=== PATIENT | female | born 1950 | race Caucasian/White ===

== ENCOUNTER 2019-12-17 16:12 | Outpatient (REF) | payer OTHER, SELFPAY | END 2019-12-17 16:13 | disposition home or self-care (01) | LOC: HO.LAB 16:12 | PROVIDERS: Visit Provider Internal Medicine | DX: Z20.828 Contact with and (suspected) exposure to other viral communicable diseases (principal) | CPT/HCPCS: C9803; U0003 ==

== ENCOUNTER 2020-07-17 11:00 | Outpatient (REF) | payer OTHER, SELFPAY ==
[2020-07-17 11:45] LABS: MANUAL DIFF FLAG NO
[2020-07-17 11:50] LABS: Basophils Percent Auto 0.3 % (0-2); Eosinophils Absolute Auto 0.3 X10*3/uL (0.0-0.4); Eosinophils Percent Auto 4.3 % (0-4); Hemoglobin 9.6 g/dl (12.0-16.0); Imm Gran Abs Auto 0.03 X10*3/uL (0.00-0.03); Imm Gran Pct Auto 0.4 % (0.0-0.4); Immature Retic Fraction 12.1 % (3.0-15.9); Lymphocytes Absolute Auto 1.3 X10*3/uL (1.2-4.9); Lymphocytes Percent Auto 18.6 % (20-40); Mean Corpuscular Hemoglobin 28.8 pg (27.0-33.0); Mean Corpuscular Volume 93.1 fL (80-98); Mean Platelet Volume 11.4 fL (9.4-12.3); Monocytes Absolute Auto 0.4 X10*3/uL (0.1-1.2); Monocytes Percent Auto 5.2 % (2-11); Neutrophils Absolute Auto 4.8 X10*3/uL (2.0-8.3); Neutrophils Percent Auto 71.2 % (45-73); Platelet Count 289 X10*3/uL (160-400); Red Blood Count 3.33 X10*6/uL (4.20-5.50); Red Cell Distribution Width 18.1 % (11.0-16.0); Retic HGB Equivalent 32.1 pg (30.0-35.0); Reticulocyte Percent 1.4 % (0.5-1.8); Reticulocytes Absolute 0.046 X10*6/uL (0.026-0.095); White Blood Count 6.7 X10*3/uL (4.8-10.8)
[2020-07-17 12:34] LABS: Ferritin 438 ng/mL (10-250); Free T4 (Free Thyroxine) 1.02 ng/dL (0.71-1.85); Thyroid Stimulating Hormone 2.24 uIU/mL (0.32-4.0); Vitamin D 25-OH Total 9.4 ng/mL (>30)
[2020-07-17 13:03] LABS: Folate > 20.0 ng/mL (> or = 4.0); Vitamin B12 598 pg/mL (200-900)
[2020-07-17 14:00] LABS: Alanine Aminotransferase 34 U/L (0-31); Albumin Level 3.5 g/dL (3.5-5.0); Alkaline Phosphatase 85 U/L (39-117); Anion Gap 13 (12-20); Aspartate Amino Transferase 63 U/L (5-31); Bilirubin Total 0.4 mg/dL (0.0-1.0); Blood Urea Nitrogen 24 mg/dL (9-16); Calcium 6.7 mg/dL (8.4-10.2); Carbon Dioxide 21 mmol/L (22-29); Chloride 115 mmol/L (96-108); Cholesterol 169 mg/dL; Estimated Glomerular Filt Rate 22; Glucose Random 91 mg/dL (60-115); HDL Cholesterol 41 mg/dL; Iron 95 mcg/dL (30-160); LDL Cholesterol Calculated 90 mg/dl; Magnesium < 0.6 mg/dL (1.6-2.6); Percent Iron Saturation 29 % (15-50); Potassium 5.1 mmol/L (3.3-5.1); Sodium 144 mmol/L (135-145); Total Iron Binding Capacity 327 mcg/dL (228-428); Total Protein 6.4 g/dL (6.5-8.0); Triglycerides 191 mg/dL; Unsaturated Iron Binding 232 ug/dL
== END 2020-07-17 11:01 | disposition home or self-care (01) ==
LOC: HO.LAB 11:00
PROVIDERS: PCP Internal Medicine; Visit Provider Internal Medicine
DX: I10 Essential (primary) hypertension (principal); E78.00 Pure hypercholesterolemia, unspecified; E03.9 Hypothyroidism, unspecified
CPT/HCPCS: 36415; 80053; 80061; 82306; 82607; 82728; 82746; 83540; 83735; 84439; 84443; 85025; 85045

== ENCOUNTER 2020-11-27 08:18 | Outpatient (REF) | payer OTHER, SELFPAY ==
--- NOTE | ~2020-11-27 | MM_ITS ---
EXAMINATION: MM SCREENING DIGITAL BREAST TOMOSYNTHESIS, BILATERAL CLINICAL INFORMATION: Screening. Asymptomatic. The lifetime risk of breast cancer based on the Tyrer-Cuzick Model is 7%. COMPARISON: Mammography: 08/08/2019, 06/15/2018, 06/09/2017 TECHNIQUE: Digital breast tomosynthesis is performed in both the craniocaudal and mediolateral oblique views along with computer-aided detection (CAD). Synthesized 2D images are generated from the tomosynthesis. Additional left CC view is provided. FINDINGS: There are scattered areas of fibroglandular density (ACR BI-RADS breast composition Category b). The right breast is unremarkable. There is no interval mass or architectural abnormality. No developing density. Neither breast shows abnormal calcifications. The bilateral axilla and skin contours are unremarkable. The left breast has small oval focal asymmetric density posterior 10:30 o'clock position. Margins are indistinct. The finding resides in area of prior benign oil cyst which is no longer appreciated. Finding may represent fat necrosis, sequela from prior injury. MM/MM tomosynthesis screening BI IMPRESSION: 1. Left: Focal asymmetric density posterior 10:30 o'clock position in area of prior benign oil cyst. 2. Right: No mammographic evidence of malignancy. ASSESSMENT: BI-RADS 0: Incomplete - Need Additional Imaging Evaluation RECOMMENDATION: 1. Additional views of the left breast (spot CC, spot MLO). 2. Targeted ultrasound if warranted after review of the additional views. 3. Radiology department staff will contact the patient for additional imaging. This patient's information was entered into a reminder system with a target due date for their next mammogram.
== END 2020-11-27 08:19 | disposition home or self-care (01) ==
LOC: HO.MAMMO 08:18
PROVIDERS: PCP Internal Medicine; Visit Provider Internal Medicine
DX: Z12.31 Encounter for screening mammogram for malignant neoplasm of breast (principal)
CPT/HCPCS: 77063; 77067

== ENCOUNTER 2020-12-03 08:03 | Outpatient (REF) | payer OTHER, SELFPAY ==
--- NOTE | ~2020-12-03 | MM_ITS ---
EXAMINATION: MM DIAGNOSTIC DIGITAL BREAST TOMOSYNTHESIS, LEFT US DIAGNOSTIC ULTRASOUND BREAST, LEFT CLINICAL INFORMATION: Recall from screening for focal asymmetric density posterior 10:30 o'clock position in area of prior benign oil cyst. Age 70. Family history breast cancer, sister. TC score 7%. COMPARISON: Mammography: 11/27/2020, 08/08/2019, 06/15/2018, 06/09/2017 TECHNIQUE: Digital breast tomosynthesis is performed. 2D images are generated from the tomosynthesis. The following views are obtained: Spot CC, spot MLO. Images also reviewed intradepartmentaly. Ultrasound left breast is targeted to the upper inner quadrant. Grayscale imaging and color Doppler are performed without and with harmonics. FINDINGS: There are scattered areas of fibroglandular density (ACR BI-RADS breast composition Category b). The additional views show a small focal asymmetric density in area of prior incidental benign oil cyst. The oil cyst is no longer demonstrated. The current finding is of similar size. Ultrasound demonstrates subtle smooth benign-appearing hypoechoic nodule just beneath the skin 10:00 position 10 cm from nipple measuring 5 x 6 mm. No increased or decreased through transmission of sound. Results are discussed with the patient at time of visit. The finding is most likely related to fat necrosis. Patient does not recall specific significant trauma to this area in the past. Management options discussed with patient. Short interval follow-up left mammography will be requested, ultrasound if warranted. MM/MM tomosynthesis added views L IMPRESSION: New asymmetric density placing small oil cyst at same site. Small ultrasound correlate with smooth margins. Findings likely related to fat necrosis. ASSESSMENT: BI-RADS 3: Probably Benign RECOMMENDATION: Diagnostic left mammography in 6 months. This patient's information was entered into a reminder system with a target due date for their next mammogram.
== END 2020-12-03 08:04 | disposition home or self-care (01) ==
LOC: HO.MAMMO 08:03
PROVIDERS: PCP Internal Medicine; Visit Provider Internal Medicine
DX: R92.2 Inconclusive mammogram (principal)
CPT/HCPCS: 76642; 77061; 77065

== ENCOUNTER 2021-06-03 13:49 | Outpatient (REF) | payer OTHER, SELFPAY ==
--- NOTE | ~2021-06-03 | MM_ITS ---
EXAMINATION: MM DIAGNOSTIC DIGITAL BREAST TOMOSYNTHESIS, LEFT CLINICAL INFORMATION: Short interval six-month follow-up probable benign focal asymmetric density posterior 10:30 o'clock position, suspected fat necrosis. The lifetime risk of breast cancer based on the Tyrer-Cuzick Model is 4%. COMPARISON: Mammography: 12/03/2020, 11/27/2020 (BI-RADS 0), 08/08/2019, 06/15/2018; targeted left breast ultrasound 12/03/2020. TECHNIQUE: Digital breast tomosynthesis is performed in both the craniocaudal and mediolateral oblique views along with computer-aided detection (CAD). Synthesized 2D images are generated from the tomosynthesis. FINDINGS: There are scattered areas of fibroglandular density (ACR BI-RADS breast composition Category b). The small focal asymmetric density posterior 10:30 o'clock left breast is decreased in size and conspicuity from prior exam. The finding resides in an area of a prior oil cyst noted on left CC view 2019. The oil cyst is no longer present suggesting conversion to focal fat necrosis. There is no interval suspicious changes left breast from prior exam. No abnormal calcifications. The skin contours are smooth. No coarsening Jovany's ligaments. Results are provided to the patient at time of visit by the technologist. MM/MM tomosynthesis diagnostic LT IMPRESSION: Suspected focus of fat necrosis posterior 10:30 o'clock left breast is decreased in size and conspicuity from prior exam. Finding will be reassessed again in 6 months at time of annual bilateral mammography. ASSESSMENT: BI-RADS 3: Probably Benign RECOMMENDATION: Diagnostic mammography at time of bilateral annual mammography, due in 6 months. This patient's information was entered into a reminder system with a target due date for their next mammogram.
== END 2021-06-03 13:50 | disposition home or self-care (01) ==
LOC: HO.MAMMO 13:49
PROVIDERS: Visit Provider Internal Medicine
DX: R92.2 Inconclusive mammogram (principal)
CPT/HCPCS: 77061; 77065

== ENCOUNTER 2021-06-10 10:38 | Outpatient (REF) | payer OTHER, SELFPAY ==
--- NOTE | ~2021-06-10 | MM_ITS ---
EXAMINATION: BONE DENSITOMETRY CLINICAL INDICATION: Osteoporosis. COMPARISON: Previous BD dated 06/15/2018 and baseline BD dated 05/24/2013. TECHNIQUE: Using a [employer] DXA System (software version: 13.1) manufactured by [employer], dual-energy x-ray absorptiometry was performed of the lumbar spine and left hip. The images are of good technical quality. Summary results are attached. FINDINGS: AP SPINE L1-L4: Current: BMD 0.800 g/cm2, Z-score -1.0, T-score -3.2, osteoporosis, 21.9% decrease from previous, 22.5% decrease from baseline (<5% change is not significant). Prior: BMD 1.024 g/cm2. Baseline: BMD 1.032 g/cm2. LEFT FEMUR, NECK: Current: BMD 0.801 g/cm2, Z-score 0.4, T-score -1.7, osteopenia. Prior: BMD 0.885 g/cm2. Baseline: BMD 0.939 g/cm2. LEFT FEMUR, TOTAL: Current: BMD 0.754 g/cm2, Z-score -0.1, T-score -2.0, osteopenia, 8.2% decrease from previous, 16.0% decrease from baseline (<5% change is not significant). Prior: BMD 0.821 g/cm2. Baseline: BMD 0.898 g/cm2. IDENTIFIED RISK FACTORS: Early menopause, secondary osteoporosis, height loss, hysterectomy, bilateral oophorectomy. HISTORY OF FRACTURE: None listed. MEDICATIONS: Calcium supplements or multivitamin, vitamin D. MM/XR DEXA axial skeleton IMPRESSION: 1. DIAGNOSIS: Osteoporosis based on the lowest T-score value of -3.2 in the lumbar spine applying World Health Organization criteria. 2. 10-YEAR FRACTURE RISK PREDICTION, FRAX: According to the guidelines, FRAX calculation should only be performed on patients in the osteopenia bone density category. Therefore, FRAX was not performed on this patient. 3. Treatment Recommendations: NOF guidelines recommend consideration for treatment in postmenopausal women and men age 50 and older presenting with the following: -A hip or vertebral (clinical or morphometric) fracture. -T-score less than or equal to -2.5 at the femoral neck or spine after appropriate evaluation to exclude secondary causes. -Low bone mass at the hip or spine and a 10-year fracture probability by FRAX of greater than or equal to 3% for hip fracture or greater than or equal to 20% for major osteoporotic fracture based on the [place] adapted WHO algorithm. 4. Other Recommendations: All treatment decisions require clinical judgment and consideration of individual patient factors, including patient preferences, comorbidities, previous drug use, risk factors not captured in the FRAX model (e.g. frailty, falls, vitamin D deficiency, increased bone turnover, interval significant decline in bone density) and possible under or overestimation of fracture risk by FRAX. Additional medical evaluation for secondary cause of low bone mineral density may be appropriate. FUTURE SCAN RECOMMENDATION: People with diagnosed cases of osteoporosis or at high risk for fracture should have regular bone mineral density tests. For patients eligible for Medicare, routine testing is allowed once every 2 years. The testing frequency can be increased to one year for patients who have rapidly progressing disease, those who are receiving or discontinuing medical therapy to restore bone mass, or have additional risk factors.
== END 2021-06-10 10:39 | disposition home or self-care (01) ==
LOC: HO.MAMMO 10:38
PROVIDERS: Visit Provider Obstetrics & Gynecology Gynecology
DX: Z13.820 Encounter for screening for osteoporosis (principal); M81.0 Age-related osteoporosis without current pathological fracture; Z78.0 Asymptomatic menopausal state
CPT/HCPCS: 77080

== ENCOUNTER 2021-07-01 11:44 | Outpatient (REF) | payer OTHER, SELFPAY ==
[2021-07-01 14:17] LABS: Alanine Aminotransferase 20 U/L (0-31); Albumin Level 4.1 g/dL (3.5-5.0); Alkaline Phosphatase 166 U/L (39-117); Anion Gap 12 (12-20); Aspartate Amino Transferase 34 U/L (5-31); Bilirubin Total 0.3 mg/dL (0.0-1.0); Blood Urea Nitrogen 27 mg/dL (9-16); Calcium 9.3 mg/dL (8.4-10.2); Carbon Dioxide 22 mmol/L (22-29); Chloride 112 mmol/L (96-108); Estimated Glomerular Filt Rate 19; Glucose Fasting 94 mg/dL (60-99); Potassium 5.3 mmol/L (3.3-5.1); Sodium 141 mmol/L (135-145); Total Protein 7.7 g/dL (6.5-8.0)
[2021-07-01 14:39] LABS: Thyroid Stimulating Hormone 2.48 uIU/mL (0.32-4.0); Vitamin D 25-OH Total 11.9 ng/mL (>30)
[2021-07-02 14:21] LABS: Calcium (PTHI) 9.4 mg/dL (8.6-10.4); PTHI 79 pg/mL (16-77)
== END 2021-07-01 11:45 | disposition home or self-care (01) ==
LOC: HO.HMGCLDS 11:44
PROVIDERS: Absent Provider Obstetrics & Gynecology Gynecology; PCP Internal Medicine; Visit Provider Internal Medicine
DX: M85.9 Disorder of bone density and structure, unspecified (principal)
CPT/HCPCS: 36415; 80053; 82306; 83970; 84443

== ENCOUNTER 2021-10-26 08:52 | Outpatient (REF) | payer OTHER, SELFPAY ==
[2021-10-26 09:21] LABS: MANUAL DIFF FLAG NO
[2021-10-26 09:38] LABS: Basophils Percent Auto 0.4 % (0-2); Eosinophils Absolute Auto 0.3 X10*3/uL (0.0-0.4); Hematocrit 35.1 % (37.0-47.0); Hemoglobin 10.9 g/dl (12.0-16.0); Imm Gran Abs Auto 0.08 X10*3/uL (0.00-0.03); Immature Retic Fraction 18.3 % (3.0-15.9); Lymphocytes Absolute Auto 1.2 X10*3/uL (1.2-4.9); Lymphocytes Percent Auto 14.3 % (20-40); Mean Corpuscular HGB Conc 31.1 g/dl (31.0-35.0); Mean Corpuscular Hemoglobin 29.9 pg (27.0-33.0); Mean Corpuscular Volume 96.4 fL (80.0-98.0); Mean Platelet Volume 11.7 fL (9.4-12.3); Monocytes Absolute Auto 0.6 X10*3/uL (0.1-1.2); Neutrophils Absolute Auto 6.2 x10*3/uL (2.0-8.3); Neutrophils Percent Auto 74.3 % (45-73); Platelet Count 258 X10*3/uL (160-400); Red Blood Count 3.64 X10*6/uL (4.20-5.50); Red Cell Distribution Width 14.9 % (11.0-16.0); Retic HGB Equivalent 33.1 pg (30.0-35.0); Reticulocyte Percent 2.4 % (0.5-1.8); Reticulocytes Absolute 0.088 X10*6/uL (0.026-0.095); White Blood Count 8.3 X10*3/uL (4.8-10.8)
[2021-10-26 09:50] LABS: Estimated Average Glucose 91 mg/dL; Hemoglobin A1C 84.0303 umol/L; Hemoglobin A1c % 4.8 %
[2021-10-26 10:11] LABS: Alanine Aminotransferase 22 U/L (0-31); Albumin Level 3.9 g/dL (3.5-5.0); Alkaline Phosphatase 157 U/L (39-117); Anion Gap 14 (12-20); Aspartate Amino Transferase 35 U/L (5-31); Bilirubin Total 0.4 mg/dL (0.0-1.0); Blood Urea Nitrogen 34 mg/dL (9-16); Calcium 9.3 mg/dL (8.4-10.2); Carbon Dioxide 18 mmol/L (22-29); Chloride 115 mmol/L (96-108); Cholesterol 118 mg/dL; Estimated Glomerular Filt Rate 17; Glucose Random 95 mg/dL (60-115); HDL Cholesterol 43 mg/dL; Iron 71 mcg/dL (30-160); LDL Cholesterol Calculated 53 mg/dl; Magnesium 1.6 mg/dL (1.6-2.6); Percent Iron Saturation 18 % (15-50); Phosphorus 3.3 mg/dL (2.7-4.5); Potassium 4.8 mmol/L (3.3-5.1); Sodium 142 mmol/L (135-145); Total Iron Binding Capacity 390 mcg/dL (228-428); Triglycerides 110 mg/dL; Unsaturated Iron Binding 319 ug/dL
[2021-10-26 10:24] LABS: Ferritin 217 ng/mL (10-250); Free T4 (Free Thyroxine) 1.02 ng/dL (0.71-1.85); Thyroid Stimulating Hormone 7.98 uIU/mL (0.32-4.0); Vitamin D 25-OH Total 14.6 ng/mL (>30)
[2021-10-26 10:26] LABS: Vitamin D 25-OH Total 14.2 ng/mL (>30)
[2021-10-26 10:40] LABS: Folate > 20.0 ng/mL (> or = 4.0); Vitamin B12 850 pg/mL (200-900)
[2021-10-27 11:46] LABS: PTHI 65 pg/mL (16-77)
== END 2021-10-26 08:53 | disposition home or self-care (01) ==
LOC: HO.LAB 08:52
PROVIDERS: Absent Provider Obstetrics & Gynecology Gynecology; PCP Internal Medicine; Visit Provider Internal Medicine
DX: E78.00 Pure hypercholesterolemia, unspecified (principal); E83.42 Hypomagnesemia; E55.9 Vitamin D deficiency, unspecified
CPT/HCPCS: 36415; 80053; 80061; 82306; 82607; 82728; 82746; 83036; 83540; 83735; 83970; 84100; 84439; 84443; 85025; 85045

== ENCOUNTER 2021-11-18 10:24 | Outpatient (REF) | payer OTHER, SELFPAY ==
--- NOTE | ~2021-11-18 | MM_ITS ---
EXAMINATION: MM DIAGNOSTIC DIGITAL BREAST TOMOSYNTHESIS, BILATERAL CLINICAL INFORMATION: Due for yearly. Follow-up probable benign area of decreasing fat necrosis posterior 10:30 left breast. Family history breast cancer, sister. TC score 4%. COMPARISON: Mammography: 06/03/2021, 12/03/2020, 11/27/2020 (BI-RADS 0) 08/08/2019, 06/15/2018. TECHNIQUE: Digital breast tomosynthesis is performed in both the craniocaudal and mediolateral oblique views along with computer-aided detection (CAD). Synthesized 2D images are generated from the tomosynthesis. FINDINGS: There are scattered areas of fibroglandular density (ACR BI-RADS breast composition Category b). The small focal asymmetric density posterior 10:30 left breast continues to show regression since prior exam and is now barely perceptible. An incidental oil cyst in this vicinity on prior mammography 08/08/2019 is no longer demonstrated. Finding will be reassessed again at time of annual bilateral mammography, due in one year. Neither breast shows interval mass or architectural abnormality or developing density. No abnormal calcifications. The axilla and skin contours are unremarkable. No skin thickening or coarsening of the Jovany's ligaments. Results are provided to the patient at time of visit by the technologist. MM/MM tomosynthesis diagnostic BI IMPRESSION: -The suspected small focus fat necrosis posterior upper inner left breast shows continued regression from prior imaging. -No mammographic evidence of malignancy. ASSESSMENT: BI-RADS 3: Probably Benign RECOMMENDATION: Diagnostic mammography at time of next annual exam, due in 12 months. This patient's information was entered into a reminder system with a target due date for their next mammogram.
== END 2021-11-18 10:25 | disposition home or self-care (01) ==
LOC: HO.MAMMO 10:24
PROVIDERS: PCP Internal Medicine; Visit Provider Internal Medicine
DX: R92.2 Inconclusive mammogram (principal)
CPT/HCPCS: 77062; 77066

== ENCOUNTER 2021-12-22 13:44 | Outpatient (REF) | payer OTHER, SELFPAY ==
[2021-12-22 15:39] LABS: Anion Gap 14 (12-20); Blood Urea Nitrogen 30 mg/dL (9-16); Calcium 9.1 mg/dL (8.4-10.2); Carbon Dioxide 20 mmol/L (22-29); Chloride 111 mmol/L (96-108); Estimated Glomerular Filt Rate 19; Free T4 (Free Thyroxine) 0.99 ng/dL (0.71-1.85); Glucose Random 100 mg/dL (60-115); Potassium 5.4 mmol/L (3.3-5.1); Sodium 140 mmol/L (135-145); Thyroid Stimulating Hormone 3.83 uIU/mL (0.32-4.0)
== END 2021-12-22 13:45 | disposition home or self-care (01) ==
LOC: HO.LAB 13:44
PROVIDERS: PCP Internal Medicine; Visit Provider Internal Medicine
DX: E03.9 Hypothyroidism, unspecified (principal); N18.4 Chronic kidney disease, stage 4 (severe)
CPT/HCPCS: 36415; 80048; 84439; 84443

== ENCOUNTER 2022-08-01 10:36 | Outpatient (REF) | payer OTHER, SELFPAY ==
[2022-08-01 10:52] LABS: MANUAL DIFF FLAG NO
[2022-08-01 11:42] LABS: Basophils Percent Auto 0.3 % (0-2); Eosinophils Absolute Auto 0.1 X10*3/uL (0.0-0.4); Eosinophils Percent Auto 1.3 % (0-4); Hemoglobin 10.3 g/dl (12.0-16.0); Imm Gran Abs Auto 0.06 X10*3/uL (0.00-0.03); Imm Gran Pct Auto 0.8 % (0.0-0.4); Immature Retic Fraction 15.5 % (3.0-15.9); Lymphocytes Absolute Auto 1.2 X10*3/uL (1.2-4.9); Lymphocytes Percent Auto 16.2 % (20-40); Mean Corpuscular HGB Conc 31.2 g/dl (31.0-35.0); Mean Corpuscular Hemoglobin 29.3 pg (27.0-33.0); Mean Platelet Volume 11.7 fL (9.4-12.3); Monocytes Absolute Auto 0.5 X10*3/uL (0.1-1.2); Neutrophils Absolute Auto 5.6 x10*3/uL (2.0-8.3); Neutrophils Percent Auto 74.4 % (45-73); Platelet Count 267 X10*3/uL (160-400); Red Blood Count 3.51 X10*6/uL (4.20-5.50); Retic HGB Equivalent 33.3 pg (30.0-35.0); Reticulocyte Percent 2.4 % (0.5-1.8); Reticulocytes Absolute 0.084 X10*6/uL (0.026-0.095); White Blood Count 7.6 X10*3/uL (4.8-10.8)
[2022-08-01 12:34] LABS: Appearance Urine Turbid; Color Urine Yellow; Glucose Urine UA Negative (Negative); Leukocyte Esterase Urine Large (3+) (Negative); Nitrite Urine Negative (Negative); PH 6.5 (5.0-9.0); UMIC TRIGGER UA YES; Urine Blood Moderate (2+) (Negative); Urine Ketones Negative (Negative); Urine Protein 300 (3+) mg/dL (Neg-Trace)
[2022-08-01 12:54] LABS: Bacteria Urine 4+ (None Seen); Squamous Epithelial Cell Urine >20 /HPF (0-2); WBC Urine >50 /HPF (0-5)
[2022-08-01 13:00] LABS: Alanine Aminotransferase 33 U/L (0-31); Albumin Level 3.9 g/dL (3.5-5.0); Alkaline Phosphatase 88 U/L (39-117); Anion Gap 10 (12-20); Aspartate Amino Transferase 37 U/L (5-31); Bilirubin Total 0.6 mg/dL (0.0-1.0); Blood Urea Nitrogen 37 mg/dL (9-16); Calcium 9.4 mg/dL (8.4-10.2); Carbon Dioxide 16 mmol/L (22-29); Chloride 117 mmol/L (96-108); Cholesterol 104 mg/dL; Estimated Glomerular Filt Rate 17; Glucose Random 99 mg/dL (60-115); HDL Cholesterol 45 mg/dL; Iron 78 mcg/dL (30-160); LDL Cholesterol Calculated 44 mg/dl; Magnesium 1.7 mg/dL (1.6-2.6); Percent Iron Saturation 24 % (15-50); Potassium 3.7 mmol/L (3.3-5.1); Sodium 139 mmol/L (135-145); Total Iron Binding Capacity 331 mcg/dL (228-428); Total Protein 7.4 g/dL (6.5-8.0); Triglycerides 78 mg/dL; Unsaturated Iron Binding 253 ug/dL; Uric Acid 6.9 mg/dL (2.4-5.7)
[2022-08-01 13:20] LABS: Ferritin 271 ng/mL (10-250); Free T4 (Free Thyroxine) 0.91 ng/dL (0.71-1.85); Thyroid Stimulating Hormone 3.22 uIU/mL (0.32-4.0); Vitamin D 25-OH Total 18.5 ng/mL (>30)
[2022-08-01 13:47] LABS: Vitamin B12 > 2000 pg/mL (200-900)
== END 2022-08-01 10:37 | disposition home or self-care (01) ==
LOC: HO.LAB 10:36
PROVIDERS: PCP Internal Medicine; Visit Provider Internal Medicine
DX: E83.42 Hypomagnesemia (principal); E78.00 Pure hypercholesterolemia, unspecified; K22.70 Barrett's esophagus without dysplasia; E03.9 Hypothyroidism, unspecified; M81.0 Age-related osteoporosis without current pathological fracture; D64.9 Anemia, unspecified
CPT/HCPCS: 36415; 80053; 80061; 81001; 82306; 82607; 82728; 82746; 83540; 83735; 84439; 84443; 84550; 85025; 85045

== ENCOUNTER 2022-11-08 12:48 | Outpatient (REF) | payer OTHER, SELFPAY ==
--- NOTE | ~2022-11-08 | MM_ITS ---
EXAMINATION: MM DIAGNOSTIC DIGITAL BREAST TOMOSYNTHESIS, BILATERAL CLINICAL INFORMATION: 1 year follow up suspected focus of fat necrosis posterior right breast upper inner quadrant. Patient also due for bilateral screening. COMPARISON: Mammography: 11/18/2021, 06/03/2021, and dating back to 2016. TECHNIQUE: Digital breast tomosynthesis is performed in both the craniocaudal and mediolateral oblique views along with computer-aided detection (CAD). Synthesized 2D images are generated from the tomosynthesis. FINDINGS: There are scattered areas of fibroglandular density (ACR BI-RADS breast composition Category b). There is a chest port in the right axillary region. The previously questioned focus of fat necrosis in the posterior left breast, upper inner quadrant, is no longer evident and has completely resolved on today's examination. There are a few scattered benign oil cysts and dystrophic calcifications without significant change. There are no suspicious masses, suspicious grouped calcifications, or areas of architectural distortion in either breast. The parenchymal pattern is stable from prior exams. MM/MM tomosynthesis diagnostic BI IMPRESSION: There are no findings suspicious for malignancy in either breast. Stable benign findings in both breasts. Right breast posterior upper inner quadrant focus of suspected fat necrosis has completely resolved. Recommend the patient resume routine annual screening. ASSESSMENT: BI-RADS BI-RADS 2 - Benign Findings RECOMMENDATION: 1 year F/U Results were provided to the patient at time of visit by the technologist. This patient's information was entered into a reminder system with a target due date for their next mammogram.
== END 2022-11-08 12:49 | disposition home or self-care (01) ==
LOC: HO.MAMMO 12:48
PROVIDERS: PCP Internal Medicine; Visit Provider Internal Medicine
DX: R92.2 Inconclusive mammogram (principal)
CPT/HCPCS: 77062; 77066

== ENCOUNTER → 2022-11-08 13:00 | Outpatient (BNV) | payer OTHER, SELFPAY | PROVIDERS: PCP Internal Medicine; Visit Provider Radiology Diagnostic Radiology | DX: N60.09 Solitary cyst of unspecified breast (principal); R92.1 Mammographic calcification found on diagnostic imaging of breast; R92.323 Mammographic fibroglandular density, bilateral breasts | CPT/HCPCS: 77062; 77066 ==

== ENCOUNTER 2022-11-15 09:19 | Outpatient (AMB) | payer OTHER, SELFPAY ==
[2022-11-15 09:23] VITALS: BP 136/80; PULSE 70; O2SAT 98; BMI 23.4
--- NOTE | 2022-11-15 09:23 | MHC.PC.OV ---
Vital Signs 11/15/22:23 Height 5 ft Weight 120 lb BMI 23.4 BP 136/80 Blood Pressure Location Lt brachial Position Sitting Pulse 70 Pulse Source Pulse Oximeter Pulse Oximetry (%) 98 Oxygen Delivery Method Room Air Intake Visit Reasons: ckd Allergies ciprofloxacin Allergy (Intermediate, Verified 11/15/22:24) body ache diazepam Allergy (Unknown, Verified 11/15/22:24) shortness of breath fentanyl [FENTANYL] Allergy (Unknown, Verified 11/15/22:24) VIOLENT SHAKING, TACHYCARDIA, seizure hydromorphone [HYDROMORPHONE] Adverse Reaction (Severe, Verified 11/15/22:24) UNCONTROLLED SHAKING, ELEVATED HEART RATE oxycodone [From PERCOCET] Adverse Reaction (Severe, Verified 11/15/22) Vomiting egg [EGGS] Adverse Reaction (Intermediate, Verified 11/15/22) Diarrhea codeine [CODEINE] Adverse Reaction (Unknown, Verified 11/15/22:) Vomiting meperidine [Demerol] Adverse Reaction (Unknown, Verified 11/15/22) Nausea and Vomiting Tobacco use date assessed: 02/25/22 Fall risk assessment: No Falls in past year Last assessed Fall Risk: 11/15/22 Dental Screening Dental Screen Date: 11/15/22 Did you have a dental visit in the last 12 months?: Yes Did you have a dental problem in the last 6 months where you did not have access to dental care?: No Was dental information given to patient?: Patient has dentist HPI ckd HPI Details 72-year-old female with multiple medical problems hypertension Toure's esophagus hypothyroidism GERD hypercholesterolemia history of rectal cancer chronic kidney disease happen magnesemia in generalized anxiety disorder coming in for follow-up. Patient was last seen in July 2022. Mammogram is up-to-date August 2021 last colonoscopy and bone density is up-to-date. Patient follows up with Gynecology October 2022 for the history of endometrial and colorectal cancer status post posterior exenteration with bleeding no evidence of recurrence states bleeding is most likely from the bladder.. Patient was last seen by the Urology June 2022 with a history of hydronephrosis managed with bilateral percutaneous nephrostomy tubes exchange April 2022. Patient also follows up with hematology oncology CEA remains normal no evidence of malignancy for the diarrhea on Imodium. biopsy planned of the urinary bladder. potassium very high- admitted 12 hours. has the magnesium infusion Q week. [facility] Medical History Anxiety and depression Toure's esophagus Breast cancer screening by mammogram Enterovesical fistula Fatty liver GERD (gastroesophageal reflux disease) Hypercholesterolemia Hypertension Hypothyroid Migraine Renal calculus Small bowel obstruction Uterine cancer Vitamin B12 deficiency Vitamin D deficiency Surgical History History of laparotomy S/P [id number] History of radical hysterectomy Family History Family/Other Mental health disorder Social History Housing: Condominium Alcohol intake: current Alcohol intake frequency: holidays/special occasions only Alcohol type: wine Patient Tobacco Use Status: Never used Tobacco e-Cigarette/Vaping Use: Never Used Second Hand Smoke Exposure: Yes service: No Current occupational status: retired Cognitive needs: No Hearing needs: No Vision needs: Yes Questionnaire PHQ-9 Over the last 2 weeks, how often have you been bothered by any of the following problems? 1. Little interest or pleasure in doing things: not at all 2. Feeling down, depressed, or hopeless: not at all 3. Trouble falling or staying asleep, or sleeping too much: not at all 4. Feeling tired or having little energy: not at all 5. Poor appetite or overeating: not at all 6. Feeling bad about yourself - or that you are a failure or have let yourself or your family down: not at all 7. Trouble concentrating on things, such as reading the newspaper or watching television: not at all 8. Moving or speaking so slowly that other people could have noticed. Or the opposite - being so fidgety or restless that you have been moving around a lot more than usual: not at all 9. Thoughts that you would be better off or of hurting yourself in some way: not at all Total score: 0 Depression Screening Interpretation: Negative Depression Screening Done: Yes Source: Developed by Drs. Schuyler Nicole, Roseanne Felix, Stef Villatoro and colleagues, with an educational tao from [employer]. Thrive Questionnaire Date Thrive assessed: 11/15/22 I am a: Patient What is your living situation today?: I have a steady place to live Within the past 12 months, did the food you bought not last and you didn't have the money to get more?: Never true Within the past 12 months, did you worry whether your food would run out before you got money to buy more?: Never true Do you have trouble paying for medicines?: No Do you have trouble getting transportation to medical appointments?: No Do you have trouble paying your heating and electricity bill?: No Do you have trouble taking care of your child, family member or friend?: No Do you have trouble with day-to-day activities such as bathing, preparing meals, shopping, managing finances, etc.?: No Are you currently unemployed and looking for a job?: No Are you interested in more education?: No Currently or been in a relationship where the following occur: no concerns reported AUDIT C Alcohol Use Questionnaire (AUDIT-C) 1. How often do you have a drink containing alcohol?: Monthly or less 2. How many drinks containing alcohol do you have on a typical day when you are drinking?: 1 or 2 3. How often do you have six or more drinks on one occasion?: Never Total Score: 1 KAROLINA-7 AMB Questionnaire KAROLINA-7 Date KAROLINA - 7 assessed: 02/25/22 Source: Developed by Drs. Schuyler Nicole, Roseanne Felix, Stef Villatoro and colleagues, with an educational tao from [employer]. Physical exam (Primary Care) Vital Signs: Last Vital Signs Pulse 70 11/15/22 09:23 BP 136/80 11/15/22 09:23 Pulse Ox 98 11/15/22 09:23 Oxygen Delivery Method Room Air 11/15/22 09:23 Next steps: 1 cm R neck back mass no changes 4 years BMI result Body Mass Index 23.4 Tobacco/Smoking Status: Tobacco use Status Tobacco use date assessed 02/25/22 11/15/22 09:30 Patient Tobacco Use Status Never used Tobacco 11/15/22 09:30 e-Cigarette/Vaping Use Never Used 11/15/22 09:30 PHQ-9: PHQ-9 Score PHQ-9: Total score 0 11/15/22 09:30 Depression Screening Interpretation: Negative Thrive Assessment: Date of Thrive Assessment Date Thrive assessed 11/15/22 11/15/22 09:30 Currently or been in a relationship where the following occur: no concerns reported Const General: alert; No acute distress Eyes Conjunctivae: conjunctivae normal Resp Auscultation: clear to auscultation bilaterally Cardio Rate: regular rate Rhythm: regular rhythm GI Inspection: Yes normal to inspection Extrem General: Yes normal to inspection and No edema Office Procedures Flu Questionnaire Does the patient have a severe egg allergy?: No Does the patient have severe life threatening allergies?: No Does the patient have a fever or illness today?: No Has the patient ever had Guillain-Rupert Syndrome?: No Has the patient ever had any past reaction to a flu shot?: No Immunizations flu vacc [id number] 6mos up(PF) 60 mcg(15 mcgx4)/0.5 mL IM syringe Performing Provider: Lenin Laird MD Performing Location: [facility] Administered by: Jasmin Carter CMA on 11/15/22 09:34 Dose Route Admin Location Dispensed Lot Number Expiration Date NDC Space Control Supervisor 0.5 mL IM Left Deltoid 0.5 mL [id number] 08/06/23 65940-175-52 [facility] VIS Given Date VIS Provided VIS Publication Date 11/15/22 Single Vaccine 20 Eligibility Eligibility Date Funding Source Not [facility] Eligible 11/15/22 Private Assessment and Plan Assessment & Plan (1) Chronic kidney disease, stage IV (severe): Code(s): N18.4 - Chronic kidney disease, stage 4 (severe) Plan: Continue to be monitored (2) Hypomagnesemia: Code(s): E83.42 - Hypomagnesemia Plan: Continue to have replacement done (3) Generalized anxiety disorder: Code(s): F41.1 - Generalized anxiety disorder Plan: Continue with therapy (4) Rectal cancer: Comment: February 2020 with fistula, open abdominoperineal resection with end colostomy pneumoperitoneum 06/2020 SB resection,takedown colostomy,mobilization splenic flexure Code(s): C20 - Malignant neoplasm of rectum Plan: Patient is being followed up by hematology oncology no evidence of disease (5) Uterine cancer: Comment: 1977 recurrence 1999 radiation Code(s): C55 - Malignant neoplasm of uterus, part unspecified Qualifiers: Malignant neoplasm of uterus location: unspecified site of uterus Qualified Code(s): C55 - Malignant neoplasm of uterus, part unspecified Plan: Patient is followed up by Oncology no evidence of disease (6) Hypercholesterolemia: Code(s): E78.00 - Pure hypercholesterolemia, unspecified Plan: Avoid fried foods, chicken skin, eggs, butter margarine, pastries and meat. Be it pork or beef they have a lot of cholesterol LDL goal of less than 130 and triglyceride of less than 150 patient on fenofibrate (7) Hypothyroid: Code(s): E03.9 - Hypothyroidism, unspecified Qualifiers: Hypothyroidism type: acquired Qualified Code(s): E03.9 - Hypothyroidism, unspecified (8) Toure's esophagus: Comment: Dr. Valdez September 2011 sigmoidoscopy June 2015 colonoscopy EGD August 2015 Code(s): K22.70 - Toure's esophagus without dysplasia Qualifiers: Toure's esophagus type: without dysplasia Qualified Code(s): K22.70 - Toure's esophagus without dysplasia Plan: Avoid the foods that causes that usually spicy foods, tomato products, juices, coffee, soda and foods that your sensitive to. After eating do not lie down, allow 3-4 hours before in lie down. And keep the head of bed above 30 degrees to avoid the acid from going up. (9) Hypertension: Code(s): I10 - Essential (primary) hypertension Qualifiers: Hypertension type: essential hypertension Qualified Code(s): I10 - Essential (primary) hypertension Orders: Orders Influenza [id number] Immunization Today Z23 - Encounter for immunization Coding Level of Care Code Est Pt Level 4 (20061) Diagnoses Chronic kidney disease, stage IV (severe) N18.4 Hypomagnesemia E83.42 Generalized anxiety disorder F41.1 Rectal cancer C20 Malignant neoplasm of uterus, unspecified site C55 Malignant neoplasm of uterus location: unspecified site of uterus Hypercholesterolemia E78.00 Acquired hypothyroidism E03.9 Hypothyroidism type: acquired Toure's esophagus without dysplasia K22.70 Toure's esophagus type: without dysplasia Essential hypertension I10 Hypertension type: essential hypertension Additional Codes PHQ-9 - 96154 - PHQ-9 Billing: ([id number])
== END 2022-11-15 10:13 | disposition home or self-care (01) ==
PROVIDERS: PCP Internal Medicine; Visit Provider Internal Medicine
DX: I12.9 Hypertensive chronic kidney disease with stage 1 through stage 4 chronic kidney disease, or unspecified chronic kidney disease (principal); N18.4 Chronic kidney disease, stage 4 (severe); C20 Malignant neoplasm of rectum; C55 Malignant neoplasm of uterus, part unspecified; Z23 Encounter for immunization; E83.42 Hypomagnesemia; F41.1 Generalized anxiety disorder; E78.00 Pure hypercholesterolemia, unspecified; E03.9 Hypothyroidism, unspecified; K22.70 Barrett's esophagus without dysplasia
CPT/HCPCS: 90471; 90686; 99214

== ENCOUNTER 2023-02-24 09:14 | Outpatient (AMB) | payer OTHER, SELFPAY ==
--- NOTE | 2023-02-24 09:28 | MHC.PC.OV ---
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 Required: No Accompanied by: Self / Same As Patient Allergies ciprofloxacin Allergy (Intermediate, Verified 02/24/23 09:32) body ache diazepam Allergy (Unknown, Verified 02/24/23 09:32) shortness of breath fentanyl [FENTANYL] Allergy (Unknown, Verified 02/24/23 09:32) VIOLENT SHAKING, TACHYCARDIA, seizure hydromorphone [HYDROMORPHONE] Adverse Reaction (Severe, Verified 02/24/23 09:32) UNCONTROLLED SHAKING, ELEVATED HEART RATE oxycodone [From PERCOCET] Adverse Reaction (Severe, Verified 02/24/23 09:32) Vomiting egg [EGGS] Adverse Reaction (Intermediate, Verified 02/24/23 09:32) Diarrhea codeine [CODEINE] Adverse Reaction (Unknown, Verified 02/24/23 09:32) Vomiting meperidine [Demerol] Adverse Reaction (Unknown, Verified 02/24/23 09:32) Nausea and Vomiting Medication List - Last Reconciled 02/24/23 by Lenin Laird, alprazolam 0.25 mg PO DAILY PRN amitriptyline 10 mg PO BEDTIME amlodipine 10 mg PO DAILY 90 days cholecalciferol (vitamin D3) 1,250 mcg PO QWEEK citalopram (Celexa) 20 mg PO DAILY 90 days cyanocobalamin (vitamin B-12) 1,000 mcg subcut Q4W 90 days denosumab (Prolia) 60 mg subcut [id number] diphenoxylate-atropine 2.5-0.025 mg (Lomotil) 1 tab PO Q6-8H 90 days fenofibrate nanocrystallized 145 mg PO DAILY 90 days ferrous sulfate (Feosol) 325 mg PO BID levothyroxine 50 mcg PO QAM loperamide (Imodium A-D) 2 mg PO QID PRN magnesium chloride (Slow-Mag) 143 mg (2 x 71.5 mg) PO DAILY 30 days metoprolol succinate ER 100 mg PO DAILY 90 days omeprazole 20 mg PO DAILY sodium bicarbonate 1,300 mg PO BID sumatriptan succinate (Imitrex) 100 mg PO Q2-4H PRN syringe with needle, safety (BD Integra Syringe) 1 mL miscellaneous DIRECTED 30 days tramadol 50 mg PO BEDTIME Tobacco use date assessed: 02/24/23 Fall risk assessment: No Falls in past year Last assessed Fall Risk: 02/24/23 Dental Screening Dental Screen Date: 02/24/23 Did you have a dental visit in the last 12 months?: Yes Did you have a dental problem in the last 6 months where you did not have access to dental care?: No Was dental information given to patient?: Patient has dentist HPI cholesterol , chronic diarrhea, gerd HPI Details 72-year-old female with multiple medical problems. Barretts, hypothyroid hypercholesterolemia history of uterine cancer with rectal cancer generalized anxiety disorder chronic kidney disease chronic diarrhea coming in for follow-up. Last seen in November 2022 mammograms up-to-date colonoscopy August 2021. Review of the notes hematology oncology notes December 2022 had pelvic exenteration February 2020 FOLFOX april to May 2020 for the rectal cancer appears disease free diarrhea not well controlled despite Imodium hypo magnesemia requiring IV supplementation ER visit November 2022 hyperkalemia 6.1 treated for UTI also with Augmentin patient was given Lokelma. loosing hearing R ear only PFSH Medical History Anxiety and depression Toure's esophagus Breast cancer screening by mammogram Enterovesical fistula Fatty liver GERD (gastroesophageal reflux disease) Hypercholesterolemia Hypertension Hypothyroid Migraine Renal calculus Small bowel obstruction Uterine cancer Vitamin B12 deficiency Vitamin D deficiency Surgical History History of laparotomy S/P ASHWINI-BSO History of radical hysterectomy Family History Family/Other Mental health disorder Social History Housing: Condominium Alcohol intake: current Alcohol intake frequency: holidays/special occasions only Alcohol type: wine Patient Tobacco Use Status: Never used Tobacco e-Cigarette/Vaping Use: Never Used Second Hand Smoke Exposure: Yes service: No Current occupational status: retired Cognitive needs: No Hearing needs: No Vision needs: Yes Questionnaire PHQ-9 Over the last 2 weeks, how often have you been bothered by any of the following problems? 1. Little interest or pleasure in doing things: not at all 2. Feeling down, depressed, or hopeless: not at all 3. Trouble falling or staying asleep, or sleeping too much: not at all 4. Feeling tired or having little energy: not at all 5. Poor appetite or overeating: not at all 6. Feeling bad about yourself - or that you are a failure or have let yourself or your family down: not at all 7. Trouble concentrating on things, such as reading the newspaper or watching television: not at all 8. Moving or speaking so slowly that other people could have noticed. Or the opposite - being so fidgety or restless that you have been moving around a lot more than usual: not at all 9. Thoughts that you would be better off or of hurting yourself in some way: not at all Total score: 0 Depression Screening Interpretation: Negative Depression Screening Done: Yes 72805 - PHQ-9 Billing: Yes Source: Developed by Drs. Schuyler Nicole, Roseanne Felix, Stef Villatoro and colleagues, with an educational tao from [employer]. Thrive Questionnaire Date Thrive assessed: 02/24/23 I am a: Patient What is your living situation today?: I have a steady place to live Within the past 12 months, did the food you bought not last and you didn't have the money to get more?: Never true Within the past 12 months, did you worry whether your food would run out before you got money to buy more?: Never true Do you have trouble paying for medicines?: No Do you have trouble getting transportation to medical appointments?: No Do you have trouble paying your heating and electricity bill?: No Do you have trouble taking care of your child, family member or friend?: No Do you have trouble with day-to-day activities such as bathing, preparing meals, shopping, managing finances, etc.?: No Are you currently unemployed and looking for a job?: No Are you interested in more education?: No Currently or been in a relationship where the following occur: no concerns reported THRIVE Score: 0 AUDIT C Alcohol Use Questionnaire (AUDIT-C) 1. How often do you have a drink containing alcohol?: Monthly or less 2. How many drinks containing alcohol do you have on a typical day when you are drinking?: 1 or 2 3. How often do you have six or more drinks on one occasion?: Never Total Score: 1 KAROLINA-7 AMB Questionnaire KAROLINA-7 Date KAROLINA - 7 assessed: 02/24/23 Feeling nervous, anxious, or on edge: 0 = Not at all Not being able to stop or control worryin = Not at all Worrying too much about different things: 0 = Not at all Trouble relaxin = Not at all Being so restless that it is hard to sit still: 0 = Not at all Becoming easily annoyed or irritable: 0 = Not at all Feeling afraid as if something awful might happen: 0 = Not at all Total KAROLINA-7 score (0-4 normal; 5-9 mild; 10-14 moderate; 15-21 severe): 0 Source: Developed by Drs. Schuyler Nicole, Roseanne Felix, Stef Villatoro and colleagues, with an educational tao from [employer]. KAROLINA-7 Assessment Billing KAROLINA-7 Assessment Tool: KAROLINA-7 Assessment 45222 Physical exam (Primary Care) Vital Signs: Last Vital Signs Pulse 67 02/24/23 09:30 BP 136/80 02/24/23 09:30 Pulse Ox 95 02/24/23 09:30 Oxygen Delivery Method Room Air 02/24/23 09:30 BMI result Body Mass Index 24.6 Tobacco/Smoking Status: Tobacco use Status Tobacco use date assessed 02/24/23 02/24/23 09:35 Patient Tobacco Use Status Never used Tobacco 02/24/23 09:30 e-Cigarette/Vaping Use Never Used 02/24/23 09:30 PHQ-9: PHQ-9 Score PHQ-9: Total score 0 02/24/23 09:52 Depression Screening Interpretation: Negative Thrive Assessment: Date of Thrive Assessment Date Thrive assessed 02/24/23 02/24/23 09:35 Currently or been in a relationship where the following occur: no concerns reported Const General: alert; No acute distress Eyes Conjunctivae: conjunctivae normal Resp Auscultation: clear to auscultation bilaterally Cardio Rate: regular rate Rhythm: regular rhythm GI Inspection: Yes normal to inspection Extrem General: Yes normal to inspection and No edema Assessment and Plan Assessment & Plan (1) Chronic kidney disease, stage IV (severe): Code(s): N18.4 - Chronic kidney disease, stage 4 (severe) Plan: Continue to monitor andpatient follows up with Nephrology. Blood work pending (2) Hypertension: Code(s): I10 - Essential (primary) hypertension Qualifiers: Hypertension type: essential hypertension Qualified Code(s): I10 - Essential (primary) hypertension Plan: Blood pressure under control. On metoprolol 100 mg once a day amlodipine 10 mg once a day (3) Toure's esophagus: Comment: Dr. Valdez September 2011 sigmoidoscopy June 2015 colonoscopy EGD August 2015 Code(s): K22.70 - Toure's esophagus without dysplasia Qualifiers: Toure's esophagus type: without dysplasia Qualified Code(s): K22.70 - Toure's esophagus without dysplasia Plan: Avoid the foods that causes that usually spicy foods, tomato products, juices, coffee, soda and foods that your sensitive to. After eating do not lie down, allow 3-4 hours before in lie down. And keep the head of bed above 30 degrees to avoid the acid from going up. (4) Hypothyroid: Code(s): E03.9 - Hypothyroidism, unspecified Qualifiers: Hypothyroidism type: acquired Qualified Code(s): E03.9 - Hypothyroidism, unspecified Plan: Continue with thyroid medication (5) Hypercholesterolemia: Code(s): E78.00 - Pure hypercholesterolemia, unspecified Plan: Avoid fried foods, chicken skin, eggs, butter margarine, pastries and meat. Be it pork or beef they have a lot of cholesterol LDL goal of less than 130 and triglyceride of less than 150 fenofibrate 145 mg once a day (6) Uterine cancer: Comment: 1977 recurrence 1999 radiation Code(s): C55 - Malignant neoplasm of uterus, part unspecified Qualifiers: Malignant neoplasm of uterus location: unspecified site of uterus Qualified Code(s): C55 - Malignant neoplasm of uterus, part unspecified Plan: Continues to follow-up with Hematology-Oncology (7) Rectal cancer: Comment: February 2020 with fistula, open abdominoperineal resection with end colostomy pneumoperitoneum 06/2020 SB resection,takedown colostomy,mobilization splenic flexure Code(s): C20 - Malignant neoplasm of rectum Plan: Continue to follow-up with Hematology-Oncology (8) Generalized anxiety disorder: Code(s): F41.1 - Generalized anxiety disorder Plan: Continue with present medication (9) Hypomagnesemia: Code(s): E83.42 - Hypomagnesemia Plan: Patient on magnesium supplementation (10) Hyperkalemia: Code(s): E87.5 - Hyperkalemia Plan: Recently ER visit placed on Lokelma. will need blood work (11) Hearing loss, right: Code(s): H91.91 - Unspecified hearing loss, right ear Plan: refer to ENT Orders: Orders Magnesium Today E78.00 - Pure hypercholesterolemia, unspecified Complete Blood Count Auto Diff Today E78.00 - Pure hypercholesterolemia, unspecified Thyroid Stimulating Hormone Today E78.00 - Pure hypercholesterolemia, unspecified Vitamin B12 and Folate Today E78.00 - Pure hypercholesterolemia, unspecified Phosphorus Today E78.00 - Pure hypercholesterolemia, unspecified Comprehensive Met. Panel Today E78.00 - Pure hypercholesterolemia, unspecified Free T4 (Free Thyroxine) Today E78.00 - Pure hypercholesterolemia, unspecified Lipid Panel Today E78.00 - Pure hypercholesterolemia, unspecified Vitamin D 25-OH Total Today E78.00 - Pure hypercholesterolemia, unspecified Referrals Ear/Nose/Throat Referral H91.91 - Unspecified hearing loss, right ear Coding Level of Care Code Est Pt Level 4 (43664) Diagnoses Chronic kidney disease, stage IV (severe) N18.4 Essential hypertension I10 Hypertension type: essential hypertension Toure's esophagus without dysplasia K22.70 Toure's esophagus type: without dysplasia Acquired hypothyroidism E03.9 Hypothyroidism type: acquired Hypercholesterolemia E78.00 Malignant neoplasm of uterus, unspecified site C55 Malignant neoplasm of uterus location: unspecified site of uterus Rectal cancer C20 Generalized anxiety disorder F41.1 Hypomagnesemia E83.42 Hyperkalemia E87.5 Hearing loss, right H91.91 Additional Codes KAROLINA-7 Assessment Billing - KAROLINA-7 Assessment Tool: KAROLINA-7 Assessment [id number] ([id number])
[2023-02-24 09:30] VITALS: BP 136/80; PULSE 67; O2SAT 95; BMI 24.6
== END 2023-02-24 10:05 | disposition home or self-care (01) ==
PROVIDERS: PCP Internal Medicine; Visit Provider Internal Medicine
DX: I12.9 Hypertensive chronic kidney disease with stage 1 through stage 4 chronic kidney disease, or unspecified chronic kidney disease (principal); N18.4 Chronic kidney disease, stage 4 (severe); C55 Malignant neoplasm of uterus, part unspecified; C20 Malignant neoplasm of rectum; K22.70 Barrett's esophagus without dysplasia; E03.9 Hypothyroidism, unspecified; E78.00 Pure hypercholesterolemia, unspecified; F41.1 Generalized anxiety disorder; E83.42 Hypomagnesemia; E87.5 Hyperkalemia; H91.91 Unspecified hearing loss, right ear
CPT/HCPCS: 99214

== ENCOUNTER 2023-06-06 15:20 | Outpatient (AMB) | payer OTHER, SELFPAY ==
[2023-06-06 15:23] VITALS: BP 144/90; PULSE 65; O2SAT 98; BMI 25.2
--- NOTE | 2023-06-06 15:23 | A.OFFPC_ITS ---
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 Saddle And Side Wire Stitcher: Not Required per policy Accompanied by: Self / Same As Patient Allergies ciprofloxacin Allergy (Intermediate, Verified 06/06/23 15:24) body ache diazepam Allergy (Unknown, Verified 06/06/23 15:24) shortness of breath fentanyl [FENTANYL] Allergy (Unknown, Verified 06/06/23 15:24) VIOLENT SHAKING, TACHYCARDIA, seizure hydromorphone [HYDROMORPHONE] Adverse Reaction (Severe, Verified 06/06/23 15:24) UNCONTROLLED SHAKING, ELEVATED HEART RATE oxycodone [From PERCOCET] Adverse Reaction (Severe, Verified 06/06/23 15:24) Vomiting egg [EGGS] Adverse Reaction (Intermediate, Verified 06/06/23 15:24) Diarrhea codeine [CODEINE] Adverse Reaction (Unknown, Verified 06/06/23 15:24) Vomiting meperidine [Demerol] Adverse Reaction (Unknown, Verified 06/06/23 15:24) Nausea and Vomiting Medication List - Last Reconciled 06/06/23 by Lenin Diaz Po, alprazolam 0.25 mg PO DAILY PRN amitriptyline 10 mg PO BEDTIME amlodipine 10 mg PO DAILY 90 days amoxicillin 875 mg PO BID cholecalciferol (vitamin D3) 1,250 mcg PO QWEEK citalopram (Celexa) 20 mg PO DAILY 90 days cyanocobalamin (vitamin B-12) 1,000 mcg subcut Q4W 90 days denosumab (Prolia) 60 mg subcut [id number] diphenoxylate-atropine 2.5-0.025 mg (Lomotil) 1 tab PO Q6-8H 90 days fenofibrate nanocrystallized 145 mg PO DAILY 90 days ferrous sulfate (Feosol) 325 mg PO BID levothyroxine 50 mcg PO QAM loperamide (Imodium A-D) 2 mg PO QID PRN magnesium chloride (Slow-Mag) 143 mg (2 x 71.5 mg) PO DAILY 30 days metoprolol succinate ER 100 mg PO DAILY 90 days [id number] 3.5-10,000-1 mg/mL-unit/mL-% 4 drps otic (ear) right Q8H 10 days omeprazole 20 mg PO DAILY sodium bicarbonate 1,300 mg PO BID sumatriptan succinate (Imitrex) 100 mg PO Q2-4H PRN syringe with needle, safety (BD Integra Syringe) 1 mL miscellaneous DIRECTED 30 days tramadol 50 mg PO BEDTIME Tobacco use date assessed: 02/24/23 Fall risk assessment: No Falls in past year Last assessed Fall Risk: 06/06/23 Dental Screening Dental Screen Date: 02/24/23 HPI Hearing loss, hypothyroid, hypercholesterolemia HPI Details 72-year-old female with chronic kidney d isease stage 4 hypertension Barretts esophagus hypothyroid hypercholesterolemia history of uterine cancer and rectal cancer generalized anxiety disorder coming in for follow-up. Last seen in February 2023. Patient's mammograms up-to-date patient follows up with urology having intermittent hematuria via urethra prompting cystoscopy and biopsy diagnosis of chronic cystitis patient also follows up with endocrinology for the osteoporosis on Prolia injections had blood work in February 2023 normal blood sugar creatinine of 2.3 vitamin B12 normal electrolytes normal liver function is normal thyroid and folic acid are good LDL of 61 magnesium of 1.7 low vitamin-D TSH was mildly elevated a mild anemia of 11.6 PFSH Medical History Anxiety and depression Toure's esophagus Breast cancer screening by mammogram Enterovesical fistula Fatty liver GERD (gastroesophageal reflux disease) Hypercholesterolemia Hypertension Hypothyroid Migraine Renal calculus Small bowel obstruction Uterine cancer Vitamin B12 deficiency Vitamin D deficiency Surgical History History of laparotomy S/P ASHWINI-BSO History of radical hysterectomy Family History Family/Other Mental health disorder Social History Housing: Condominium Alcohol intake: current Alcohol intake frequency: holidays/special occasions only Alcohol type: wine Patient Tobacco Use Status: Never used Tobacco e-Cigarette/Vaping Use: Never Used Second Hand Smoke Exposure: Yes service: No Current occupational status: retired Cognitive needs: No Hearing needs: No Vision needs: Yes Questionnaire Thrive Questionnaire Date Thrive assessed: 02/24/23 KAROLINA-7 AMB Questionnaire KAROLINA-7 Date KAROLINA - 7 assessed: 02/24/23 Source: Developed by Drs. Schuyler Nicole, Roseanne Felix, Stef Villatoro and colleagues, with an educational tao from [employer]. Physical exam (Primary Care) Vital Signs: Last Vital Signs Pulse 65 06/06/23 15:23 BP 144/90 H 06/06/23 15:23 Pulse Ox 98 06/06/23 15:23 Oxygen Delivery Method Room Air 06/06/23 15:23 BMI result Body Mass Index 25.2 Tobacco/Smoking Status: Tobacco use Status Tobacco use date assessed 02/24/23 06/06/23 15:24 Patient Tobacco Use Status Never used Tobacco 06/06/23 15:24 e-Cigarette/Vaping Use Never Used 06/06/23 15:24 Thrive Assessment: Date of Thrive Assessment Date Thrive assessed 02/24/23 06/06/23 15:24 Const General: alert; No acute distress Eyes Conjunctivae: conjunctivae normal Resp Auscultation: clear to auscultation bilaterally Cardio Rate: regular rate Rhythm: regular rhythm GI Inspection: Yes normal to inspection Extrem General: Yes normal to inspection and No edema Assessment and Plan Assessment & Plan (1) Chronic kidney disease, stage IV (severe): Code(s): N18.4 - Chronic kidney disease, stage 4 (severe) Plan: Continuing to monitor renal function February 2023 last blood work (2) Chronic cystitis: Code(s): N30.20 - Other chronic cystitis without hematuria Plan: Patient is being followed up by Urology keep well hydrated. (3) Rectal cancer: Comment: February 2020 with fistula, open abdominoperineal resection with end colostomy pneumoperitoneum 06/2020 SB resection,takedown colostomy,mobilization splenic flexure Code(s): C20 - Malignant neoplasm of rectum Plan: Continue to follow-up with gastro and Hematology-Oncology (4) Hypercholesterolemia: Code(s): E78.00 - Pure hypercholesterolemia, unspecified Plan: Avoid fried foods, chicken skin, eggs, butter margarine, pastries and meat. Be it pork or beef they have a lot of cholesterol LDL goal of less than 130 and triglyceride of less than 150 presently on fenofibrate 145 mg once a day (5) Hypothyroid: Code(s): E03.9 - Hypothyroidism, unspecified Qualifiers: Hypothyroidism type: acquired Qualified Code(s): E03.9 - Hypothyroidism, unspecified Plan: Continue with thyroid medication (6) Toure's esophagus: Comment: Dr. Valdez September 2011 sigmoidoscopy June 2015 colonoscopy EGD August 2015 Code(s): K22.70 - Toure's esophagus without dysplasia Qualifiers: Toure's esophagus type: without dysplasia Qualified Code(s): K22.70 - Toure's esophagus without dysplasia Plan: Avoid the foods that causes that usually spicy foods, tomato products, juices, coffee, soda and foods that your sensitive to. After eating do not lie down, allow 3-4 hours before in lie down. And keep the head of bed above 30 degrees to avoid the acid from going up. (7) Hypertension: Code(s): I10 - Essential (primary) hypertension Qualifiers: Hypertension type: essential hypertension Qualified Code(s): I10 - Essential (primary) hypertension Plan: Continue with blood pressure medication. Decrease salt intake and exercise takes amlodipine 10 mg once a day metoprolol 100 mg once a day (8) Hearing loss: Code(s): H91.90 - Unspecified hearing loss, unspecified ear (9) Otitis media, right: Code(s): H66.91 - Otitis media, unspecified, right ear Orders: Orders Thyroid Stimulating Hormone Today E03.9 - Hypothyroidism, unspecified Free T4 (Free Thyroxine) Today E03.9 - Hypothyroidism, unspecified Referrals Speech and Hearing Referral H91.90 - Unspecified hearing loss, unspecified ear Medications: New amoxicillin 875 mg PO BID 14 tabs 0RF H66.91 - Otitis media, unspecified, right ear [id number] 3.5-10,000-1 mg/mL-unit/mL-% 4 drps otic (ear) right Q8H 10 days 10 mL 0RF H66.91 - Otitis media, unspecified, right ear Coding Level of Care Code Est Pt Level 4 (40522) Diagnoses Chronic kidney disease, stage IV (severe) N18.4 Chronic cystitis N30.20 Rectal cancer C20 Hypercholesterolemia E78.00 Acquired hypothyroidism E03.9 Hypothyroidism type: acquired Toure's esophagus without dysplasia K22.70 Toure's esophagus type: without dysplasia Essential hypertension I10 Hypertension type: essential hypertension Hearing loss H91.90 Otitis media, right H66.91
== END 2023-06-06 16:24 | disposition home or self-care (01) ==
PROVIDERS: PCP Internal Medicine; Visit Provider Internal Medicine
DX: I12.9 Hypertensive chronic kidney disease with stage 1 through stage 4 chronic kidney disease, or unspecified chronic kidney disease (principal); N18.4 Chronic kidney disease, stage 4 (severe); N30.20 Other chronic cystitis without hematuria; C20 Malignant neoplasm of rectum; E78.00 Pure hypercholesterolemia, unspecified; E03.9 Hypothyroidism, unspecified; K22.70 Barrett's esophagus without dysplasia; H91.90 Unspecified hearing loss, unspecified ear; H66.91 Otitis media, unspecified, right ear
CPT/HCPCS: 99214

== ENCOUNTER 2023-06-16 09:25 | Outpatient (REF) | payer OTHER, SELFPAY ==
[2023-06-16 09:47] LABS: MANUAL DIFF FLAG NO
[2023-06-16 09:50] LABS: Basophils Percent Auto 0.4 % (0-2); Eosinophils Absolute Auto 0.2 X10*3/uL (0.0-0.4); Eosinophils Percent Auto 2.5 % (0-4); Hematocrit 37.6 % (37.0-47.0); Hemoglobin 11.9 g/dl (12.0-16.0); Imm Gran Abs Auto 0.03 X10*3/uL (0.00-0.03); Imm Gran Pct Auto 0.4 % (0.0-0.4); Lymphocytes Absolute Auto 1.3 X10*3/uL (1.2-4.9); Lymphocytes Percent Auto 17.6 % (20-40); Mean Corpuscular HGB Conc 31.6 g/dl (31.0-35.0); Mean Corpuscular Hemoglobin 29.9 pg (27.0-33.0); Mean Corpuscular Volume 94.5 fL (80.0-98.0); Mean Platelet Volume 10.8 fL (9.4-12.3); Monocytes Absolute Auto 0.6 X10*3/uL (0.1-1.2); Monocytes Percent Auto 8.6 % (2-11); Neutrophils Absolute Auto 5.1 x10*3/uL (2.0-8.3); Neutrophils Percent Auto 70.5 % (45-73); Platelet Count 233 X10*3/uL (160-400); Red Blood Count 3.98 X10*6/uL (4.20-5.50); Red Cell Distribution Width 14.7 % (11.0-16.0); White Blood Count 7.2 X10*3/uL (4.8-10.8)
[2023-06-16 10:50] LABS: Alanine Aminotransferase 21 U/L (0-31); Albumin Level 3.9 g/dL (3.5-5.0); Alkaline Phosphatase 90 U/L (39-117); Anion Gap 13 (12-20); Aspartate Amino Transferase 34 U/L (5-31); Bilirubin Total 0.3 mg/dL (0.0-1.0); Blood Urea Nitrogen 21 mg/dL (9-16); Calcium 9.5 mg/dL (8.4-10.2); Carbon Dioxide 26 mmol/L (22-29); Chloride 109 mmol/L (96-108); Cholesterol 124 mg/dL (<200); Estimated Glomerular Filt Rate 19; Glucose Random 112 mg/dL (60-115); HDL Cholesterol 50 mg/dL (>40); LDL Cholesterol Calculated 47 mg/dL (<100); Magnesium 1.3 mg/dL (1.6-2.6); Phosphorus 3.2 mg/dL (2.7-4.5); Potassium 4.7 mmol/L (3.3-5.1); Sodium 143 mmol/L (135-145); Total Protein 7.5 g/dL (6.5-8.0); Triglycerides 136 mg/dL (<150)
[2023-06-16 10:57] LABS: Free T4 (Free Thyroxine) 0.89 ng/dL (0.71-1.85); Thyroid Stimulating Hormone 5.33 uIU/mL (0.32-4.0); Vitamin D 25-OH Total 15.7 ng/mL (>30)
[2023-06-16 11:12] LABS: Folate 15.4 ng/mL (> or = 4.0); Vitamin B12 998 pg/mL (200-900)
== END 2023-06-16 09:26 | disposition home or self-care (01) ==
LOC: HO.LAB 09:25
PROVIDERS: PCP Internal Medicine; Visit Provider Internal Medicine
DX: E03.9 Hypothyroidism, unspecified (principal); E78.00 Pure hypercholesterolemia, unspecified
CPT/HCPCS: 36415; 80053; 80061; 82306; 82607; 82746; 83735; 84100; 84439; 84443; 85025

== ENCOUNTER 2023-10-23 09:14 | Outpatient (REF) | payer OTHER, SELFPAY ==
[2023-10-23 10:31] LABS: Magnesium 1.7 mg/dL (1.6-2.6)
[2023-10-23 10:55] LABS: Free T4 (Free Thyroxine) 0.91 ng/dL (0.71-1.85)
== END 2023-10-23 09:15 | disposition home or self-care (01) ==
LOC: HO.LAB 09:14
PROVIDERS: PCP Internal Medicine; Visit Provider Internal Medicine
DX: E78.00 Pure hypercholesterolemia, unspecified (principal); E03.9 Hypothyroidism, unspecified
CPT/HCPCS: 36415; 83735; 84439; 84443

== ENCOUNTER 2023-10-26 10:53 | Outpatient (AMB) | payer OTHER, SELFPAY ==
[2023-10-26 11:02] VITALS: BP 130/68; PULSE 70; O2SAT 96; BMI 24.8
--- NOTE | 2023-10-26 11:02 | A.OFFPC_ITS ---
Vital Signs 10/26/23 11:02 Height 5 ft Weight 57.606 kg BMI 24.8 BP 130/68 Blood Pressure Location Lt brachial Position Sitting Pulse 70 Pulse Source Pulse Oximeter Pulse Oximetry (%) 96 Oxygen Delivery Method Room Air Intake Visit Reasons: Hypertension Allergies ciprofloxacin Allergy (Intermediate, Verified 10/26/23 11:02) body ache diazepam Allergy (Unknown, Verified 10/26/23 11:02) shortness of breath fentanyl [FENTANYL] Allergy (Unknown, Verified 10/26/23 11:02) VIOLENT SHAKING, TACHYCARDIA, seizure hydromorphone [HYDROMORPHONE] Adverse Reaction (Severe, Verified 10/26/23 11:02) UNCONTROLLED SHAKING, ELEVATED HEART RATE oxycodone [From PERCOCET] Adverse Reaction (Severe, Verified 10/26/23 11:02) Vomiting egg [EGGS] Adverse Reaction (Intermediate, Verified 10/26/23 11:02) Diarrhea codeine [CODEINE] Adverse Reaction (Unknown, Verified 10/26/23 11:02) Vomiting meperidine [Demerol] Adverse Reaction (Unknown, Verified 10/26/23 11:02) Nausea and Vomiting Tobacco use date assessed: 02/24/23 Fall risk assessment: No Falls in past year Last assessed Fall Risk: 10/26/23 Dental Screening Dental Screen Date: 10/26/23 Did you have a dental visit in the last 12 months?: Yes Did you have a dental problem in the last 6 months where you did not have access to dental care?: No Was dental information given to patient?: Patient has dentist HPI Hypertension HPI Details 73-year-old female with multiple medical problems Barretts hypothyroidism hypertension hypercholesterolemia GERD uterine cancer generalized anxiety disorder chronic kidney disease coming in for follow-up. Last seen in 05/27/2023. Patient's mammogram is up-to-date bone density last done in 06/25/2021. Review of the notes October for had colon test but had a poor prep and was advised repeat in 6 months. Endocrine notes for osteoporosis [facility] Medical History Anxiety and depression Toure's esophagus Breast cancer screening by mammogram Enterovesical fistula Fatty liver GERD (gastroesophageal reflux disease) Hypercholesterolemia Hypertension Hypothyroid Migraine Renal calculus Small bowel obstruction Uterine cancer Vitamin B12 deficiency Vitamin D deficiency Surgical History History of laparotomy S/P [id number] History of radical hysterectomy Family History Family/Other Mental health disorder Social [facility] Alcohol intake: current Alcohol intake frequency: holidays/special occasions only Alcohol type: wine Patient Tobacco Use Status: Never used Tobacco Tobacco use type: Cigarette e-Cigarette/Vaping Use: Never Used Second Hand Smoke Exposure: Yes service: No Current occupational status: retired Cognitive needs: No Hearing needs: No Vision needs: Yes Questionnaire PHQ-9 Over the last 2 weeks, how often have you been bothered by any of the following problems? 1. Little interest or pleasure in doing things: not at all 2. Feeling down, depressed, or hopeless: not at all 3. Trouble falling or staying asleep, or sleeping too much: not at all 4. Feeling tired or having little energy: not at all 5. Poor appetite or overeating: not at all 6. Feeling bad about yourself - or that you are a failure or have let yourself or your family down: not at all 7. Trouble concentrating on things, such as reading the newspaper or watching television: not at all 8. Moving or speaking so slowly that other people could have noticed. Or the opposite - being so fidgety or restless that you have been moving around a lot more than usual: not at all 9. Thoughts that you would be better off or of hurting yourself in some way: not at all Total score: 0 Depression Screening Interpretation: Negative Depression Screening Done: Yes 73725 - PHQ-9 Billing: Yes Source: Developed by Drs. Schuyler Nicole, Roseanne Felix, Stef Villatoro and colleagues, with an educational tao from [employer]. Thrive Questionnaire Date Thrive assessed: 02/24/23 Are you currently unemployed and looking for a job?: No AUDIT C Alcohol Use Questionnaire (AUDIT-C) 1. How often do you have a drink containing alcohol?: Monthly or less 2. How many drinks containing alcohol do you have on a typical day when you are drinking?: 1 or 2 3. How often do you have six or more drinks on one occasion?: Never Total Score: 1 KAROLINA-7 AMB Questionnaire KAROLINA-7 Date KAROLINA - 7 assessed: 02/24/23 Source: Developed by Drs. Schuyler Nicole, Roseanne Felix, Stef Villatoro and colleagues, with an educational tao from [employer]. Physical exam (Primary Care) Vital Signs: Last Vital Signs Pulse 70 10/26/23 11:02 BP 130/68 10/26/23 11:02 Pulse Ox 96 10/26/23 11:02 Oxygen Delivery Method Room Air 10/26/23 11:02 BMI result Body Mass Index 24.8 Tobacco/Smoking Status: Tobacco use Status Tobacco use date assessed 02/24/23 10/26/23 11:07 Patient Tobacco Use Status Never used Tobacco 10/26/23 11:07 Tobacco use type Cigarette 10/26/23 11:07 e-Cigarette/Vaping Use Never Used 10/26/23 11:07 PHQ-9: PHQ-9 Score PHQ-9: Total score 0 10/26/23 11:32 Depression Screening Interpretation: Negative Thrive Assessment: Date of Thrive Assessment Date Thrive assessed 02/24/23 10/26/23 11:07 Const General: alert; No acute distress Eyes Conjunctivae: conjunctivae normal Resp Auscultation: clear to auscultation bilaterally Cardio Rate: regular rate Rhythm: regular rhythm GI Inspection: Yes normal to inspection Extrem General: Yes normal to inspection and No edema Immunizations tetanus-diphtheria toxoids-Td 2 Lf unit-2 Lf unit/0.5 mL IM suspension Performing Provider: Lenin Laird MD [facility] Administered by: Jasmin Carter CMA on 10/26/23 11:43 Dose Route Admin Location Dispensed Lot Number Expiration Date [facility] Community Organization Worker 0.5 mL IM Left Deltoid 0.5 mL [id number] 03/18/24 [id number] [employer] VIS Given Date VIS Provided VIS Publication Date 10/26/23 Single Vaccine 20 Eligibility Eligibility Date Funding Source Not [facility] Eligible 10/26/23 State funds Assessment and Plan Assessment & Plan (1) Osteoporosis: Comment: June 2021 Code(s): M81.0 - Age-related osteoporosis without current pathological fracture Plan: Patient has seen Endocrinology and presently on Prolia due for bone density (2) Hypomagnesemia: Code(s): E83.42 - Hypomagnesemia Plan: Replaced and blood work done and is normal (3) Hypothyroid: Code(s): E03.9 - Hypothyroidism, unspecified Qualifiers: Hypothyroidism type: acquired Qualified Code(s): E03.9 - Hyp othyroidism, unspecified Plan: Discussion about thyroid problem TSH elevated (4) Toure's esophagus: Comment: Dr. Valdez September 2011 sigmoidoscopy June 2015 colonoscopy EGD August 2015 Code(s): K22.70 - Toure's esophagus without dysplasia Qualifiers: Toure's esophagus type: without dysplasia Qualified Code(s): K22.70 - Toure's esophagus without dysplasia Plan: Avoid the foods that causes that usually spicy foods, tomato products, juices, coffee, soda and foods that your sensitive to. After eating do not lie down, allow 3-4 hours before in lie down. And keep the head of bed above 30 degrees to avoid the acid from going up. (5) Hypercholesterolemia: Code(s): E78.00 - Pure hypercholesterolemia, unspecified Plan: Avoid fried foods, chicken skin, eggs, butter margarine, pastries and meat. Be it pork or beef they have a lot of cholesterol on fenofibrate right now (6) Hypertension: Code(s): I10 - Essential (primary) hypertension Qualifiers: Hypertension type: essential hypertension Qualified Code(s): I10 - Essential (primary) hypertension Plan: Continue with blood pressure medication. Decrease salt intake and exercise takes metoprolol 100 mg once a day amlodipine 10 mg once a day (7) Generalized anxiety disorder: Code(s): F41.1 - Generalized anxiety disorder Plan: Continue with counseling and therapy Orders: Orders Complete Blood Count Auto Diff Today E03.9 - Hypothyroidism, unspecified Comprehensive Met. Panel Today E03.9 - Hypothyroidism, unspecified Td State Immunization Today Z23 - Encounter for immunization Magnesium Today E03.9 - Hypothyroidism, unspecified Vitamin D 25-OH Total Today M81.0 - Age-related osteoporosis without current pathological fracture Medications: New tetanus-diphtheria toxoids-Td 0.5 mL IM ONCE 0.5 mL 0RF Z23 - Encounter for immunization Coding Level of Care Code Est Pt Level 4 (52348) Complex EM visit Add On G2211 Diagnoses Osteoporosis M81.0 Hypomagnesemia E83.42 Acquired hypothyroidism E03.9 Hypothyroidism type: acquired Toure's esophagus without dysplasia K22.70 Toure's esophagus type: without dysplasia Hypercholesterolemia E78.00 Essential hypertension I10 Hypertension type: essential hypertension Generalized anxiety disorder F41.1
== END 2023-10-26 11:48 | disposition home or self-care (01) ==
PROVIDERS: PCP Internal Medicine; Visit Provider Internal Medicine
DX: M81.0 Age-related osteoporosis without current pathological fracture (principal); E83.42 Hypomagnesemia; E03.9 Hypothyroidism, unspecified; K22.70 Barrett's esophagus without dysplasia; E78.00 Pure hypercholesterolemia, unspecified; I10 Essential (primary) hypertension; F41.1 Generalized anxiety disorder; Z23 Encounter for immunization

== ENCOUNTER → 2023-10-26 10:53 | Outpatient (BNVA) | payer OTHER, SELFPAY | PROVIDERS: PCP Internal Medicine; Visit Provider Internal Medicine | DX: Z23 Encounter for immunization (principal); I10 Essential (primary) hypertension; M81.0 Age-related osteoporosis without current pathological fracture; E03.9 Hypothyroidism, unspecified; K22.70 Barrett's esophagus without dysplasia; E78.00 Pure hypercholesterolemia, unspecified | CPT/HCPCS: 90471; 90714; 99212 ==

== ENCOUNTER 2023-11-16 10:19 | Outpatient (REF) | payer OTHER, SELFPAY ==
--- NOTE | ~2023-11-16 | MM_ITS ---
EXAMINATION: MM SCREENING DIGITAL BREAST TOMOSYNTHESIS, BILATERAL CLINICAL INFORMATION: Screening. Asymptomatic. COMPARISON: Mammography: Comparison is made with available priors TECHNIQUE: Digital breast mammography with tomosynthesis is performed in both the craniocaudal and mediolateral oblique views along with computer-aided detection (CAD). FINDINGS: There are scattered areas of fibroglandular density (ACR BI-RADS breast composition Category b). There are no significant masses, abnormal calcifications, or other abnormalities. MM/MM tomosynthesis screening BI IMPRESSION: No mammographic evidence of malignancy. ASSESSMENT: BI-RADS BI-RADS 1 - Negative RECOMMENDATION: Routine annual mammography screening. 1 year F/U This examination should not preclude the clinical evaluation of a suspicious palpable abnormality. This patient's information was entered into a reminder system with a target due date for their next mammogram. Electronically signed by: Tess Roldan DO 11/28/2023 12:14 PM EDT
--- NOTE | ~2023-11-16 | MM_ITS ---
EXAMINATION: BONE DENSITOMETRY CLINICAL INDICATION: Age-related osteoporosis without current pathological fracture. COMPARISON: Previous BD dated 06/10/2021 and baseline BD dated 05/24/2013. TECHNIQUE: Using a [employer] DXA System (software version: 13.1) manufactured by [employer], dual-energy x-ray absorptiometry was performed of the lumbar spine and left hip. The images are of good technical quality. Summary results are attached. FINDINGS: AP SPINE L1-L4: Current: BMD 0.836 g/cm2, Z-score -0.9, T-score -2.9, osteoporosis, 4.5% increase from previous, 19.0% decrease from baseline (<5% change is not significant). Prior: BMD 0.800 g/cm2. Baseline: BMD 1.032 g/cm2. LEFT FEMUR, NECK: Current: BMD 0.798 g/cm2, Z-score 0.3, T-score -1.7, osteopenia. Prior: BMD 0.801 g/cm2. Baseline: BMD 0.928 g/cm2. LEFT FEMUR, TOTAL: Current: BMD 0.748 g/cm2, Z-score -0.2, T-score -2.1, osteopenia, 0.8% decrease from previous, 17.3% decrease from baseline (<5% change is not significant). Prior: BMD 0.754 g/cm2. Baseline: BMD 0.904 g/cm2. IDENTIFIED RISK FACTORS: Osteoporosis, kidney disease, height loss, secondary osteoporosis (intestinal or bowel disease, not IBS). Early menopause, secondary osteoporosis, hysterectomy, bilateral oophorectomy. HISTORY OF FRACTURE: None listed. MEDICATIONS: Prolia. Calcium supplements or multivitamin, vitamin D. MM/XR DEXA axial skeleton IMPRESSION: 1. DIAGNOSIS: Osteoporosis based on the lowest T-score value of -2.9 in the lumbar spine applying World Health Organization criteria. 2. 10-YEAR FRACTURE RISK PREDICTION, FRAX: According to the guidelines, FRAX calculation should only be performed on patients in the osteopenia bone density category. Therefore, FRAX was not performed on this patient. 3. Treatment Recommendations: NOF guidelines recommend consideration for treatment in postmenopausal women and men age 50 and older presenting with the following: -A hip or vertebral (clinical or morphometric) fracture. -T-score less than or equal to -2.5 at the femoral neck or spine after appropriate evaluation to exclude secondary causes. -Low bone mass at the hip or spine and a 10-year fracture probability by FRAX of greater than or equal to 3% for hip fracture or greater than or equal to 20% for major osteoporotic fracture based on the [place] adapted WHO algorithm. 4. Other Recommendations: All treatment decisions require clinical judgment and consideration of individual patient factors, including patient preferences, comorbidities, previous drug use, risk factors not captured in the FRAX model (e.g. frailty, falls, vitamin D deficiency, increased bone turnover, interval significant decline in bone density) and possible under or overestimation of fracture risk by FRAX. Additional medical evaluation for secondary cause of low bone mineral density may be appropriate. FUTURE SCAN RECOMMENDATION: People with diagnosed cases of osteoporosis or at high risk for fracture should have regular bone mineral density tests. For patients eligible for Medicare, routine testing is allowed once every 2 years. The testing frequency can be increased to one year for patients who have rapidly progressing disease, those who are receiving or discontinuing medical therapy to restore bone mass, or have additional risk factors. Electronically signed by: Nicolás Jacob MD 11/17/2023 04:16 PM EDT
== END 2023-11-16 10:20 | disposition home or self-care (01) ==
LOC: HO.MAMMO 10:19
PROVIDERS: PCP Internal Medicine; Visit Provider Internal Medicine
DX: Z12.31 Encounter for screening mammogram for malignant neoplasm of breast (principal); M81.0 Age-related osteoporosis without current pathological fracture
CPT/HCPCS: 77063; 77067; 77080

== ENCOUNTER → 2023-11-16 10:30 | Outpatient (BNV) | payer OTHER, SELFPAY | PROVIDERS: PCP Internal Medicine; Visit Provider Internal Medicine | DX: Z12.31 Encounter for screening mammogram for malignant neoplasm of breast (principal) | CPT/HCPCS: 77063; 77067 ==

== ENCOUNTER 2024-01-16 23:19 | Inpatient (IN) | payer OTHER, SELFPAY ==
--- NOTE | ~2024-01-16 | FL_ITS ---
EXAMINATION: FL SMALL BOWEL FOLLOW-THROUGH CLINICAL INFORMATION: Small bowel obstruction COMPARISON: CT scan 01/17/2024 TECHNIQUE: Following a concrete mixer operator image of the abdomen, contrast was administered orally, and interval abdominal radiographs were performed to assess for contrast progression through the small bowel. FINDINGS: Postmaster image of the abdomen demonstrates a large dilated stomach. Bilateral nephrostomy tubes are present. The small bowel loops are dilated . After 2 hours and 45 minutes contrast fails to progress beyond the small bowel loops in the right abdomen. Contrast becomes significantly diluted as it passes distally. A large portion of the contrast remains in the stomach after 2 hours of 45 minutes. FL/FL small bowel follow through IMPRESSION: High-grade small bowel obstruction with failure of the contrast to progress distally beyond the right lower quadrant. This corresponds to CT findings demonstrating obstruction at the right lower quadrant anastomosis. This procedure was performed by Albert Cuello PA-C and supervised by Dr. Olvera. Electronically signed by: Boyd Olvera MD 01/19/2024 03:49 PM [facility]
--- NOTE | ~2024-01-16 | CT_ITS ---
EXAMINATION: CT ABDOMEN AND PELVIS WITHOUT CONTRAST CLINICAL INFORMATION: Abdominal pain. Nausea. Prior small bowel obstruction. COMPARISON: CT abdomen and pelvis 07/31/2019. TECHNIQUE: Multidetector volumetric imaging was performed from the superior aspect of the liver through the pubic symphysis. Sagittal and coronal reformatted images were obtained on the technologist's workstation. This CT examination was performed using dose optimization techniques as appropriate, variously including the following: *Automated exposure control *Adjustment of mA and/or kV according to patient size (this includes techniques or standardized protocols for targeted exams where dose is matched to indication/reason for exam; i.e. extremities or head) *Use of iterative reconstruction technique DLP: 439 mGy-cm FINDINGS: LUNG BASES: The visualized lung bases are unremarkable. LIVER, GALLBLADDER, AND BILIARY TREE: The liver is normal in size, shape, and attenuation. No focal hepatic lesion or biliary ductal dilatation is present. 1.1 cm calcified gallstone within the gallbladder lumen. PANCREAS: Unremarkable. SPLEEN: Unremarkable. ADRENAL GLANDS: Unremarkable. KIDNEYS AND URETERS: Bilateral percutaneous nephrostomy tubes are noted. No hydronephrosis or perinephric fluid collections or inflammatory changes. 3 cm diameter rounded low density benign-appearing simple cyst associated with the superior pole of the right kidney warrants no additional imaging follow-up on the basis of this examination. BLADDER: Not visualized. GASTROINTESTINAL TRACT: Left hemicolectomy is identified. Right lower quadrant anastomotic sutures are noted. This region measures 6 cm in diameter and demonstrates equalization of the succus entericus. Immediately proximal small bowel segments measuring up to 3.2 cm in diameter are present within the right lower abdominal quadrant. More proximal small bowel segments within the left lower abdominal quadrant measure up to 2.8 cm in diameter. A left lower quadrant colostomy is present. Stomach demonstrates moderate physiologic-appearing fluid distention. ABDOMINAL WALL: Left lower quadrant colostomy. A small parastomal hernia contains fat without associated inflammatory changes. LYMPH NODES: No lymphadenopathy. VASCULAR: Moderate diffuse calcific atherosclerosis. PELVIC VISCERA: The uterus and ovaries are not visualized. OSSEOUS STRUCTURES: Unremarkable. CT/CT abdomen pelvis wo IV con IMPRESSION: *Findings suspicious for early/developing small bowel obstruction. Small bowel segments measuring up to 3.2 cm in diameter are present predominantly within the right lower abdominal quadrant immediately proximal to right lower quadrant anastomotic sutures. No free intraperitoneal fluid or gas collections. *Status post pelvic exenteration. Bilateral percutaneous nephrostomy tubes are present. No hydronephrosis. Status post left lower quadrant colostomy. *Cholelithiasis. This result was discussed with Yamila Alexis DO MD by telephone at 01/17/2024 4:16 AM EST and it was ascertained that the content and urgency of the report was understood at the time of direct communication. Electronically signed by: Eliazar Patel MD 01/17/2024 04:16 AM EST
--- NOTE | ~2024-01-16 | XR_ITS ---
EXAMINATION: XR CHEST CLINICAL INFORMATION: NGT placement COMPARISON: Chest radiograph 06/21/2019 TECHNIQUE: AP view of the chest was obtained. FINDINGS: Enteric tube courses below diaphragm and out of [id number]. The stomach is distended with residual oral contrast from prior small bowel follow-through study earlier today. Bilateral nephrostomy tubes are partially visualized. Right chest port catheter with tip overlying the distal SVC, accessed with a Hubner needle. The lungs are hypoexpanded. Moderate asymmetric elevation of the right hemidiaphragm, as before. No dense focal consolidation, significant pleural effusion, pulmonary edema or pneumothorax. The cardiomediastinal silhouette is within normal limits for technique and unchanged. No acute osseous abnormality. XR/XR chest 1V IMPRESSION: 1. Enteric tube courses below diaphragm and out of [id number]. The stomach is distended with residual oral contrast from prior small bowel follow-through study earlier today. 2. No acute pulmonary disease. Electronically signed by: Maria Luz Fofana DO 01/19/2024 05:00 PM [facility]
--- NOTE | ~2024-01-16 | XR_ITS ---
EXAMINATION: XR ABDOMEN KUB CLINICAL INDICATION: f/u SBFT COMPARISON: 01/19/[address] 01/17/2024 TECHNIQUE: 2 supine views of the abdomen. FINDINGS: Nasogastric tube projects over the stomach. Persistent distention of the stomach with gas and fluid. Bilateral percutaneous nephrostomy tubes unchanged in appearance. Oral contrast is now seen in the large bowel. There is oral contrast in a mildly dilated pelvic bowel loop possibly ileum. Diverticulosis. Small bowel loops are poorly seen but appear decompressed compared with prior. Postoperative changes in the pelvis with a left colostomy. Enteroenteroanastomosis. XR/XR KUB IMPRESSION: Oral contrast seen in large bowel. Decrease in prominence of small bowel loops. Electronically signed by: Ermias Ross MD 01/20/2024 05:17 PM [facility]
--- NOTE | ~2024-01-16 | XR_ITS ---
EXAMINATION: XR ABDOMEN KUB CLINICAL INDICATION: ffup for SBO COMPARISON: January 20, 2024 TECHNIQUE: 3 views upper and lower abdomen portable FINDINGS: Gastric tube passing below the diaphragm into the stomach properly positioned. Bilateral percutaneous nephrostomy tubes in place. Nonspecific bowel gas pattern. Included lung bases are clear. Skeletal structures unremarkable. Mildly dilated air-filled small bowel loops compatible with patient history of partial small bowel obstruction. XR/XR KUB IMPRESSION: 1. Mildly dilated air-filled small bowel loops compatible with patient history of partial small bowel obstruction showing some improvement compared to recent prior study from 2 days earlier 2. Gastric tube in place. 3. Stable bilateral nephrostomy tubes. Electronically signed by: Nicolás Jacob MD 01/21/2024 02:48 PM [facility]
[2024-01-16 23:24] VITALS: BP 150/72; PULSE 71; RESP 16; TEMP 36.9; O2SAT 98; BMI 25.2
[2024-01-16 23:50] LABS: MANUAL DIFF FLAG NO
[2024-01-16 23:52] LABS: Basophils Percent Auto 0.3 % (0-2); Eosinophils Absolute Auto 0.1 X10*3/uL (0.0-0.4); Eosinophils Percent Auto 0.7 % (0-4); Hematocrit 39.6 % (37.0-47.0); Hemoglobin 12.8 g/dl (12.0-16.0); Imm Gran Abs Auto 0.02 X10*3/uL (0.00-0.03); Imm Gran Pct Auto 0.2 % (0.0-0.4); Lymphocytes Absolute Auto 1.3 X10*3/uL (1.2-4.9); Lymphocytes Percent Auto 12.4 % (20-40); Mean Corpuscular HGB Conc 32.3 g/dl (31.0-35.0); Mean Corpuscular Hemoglobin 30.3 pg (27.0-33.0); Mean Corpuscular Volume 93.6 fL (80.0-98.0); Mean Platelet Volume 10.8 fL (9.4-12.3); Monocytes Absolute Auto 0.6 X10*3/uL (0.1-1.2); Monocytes Percent Auto 5.8 % (2-11); Neutrophils Absolute Auto 8.7 x10*3/uL (2.0-8.3); Neutrophils Percent Auto 80.6 % (45-73); Platelet Count 251 X10*3/uL (160-400); Red Blood Count 4.23 X10*6/uL (4.20-5.50); Red Cell Distribution Width 13.7 % (11.0-16.0); White Blood Count 10.7 X10*3/uL (4.8-10.8)
[2024-01-17 00:08] LABS: Alanine Aminotransferase 17 U/L (0-31); Albumin Level 3.8 g/dL (3.5-5.0); Alkaline Phosphatase 70 U/L (39-117); Anion Gap 15 (12-20); Aspartate Amino Transferase 32 U/L (5-31); Bilirubin Total 0.4 mg/dL (0.0-1.0); Blood Urea Nitrogen 24 mg/dL (9-16); Carbon Dioxide 22 mmol/L (22-29); Chloride 109 mmol/L (96-108); Creatinine Clr Calc Pharmacy 17.3; Estimated Glomerular Filt Rate 21; Glucose Random 126 mg/dL (60-115); Lipase 24 U/L (8-78); Potassium 5.7 mmol/L (3.3-5.1); Sodium 140 mmol/L (135-145); Total Protein 7.4 g/dL (6.5-8.0)
--- NOTE | 2024-01-17 01:17 | ED.ABDPAIN ---
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 She is concerned she has SBO again. No fevers. She states she usually does okay without NG tube. She is not on blood thinners. She states she has been in remission for 2 years MD elicited complaint: abdominal pain Pertinent past history: other Onset (ago): day(s) (yesterday 4pm) Pain Consistency: colicky Location: periumbilical Severity: moderate Quality: cramping and aching Radiation: none Migration to: no migration Relieving factors: nothing Context: history of similar episodes Associated symptoms: nausea and vomiting Related Data Home Medications ?Medication ?Instructions ?Recorded ?Confirmed alprazolam 0.25 mg tablet 0.25 mg PO DAILY PRN 02/12/20 06/06/23 sumatriptan succinate 100 mg 100 mg PO Q2-4H PRN 02/12/20 06/06/23 tablet (Imitrex) loperamide 2 mg capsule (Imodium 2 mg PO QID PRN 05/14/20 06/06/23 A-D) ferrous sulfate 325 mg (65 mg 325 mg PO BID 08/21/20 06/06/23 iron) tablet (Feosol) cholecalciferol (vitamin D3) 1,250 1,250 mcg PO QWEEK 02/25/22 06/06/23 mcg (50,000 unit) capsule denosumab 60 mg/mL subcutaneous 60 mg subcut [id number] 02/25/22 06/06/23 syringe (Prolia) amitriptyline 10 mg tablet 10 mg PO BEDTIME 07/29/22 06/06/23 sodium bicarbonate 650 mg tablet 1,300 mg PO BID 11/15/22 06/06/23 Previous Rx's ?Medication ?Instructions ?Recorded diphenoxylate-atropine 2.5 1 tab PO Q6-8H diarrhea 90 days 08/13/20 mg-0.025 mg tablet (Lomotil) #360 tabs magnesium chloride 71.5 mg 143 mg (2 x 71.5 mg) PO DAILY 30 04/05/21 (magnesium chloride) days #60 tabs tablet,delayed release (Slow-Mag) tramadol 50 mg tablet 50 mg PO BEDTIME #30 tabs 03/29/22 amoxicillin 875 mg tablet 875 mg PO BID #14 tabs 06/06/23 [id number] 3.5 4 drp otic (ear) right Q8H 10 days 06/06/23 mg/mL-10,000 unit/mL-1 % ear #10 mL solution citalopram 20 mg tablet (Celexa) 20 mg PO DAILY 90 days #90 tabs 06/08/23 syringe with needle, safety 3 mL 1 ml miscellaneous DIRECTED 30 07/06/23 25 gauge x 1 (BD Integra Syringe) days #6 ea metoprolol succinate 100 mg 100 mg PO DAILY 90 days #90 tabs 07/14/23 tablet,extended release 24 hr fenofibrate nanocrystallized 145 145 mg PO DAILY 90 days #90 tabs 08/07/23 mg tablet amlodipine 10 mg tablet 10 mg PO DAILY 90 days #90 tabs 09/30/23 cyanocobalamin (vitamin B-12) 1,000 mcg subcut Q4W 90 days #4 ea 09/30/23 1,000 mcg/mL injection kit omeprazole 20 mg capsule,delayed 20 mg PO DAILY #90 caps 10/15/23 release levothyroxine 75 mcg tablet 75 mcg PO QAM #90 tabs 10/23/23 Allergies Allergy/AdvReac Type Severity Reaction Status Date / Time ciprofloxacin Allergy Intermediate body ache Verified 01/16/24 23:27 diazepam Allergy Unknown shortness Verified 01/16/24 23:27 of breath fentanyl [FENTANYL] Allergy Unknown VIOLENT Verified 01/16/24 23:27 SHAKING, TACHYCARDIA, seizure hydromorphone [HYDROMORPHONE] AdvReac Severe UNCONTROLLED Verified 01/16/24 23:27 SHAKING, ELEVATED HEART RATE oxycodone [From PERCOCET] AdvReac Severe Vomiting Verified 01/16/24 23:27 egg [EGGS] AdvReac Intermediate Diarrhea Verified 01/16/24 23:27 codeine [CODEINE] AdvReac Unknown Vomiting Verified 01/16/24 23:27 meperidine [Demerol] AdvReac Unknown Nausea and Verified 01/16/24 23:27 Vomiting Review of Systems Review of Systems Constitutional : No Weight loss, No Fever, No Chills ENT/Mouth : No sore throat, No Rhinorrhea Eyes: No Swelling, No Redness Cardiovascular : No Chest Pain, No SOB, NoEdema Respiratory : No Cough, No Sputum, No Wheezing Gastrointestinal : Positive Nausea, Positive Vomiting, no Diarrhea, positive abdominal Pain, No Hematochezia, No Melena, pos constipation Genitourinary : No Dysuria, No Urinary Frequency, No Hematuria, No Urgency Musculoskeletal : No joint pain, No Myalgias, No Joint Swelling Skin : No Skin Lesions, No rash Neuro : No Weakness, No Numbness, No Dizziness, No Headache All other systems reviewed and are negative. [facility] Past Medical History Attestation statement: The following information was validated with the patient. Source: old records reviewed Medical History Breast cancer screening by mammogram Small bowel obstruction Hypercholesterolemia GERD (gastroesophageal reflux disease) Vitamin D deficiency Enterovesical fistula Renal calculus Anxiety and depression Vitamin B12 deficiency Hypothyroid Toure's esophagus Fatty liver Uterine cancer Migraine Hypertension Surgical History History of laparotomy S/P ASHWINI-BSO History of radical hysterectomy Family History Family History Family/Other Mental health disorder Social History Social History Housing: Condominium Alcohol intake: current Alcohol intake frequency: holidays/special occasions only Alcohol type: wine Patient Tobacco Use Status: Never used Tobacco Tobacco use type: Cigarette e-Cigarette/Vaping Use: Never Used Second Hand Smoke Exposure: Yes Advance Directives: No Advance Directives Information Provided: Yes service: No Current occupational status: retired Cognitive needs: No Hearing needs: No Vision needs: Yes Physical Exam ED Vital Signs: Vital Signs - 24 hr 01/16/24 23:24 01/17/24 02:19 Temperature 98.4 F 98.3 F Pulse Rate 71 72 Respiratory Rate 16 16 Blood Pressure 150/72 H 178/81 H Pulse Oximetry 98 95 Oxygen Delivery Method Room Air Room Air BMI result Body Mass Index 25.2 Appearance: Alert. Oriented X3. No acute distress. Eyes: Pupils equal, round and reactive to light. ENT: Pharynx normal. Neck: Normal inspection. Neck supple. CVS: Normal heart rate and rhythm. Pulses normal. Respiratory: No respiratory distress. Breath sounds normal. Abdomen: Soft and mild distention with no output from ostomy, mild lower abdominal ttp Skin: Skin warm and dry. Normal skin color. Extremities: No lower extremity edema. Neuro: Oriented X 3. No motor deficit. No sensory deficit. 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 Stack Consult Healthcare Provider Management of the patient was discussed with: Commercial [employer] Lab Data [facility] Lab Attestation statement: I reviewed the patient's lab results. 01/16/24 23:47 01/16/24 23:47 Labs: Lab Results 01/16/24 Range/Units 23:47 WBC 10.7 (4.8-10.8) X10*3/uL RBC 4.23 (4.20-5.50) X10*6/uL Hgb 12.8 (12.0-16.0) g/dl Hct 39.6 (37.0-47.0) % MCV 93.6 (80.0-98.0) fL MCH 30.3 (27.0-33.0) pg MCHC 32.3 (31.0-35.0) g/dl RDW 13.7 (11.0-16.0) % Plt Count 251 (160-400) X10*3/uL MPV 10.8 (9.4-12.3) fL Immature Gran % (Auto) 0.2 (0.0-0.4) % Neut % (Auto) 80.6 H (45-73) % Lymph % (Auto) 12.4 L (20-40) % [place] % (Auto) 5.8 (2-11) % Eos % (Auto) 0.7 (0-4) % Baso % (Auto) 0.3 (0-2) % Lymph # (Auto) 1.3 (1.2-4.9) X10*3/uL [place] # (Auto) 0.6 (0.1-1.2) X10*3/uL Eos # (Auto) 0.1 (0.0-0.4) X10*3/uL Baso # (Auto) 0.0 (0.0-0.2) X10*3/uL Abs Immat Gran (auto) 0.02 (0.00-0.03) X10*3/uL Absolute Neuts (auto) 8.7 H (2.0-8.3) x10*3/uL Absolute Nucleated RBC 0.000 (0.0-0.012) X10*3/uL Nucleated RBC % (auto) 0.0 (0.0-0.2) /100WBC Sodium 140 (135-145) mmol/L Potassium 5.7 H D (3.3-5.1) mmol/L Chloride 109 H (96-108) mmol/L Carbon Dioxide 22 (22-29) mmol/L Anion Gap 15 (12-20) BUN 24 H (9-16) mg/dL Creatinine 2.27 H (0.5-1.4) mg/dL Estim Creat Clear Calc 17.3 Estimated GFR 21 Random Glucose 126 H (60-115) mg/dL Calcium 9.0 (8.4-10.2) mg/dL Total Bilirubin 0.4 (0.0-1.0) mg/dL AST 32 H (5-31) U/L ALT 17 (0-31) U/L Alkaline Phosphatase 70 (39-117) U/L Total Protein 7.4 (6.5-8.0) g/dL Albumin 3.8 (3.5-5.0) g/dL Lipase 24 (8-78) U/L Independent Interpretation I performed an independent interpretation of an: CT Scan (early PSBO) Radiology Impression Discussion of test interpretation with radiology: I have reviewed the radiologist's reading. External Record Review External record reviewed: Outpatient record Medications Administered Discontinued Medications Generic Name Dose Route Start Last Admin Trade Name Freq PRN Reason Stop Dose Admin Morphine Sulfate 4 mg 01/17/24 01:28 01/17/24 02:21 Morphine Sulfate 4 Mg/Ml Cartridge IVPUSH 01/17/24 01:29 4 mg ONCE ONE Administration Protocol Ondansetron HCl 4 mg 01/17/24 01:28 01/17/24 02:21 Ondansetron Hcl 4 Mg/2 Ml Vial IVPUSH 01/17/24 01:29 4 mg ONCE ONE Administration Critical Care Time Critical Care Time Critical Care Time: Yes Total Critical Care Time: 35 Attestation: repeat assessment, IV morphine with improvemnt in pain I attest to this time spent taking care of the patient Discharge Plan Discharge Clinical Impression: Partial obstruction of small intestine Patient Disposition: Admitted As Inpatient Print Language: Italian
[2024-01-17 02:19] VITALS: BP 178/81; PULSE 72; RESP 16; TEMP 36.8; O2SAT 95
[2024-01-17] MEDS: Morphine Sulfate 4 MG/ML CARTRIDGE IVPUSH ×5 (02:21→21:58)
[2024-01-17] MEDS: ondansetron HCL 4 MG/2 ML VIAL IVPUSH (02:21)
[2024-01-17] MEDS: 0.9 % Sodium Chloride 1,000 ML 80 ML IVCONT ×2 (05:19→18:09)
[2024-01-17 05:53] VITALS: BP 142/68; PULSE 62; RESP 16; TEMP 36.9; O2SAT 95
--- NOTE | 2024-01-17 06:34 | PC.NURSE ---
Pts port accessed with ease. blood return present, flushes well.
[2024-01-17 08:00] VITALS: BP 142/70; PULSE 59; RESP 16; TEMP 36.9; O2SAT 96
--- NOTE | 2024-01-17 08:33 | P.HPGS_ITS ---
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 She reports it began as mild cramping pain in her right side associated with nausea. She then had no output via her ostomy. She came to the ED for concern of possible obstruction. She vomited in the ED. Work up included CBC, BMP, LFTs which was significant for hyperkalemia and Cr of 2.27 which is around her baseline. CT scan abd/pelvis was performed which showed dilated small bowel loops, fecalization, end colostomy with parastomal hernia. She feels improved this morning. Her pain is less and she has begun to pass stool from her ostomy. She denies further nausea or vomiting. <Va Dwyer PA-C - Last Filed: 01/17/24 08:56> Review of Systems Review of Systems: Yes all other systems are reviewed and are negative <Va Dwyer PA-C - Last Filed: 01/17/24 08:56> PMF Past Medical History Medical History: Medical History Breast cancer screening by mammogram Small bowel obstruction Hypercholesterolemia GERD (gastroesophageal reflux disease) Vitamin D deficiency Enterovesical fistula Renal calculus Anxiety and depression Vitamin B12 deficiency Hypothyroid Toure's esophagus Fatty liver Uterine cancer Migraine Hypertension <Va Dwyer PA-C - Last Filed: 01/17/24 08:56> Family History Family History: Family History Family/Other Mental health disorder <Va Dwyer PA-C - Last Filed: 01/17/24 08:56> Surgical History Surgical History: Surgical History History of laparotomy S/P ASHWINI-BSO History of radical hysterectomy <Va Dwyer PA-C - Last Filed: 01/17/24 08:56> Social History Social History: Social History Household Members: Spouse and Children Housing: Condominium Do you presently have visiting nurse or other home services: No Alcohol intake: current Alcohol intake frequency: holidays/special occasions only Alcohol type: wine Patient Tobacco Use Status: Never used Tobacco Tobacco use type: Cigarette e-Cigarette/Vaping Use: Never Used Second Hand Smoke Exposure: Yes Use of substances other than those prescribed or required for medical reasons: No Advance Directives: No Advance Directives Information Provided: Yes Do you have a plan to hurt others: No Plan Recently lost weight without trying: No Nutrition Risks: No Nutritional Risk Patient : No : No Poor oral hygiene: No service: No Current occupational status: retired Cognitive needs: No Hearing needs: No Vision needs: Yes <Va Dwyer PA-C - Last Filed: 01/17/24 08:56> Meds Allergies/Adverse reactions: Allergies Allergy/AdvReac Type Severity Reaction Status Date / Time ciprofloxacin Allergy Intermediate body ache Verified 01/16/24 23:27 diazepam Allergy Unknown shortness Verified 01/16/24 23:27 of breath fentanyl [FENTANYL] Allergy Unknown VIOLENT Verified 01/16/24 23:27 SHAKING, TACHYCARDIA, seizure hydromorphone [HYDROMORPHONE] AdvReac Severe UNCONTROLLED Verified 01/16/24 23:27 SHAKING, ELEVATED HEART RATE oxycodone [From PERCOCET] AdvReac Severe Vomiting Verified 01/16/24 23:27 egg [EGGS] AdvReac Intermediate Diarrhea Verified 01/16/24 23:27 codeine [CODEINE] AdvReac Unknown Vomiting Verified 01/16/24 23:27 meperidine [Demerol] AdvReac Unknown Nausea and Verified 01/16/24 23:27 Vomiting <Va Dwyer PA-C - Last Filed: 01/17/24 08:56> Active Medications: Current Medications Acetaminophen (Acetaminophen 325 Mg Tablet) 650 mg PO Q6H PRN PRN Reason: Pain, Mild (Pain Scale 1-3), fever or headache Calcium Carbonate (Calcium Carbonate 750 Mg Tab.Chew) 750 mg PO Q4H PRN PRN Reason: Heartburn Sodium Chloride (Ns) 1,000 mls @ 80 mls/hr IVCONT .[id number] [facility] Last Admin: 01/17/24 05:19 Dose: 80 mls/hr Lactated Ringer's (Lr) 1,000 mls @ 80 mls/hr IVCONT .[id number] [facility] Magnesium Hydroxide (Milk Of Magnesia 30 Ml Oral.Susp) 30 ml PO DAILY PRN PRN Reason: Constipation Melatonin (Melatonin 3 Mg Tablet) 6 mg PO BEDTIME PRN PRN Reason: Insomnia Morphine Sulfate (Morphine Sulfate 4 Mg/Ml Cartridge) 4 mg IVPUSH Q4H PRN; Protocol PRN Reason: Pain, Severe (Pain Scale 7-10) Ondansetron HCl (Ondansetron Hcl 4 Mg/2 Ml Vial) 4 mg IVPUSH Q8H PRN PRN Reason: Nausea and Vomiting Oxycodone HCl (Oxycodone Hcl Immed Release 5 Mg Tablet) 5 mg PO Q4H PRN PRN Reason: Pain, Moderate(Pain Scale 4-6) Sodium Chloride (0.9 % Sodium Chloride Flush 3 Ml Syringe) 3 ml IVFLUSH QSHIFT [facility] <Va Dwyer PA-C - Last Filed: 01/17/24 08:56> Home medications: Home Medications ?Medication ?Instructions ?Recorded ?Confirmed ?Last Taken ?Type sumatriptan succinate 100 mg 50 mg PO DAILY PRN Migraine 02/12/20 01/17/24 01/16/24 History tablet (Imitrex) Headache loperamide 2 mg capsule (Imodium 4 mg PO TID 05/14/20 01/17/24 01/16/24 History A-D) ferrous sulfate 325 mg (65 mg 325 mg PO BID 08/21/20 01/17/24 01/16/24 History iron) tablet (Feosol) denosumab 60 mg/mL subcutaneous 60 mg subcut [id number] 02/25/22 01/17/24 10/13/23 History syringe (Prolia) amitriptyline 10 mg tablet 10 mg PO BEDTIME 07/29/22 01/17/24 01/16/24 History sodium bicarbonate 650 mg tablet 1,300 mg PO BID 11/15/22 01/17/24 01/16/24 History biotin 10,000 mcg capsule 10,000 mcg PO DAILY 01/17/24 01/17/24 01/16/24 History calcium carbonate 1,000 mg PO DAILY 01/17/24 01/17/24 01/16/24 History estradiol 0.01% (0.1 mg/gram) 1 g vaginal TUFR 01/17/24 01/17/24 01/12/24 History vaginal cream levothyroxine 75 mcg tablet 75 mcg PO DAILY@0600 01/17/24 01/17/24 01/16/24 History magnesium glycinate 100 mg (as 840 mg PO DAILY 01/17/24 01/17/24 01/16/24 History glycinate) tablet magnesium oxide 500 mg capsule 500 mg PO DAILY 01/17/24 01/17/24 01/16/24 History multivitamin 1 tab PO DAILY 01/17/24 01/17/24 01/16/24 History omeprazole 20 mg capsule,delayed 20 mg PO DAILY@0630 01/17/24 01/17/24 01/16/24 History release zinc acetate 25 mg (zinc) capsule 25 mg PO DAILY 01/17/24 01/17/24 01/16/24 History <Va Dwyer PA-C - Last Filed: 01/17/24 08:56> Physical Exam Vital Signs: Vital Signs: Last Vital Signs Temp 98.4 F 01/17/24 08:00 Pulse 59 01/17/24 08:00 Resp 16 01/17/24 08:00 BP 142/70 H 01/17/24 08:00 Pulse Ox 96 01/17/24 08:00 O2 Del Method Nasal Cannula 01/17/24 08:00 O2 Flow Rate 2 01/17/24 08:00 BMI result Body Mass Index 25.2 <Va Dwyer PA-C - Last Filed: 01/17/24 08:56> Const: General: comfortable, no acute distress and alert <LEONID Gabriel Last Filed: 01/17/24 08:56> Orientation/consciousness: patient oriented x3 <LEONID Gabriel Last Filed: 01/17/24 08:56> Neck: Neck: Yes no JVD <Va Dwyer PA-C [place] Last Filed: 01/17/24 08:56> Resp: Effort & Inspection: normal respiratory effort <LEONID Gabriel Last Filed: 01/17/24 08:56> GI: Other: ostomy LLQ with stool output in appliance nephrostomy tubes in place b/l <LEONID Gabriel Last Filed: 01/17/24 08:56> Inspection: Yes distended (mild, soft) and Yes scar (midline ) <Va Dwyer PA-C [place] Last Filed: 01/17/24 08:56> Palpation (GI): Soft to palpation, Tenderness to palpation present (GI) (very mild right sided tenderness) with no rebound tenderness and no guarding <LEONID Gabriel Last Filed: 01/17/24 08:56> Percussion: Yes normal to percussion <LEONID Gabriel Last Filed: 01/17/24 08:56> Skin: General skin exam: no rashes or lesions noted <LEONID Gabriel Last Filed: 01/17/24 08:56> Neuro: General: patient oriented x3 and moves all extremities <LEONID Gabriel Last Filed: 01/17/24 08:56> Results Results Labs: Short CBC 01/16/24 Range/Units 23:47 WBC 10.7 (4.8-10.8) X10*3/uL Hgb 12.8 (12.0-16.0) g/dl Hct 39.6 (37.0-47.0) % Plt Count 251 (160-400) X10*3/uL BMP 01/16/24 23:47 Sodium 140 Potassium 5.7 H D Chloride 109 H Carbon Dioxide 22 BUN 24 H Creatinine 2.27 H Calcium 9.0 Liver Function 01/16/24 Range/Units 23:47 Total Bilirubin 0.4 (0.0-1.0) mg/dL AST 32 H (5-31) U/L ALT 17 (0-31) U/L Alkaline Phosphatase 70 (39-117) U/L Albumin 3.8 (3.5-5.0) g/dL <Va Dwyer PA-C - Last Filed: 01/17/24 08:56> Abdomen CT scan report/results: report reviewed and image reviewed <LEONID Gabriel Last Filed: 01/17/24 08:56> Assessment and Plan (1) Partial obstruction of small intestine: Status: Acute <Va Dwyer PA-C - Last Filed: 01/17/24 08:56> She is well known to me History reviewed She had abdominal pain, with absence of output from her stoma Currently feels much better Note of some gas now from her stoma Abdomen is soft and benign We will hold off on NG tube Okay for trial of clear liquids Seen and examined independently <Mark Ruff MD - Last Filed: 01/17/24 10:21> 73 year old female with very extensive past surgical history presenting with 1 day of abd cramping associated with nausea, vomiting, decreased ostomy output. CT scan shows dilated small bowel loops. She feels improved this morning and now has ostomy output. She is clinically appearing well with a benign abd. Picture consistent with PSBO. Will continue with conservative management with clear liquids, IVF, pain control. Discussed if no significant improvement can attempt SBFT but would hope to avoid any surgical intervention in this patient given her significant surgical hx. She is comfortable with plan. <Va Dwyer PA-C - Last Filed: 01/17/24 08:56> Quality Stroke Does the patient have a stroke diagnosis?: No <LEONID Gabriel Last Filed: 01/17/24 08:56> VTE Prior VTE?: No <LEONID Gabriel Last Filed: 01/17/24 08:56> VTE Risk Level:: Medical - moderate - high <LEONID Gabriel Last Filed: 01/17/24 08:56> VTE Device Contraindication: N/A - Device Ordered <Va Dwyer PA-C - Last Filed: 01/17/24 08:56> VTE Drug Contraindication: Treatment Not Indicated <Va Dwyer PA-C - Last Filed: 01/17/24 08:56> Procedures Date of Service Date of Service: 01/17/24 <Va Dwyer PA-C - Last Filed: 01/17/24 08:56> 01/17/24 <Mark Ruff MD - Last Filed: 01/17/24 10:21>
[2024-01-17 08:57] VITALS: BMI 25.2
--- NOTE | 2024-01-17 09:40 | PHA.MEDREC ---
Pharmacy Consult ? Medication Reconciliation Pharmacy has completed the medication reconciliation. Spoke to patient and confirmed medication list. Patient no longer takes alprazolam, amoxicillin, vitamin D3 50,000 units (last dose was on monday), lomotil and tramadol. She is supposed to start taking vitamin D daily but hasn't yet. She takes loperamide 4 mg tid on schedule due to chronic diarrhea. She verified dose of levothyroxine is 75 mcg. She is taking 3 different magnesium. She uses estradiol vag cream on monday and monday, last dose was last monday. Last dose of all other medications was yesterday.
--- NOTE | 2024-01-17 10:15 | PC.NURSE ---
Per surgery keep patient on NS @ 80/mls , do not switch to LR @ 80ml/hr
[2024-01-17] MEDS: Escitalopram Oxalate 10 MG TABLET PO (12:11)
[2024-01-17 15:11] VITALS: BP 138/71; PULSE 74; RESP 18; TEMP 37.3; O2SAT 92
[2024-01-17 19:30] VITALS: BP 132/72; PULSE 77; RESP 18; TEMP 36.6; O2SAT 97
[2024-01-17] MEDS: Amitriptyline HCl 10 MG TABLET PO (20:05)
[2024-01-17] MEDS: Sodium Bicarbonate 650 MG TABLET 1300 MG PO (20:05)
[2024-01-17] MEDS: 0.9 % Sodium Chloride Flush 3 ML SYRINGE IVFLUSH (21:59)
[2024-01-17 23:19] VITALS: BP 138/67; PULSE 84; RESP 18; TEMP 36.7; O2SAT 95
[2024-01-18 03:04] VITALS: BP 181/81; PULSE 90; RESP 18; TEMP 37.3; O2SAT 92
[2024-01-18] MEDS: Omeprazole 20 MG CAPSULE.DR PO (04:52)
[2024-01-18] MEDS: Levothyroxine Sodium 75 MCG TABLET PO (04:53)
[2024-01-18] MEDS: Morphine Sulfate 4 MG/ML CARTRIDGE IVPUSH ×2 (04:53→09:02)
[2024-01-18] MEDS: 0.9 % Sodium Chloride 1,000 ML 80 ML IVCONT ×2 (05:47→18:30)
[2024-01-18 05:48] VITALS: BP 138/65
[2024-01-18 07:05] VITALS: BP 148/70; PULSE 68; RESP 16; TEMP 36.8; O2SAT 95
--- NOTE | 2024-01-18 08:18 | P.PNGS_ITS ---
Subjective Subjective Date of Service: 01/18/24 Interval history: Feels better overall but still having pain with oral intake along with nausea Says stoma output has decreased overnight Physical Exam 2 Vital Signs: Vital Signs: Last Vital Signs Temp 98.3 F 01/18/24 07:05 Pulse 68 01/18/24 07:05 Resp 16 01/18/24 07:05 BP 148/70 H 01/18/24 07:05 Pulse Ox 95 01/18/24 07:05 O2 Del Method Room Air 01/18/24 07:05 O2 Flow Rate 2 01/17/24 08:00 BMI result Body Mass Index 25.2 Const: General: comfortable and no acute distress Resp: Effort & Inspection: normal respiratory effort Cardio: Rate: regular rate GI: Other: No significant stoma output Palpation (GI): Soft to palpation, not firm, nontender and no guarding Objective Data Active Medications Acetaminophen (Acetaminophen 325 Mg Tablet) 650 mg PO Q6H PRN PRN Reason: Pain, Mild (Pain Scale 1-3), fever or headache Amitriptyline HCl (Amitriptyline Hcl 10 Mg Tablet) 10 mg PO BEDTIME [facility] Last Admin: 01/17/24 20:05 Dose: 10 mg Documented By: LG Amlodipine Besylate (Amlodipine Besylate 10 Mg Tablet) 10 mg PO DAILY [facility]; Protocol Calcium Carbonate (Calcium Carbonate 750 Mg Tab.Chew) 750 mg PO Q4H PRN PRN Reason: Heartburn Escitalopram Oxalate (Escitalopram Oxalate 10 Mg Tablet) 10 mg PO DAILY [facility] Last Admin: 01/17/24 12:11 Dose: 10 mg Documented By: ASIM Sodium Chloride (Ns) 1,000 mls @ 80 mls/hr IVCONT .[id number] [facility] Last Admin: 01/18/24 05:47 Dose: 80 mls/hr Documented By: LG Levothyroxine Sodium (Levothyroxine Sodium 75 Mcg Tablet) 75 mcg PO DAILY@0600 [facility] Last Admin: 01/18/24 04:53 Dose: 75 mcg Documented By: LG Magnesium Hydroxide (Milk Of Magnesia 30 Ml Oral.Susp) 30 ml PO DAILY PRN PRN Reason: Constipation Magnesium Oxide (Magnesium Oxide 400 Mg Tablet) 400 mg PO DAILY [facility] Melatonin (Melatonin 3 Mg Tablet) 6 mg PO BEDTIME PRN PRN Reason: Insomnia Metoprolol Succinate (Metoprolol Succinate Er 100 Mg Tab.Er.24h) 100 mg PO DAILY [facility]; Protocol Morphine Sulfate (Morphine Sulfate 4 Mg/Ml Cartridge) 4 mg IVPUSH Q4H PRN; Protocol PRN Reason: Pain, Severe (Pain Scale 7-10) Last Admin: 01/18/24 04:53 Dose: 4 mg Documented By: LG Omeprazole (Omeprazole 20 Mg Capsule.Dr) 20 mg PO DAILY@0630 [facility] Last Admin: 01/18/24 04:52 Dose: 20 mg Documented By: LG Ondansetron HCl (Ondansetron Hcl 4 Mg/2 Ml Vial) 4 mg IVPUSH Q8H PRN PRN Reason: Nausea and Vomiting Sodium Bicarbonate (Sodium Bicarbonate 650 Mg Tablet) 1,300 mg PO BID [facility] Last Admin: 01/17/24 20:05 Dose: 1,300 mg Documented By: LG Sodium Chloride (0.9 % Sodium Chloride Flush 3 Ml Syringe) 3 ml IVFLUSH QSHIFT [facility] Last Admin: 01/17/24 21:59 Dose: 3 ml Documented By: LG Sumatriptan Succinate (Sumatriptan Succinate 50 Mg Tablet) 50 mg PO DAILY PRN PRN Reason: Migraine Headache Labs 01/16/24 23:47 01/16/24 23:47 Procedures Date of Service Date of Service: 01/18/24 Progress Note: A&P Assessment and plan (1) Partial obstruction of small intestine: Status: Acute Assessment and Plan: Clinically better but still having pain Stoma output less overnight NPO again but okay to have ice chips Encouraged ambulation Repeat lytes, check creatinine Exam benign Time Spent With Patient Time: Total time managing care of this patient today ____ minutes. Quality Stroke Does the patient have a stroke diagnosis?: No VTE Prior VTE?: No VTE Risk Level:: Medical - moderate - high VTE Device Contraindication: N/A - Device Ordered VTE Drug Contraindication: Treatment Not Indicated
[2024-01-18 08:47] VITALS: BP 157/73; PULSE 78
[2024-01-18] MEDS: Magnesium Oxide 400 MG TABLET PO (09:02)
[2024-01-18] MEDS: Sodium Bicarbonate 650 MG TABLET 1300 MG PO ×2 (09:02→21:24)
[2024-01-18] MEDS: Metoprolol Succinate ER 100 MG TAB.ER.24H PO (09:02)
[2024-01-18] MEDS: amLODIPine Besylate 10 MG TABLET PO (09:02)
[2024-01-18] MEDS: Escitalopram Oxalate 10 MG TABLET PO (09:02)
--- NOTE | 2024-01-18 09:33 | MHC.CM.PN ---
PT REPORTS SHE LIVES WITH HER AND IS INDEPENDENT WITH CARE SHE HAS NO DME AND NO SERVICES COPY OF HCP REQUESTED PCP: [facility] RIGHTS DELIVERED DCP: HOME NO SERVICES TO TRANSPORT
[2024-01-18 10:02] LABS: Anion Gap 11 (12-20); Blood Urea Nitrogen 32 mg/dL (9-16); Calcium 10.6 mg/dL (8.4-10.2); Carbon Dioxide 31 mmol/L (22-29); Chloride 106 mmol/L (96-108); Creatinine Clr Calc Pharmacy 17.3; Estimated Glomerular Filt Rate 21; Glucose Random 114 mg/dL (60-115); Potassium 5.4 mmol/L (3.3-5.1); Sodium 143 mmol/L (135-145)
[2024-01-18 15:09] VITALS: BP 147/70; PULSE 75; RESP 16; TEMP 37.1; O2SAT 93
[2024-01-18] MEDS: Acetaminophen 325 MG TABLET 650 MG PO (15:31)
[2024-01-18] MEDS: Amitriptyline HCl 10 MG TABLET PO (21:24)
[2024-01-18 23:01] VITALS: BP 137/66; PULSE 76; RESP 16; TEMP 37.7; O2SAT 96
[2024-01-19] MEDS: 0.9 % Sodium Chloride 1,000 ML 80 ML IVCONT (05:56)
[2024-01-19] MEDS: Levothyroxine Sodium 75 MCG TABLET PO (05:56)
[2024-01-19] MEDS: Omeprazole 20 MG CAPSULE.DR PO (05:56)
[2024-01-19 06:37] LABS: Anion Gap 12 (12-20); Blood Urea Nitrogen 30 mg/dL (9-16); Calcium 9.1 mg/dL (8.4-10.2); Carbon Dioxide 24 mmol/L (22-29); Chloride 108 mmol/L (96-108); Creatinine Clr Calc Pharmacy 19.5; Estimated Glomerular Filt Rate 24; Glucose Fasting 100 mg/dL (60-99); Potassium 5.2 mmol/L (3.3-5.1); Sodium 139 mmol/L (135-145)
[2024-01-19 07:06] VITALS: BP 146/70; PULSE 72; RESP 16; TEMP 37.3; O2SAT 94
[2024-01-19] MEDS: Sodium Bicarbonate 650 MG TABLET 1300 MG PO ×2 (07:17→20:12)
[2024-01-19] MEDS: amLODIPine Besylate 10 MG TABLET PO (07:17)
[2024-01-19] MEDS: Morphine Sulfate 4 MG/ML CARTRIDGE IVPUSH (07:17)
[2024-01-19] MEDS: Metoprolol Succinate ER 100 MG TAB.ER.24H PO (07:18)
[2024-01-19] MEDS: Escitalopram Oxalate 10 MG TABLET PO (07:18)
[2024-01-19] MEDS: Magnesium Oxide 400 MG TABLET PO (07:18)
[2024-01-19 07:19] VITALS: TEMP 36.8
[2024-01-19] MEDS: ondansetron HCL 4 MG/2 ML VIAL IVPUSH ×2 (07:27→16:55)
--- NOTE | 2024-01-19 08:08 | PM.PNGS ---
Subjective Subjective Date of Service: 01/19/24 <Va Dwyer PA-C - Last Filed: 01/19/24 08:12> 01/19/24 <Mark Ruff MD - Last Filed: 01/19/24 08:21> Interval history: Still c/o crampy abd pain. Had some nausea and vomiting yesterday. Denies any real output/flatus from ostomy. <Va Dwyer PA-C - Last Filed: 01/19/24 08:12> Physical Exam Vital Signs: Vital Signs: Last Vital Signs Temp 98.2 F 01/19/24 07:19 Pulse 72 01/19/24 07:06 Resp 16 01/19/24 07:06 BP 146/70 H 01/19/24 07:06 Pulse Ox 94 01/19/24 07:06 O2 Del Method Room Air 01/19/24 07:06 O2 Flow Rate 2 01/17/24 08:00 BMI result Body Mass Index 25.2 <Va Dwyer PA-C - Last Filed: 01/19/24 08:12> Const: General: comfortable, no acute distress and alert <Va Dwyer PA-C - Last Filed: 01/19/24 08:12> Orientation/consciousness: patient oriented x3 <Va Dwyer PA-C - Last Filed: 01/19/24 08:12> Resp: Effort & Inspection: normal respiratory effort <Va Dwyer PA-C - Last Filed: 01/19/24 08:12> GI: Inspection: Yes distended <Va Dwyer PA-C - Last Filed: 01/19/24 08:12> Palpation (GI): Soft to palpation, Tenderness to palpation present (GI) (right sided) and no guarding <LEONID Gabriel Last Filed: 01/19/24 08:12> Skin: General skin exam: no rashes or lesions noted <LEONID Gabriel Last Filed: 01/19/24 08:12> Neuro: General: patient oriented x3 and moves all extremities <LEONID Gabriel Last Filed: 01/19/24 08:12> Objective Data Active Medications Acetaminophen (Acetaminophen 325 Mg Tablet) 650 mg PO Q6H PRN PRN Reason: Pain, Mild (Pain Scale 1-3), fever or headache Last Admin: 01/18/24 15:31 Dose: 650 mg Documented By: QUANG Amitriptyline HCl (Amitriptyline Hcl 10 Mg Tablet) 10 mg PO BEDTIME [facility] Last Admin: 01/18/24 21:24 Dose: 10 mg Documented By: LG Amlodipine Besylate (Amlodipine Besylate 10 Mg Tablet) 10 mg PO DAILY [facility]; Protocol Last Admin: 01/19/24 07:17 Dose: 10 mg Documented By: DANA Calcium Carbonate (Calcium Carbonate 750 Mg Tab.Chew) 750 mg PO Q4H PRN PRN Reason: Heartburn Escitalopram Oxalate (Escitalopram Oxalate 10 Mg Tablet) 10 mg PO DAILY [facility] Last Admin: 01/19/24 07:18 Dose: 10 mg Documented By: DANA Sodium Chloride (Ns) 1,000 mls @ 80 mls/hr IVCONT .[id number] [facility] Last Admin: 01/19/24 05:56 Dose: 80 mls/hr Documented By: LG Levothyroxine Sodium (Levothyroxine Sodium 75 Mcg Tablet) 75 mcg PO DAILY@0600 [facility] Last Admin: 01/19/24 05:56 Dose: 75 mcg Documented By: LG Magnesium Hydroxide (Milk Of Magnesia 30 Ml Oral.Susp) 30 ml PO DAILY PRN PRN Reason: Constipation Magnesium Oxide (Magnesium Oxide 400 Mg Tablet) 400 mg PO DAILY [facility] Last Admin: 01/19/24 07:18 Dose: 400 mg Documented By: DANA Melatonin (Melatonin 3 Mg Tablet) 6 mg PO BEDTIME PRN PRN Reason: Insomnia Metoprolol Succinate (Metoprolol Succinate Er 100 Mg Tab.Er.24h) 100 mg PO DAILY [facility]; Protocol Last Admin: 01/19/24 07:18 Dose: 100 mg Documented By: DANA Morphine Sulfate (Morphine Sulfate 4 Mg/Ml Cartridge) 4 mg IVPUSH Q4H PRN; Protocol PRN Reason: Pain, Severe (Pain Scale 7-10) Last Admin: 01/19/24 07:17 Dose: 4 mg Documented By: DANA Omeprazole (Omeprazole 20 Mg Capsule.) 20 mg PO DAILY@0630 [facility] Last Admin: 01/19/24 05:56 Dose: 20 mg Documented By: LG Ondansetron HCl (Ondansetron Hcl 4 Mg/2 Ml Vial) 4 mg IVPUSH Q8H PRN PRN Reason: Nausea and Vomiting Last Admin: 01/19/24 07:27 Dose: 4 mg Documented By: DANA Sodium Bicarbonate (Sodium Bicarbonate 650 Mg Tablet) 1,300 mg PO BID [facility] Last Admin: 01/19/24 07:17 Dose: 1,300 mg Documented By: DANA Sodium Chloride (0.9 % Sodium Chloride Flush 3 Ml Syringe) 3 ml IVFLUSH QSHIFT [facility] Last Admin: 01/19/24 07:16 Dose: Not Given Documented By: DANA Non-Admin Reason: IV Running Sumatriptan Succinate (Sumatriptan Succinate 50 Mg Tablet) 50 mg PO DAILY PRN PRN Reason: Migraine Headache <Va Dwyer PA-C - Last Filed: 01/19/24 08:12> Labs CBC & Chem 7: 01/16/24 23:47 01/19/24 05:54 <Va Dwyer PA-C - Last Filed: 01/19/24 08:12> Labs: Laboratory Results - last 24 hr 01/18/24 01/19/24 08:46 05:54 Anion Gap 11 L 12 Estim Creat Clear Calc 17.3 19.5 Estimated GFR 21 24 Random Glucose 114 Fasting Glucose 100 H Calcium 10.6 H D 9.1 D <Va Dwyre PA-C - Last Filed: 01/19/24 08:12> Procedures Date of Service Date of Service: 01/19/24 <Va Dwyer PA-C - Last Filed: 01/19/24 08:12> 01/19/24 <Mark Ruff MD - Last Filed: 01/19/24 08:21> Progress Note: A&P Assessment and plan (1) Partial obstruction of small intestine: Status: Acute <Va Dwyer PA-C - Last Filed: 01/19/24 08:12> Assessment and Plan: small amounts of stool last night had n/v refusing NGT abd soft, benign she looks well clinically SB follow through seen and examined independently <Mark Ruff MD - Last Filed: 01/19/24 08:21> Assessment and Plan: Has persistent abd pain without significant ostomy output. Will therefore obtain SBFT. Hopefully she will be able to tolerate the contrast. Discussed possible NGT insertion but she is currently refusing. Cont IVF for now, ambulation. Further plan dependent on imaging. Abd soft, mild tenderness. <Va Dwyer PA-C - Last Filed: 01/19/24 08:12> Time Spent With Patient Time: Total time managing care of this patient today ____ minutes. <Va Dwyer PA-C - Last Filed: 01/19/24 08:12> Quality Stroke Does the patient have a stroke diagnosis?: No <Va Dwyer PA-C - Last Filed: 01/19/24 08:12> VTE Prior VTE?: No <Va Dwyer PA-C - Last Filed: 01/19/24 08:12> VTE Risk Level:: Medical - moderate - high <Va Dwyer PA-C - Last Filed: 01/19/24 08:12> VTE Device Contraindication: N/A - Device Ordered <Va Dwyer PA-C - Last Filed: 01/19/24 08:12> VTE Drug Contraindication: Treatment Not Indicated <Va Dwyer PA-C - Last Filed: 01/19/24 08:12>
[2024-01-19] MEDS: Diatrizoate Meglumine, Sodium 120 ML SOLUTION 240 ML PO (12:05)
[2024-01-19 12:19] VITALS: BP 143/65; PULSE 76; RESP 16; TEMP 36.4; O2SAT 92
--- NOTE | 2024-01-19 14:41 | PM.EVENT ---
Event Note Date of Service: 01/20/24 Event Note: She had vomited earlier I therefore placed NG-tube Small bowel series started - stomach dilated Abdomen remained soft and benign She looks well overall and actually is comfortable We will keep NG tube to low intermittent suction for now Encouraged ambulation Time Spent With Patient Time: Total time managing care of this patient today ____ minutes.
[2024-01-19 15:05] VITALS: BP 161/73; PULSE 80; RESP 22; TEMP 37.1; O2SAT 91
[2024-01-19 15:22] VITALS: O2SAT 93
[2024-01-19] MEDS: Throat Lozenge, Medicated LOZENGE 1 LOZENGE MUCOUS MEM (15:56)
[2024-01-19] MEDS: Metoclopramide HCl 10 MG/2 ML VIAL IVPUSH (15:57)
[2024-01-19] MEDS: Calcium Carbonate 750 MG TAB.CHEW PO (19:21)
[2024-01-19] MEDS: 0.9 % Sodium Chloride 1,000 ML 125 ML IVCONT (19:41)
[2024-01-19] MEDS: Amitriptyline HCl 10 MG TABLET PO (20:12)
--- NOTE | 2024-01-19 21:01 | PC.NURSE ---
patient C/O heartburn, Tums given with no relief. Maalox PRN ordered per Dr Ruff.
[2024-01-19] MEDS: Magnesium Hydrox/Alum Hydrox 30 ML ORAL.SUSP PO (21:08)
[2024-01-19 23:17] VITALS: BP 124/65; PULSE 78; RESP 19; TEMP 36.8; O2SAT 93
[2024-01-20] MEDS: 0.9 % Sodium Chloride 1,000 ML 125 ML IVCONT ×3 (03:18→23:57)
[2024-01-20] MEDS: Levothyroxine Sodium 75 MCG TABLET PO (06:30)
[2024-01-20] MEDS: Pantoprazole Sodium 40 MG/10 ML VIAL IVPUSH (06:30)
[2024-01-20 07:22] LABS: Anion Gap 14 (12-20); Blood Urea Nitrogen 34 mg/dL (9-16); Calcium 9.2 mg/dL (8.4-10.2); Carbon Dioxide 29 mmol/L (22-29); Chloride 105 mmol/L (96-108); Creatinine Clr Calc Pharmacy 22.8; Estimated Glomerular Filt Rate 29; Glucose Fasting 107 mg/dL (60-99); Potassium 4.1 mmol/L (3.3-5.1); Sodium 144 mmol/L (135-145)
[2024-01-20 07:43] VITALS: BP 172/79; PULSE 73; RESP 16; TEMP 36.9; O2SAT 92
[2024-01-20] MEDS: Escitalopram Oxalate 10 MG TABLET PO (09:13)
[2024-01-20] MEDS: Sodium Bicarbonate 650 MG TABLET 1300 MG PO ×2 (09:13→21:22)
[2024-01-20] MEDS: Magnesium Oxide 400 MG TABLET PO (09:14)
[2024-01-20] MEDS: amLODIPine Besylate 10 MG TABLET PO (09:14)
[2024-01-20] MEDS: Metoprolol Succinate ER 100 MG TAB.ER.24H PO (09:14)
--- NOTE | 2024-01-20 09:38 | PM.PNGS ---
Subjective Subjective Date of Service: 01/20/24 Interval history: says NGT is uncomfortable denies abdl pain currently had some stools via stoma overnight Physical Exam Vital Signs: Vital Signs: Last Vital Signs Temp 98.4 F 01/20/24 07:43 Pulse 73 01/20/24 07:43 Resp 16 01/20/24 07:43 BP 172/79 H 01/20/24 07:43 Pulse Ox 92 01/20/24 07:43 O2 Del Method Room Air 01/20/24 07:43 O2 Flow Rate 1 01/19/24 15:22 BMI result Body Mass Index 25.2 Const: General: comfortable and no acute distress Resp: Effort & Inspection: normal respiratory effort Cardio: Rate: regular rate GI: Other: stoma with some stools, Palpation (GI): Soft to palpation, not firm, nontender and no guarding Objective Data Active Medications Acetaminophen (Acetaminophen 325 Mg Tablet) 650 mg PO Q6H PRN PRN Reason: Pain, Mild (Pain Scale 1-3), fever or headache Last Admin: 01/18/24 15:31 Dose: 650 mg Documented By: QUANG Al Hydroxide/Mg Hydroxide (Magnesium Hydrox/Alum Hydrox 30 Ml Oral.Susp) 30 ml PO Q4H PRN PRN Reason: Heartburn Last Admin: 01/19/24 21:08 Dose: 30 ml Documented By: LG Amitriptyline HCl (Amitriptyline Hcl 10 Mg Tablet) 10 mg PO BEDTIME [facility] Last Admin: 01/19/24 20:12 Dose: 10 mg Documented By: LG Amlodipine Besylate (Amlodipine Besylate 10 Mg Tablet) 10 mg PO DAILY [facility]; Protocol Last Admin: 01/20/24 09:14 Dose: 10 mg Documented By: DOBROMariely Benzocaine (Throat Lozenge, Medicated Lozenge) 1 lozenge MUCOUS MEM Q2H PRN PRN Reason: Sore Throat Last Admin: 01/19/24 15:56 Dose: 1 lozenge Documented By: DANA Calcium Carbonate (Calcium Carbonate 750 Mg Tab.Chew) 750 mg PO Q4H PRN PRN Reason: Heartburn Last Admin: 01/19/24 19:21 Dose: 750 mg Documented By: LG Escitalopram Oxalate (Escitalopram Oxalate 10 Mg Tablet) 10 mg PO DAILY [facility] Last Admin: 01/20/24 09:13 Dose: 10 mg Documented By: MEJIA Levothyroxine Sodium (Levothyroxine Sodium 75 Mcg Tablet) 75 mcg PO DAILY@0600 [facility] Last Admin: 01/20/24 06:30 Dose: 75 mcg Documented By: LG Magnesium Hydroxide (Milk Of Magnesia 30 Ml Oral.Susp) 30 ml PO DAILY PRN PRN Reason: Constipation Magnesium Oxide (Magnesium Oxide 400 Mg Tablet) 400 mg PO DAILY [facility] Last Admin: 01/20/24 09:14 Dose: 400 mg Documented By: MEJIA Melatonin (Melatonin 3 Mg Tablet) 6 mg PO BEDTIME PRN PRN Reason: Insomnia Metoclopramide HCl (Metoclopramide Hcl 10 Mg/2 Ml Vial) 10 mg IVPUSH Q6H PRN PRN Reason: Nausea and Vomiting Last Admin: 01/19/24 15:57 Dose: 10 mg Documented By: DANA Metoprolol Succinate (Metoprolol Succinate Er 100 Mg Tab.Er.24h) 100 mg PO DAILY [facility]; Protocol Last Admin: 01/20/24 09:14 Dose: 100 mg Documented By: MEJIA Morphine Sulfate (Morphine Sulfate 4 Mg/Ml Cartridge) 4 mg IVPUSH Q4H PRN; Protocol PRN Reason: Pain, Severe (Pain Scale 7-10) Last Admin: 01/19/24 07:17 Dose: 4 mg Documented By: DANA Ondansetron HCl (Ondansetron Hcl 4 Mg/2 Ml Vial) 4 mg IVPUSH Q8H PRN PRN Reason: Nausea and Vomiting Last Admin: 01/19/24 16:55 Dose: 4 mg Documented By: QUANG Pantoprazole Sodium (Pantoprazole Sodium 40 Mg/10 Ml Vial) 40 mg IVPUSH DAILY@0630 [facility] Last Admin: 01/20/24 06:30 Dose: 40 mg Documented By: LG Sodium Bicarbonate (Sodium Bicarbonate 650 Mg Tablet) 1,300 mg PO BID [facility] Last Admin: 01/20/24 09:13 Dose: 1,300 mg Documented By: MEJIA Sodium Chloride (0.9 % Sodium Chloride Flush 3 Ml [facility]ringe) [facility] Last Admin: 01/20/24 09:15 Dose: Not Given Documented By: MEJIA Non-Admin Reason: IV Running Sumatriptan Succinate (Sumatriptan Succinate 50 Mg Tablet) 50 mg PO DAILY PRN PRN Reason: Migraine Headache Labs 01/16/24 23:47 01/20/24 05:37 Labs: Laboratory Results - last 24 hr 01/20/24 01/20/24 01/20/24 05:37 05:37 05:37 Hold Purple Top SEE NOTE Anion Gap Cancelled 14 Estim Creat Clear Calc Cancelled 22.8 Estimated GFR Cancelled Random Glucose Fasting Glucose Calcium 01/20/24 01/20/24 05:37 05:37 Hold Purple Top Anion Gap Estim Creat Clear Calc Estimated GFR 29 Random Glucose Cancelled Fasting Glucose 107 H Calcium Cancelled 9.2 Procedures Date of Service Date of Service: 01/20/24 Progress Note: A&P Assessment and plan (1) Partial obstruction of small intestine: Status: Acute Assessment and Plan: ffup KUB this AM shows contrast in the colon already will see how much output from NGT today minimal output from stoma abd soft abd and benign lytes ok, BUN better IVF ambulate ok to have ice chips Time Spent With Patient Time: Total time managing care of this patient today ____ minutes. Quality Stroke Does the patient have a stroke diagnosis?: No VTE Prior VTE?: No VTE Risk Level:: Medical - moderate - high VTE Device Contraindication: N/A - Device Ordered VTE Drug Contraindication: Treatment Not Indicated
[2024-01-20] MEDS: Magnesium Hydrox/Alum Hydrox 30 ML ORAL.SUSP PO (09:45)
[2024-01-20] MEDS: Metoclopramide HCl 10 MG/2 ML VIAL IVPUSH (09:46)
[2024-01-20 10:47] VITALS: BP 157/75
[2024-01-20] MEDS: ondansetron HCL 4 MG/2 ML VIAL IVPUSH (11:02)
--- NOTE | 2024-01-20 14:44 | PM.EVENT ---
Event Note Date of Service: 01/21/24 Event Note: Threw up earlier NG tube noted to be clogged NG tube flushed She is comfortable currently Abdomen is soft and benign Minimal stool in the stoma We will repeat the KUB tomorrow morning Nurses instructed to keep the NG tube patent Time Spent With Patient Time: Total time managing care of this patient today ____ minutes.
[2024-01-20 15:49] VITALS: BP 142/69; PULSE 77; RESP 14; TEMP 37.5; O2SAT 93
[2024-01-20] MEDS: Amitriptyline HCl 10 MG TABLET PO (21:22)
[2024-01-20 23:39] VITALS: BP 132/63; PULSE 82; RESP 18; TEMP 37.2; O2SAT 93
[2024-01-20] MEDS: 0.9 % Sodium Chloride Flush 3 ML SYRINGE IVFLUSH (23:57)
[2024-01-21] MEDS: Levothyroxine Sodium 75 MCG TABLET PO (05:50)
[2024-01-21] MEDS: Pantoprazole Sodium 40 MG/10 ML VIAL IVPUSH (05:50)
[2024-01-21 06:06] LABS: Anion Gap 13 (12-20); Blood Urea Nitrogen 33 mg/dL (9-16); Calcium 8.3 mg/dL (8.4-10.2); Carbon Dioxide 28 mmol/L (22-29); Chloride 106 mmol/L (96-108); Estimated Glomerular Filt Rate 28; Glucose Random 86 mg/dL (60-115); Potassium 4.2 mmol/L (3.3-5.1); Sodium 143 mmol/L (135-145)
[2024-01-21 07:24] VITALS: BP 139/65; PULSE 76; RESP 16; TEMP 37.4; O2SAT 95
[2024-01-21] MEDS: 0.9 % Sodium Chloride 1,000 ML 125 ML IVCONT ×2 (08:28→16:26)
[2024-01-21] MEDS: amLODIPine Besylate 10 MG TABLET PO (08:39)
[2024-01-21] MEDS: Metoprolol Succinate ER 100 MG TAB.ER.24H PO (08:39)
[2024-01-21] MEDS: Escitalopram Oxalate 10 MG TABLET PO (08:39)
[2024-01-21] MEDS: Sodium Bicarbonate 650 MG TABLET 1300 MG PO ×2 (08:39→20:19)
--- NOTE | 2024-01-21 10:17 | P.PNGS_ITS ---
Subjective Subjective Date of Service: 01/21/24 Interval history: She feels better this morning Started to pass a lot of flatus and BMs overnight via the stoma Hungry and wants to eat Complains of discomfort from the NG tube Physical Exam 2 Vital Signs: Vital Signs: Last Vital Signs Temp 99.4 F 01/21/24 07:24 Pulse 76 01/21/24 07:24 Resp 16 01/21/24 07:24 BP 139/65 01/21/24 07:24 Pulse Ox 95 01/21/24 07:24 O2 Del Method Room Air 01/21/24 07:24 O2 Flow Rate 1 01/19/24 15:22 BMI result Body Mass Index 25.2 Const: General: comfortable and no acute distress Resp: Effort & Inspection: normal respiratory effort Cardio: Rate: regular rate GI: Other: Stoma with stool and gas Palpation (GI): Soft to palpation, not firm, nontender and no guarding Objective Data Active Medications Acetaminophen (Acetaminophen 325 Mg Tablet) 650 mg PO Q6H PRN PRN Reason: Pain, Mild (Pain Scale 1-3), fever or headache Last Admin: 01/18/24 15:31 Dose: 650 mg Documented By: QUANG Amitriptyline HCl (Amitriptyline Hcl 10 Mg Tablet) 10 mg PO BEDTIME [facility] Last Admin: 01/20/24 21:22 Dose: 10 mg Documented By: MEJIA Amlodipine Besylate (Amlodipine Besylate 10 Mg Tablet) 10 mg PO DAILY [facility]; Protocol Last Admin: 01/21/24 08:39 Dose: 10 mg Documented By: MYA Benzocaine (Throat Lozenge, Medicated Lozenge) 1 lozenge MUCOUS MEM Q2H PRN PRN Reason: Sore Throat Last Admin: 01/19/24 15:56 Dose: 1 lozenge Documented By: DANA Calcium Carbonate (Calcium Carbonate 750 Mg Tab.Chew) 750 mg PO Q4H PRN PRN Reason: Heartburn Last Admin: 01/19/24 19:21 Dose: 750 mg Documented By: LG Escitalopram Oxalate (Escitalopram Oxalate 10 Mg Tablet) 10 mg PO DAILY [facility] Last Admin: 01/21/24 08:39 Dose: 10 mg Documented By: MYA Sodium Chloride (Ns) 1,000 mls @ 125 mls/hr IVCONT .Q8H [facility] Last Admin: 01/21/24 08:28 Dose: 125 mls/hr Documented By: MYA Levothyroxine Sodium (Levothyroxine Sodium 75 Mcg Tablet) 75 mcg PO DAILY@0600 [facility] Last Admin: 01/21/24 05:50 Dose: 75 mcg Documented By: ADAM Melatonin (Melatonin 3 Mg Tablet) 6 mg PO BEDTIME PRN PRN Reason: Insomnia Metoclopramide HCl (Metoclopramide Hcl 10 Mg/2 Ml Vial) 10 mg IVPUSH Q6H PRN PRN Reason: Nausea and Vomiting Last Admin: 01/20/24 09:46 Dose: 10 mg Documented By: MEJIA Metoprolol Succinate (Metoprolol Succinate Er 100 Mg Tab.Er.24h) 100 mg PO DAILY [facility]; Protocol Last Admin: 01/21/24 08:39 Dose: 100 mg Documented By: MYA Morphine Sulfate (Morphine Sulfate 4 Mg/Ml Cartridge) 4 mg IVPUSH Q4H PRN; Protocol PRN Reason: Pain, Severe (Pain Scale 7-10) Last Admin: 01/19/24 07:17 Dose: 4 mg Documented By: DANA Ondansetron HCl (Ondansetron Hcl 4 Mg/2 Ml Vial) 4 mg IVPUSH Q8H PRN PRN Reason: Nausea and Vomiting Last Admin: 01/20/24 11:02 Dose: 4 mg Documented By: MEJIA Pantoprazole Sodium (Pantoprazole Sodium 40 Mg/10 Ml Vial) 40 mg IVPUSH DAILY@0630 [facility] Last Admin: 01/21/24 05:50 Dose: 40 mg Documented By: ADAM Sodium Bicarbonate (Sodium Bicarbonate 650 Mg Tablet) 1,300 mg PO BID [facility] Last Admin: 01/21/24 08:39 Dose: 1,300 mg Documented By: MYA Sodium Chloride (0.9 % Sodium Chloride Flush 3 Ml Syringe) 3 ml IVFLUSH QSHIFT [facility] Last Admin: 01/21/24 08:29 Dose: Not Given Documented By: MYA Non-Admin Reason: IV Running Sumatriptan Succinate (Sumatriptan Succinate 50 Mg Tablet) 50 mg PO DAILY PRN PRN Reason: Migraine Headache Labs 01/16/24 23:47 01/21/24 05:26 Labs: Laboratory Results - last 24 hr 01/21/24 05:26 Hold Purple Top SEE NOTE Anion Gap 13 Estim Creat Clear Calc 22.0 Estimated GFR 28 Random Glucose 86 Calcium 8.3 L D Procedures Date of Service Date of Service: 01/21/24 Progress Note: A&P Assessment and plan (1) Partial obstruction of small intestine: Status: Acute Assessment and Plan: Feels much better this morning Stoma with more output, stool and gas Abdomen is soft and benign KUB seen - contrast in the colon Creatinine steady at 1.7 Continue IV fluid We will do trial of clamping of the NG tube today Encouraged ambulation Clinically looks well Time Spent With Patient Time: Total time managing care of this patient today ____ minutes. Quality Stroke Does the patient have a stroke diagnosis?: No VTE Prior VTE?: No VTE Risk Level:: Medical - moderate - high VTE Device Contraindication: N/A - Device Ordered VTE Drug Contraindication: Treatment Not Indicated
--- NOTE | 2024-01-21 13:42 | PM.EVENT ---
Event Note Date of Service: 01/21/24 Event Note: NGT clamped x 4 hours pt denies discomfort, nausea residuals checked - very scanty I removed her NGT ok to have ice chips, small sips stoma with a lot of gas and liquid stool now abd soft and benign Time Spent With Patient Time: Total time managing care of this patient today ____ minutes.
--- NOTE | 2024-01-21 13:52 | PC.NURSE ---
ngtube clamped for 4 hrs , pt tolerated well , no n/v the removed at 13:[address] Ruff , pt can have small sips of clear liquids as per MD
[2024-01-21 15:19] VITALS: BP 118/78; PULSE 66; RESP 18; TEMP 36.7; O2SAT 92
[2024-01-21] MEDS: 0.9 % Sodium Chloride Flush 3 ML SYRINGE IVFLUSH (16:29)
[2024-01-21] MEDS: Amitriptyline HCl 10 MG TABLET PO (20:19)
[2024-01-21] MEDS: Calcium Carbonate 750 MG TAB.CHEW PO (21:08)
[2024-01-21 23:25] VITALS: BP 128/62; PULSE 74; RESP 16; TEMP 36.7; O2SAT 93
[2024-01-22] MEDS: 0.9 % Sodium Chloride 1,000 ML 125 ML IVCONT ×2 (00:03→07:42)
[2024-01-22] MEDS: Pantoprazole Sodium 40 MG/10 ML VIAL IVPUSH (05:44)
[2024-01-22] MEDS: Levothyroxine Sodium 75 MCG TABLET PO (05:44)
[2024-01-22 07:43] VITALS: BP 130/61; PULSE 80; RESP 18; TEMP 36.6; O2SAT 93
[2024-01-22] MEDS: Sodium Bicarbonate 650 MG TABLET 1300 MG PO ×2 (07:43→20:19)
[2024-01-22] MEDS: Escitalopram Oxalate 10 MG TABLET PO (07:43)
[2024-01-22] MEDS: amLODIPine Besylate 10 MG TABLET PO (07:45)
[2024-01-22] MEDS: Metoprolol Succinate ER 100 MG TAB.ER.24H PO (07:45)
--- NOTE | 2024-01-22 07:56 | P.PNGS_ITS ---
Subjective Subjective Date of Service: 01/22/24 <Va Dwyer PA-C - Last Filed: 01/22/24 07:58> 01/22/24 <Mark Ruff MD - Last Filed: 01/22/24 11:03> Interval history: Continues to feel improved. Denies any abd pain. Continues to pass flatus but no significant ostomy output since the other day. OOB and ambulating. Feels hungry. <Va Dwyer PA-C - Last Filed: 01/22/24 07:58> Physical Exam 2 Vital Signs: Vital Signs: Last Vital Signs Temp 97.9 F 01/22/24 07:43 Pulse 80 01/22/24 07:43 Resp 18 01/22/24 07:43 BP 130/61 01/22/24 07:43 Pulse Ox 93 01/22/24 07:43 O2 Del Method Room Air 01/22/24 07:43 O2 Flow Rate 1 01/19/24 15:22 BMI result Body Mass Index 25.2 <Va Dwyer PA-C - Last Filed: 01/22/24 07:58> Const: General: comfortable, no acute distress and alert <Va Dwyer PA-C - Last Filed: 01/22/24 07:58> Orientation/consciousness: patient oriented x3 <Va Dwyer PA-C - Last Filed: 01/22/24 07:58> Resp: Effort & Inspection: normal respiratory effort <Va Dwyer PA-C - Last Filed: 01/22/24 07:58> GI: Other: ostomy with gas in appliance <Va Dwyer PA-C - Last Filed: 01/22/24 07:58> Inspection: Yes distended (mild, softly) <LEONID Gabriel Last Filed: 01/22/24 07:58> Palpation (GI): Soft to palpation, nontender and no guarding <LEONID Gabriel Last Filed: 01/22/24 07:58> Skin: General skin exam: no rashes or lesions noted <Va Dwyer PA-C - Last Filed: 12/16/24 07:58> Neuro: General: patient oriented x3 and moves all extremities <Va Dwyer PA-C - Last Filed: 01/22/24 07:58> Objective Data Active Medications Acetaminophen (Acetaminophen 325 Mg Tablet) 650 mg PO Q6H PRN PRN Reason: Pain, Mild (Pain Scale 1-3), fever or headache Last Admin: 01/18/24 15:31 Dose: 650 mg Documented By: QUANG Amitriptyline HCl (Amitriptyline Hcl 10 Mg Tablet) 10 mg PO BEDTIME [facility] Last Admin: 01/21/24 20:19 Dose: 10 mg Documented By: ISABELLA Amlodipine Besylate (Amlodipine Besylate 10 Mg Tablet) 10 mg PO DAILY [facility]; Protocol Last Admin: 01/22/24 07:45 Dose: 10 mg Documented By: TREVOR Benzocaine (Throat Lozenge, Medicated Lozenge) 1 lozenge MUCOUS MEM Q2H PRN PRN Reason: Sore Throat Last Admin: 01/19/24 15:56 Dose: 1 lozenge Documented By: DANA Calcium Carbonate (Calcium Carbonate 750 Mg Tab.Chew) 750 mg PO Q4H PRN PRN Reason: Heartburn Last Admin: 01/21/24 21:08 Dose: 750 mg Documented By: ISABELLA Escitalopram Oxalate (Escitalopram Oxalate 10 Mg Tablet) 10 mg PO DAILY [facility] Last Admin: 01/22/24 07:43 Dose: 10 mg Documented By: TREVOR Sodium Chloride (Ns) 1,000 mls @ 60 mls/hr IVCONT .[id number] [facility] Last Admin: 01/22/24 07:42 Dose: 125 mls/hr Documented By: TREVOR Levothyroxine Sodium (Levothyroxine Sodium 75 Mcg Tablet) 75 mcg PO DAILY@0600 [facility] Last Admin: 01/22/24 05:44 Dose: 75 mcg Documented By: ISABELLA Melatonin (Melatonin 3 Mg Tablet) 6 mg PO BEDTIME PRN PRN Reason: Insomnia Metoclopramide HCl (Metoclopramide Hcl 10 Mg/2 Ml Vial) 10 mg IVPUSH Q6H PRN PRN Reason: Nausea and Vomiting Last Admin: 01/20/24 09:46 Dose: 10 mg Documented By: BROB Metoprolol Succinate (Metoprolol Succinate Er 100 Mg Tab.Er.24h) 100 mg PO DAILY [facility]; Protocol Last Admin: 01/22/24 07:45 Dose: 100 mg Documented By: TREVOR Morphine Sulfate (Morphine Sulfate 4 Mg/Ml Cartridge) 4 mg IVPUSH Q4H PRN; Protocol PRN Reason: Pain, Severe (Pain Scale 7-10) Last Admin: 01/19/24 07:17 Dose: 4 mg Documented By: DANA Ondansetron HCl (Ondansetron Hcl 4 Mg/2 Ml Vial) 4 mg IVPUSH Q8H PRN PRN Reason: Nausea and Vomiting Last Admin: 01/20/24 11:02 Dose: 4 mg Documented By: MEJIA Pantoprazole Sodium (Pantoprazole Sodium 40 Mg/10 Ml Vial) 40 mg IVPUSH DAILY@0630 [facility] Last Admin: 01/22/24 05:44 Dose: 40 mg Documented By: ISABELLA Sodium Bicarbonate (Sodium Bicarbonate 650 Mg Tablet) 1,300 mg PO BID [facility] Last Admin: 01/22/24 07:43 Dose: 1,300 mg Documented By: TREVOR Sodium Chloride (0.9 % Sodium Chloride Flush 3 Ml Syringe) 3 ml IVFLUSH QSHIFT [facility] Last Admin: 01/22/24 07:49 Dose: Not Given Documented By: TREVOR Non-Admin Reason: IV Running Sumatriptan Succinate (Sumatriptan Succinate 50 Mg Tablet) 50 mg PO DAILY PRN PRN Reason: Migraine Headache <Va Dwyer PA-C - Last Filed: 01/22/24 07:58> Labs CBC & Chem 7: 01/16/24 23:47 01/21/24 05:26 <Va Dwyer PA-C - Last Filed: 01/22/24 07:58> Procedures Date of Service Date of Service: 01/22/24 <Va Dwyer PA-C - Last Filed: 01/22/24 07:58> 01/22/24 <Mark Ruff MD - Last Filed: 01/22/24 11:03> Progress Note: A&P Assessment and plan (1) Partial obstruction of small intestine: Status: Acute <Va Dwyer PA-C - Last Filed: 01/22/24 07:58> Assessment and Plan: States she feels better No pain overnight No nausea or vomiting Passing good amounts of flatus via the stoma Abdomen is soft, benign Okay to try clear liquids Ambulate Seen and examined independently <Mark Ruff MD - Last Filed: 01/22/24 11:03> Assessment and Plan: WIll advance to clear liquids, dec IVF. Abd benign, soft and nontender. Cont OOB/ambulation and increasing activity. Patient comfortable with plan. < Va Dwyer PA-C - Last Filed: 01/22/24 07:58> Time Spent With Patient Time: Total time managing care of this patient today ____ minutes. <Va Dwyer PA-C - Last Filed: 01/22/24 07:58> Quality Stroke Does the patient have a stroke diagnosis?: No <Va Dwyer PA-C - Last Filed: 01/22/24 07:58> VTE Prior VTE?: No <Va Dwyer PA-C - Last Filed: 01/22/24 07:58> VTE Risk Level:: Medical - moderate - high <Va Dwyer PA-C - Last Filed: 01/22/24 07:58> VTE Device Contraindication: N/A - Device Ordered <Va Dwyer PA-C - Last Filed: 01/22/24 07:58> VTE Drug Contraindication: Treatment Not Indicated <Va Dwyer PA-C - Last Filed: 01/22/24 07:58>
[2024-01-22] MEDS: Calcium Carbonate 750 MG TAB.CHEW PO ×2 (08:46→20:23)
--- NOTE | 2024-01-22 09:07 | MHC.CM.PN ---
Addendum entered by Lilliam Louis 01/22/24 10:56: Important Message from delivered to patient. Copy placed in chart. Original Note: Patient lino sips of clears yesterday. A Clear liquid diet has been ordered today. DP Home with family support and transport. A VNA is not needed. Patient and family are competent to manage all aspects of patient care.
[2024-01-22 15:24] VITALS: BP 133/62; PULSE 71; RESP 18; TEMP 36.3; O2SAT 94
[2024-01-22] MEDS: Amitriptyline HCl 10 MG TABLET PO (20:19)
[2024-01-23] VITALS: BP 144/70; PULSE 72; RESP 16; TEMP 36.6; O2SAT 93
[2024-01-23] MEDS: Levothyroxine Sodium 75 MCG TABLET PO (05:42)
[2024-01-23] MEDS: Pantoprazole Sodium 40 MG/10 ML VIAL IVPUSH (05:42)
[2024-01-23 07:29] VITALS: BP 124/58; PULSE 68; RESP 16; TEMP 36.6; O2SAT 94
--- NOTE | 2024-01-23 07:30 | PM.PNGS ---
Subjective Subjective Date of Service: 01/23/24 Interval history: Feels well Stoma functioning well with good output Denies abdominal pain Denies nausea Physical Exam Vital Signs: Vital Signs: Last Vital Signs Temp 97.9 F 01/23/24 00:00 Pulse 72 01/23/24 00:00 Resp 16 01/23/24 00:00 BP 144/70 H 01/23/24 00:00 Pulse Ox 93 01/23/24 00:00 O2 Del Method Room Air 01/23/24 00:00 O2 Flow Rate 1 01/19/24 15:22 BMI result Body Mass Index 25.2 Const: General: comfortable and no acute distress Resp: Effort & Inspection: normal respiratory effort Cardio: Rate: regular rate GI: Other: Stoma with good output Palpation (GI): Soft to palpation, not firm and no guarding Objective Data Active Medications Acetaminophen (Acetaminophen 325 Mg Tablet) 650 mg PO Q6H PRN PRN Reason: Pain, Mild (Pain Scale 1-3), fever or headache Last Admin: 01/18/24 15:31 Dose: 650 mg Documented By: QUANG Amitriptyline HCl (Amitriptyline Hcl 10 Mg Tablet) 10 mg PO BEDTIME [facility] Last Admin: 01/22/24 20:19 Dose: 10 mg Documented By: ISABELLA Amlodipine Besylate (Amlodipine Besylate 10 Mg Tablet) 10 mg PO DAILY [facility]; Protocol Last Admin: 01/22/24 07:45 Dose: 10 mg Documented By: TREVOR Benzocaine (Throat Lozenge, Medicated Lozenge) 1 lozenge MUCOUS MEM Q2H PRN PRN Reason: Sore Throat Last Admin: 01/19/24 15:56 Dose: 1 lozenge Documented By: DANA Calcium Carbonate (Calcium Carbonate 750 Mg Tab.Chew) 750 mg PO Q4H PRN PRN Reason: Heartburn Last Admin: 01/22/24 20:23 Dose: 750 mg Documented By: ISABELLA Escitalopram Oxalate (Escitalopram Oxalate 10 Mg Tablet) 10 mg PO DAILY [facility] Last Admin: 01/22/24 07:43 Dose: 10 mg Documented By: TREVOR Levothyroxine Sodium (Levothyroxine Sodium 75 Mcg Tablet) 75 mcg PO DAILY@0600 [facility] Last Admin: 01/23/24 05:42 Dose: 75 mcg Documented By: ISABELLA Melatonin (Melatonin 3 Mg Tablet) 6 mg PO BEDTIME PRN PRN Reason: Insomnia Metoclopramide HCl (Metoclopramide Hcl 10 Mg/2 Ml Vial) 10 mg IVPUSH Q6H PRN PRN Reason: Nausea and Vomiting Last Admin: 01/20/24 09:46 Dose: 10 mg Documented By: MEJIA Metoprolol Succinate (Metoprolol Succinate Er 100 Mg Tab.Er.24h) 100 mg PO DAILY [facility]; Protocol Last Admin: 01/22/24 07:45 Dose: 100 mg Documented By: TREVOR Ondansetron HCl (Ondansetron Hcl 4 Mg/2 Ml Vial) 4 mg IVPUSH Q8H PRN PRN Reason: Nausea and Vomiting Last Admin: 01/20/24 11:02 Dose: 4 mg Documented By: MEJIA Sodium Bicarbonate (Sodium Bicarbonate 650 Mg Tablet) 1,300 mg PO BID [facility] Last Admin: 01/22/24 20:19 Dose: 1,300 mg Documented By: ISABELLA Sodium Chloride (0.9 % Sodium Chloride Flush 3 Ml Syringe) 3 ml IVFLUSH QSHIFT [facility] Last Admin: 01/22/24 20:33 Dose: Not Given Documented By: ISABELLA Non-Admin Reason: IV Running Sumatriptan Succinate (Sumatriptan Succinate 50 Mg Tablet) 50 mg PO DAILY PRN PRN Reason: Migraine Headache Labs 01/16/24 23:47 01/21/24 05:26 Procedures Date of Service Date of Service: 01/23/24 Progress Note: A&P Assessment and plan (1) Partial obstruction of small intestine: Status: Acute Assessment and Plan: Symptoms seems resolved Stoma with good output, both stools and gas Abdomen is soft and benign Okay to start regular diet Ambulate Time Spent With Patient Time: Total time managing care of this patient today ____ minutes. Quality Stroke Does the patient have a stroke diagnosis?: No VTE Prior VTE?: No VTE Risk Level:: Medical - moderate - high VTE Device Contraindication: N/A - Device Ordered VTE Drug Contraindication: Treatment Not Indicated
[2024-01-23] MEDS: Metoprolol Succinate ER 100 MG TAB.ER.24H PO (09:00)
[2024-01-23] MEDS: Sodium Bicarbonate 650 MG TABLET 1300 MG PO (09:00)
[2024-01-23] MEDS: Calcium Carbonate 750 MG TAB.CHEW PO (09:00)
[2024-01-23] MEDS: amLODIPine Besylate 10 MG TABLET PO (09:01)
[2024-01-23] MEDS: 0.9 % Sodium Chloride Flush 3 ML SYRINGE IVFLUSH (09:01)
[2024-01-23] MEDS: Escitalopram Oxalate 10 MG TABLET PO (09:01)
[2024-01-23 15:13] VITALS: BP 128/67; PULSE 78; RESP 18; TEMP 37; O2SAT 97
--- NOTE | 2024-01-23 15:17 | PM.EVENT ---
Event Note Date of Service: 01/23/24 Event Note: seen on afternoon rounds continues to feel well tolerating diet well good stoma output denies any abdl pain abd soft, benign she wants to be discharged clinically doing very well - will dc home Time Spent With Patient Time: Total time managing care of this patient today ____ minutes.
--- NOTE | 2024-01-23 15:52 | MHC.CM.PN ---
pt dcd home self care
--- NOTE | 2024-01-23 16:55 | P.DS_ITS ---
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 She reports it began as mild cramping pain in her right side associated with nausea. She then had no output via her ostomy. She came to the ED for concern of possible obstruction. She vomited in the ED. Work up included CBC, BMP, LFTs which was significant for hyperkalemia and Cr of 2.27 which is around her baseline. CT scan abd/pelvis was performed which showed dilated small bowel loops, fecalization, end colostomy with parastomal hernia. She feels improved this morning. Her pain is less and she has begun to pass stool from her ostomy. She denies further nausea or vomiting. HOSPITAL COURSE: She was admitted to the surgical service for further treatment of the PSBO. She felt improved with evidence of return of GI function and therefore conservative management was continued with clear liquids, IVF, pain control. She however had persistent nausea, vomiting, abdominal discomfort and decreasing ostomy output. SBFT was performed which showed a very distended stomach and contrast remained in the small intestine. NGT was therefore inserted for decompression. Increasing activity was encouraged. F/u AXR the next day showed contrast in the colon and improvement in SB dilatation. Her NGT slowly improved and her ostomy began to function with increasing flatus and then stool. Her NGT was removed. Her diet was advanced slowly to clear liquids and then solids. On the day of discharge, she was tolerating a solid diet without nausea or vomiting, she had no abd pain, her ostomy was functioning well. Her abdomen was benign. She was discharged to home on 01/23/24 in stable condition. She is to follow up with her PCP. Status at Discharge Functional status at discharge: independent ambulation Overall status at discharge: patient is progressing back to baseline Time Attestation Discharge Coordination Time (in mins): 45 Quality: Safe Use of Opioids Does Pt have an Active Cancer Diagnosis on the Problem List?: No Quality: Stroke Does the patient have a stroke diagnosis?: No Physical Exam Vital Signs: Vital Signs: Last Vital Signs Temp 98.6 F 01/23/24 15:13 Pulse 78 01/23/24 15:13 Resp 18 01/23/24 15:13 BP 128/67 01/23/24 15:13 Pulse Ox 97 01/23/24 15:13 O2 Del Method Room Air 01/23/24 15:13 O2 Flow Rate 1 01/19/24 15:22 BMI result Body Mass Index 25.2 Const: General: comfortable, no acute distress and alert Orientation/consciousness: patient oriented x3 Resp: Effort & Inspection: normal respiratory effort GI: Other: ostomy with gas and stool in appliance Inspection: No distended Palpation (GI): Soft to palpation and no guarding Skin: General skin exam: no rashes or lesions noted Neuro: General: patient oriented x3 and moves all extremities Discharge Plan Discharge Anticipated Discharge Date/Time: 01/23/24 12:06 Patient Disposition: Home, Self-Care Discharge Diagnosis: PSBO Referrals: Eitan,Lenin Diaz MD [Primary Care Provider] - 1 Week Discharge Medications: Continued citalopram [Celexa] 20 mg tablet 20 mg PO DAILY 90 Days Qty: 90 3RF metoprolol succinate 100 mg tablet extended release 24 hr 100 mg PO DAILY 90 Days Qty: 90 3RF fenofibrate nanocrystallized 145 mg tablet 145 mg PO DAILY 90 Days Qty: 90 2RF amlodipine 10 mg tablet 10 mg PO DAILY 90 Days Qty: 90 3RF cyanocobalamin (vitamin B-12) 1,000 mcg/mL kit 1,000 mcg subcut Q4W 90 Days Qty: 4 3RF levothyroxine 75 mcg tablet 75 mcg PO DAILY@0600 omeprazole 20 mg capsule,delayed release(DR/EC) 20 mg PO DAILY@0630 multivitamin Tablet 1 tab PO DAILY magnesium oxide 500 mg Capsule 500 mg PO DAILY magnesium glycinate 100 mg Tablet 840 mg PO DAILY calcium carbonate 500 mg calcium (1,250 mg) Tablet 1,000 mg PO DAILY biotin 10,000 mcg Capsule 10,000 mcg PO DAILY estradiol 0.01 % (0.1 mg/gram) cream 1 g VAGINAL TUFR zinc acetate 25 mg (zinc) Capsule 25 mg PO DAILY sumatriptan succinate [Imitrex] 100 mg tablet 50 mg PO DAILY PRN (Reason: Migraine Headache) Rx Instructions: do not exceed 2 doses per 24 hrs loperamide [Imodium A-D] 2 mg capsule 4 mg PO TID ferrous sulfate [Feosol] 325 mg (65 mg iron) tablet 325 mg PO BID Slow-Mag 71.5 mg tablet,delayed release (DR/EC) 143 mg PO DAILY 30 Days Qty: 60 0RF Prolia 60 mg/mL syringe 60 mg subcut [id number] amitriptyline 10 mg tablet 10 mg PO BEDTIME sodium bicarbonate 650 mg tablet 1,300 mg PO BID Discharge Orders: Discharge Order (Routine); Ordered 01/23/24 Ordered By: Mark Ruff Diet: Advance to usual diet Activity on Discharge: As tolerated Stand Alone Forms: Patient Portal Discharge page Print Language: Indonesian Activity Restrictions/Additional Instructions: Follow up with your PCP. Call Your Doctor or Return to ED if: ? ? -Your temperature exceeds 101? F? ? ? -You experience excessive pain or swelling ? ? -You have an unexpected reaction to medication ? ? -You experience continued vomiting/nausea Care Plan Goals: Return to baseline health and resume normal activities. Health Concerns: PSBO Plan of Treatment: nonoperative, bowel rest, IVF, SBFT Assessment: Resolved Discharge Date/Time: 01/23/24 16:25
== END 2024-01-23 16:25 | disposition home or self-care (01) | DRG 390 ==
LOC: HO.ED 01-17 05:05 → HO.EDOVER 01-17 07:58 → HO.S3 01-17 09:12
PROVIDERS: Surgery; Admitting Provider Physician Assistant Surgical; Emergency Provider Emergency Medicine; PCP Internal Medicine; Visit Provider Physician Assistant Surgical
DX: K56.600 Partial intestinal obstruction, unspecified as to cause (principal); E03.9 Hypothyroidism, unspecified; K43.5 Parastomal hernia without obstruction or gangrene; Z85.42 Personal history of malignant neoplasm of other parts of uterus; Z93.6 Other artificial openings of urinary tract status; Z79.620 Long term (current) use of immunosuppressive biologic; Z79.890 Hormone replacement therapy; Z79.899 Other long term (current) drug therapy
CPT/HCPCS: 36415; 71045; 74018; 74176; 74250; 80048; 80053; 83690; 85025; 99285; J1642; J2270; J2405; J2470; J2765

== ENCOUNTER 2024-01-17 07:54 | Outpatient (BNV) | payer OTHER, SELFPAY | END 2024-01-19 08:45 | PROVIDERS: Admitting Provider Physician Assistant Surgical; Emergency Provider Emergency Medicine; PCP Internal Medicine; Visit Provider Physician Assistant Surgical | DX: K56.600 Partial intestinal obstruction, unspecified as to cause (principal) | CPT/HCPCS: 74250 ==

== ENCOUNTER → 2024-01-17 07:54 | Outpatient (BNV) | payer OTHER, SELFPAY | PROVIDERS: Admitting Provider Physician Assistant Surgical; Emergency Provider Emergency Medicine; Visit Provider Physician Assistant Surgical | DX: K56.600 Partial intestinal obstruction, unspecified as to cause (principal) | CPT/HCPCS: 99222; 99232 ==

== ENCOUNTER 2024-02-05 13:51 | Outpatient (AMB) | payer OTHER, SELFPAY ==
--- OUTSIDE RECORDS SUMMARY | 2024-02-05 13:53 | XMS_ITS | Continuity of Care Document ---
Author Organization [facility] [address] [place] [address] Phone [phone] Care Team Providers Care Color Card Maker Name Role Phone Lenin Laird Care Team Information Furnace Installer [phone] Problems Active Problems Provider Date Deep venous thrombosis of lower extremity Guanakito Richey M.D. Onset: 02/08/2022 Gastroesophageal reflux disease Guanakito Richey M.D. Onset: 02/08/2022 Hyperlipidemia Guanakito Richey M.D. Onset: 04/2022 Hypothyroidism Guanakito Richey M.D. Onset: 04/2022 Cardiac arrhythmia Guanakito Richey M.D. Onset: 02/08/2022 Kidney stone Guanakito Richey M.D. Onset: 04/2022 Atrophic vaginitis Guanakito Richey M.D. Onset: 02/08/2022 History of malignant neoplasm of endometrium Pavan Richey M.D. Onset: 02/08/2022 Hypertriglyceridemia Guanakito Richey M.D. Onset : 02/08/2022 Malignant tumor of colon Guanakito Richey M.D. O nset: 02/08/2022 Colostomy present Guanakito Richey M.D. Onset: 0 02/08/2022 Endometrial carcinoma Guanakito Richey M.D. Onse t: 02/08/2022 Osteoporosis Guanakito Richey M.D. Onset: Social History Type Date Description Comments Sex Unknown Lives With Spouse Lives With Daughter Grandson also ETOH Use Rarely consumes alcohol Tobacco Use Start: Unknown Patient has never smoked Smoking Status Reviewed: 08/29/22 Patient has never sm oked Allergies and adverse reactions Active Allergies Criticality Reaction Severity Comments Date Demerol Unable to assess criticality 08/29/2022 Codeine Unable to assess criticality 08/29/2022 Cipro Unable to assess criticality 08/29/2022 Medications Active Medications SIG Qnty Indications Order ing Provider Date Vitamin D (Ergocalciferol)1.25mg (98131 Ut) Capsules take 1 capsule by mouth weekly as directed 8caps Guanakito Richey M.D. 03/24/2023 Vitamin D-1000 Maximum [id number] (1000 Ut) Tablets 2by mouth every day Guanakito Richey M.D. 08/29/[id number] Take one capsule daily Po, Lorenver Loperamide HCL2mg Capsules Take 2 capsule three times daily Unknown Amitriptyline [id number] Tablets Take 1 tablet daily Angelina Hamlin MD Citalopram [id number] Tablets Take 1 tablet daily Po, Lorenver [id number] Tablets Take 1 tablet daily Po, Lorenver Levothyroxine [id number] Tablets Take 1 tablet daily Po, Lorenver [id number]/ ML Solution As directed monthly Po, Lorenver Amlodipine [id number] Tablets 1 by mouth every day Guanakito Richey M.D. Sumatriptan [id number] Tablets take as directed for migraines Guanakito Richey M.D. Vital Signs Date Vital Result Comment 03/24/2023 1:24pm BP Systolic 130 mmHg BP Diastolic 70 mmHg Heart Rate 95 /min Height 60 inches 5'0 Weight 128.25 lb BMI (Body Mass Index) 25.0 kg/m2 Results Test Acquired Date Facility Test Result H/L [place] Laboratory test finding 08/31/2022 [facility] Calcium 9.3 mg/dL (8.6-10.5 ) Period & Volume 02/09/2022 [facility] Urine Collection Period 24 HRS Volume 1200 MLS Creatinine 02/09/2022 [facility] Creatinine 2.4 mg/dL High (0.5-1.0) Estimated GFR Creatinine 21 ML/MIN/1.7 3M2 1 [id number] t 02/09/2022 [facility] Calcium, Urine, MG/DL 2.3 mg/dL Calcium, Urine GM/24HR 0.03 GM/24HR Low (0.05-0.3 0) Creat Clearance 02/09/2022 [facility] Creatinine, Urine MG/DL 69.2 mg/dL Blood Creat 2.4 mg/dL High (0.5-1.0) Creat Clearance 24.0 mL/min Low (66-143) Creatinine Ur GM/24HR 0.8 GM/24HR (0.72-1.5 ) Laboratory test finding 02/08/2022 [facility] PTH, Intact 55 pg/mL (15-65) Basic Metabolic Panel 02/08/2022 [facility] Glucose 91 mg/dL (70-99) BUN 31 mg/dL High (8-23) Creatinine 2.5 mg/dL High (0.5-1.0) Sodium 142 mmol/L (133-145) Potassium 5.1 mmol/L (3.6-5.2) Chloride 113 mmol/L High (98-107) Bicarbonate 19 mmol/L Low (22-29) Anion Gap 10 (4-17) Calcium 9.0 mg/dL (8.6-10.5 ) Estimated GFR Creatinine 20 ML/MIN/1.7 3M2 2 1 Creatinine based est imated glomerular filtration (eGFR) in adults is calculated using the [employer] recommended 202 CKD-EPI equation. Estimates GFR from serum creatinine, age and sex. 2 Creatinine based est imated glomerular filtration (eGFR) in adults is calculated using the [employer] recommended 2021 CKD-EPI equation. Estimates GFR from serum creatinine, age and sex. Medical Devices Description No Information Available Encounters Type Date Location Provider Dx Diagnosis Office Visit 03/24/2023 1:30p Main Office Guanakito Richey M.D. M81.0 Age-related osteoporosis w/o current pathological fracture Assessments Date Code Description Provider 03/24/2023 M81.0 Age-related oste oporosis without current pathological fracture Guanakito Richey M.D. Plan of Treatment 03/24/2023 - Guanakito Richey M.D.* M81.0 Age-related osteoporosis without current pathological fracture * Functional Status Description No Information Available Mental Status Description No Information Available Referrals Refer to Dr Reason for Referral Status Appt Nigel e Guanakito Richey M.D. Created [address] [place] [address] Drive [address] [place] [address] [phone] Guanakito Richey M.D. Created [address] [place] [address] Drive [address] [place] [address] [phone]
--- NOTE | 2024-02-05 14:09 | A.OFFPC_ITS ---
Vital Signs 02/05/24 14:11 Height 5 ft Weight 121 lb 4 oz BMI 23.7 BP 122/62 Blood Pressure Location Lt brachial Position Sitting Pulse 71 Pulse Source Pulse Oximeter Pulse Oximetry (%) 98 Oxygen Delivery Method Room Air Intake Visit Reasons: TCM [facility] PSBO 01/22 Intake Note: Patient is here for hospital discharge and TCM follow up. Patient was discharged from [facility] on 01/23/24. Telephone Instrument Supervisor Required: No Shotblast Equipment Operator: Not Required per policy Accompanied by: Self / Same As Patient Allergies ciprofloxacin Allergy (Intermediate, Verified 02/05/24 14:10) body ache diazepam Allergy (Unknown, Verified 02/05/24 14:10) shortness of breath fentanyl [FENTANYL] Allergy (Unknown, Verified 02/05/24 14:10) VIOLENT SHAKING, TACHYCARDIA, seizure hydromorphone [HYDROMORPHONE] Adverse Reaction (Severe, Verified 02/05/24 14:10) UNCONTROLLED SHAKING, ELEVATED HEART RATE oxycodone [From PERCOCET] Adverse Reaction (Severe, Verified 02/05/24 14:10) Vomiting egg [EGGS] Adverse Reaction (Intermediate, Verified 02/05/24 14:10) Diarrhea codeine [CODEINE] Adverse Reaction (Unknown, Verified 02/05/24 14:10) Vomiting meperidine [Demerol] Adverse Reaction (Unknown, Verified 02/05/24 14:10) Nausea and Vomiting Medication List - Last Reconciled 02/05/24 by Jacquelyn Bee PA-C amitriptyline 10 mg PO BEDTIME amlodipine 10 mg PO DAILY 90 days biotin 10,000 mcg PO DAILY calcium carbonate 1,000 mg PO DAILY citalopram (Celexa) 20 mg PO DAILY 90 days cyanocobalamin (vitamin B-12) 1,000 mcg subcut Q4W 90 days denosumab (Prolia) 60 mg subcut [id number] estradiol 0.01%(0.1mg/gram) 1 g vaginal TUFR fenofibrate nanocrystallized 145 mg PO DAILY 90 days ferrous sulfate (Feosol) 325 mg PO BID levothyroxine 75 mcg PO DAILY@0600 loperamide (Imodium A-D) 4 mg PO TID magnesium chloride (Slow-Mag) 143 mg (2 x 71.5 mg) PO DAILY 30 days magnesium glycinate 840 mg PO DAILY magnesium oxide 500 mg PO DAILY metoprolol succinate ER 100 mg PO DAILY 90 days multivitamin 1 tab PO DAILY omeprazole 20 mg PO DAILY@0630 sodium bicarbonate 1,300 mg PO BID sumatriptan succinate (Imitrex) 50 mg PO DAILY PRN zinc acetate 25 mg PO DAILY Tobacco use date assessed: 02/05/24 Fall risk assessment: No Falls in past year Last assessed Fall Risk: 02/05/24 Dental Screening Dental Screen Date: 10/26/23 [facility] TCM TCM Information0 Date of Discharge 01/24/24 Discharged From [facility] Interactive Contact Date (Reference documentation from this date) 01/24/24 HPI Comments History of Present Illness Details Patient presents to the office for a TCM visit. Date of admission: 01/17/2024 Date of discharge: 01/23/2024 This is a Follow-up from admission at [facility] HPI: History of Present Illness The patient is a 73-year-old female presenting with a follow-up for partial small bowel obstruction and chronic diarrhea. The patient was recently hospitalized on the due to abdominal pain. She reports a history of bowel resections and currently has a colostomy. The hospital discharge paperwork indicated a partial blockage in the small bowel, specifically measuring 3.2 cm in the right lower quadrant. Despite the use of loperamide, the patient continues to experience persistent diarrhea. There are no reports of black or bloody stools. Nausea is described as improving daily. She denies any vomiting. She denies other significant changes since the hospitalization and has a follow- up scheduled with her surgeon Dr. Villarreal [facility] for evaluation of her ostomy care. Social History - Resides with , daughter who is currently away, and 11-year-old grandson. - Daughter is pursuing a pharmacy degree , having completed master?s degrees in mathematics and teaching. - Reports no current need for home jovany tance services but emphasizes self- sufficiency. - [facility] has ADHD [facility] justine and support. Review of Systems - Gastrointestinal: Reports chronic diar kenan not improving with loperamide, improving nausea. Denies vomiting. Denies black or bloody stools. - General: Reports feeling generally wel l with occasional faint abdominal crampi ng lasting about 20 minutes. 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 She reports it began as mild cramping pain in her right side associated with nausea. She then had no output via her ostomy. She went to the ED for concern of possible obstruction. She vomited in the ED. Work up included CBC, BMP, LFTs which was significant for hyperkalemia and Cr of 2.27 which is around her baseline. CT scan abd/pelvis was performed which showed dilated small bowel loops, fecalization, end colostomy with parastomal hernia. HOSPITAL COURSE: She was admitted to the surgical service for further treatment of the PSBO. She felt improved with evidence of return of GI function and therefore conservative management was continued with clear liquids, IVF, pain control. She however had persistent nausea, vomiting, abdominal discomfort and decreasing ostomy output. SBFT was performed which showed a very distended stomach and contrast remained in the small intestine. NGT was therefore inserted for decompression. Increasing activity was encouraged. F/u AXR the next day showed contrast in the colon and improvement in SB dilatation. Her NGT slowly improved and her ostomy began to function with increasing flatus and then stool. Her NGT was removed. Her diet was advanced slowly to clear liquids and then solids. On the day of discharge, she was tolerating a solid diet without nausea or vomiting, she had no abd pain, her ostomy was functioning well. Her abdomen was benign. She was discharged to home on 01/23/24 in stable condition. Discharged to/Current Location: Home Lives with: , daughter and grandson who is 11 Diagnosis: Partial small-bowel obstruction Procedures performed: NG tube; No surgical procedures New medications: none Discontinued medications: none Change medications/dosing: none Pending labs: none Pending diagnostic test: none Any Follow-up Labs required? none Any Follow-up Diagnostic test required? none How are you feeling? Patient reports she is feeling good. Only has mild pain intermittently to right lower quadrant. Patient reports she is still having watery diarrhea despite taking her Imodium which usually helps with the diarrhea. She denies any nausea or vomiting. Reports she is eating well. Are you in any pain or discomfort? Only mild pain intermittently to right lower quadrant otherwise no other pain. Do you have any questions about your condition or discharge instructions? None per patient; Patient has f/u with Dr. Nikkie Villarreal at [facility] for her ostomy Were you able to get your medications filled? Yes Do you have any questions about your medications? No Any referrals required? None at this time Were you able to schedule your follow-up appointment? Yes If home health was ordered, have they contact you? None ordered Any outpatient services, if so, are you scheduled? None Are there any additional resources like transportation you might need during her recovery? - VNA? None - [employer]? None - Meals on wheels? None Educational need/resources: None What support system do you have? , Daughter and grandson who keep her young per patient [facility] Medical History Breast cancer screening by mammogram Small bowel obstruction Hypercholesterolemia GERD (gastroesophageal reflux disease) Vitamin D deficiency Enterovesical fistula Renal calculus Anxiety and depression Vitamin B12 deficiency Hypothyroid Toure's esophagus Fatty liver Uterine cancer Migraine Hypertension Surgical History History of laparotomy S/P ASHWNII-BSO History of radical hysterectomy Family History Family/Other Mental health disorder Social History Household Members: Spouse and Children Housing: Condominium Do you presently have visiting nurse or other home services: No Alcohol intake: current Alcohol intake frequency: holidays/special occasions only Alcohol type: wine Patient Tobacco Use Status: Never used Tobacco Tobacco use type: Cigarette e-Cigarette/Vaping Use: Never Used Second Hand Smoke Exposure: Yes service: No Current occupational status: retired Cognitive needs: No Hearing needs: No Vision needs: Yes Questionnaire Thrive Questionnaire Date Thrive assessed: 01/18/24 Are you currently unemployed and looking for a job?: No KAROLINA-7 AMB Questionnaire KAROLINA-7 Date KAROLINA - 7 assessed: 02/24/23 Source: Developed by Drs. Schuyler Nicole, Roseanne Felix, Stef Villatoro and colleagues, with an educational tao from [employer]. Physical exam (Primary Care) Vital Signs: Last Vital Signs Pulse 71 02/05/24 14:11 BP 122/62 02/05/24 14:11 Pulse Ox 98 02/05/24 14:11 Oxygen Delivery Method Room Air 02/05/24 14:11 Vitals signs have been reviewed. BMI result Body Mass Index 23.7 Tobacco/Smoking Status: Tobacco use Status Tobacco use date assessed 02/05/24 02/05/24 14:11 Patient Tobacco Use Status Never used Tobacco 02/05/24 14:11 Tobacco use type Cigarette 02/05/24 14:11 e-Cigarette/Vaping Use Never Used 02/05/24 14:11 Thrive Assessment: Date of Thrive Assessment Date Thrive assessed 01/18/24 02/05/24 14:11 Const Other: Physical Exam Appearance: Alert. Oriented X3. No acute distress. Head: Normal external exam. Normocephalic. Atraumatic. Eyes: Pupils are equal, round, and reactive to light. Extraocular movements intact. Conjunctiva and sclera normal. Eyelids normal. Ears: External auditory canal normal. Tympanic membranes normal. Throat: Pharynx normal. Uvula midline. Moist mucous membranes. Neck: Normal inspection. Neck supple. Full range of motion. Cardiovascular: Normal heart rate and rhythm. Respiratory: No respiratory distress. Painless inspiration. No accessory muscle usage noted. Abdomen: Soft and nontender. Bowel sounds normal in all 4 quadrants. No distention noted. No organomegaly noted. No visible injury noted. Colostomy present. Diarrhea noted. Back: No costovertebral angle tenderness. Full range of motion noted. Skin: Skin warm and dry. Normal skin color. Normal skin turgor. No rashes/lesions/lacerations noted. Extremities: No lower extremity edema. Extremities exhibit normal range of motion. Extremities nontender. Neuro: Oriented X 3. No motor deficit. No sensory deficit. Reflexes normal. Results Reviewed Results Reviewed: Results - Tests: Partial small bowel obstruction in the right lower quadrant measuring 3.2 cm (noted from discharge paperwork). Coding Level of Care Code TCM Mod MDM <= 14 Days Complex EM visit Add On G2211 Diagnoses Partial obstruction of small intestine K56.600 Diarrhea R19.7 CKD (chronic kidney disease) N18.9 Assessment & Plan Assessment & Plan (1) Partial obstruction of small intestine: Code(s): K56.600 - Partial intestinal obstruction, unspecified as to cause Category: Medical (2) Diarrhea: Code(s): R19.7 - Diarrhea, unspecified Category: Medical (3) CKD (chronic kidney disease): Code(s): N18.9 - Chronic kidney disease, unspecified Category: Medical Plan Plan - Ensure follow-up with the surgeon for ostomy care management and review of bowel obstruction status. - Continue loperamide for chronic diarrhea and assess efficacy. - Monitoring kidney function given chronic kidney disease background, though no immediate labs required. - Reassess need for any future diagnostic tests as per surgeon?s evaluation and recommendations. Patient Instructions: Patient Instructions - Continue taking loperamide as directed for diarrhea management. - Follow-up with surgeon Dr. Nikkie Villarreal as scheduled. - Monitor and report any increase in abdominal pain or changes in stool color/consistency. - Continue to maintain hydration and nutritional intake as advised. - Reach out to the medical office if assistance accessing the patient portal or for any health concerns arises. Scribe Plan - Not visible on output: Discussion Notes I discussed with the patient the importance of following up with her surgeon, Dr. Nikkie Villarreal, particularly regarding her ostomy management and small bowel obstruction. We addressed her ongoing symptoms of chronic diarrhea and her current medication regimen, agreeing to continue with loperamide until further evaluation. No new medication changes were discussed as her symptoms are reported to gradually improve, particularly with nausea subsiding. I advised on the continuity of care, emphasizing that she should reach out if symptoms worsen or fail to improve. We reviewed scheduling follow-up appointments and accessing medical records via the patient portal, offering assistance as required. Patient was informed and verbally consented to the use of an ambient scribe for clinic note documentation during this visit.
[2024-02-05 14:11] VITALS: BP 122/62; PULSE 71; O2SAT 98; BMI 23.7
== END 2024-02-05 15:28 | disposition home or self-care (01) ==
PROVIDERS: PCP Internal Medicine; Visit Provider Internal Medicine
DX: K56.600 Partial intestinal obstruction, unspecified as to cause (principal); R19.7 Diarrhea, unspecified; N18.9 Chronic kidney disease, unspecified

== ENCOUNTER 2024-04-24 10:03 | Outpatient (AMB) | payer OTHER, SELFPAY ==
--- NOTE | 2024-04-24 10:09 | MHC.PC.OV ---
Vital Signs 04/24/24 10:11 Height 5 ft Weight 122 lb 8 oz BMI 23.9 BP 140/78 H Blood Pressure Location Lt brachial Position Sitting Pulse 64 Pulse Source Pulse Oximeter Temp 97.1 F Temp Source Temporal Artery Scan Pulse Oximetry (%) 97 Oxygen Delivery Method Room Air Intake Visit Reasons: hypothryoid Intake Note: Patient is here to follow up on Hypothyoid. 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: Not Required per policy Accompanied by: Self / Same As Patient Allergies ciprofloxacin Allergy (Intermediate, Verified 04/24/24 10:10) body ache diazepam Allergy (Unknown, Verified 04/24/24 10:10) shortness of breath fentanyl [FENTANYL] Allergy (Unknown, Verified 04/24/24 10:10) VIOLENT SHAKING, TACHYCARDIA, seizure hydromorphone [HYDROMORPHONE] Adverse Reaction (Severe, Verified 04/24/24 10:10) UNCONTROLLED SHAKING, ELEVATED HEART RATE oxycodone [From PERCOCET] Adverse Reaction (Severe, Verified 04/24/24 10:10) Vomiting egg [EGGS] Adverse Reaction (Intermediate, Verified 04/24/24 10:10) Diarrhea codeine [CODEINE] Adverse Reaction (Unknown, Verified 04/24/24 10:10) Vomiting meperidine [Demerol] Adverse Reaction (Unknown, Verified 04/24/24 10:10) Nausea and Vomiting Tobacco use date assessed: 04/24/24 Fall risk assessment: No Falls in past year Last assessed Fall Risk: 04/24/24 Dental Screening Dental Screen Date: 04/24/24 Did you have a dental visit in the last 12 months?: No Did you have a dental problem in the last 6 months where you did not have access to dental care?: No Was dental information given to patient?: Patient has dentist [facility] Medical History (Updated 04/24/24 @ 10:48 by Lenin Laird MD) CKD (chronic kidney disease) Breast cancer screening by mammogram Small bowel obstruction Hypercholesterolemia GERD (gastroesophageal reflux disease) Vitamin D deficiency Enterovesical fistula Renal calculus Anxiety and depression Vitamin B12 deficiency Hypothyroid Toure's esophagus Fatty liver Uterine cancer Migraine Hypertension Surgical History History of laparotomy S/P ASHWINI-BSO History of radical hysterectomy Family History Family/Other Mental health disorder Social History Household Members: Spouse and Children Housing: [facility] Do you presently have visiting nurse or other home services: No Alcohol intake: current Alcohol intake frequency: holidays/special occasions only Alcohol type: wine Patient Tobacco Use Status: Never used Tobacco Tobacco use type: Cigarette e-Cigarette/Vaping Use: Never Used Second Hand Smoke Exposure: Yes service: No Current occupational status: retired Cognitive needs: No Hearing needs: No Vision needs: Yes Questionnaire PHQ-9 Over the last 2 weeks, how often have you been bothered by any of the following problems? 1. Little interest or pleasure in doing things: not at all 2. Feeling down, depressed, or hopeless: not at all 3. Trouble falling or staying asleep, or sleeping too much: not at all 4. Feeling tired or having little energy: not at all 5. Poor appetite or overeating: not at all 6. Feeling bad about yourself - or that you are a failure or have let yourself or your family down: not at all 7. Trouble concentrating on things, such as reading the newspaper or watching television: not at all 8. Moving or speaking so slowly that other people could have noticed. Or the opposite - being so fidgety or restless that you have been moving around a lot more than usual: not at all 9. Thoughts that you would be better off or of hurting yourself in some way: not at all Total score: 0 Depression Screening Interpretation: Negative Depression Screening Done: Yes Source: Developed by Drs. Schuyler Nicole, Roseanne Felix, Stef Villatoro and colleagues, with an educational tao from [employer]. Thrive Questionnaire Date Thrive assessed: 04/24/24 I am a: Patient What is your living situation today?: I have a steady place to live Within the past 12 months, did the food you bought not last and you didn't have the money to get more?: Never true Within the past 12 months, did you worry whether your food would run out before you got money to buy more?: Never true Do you have trouble paying for medicines?: No Do you have trouble getting transportation to medical appointments?: No Do you have trouble paying your heating and electricity bill?: No Do you have trouble taking care of your child, family member or friend?: No Do you have trouble with day-to-day activities such as bathing, preparing meals, shopping, managing finances, etc.?: No Are you currently unemployed and looking for a job?: No Are you interested in more education?: No Please select the resources that you would like help with: None Currently or been in a relationship where the following occur: No concerns reported THRIVE Score: 0 AUDIT C Alcohol Use Questionnaire (AUDIT-C) 1. How often do you have a drink containing alcohol?: Monthly or less 2. How many drinks containing alcohol do you have on a typical day when you are drinking?: 1 or 2 Total Score: 1 KAROLINA-7 AMB Questionnaire KAROLINA-7 Date KAROLINA - 7 assessed: 04/24/24 Feeling nervous, anxious, or on edge: 0 = Not at all Not being able to stop or control worryin = Not at all Worrying too much about different things: 0 = Not at all Trouble relaxin = Not at all Being so restless that it is hard to sit still: 0 = Not at all Becoming easily annoyed or irritable: 0 = Not at all Feeling afraid as if something awful might happen: 0 = Not at all Total KAROLINA-7 score (0-4 normal; 5-9 mild; 10-14 moderate; 15-21 severe): 0 Source: Developed by Drs. Schuyler Nicole, Roseanne Felix, Stef Villatoro and colleagues, with an educational tao from [employer]. Physical exam (Primary Care) Vital Signs: Last Vital Signs Temp 97.1 F 04/24/24 10:11 Pulse 64 04/24/24 10:11 BP 140/78 H 04/24/24 10:11 Pulse Ox 97 04/24/24 10:11 Oxygen Delivery Method Room Air 04/24/24 10:11 BMI result Body Mass Index 23.9 Tobacco/Smoking Status: Tobacco use Status Tobacco use date assessed 04/24/24 04/24/24 10:11 Patient Tobacco Use Status Never used Tobacco 04/24/24 10:11 Tobacco use type Cigarette 04/24/24 10:11 e-Cigarette/Vaping Use Never Used 04/24/24 10:11 PHQ-9: PHQ-9 Score PHQ-9: Total score 0 04/24/24 10:49 Depression Screening Interpretation: Negative Thrive Assessment: Date of Thrive Assessment Date Thrive assessed 04/24/24 04/24/24 10:11 Currently or been in a relationship where the following occur: No concerns reported Const General: alert; No acute distress Eyes Conjunctivae: conjunctivae normal Resp Auscultation: clear to auscultation bilaterally Cardio Rate: regular rate Rhythm: regular rhythm GI Inspection: Yes normal to inspection Extrem General: Yes normal to inspection and No edema Coding Level of Care Code Est Pt Level 4 (47974) Complex EM visit Add On G2211 Diagnoses Chronic kidney disease, stage IV (severe) N18.4 Hypomagnesemia E83.42 Toure's esophagus without dysplasia K22.70 Toure's esophagus type: without dysplasia Acquired hypothyroidism E03.9 Hypothyroidism type: acquired Essential hypertension I10 Hypertension type: essential hypertension Hypercholesterolemia E78.00 Generalized anxiety disorder F41.1 Assessment & Plan Assessment & Plan (1) Chronic kidney disease, stage IV (severe): Code(s): N18.4 - Chronic kidney disease, stage 4 (severe) Category: Medical Plan: Being to monitor avoid NSAIDs patient sees Nephrology Dr. Morgan (2) Hypomagnesemia: Code(s): E83.42 - Hypomagnesemia Category: Medical Plan: Continuing to replace and monitor high output magnesium (3) Toure's esophagus: Comment: Dr. Valdez September 2011 sigmoidoscopy June 2015 colonoscopy EGD August 2015 Code(s): K22.70 - Toure's esophagus without dysplasia Category: Medical Qualifiers: Toure's esophagus type: without dysplasia Qualified Code(s): K22.70 - Toure's esophagus without dysplasia Plan: Avoid the foods that causes that usually spicy foods, tomato products, juices, coffee, soda and foods that your sensitive to. After eating do not lie down, allow 3-4 hours before in lie down. And keep the head of bed above 30 degrees to avoid the acid from going up. (4) Hypothyroid: Code(s): E03.9 - Hypothyroidism, unspecified Category: Medical Qualifiers: Hypothyroidism type: acquired Qualified Code(s): E03.9 - Hypothyroidism, unspecified Plan: Continue with thyroid medication and will retest (5) Hypertension: Code(s): I10 - Essential (primary) hypertension Category: Medical Qualifiers: Hypertension type: essential hypertension Qualified Code(s): I10 - Essential (primary) hypertension Plan: Continue with blood pressure medication. Decrease salt intake and exercise metoprolol 100 mg once a day and amlodipine 10. BP high today, continue to monitor (6) Hypercholesterolemia: Code(s): E78.00 - Pure hypercholesterolemia, unspecified Category: Medical Plan: Avoid fried foods, chicken skin, eggs, butter margarine, pastries and meat. Be it pork or beef they have a lot of cholesterol on fenofibrate and will repeat testing (7) Generalized anxiety disorder: Code(s): F41.1 - Generalized anxiety disorder Category: Medical Plan: Continue with medication Plan History of Present Illness The patient is a 73-year-old female presenting for a follow-up for chronic kidney disease. She has a history of Chronic Kidney Disease Stage 4, previously diagnosed Obstructive Uropathy, and currently managed under nephrology care. Additionally, the patient was hospitalized for a small bowel obstruction in January 2024, treated conservatively. Her complex surgical background includes surgery for uterine cancer, resulting in bilateral nephrostomy tubes due to hydronephrosis. She has a long-standing history of hypertension, hypothyroidism, and GERD, with current medications managing her conditions effectively. The patient ensures regular screening and health maintenance, completing essential vaccinations and tests, including a mammogram and colonoscopy. Health Maintenance - Mammogram up to date as of November 2023 - Colonoscopy conducted November 2023 and upcoming June 08, 2024 - Bone density test completed November 2023 - Up-to-date with tetanus and shingles vaccinations - COVID-19 vaccine received at the end of October 2023; following up every six months Social History - Exercise level and details not discussed - Dietary habits not provided - Patient does manage multiple medications daily indicating active engagement in her healthcare Review of Systems - Gastrointestinal: Reports liquid bowel movements - Genitourinary: Denies issues except for filling bags from nephrostomy tubes Physical Exam Results - Labs: Blood work last done January 16, 2024; normal electrolytes, creatinine at 1.79 - Recent PA: Small bowel obstruction treated conservatively in January 2024 Plan For chronic kidney disease, I will maintain nephrology consultations with a focus on magnesium absorption, thanks to vitamin D and careful medication modifications, including continuing metoprolol and amlodipine for hypertension and fenofibrate for cholesterol. Monitoring for GERD and obesity vigilance stays attentive, provided respective medications. Ensuring completeness, anxiety-oriented amitriptyline continues amid careful multi-drug management. Absence of newer medications considers patient concerns like UTI risks from SGLT2 inhibitors. Therapeutic compliance and adherence amplify overarching management strategies given urological complexities like nephrostomy tubes. Reviewing uterine and gastrointestinal surgery records supports bone health alongside regularly scheduled health screens, and new developments remain part of ongoing vigilance to engage dynamic interdependencies within her healthcare. Patient was informed and verbally consented to the use of an ambient scribe for clinic note documentation during this visit. Discussion Notes I discussed with the patient the necessary monitoring and follow-up relating to her chronic kidney disease. We reviewed the continued necessity of each prescribed medication and its role in managing her chronic conditions, specifically hypertension, hypothyroidism, GERD, and anxiety disorder. I emphasized the significance of avoiding NSAIDs and reviewed the importance of maintaining an appropriate vitamin D level to address hypomagnesemia. The use of SGLT2 inhibitors and related UTI risk was discussed, deciding against its use for now. We reviewed her recent hospitalizations and surgical history, focusing on her unique management requirements due to nephrostomy tubes and surgical oncoplasty history. Her participation in ongoing health maintenance was commended, highlighting the importance of timely vaccinations and screenings. We further agreed to monitor her diseases and medication effects persistently and update me with any notable changes or issues, emphasizing home blood pressure monitoring as the most reliable measure. Patient Instructions - Continue all current medications as prescribed, including metoprolol, amlodipine, fenofibrate, amitriptyline, levothyroxine, omeprazole, aspirin, zinc, and all vitamin supplements. - Monitor blood pressure at home regularly and report any significant changes or concerns. - Avoid NSAIDs and monitor magnesium levels. - Maintain regular follow-up with nephrology to manage kidney health. - Stay on schedule with routine health screenings, including upcoming colonoscopy. - Seek timely vaccinations as advised and report any missed doses. - Contact for any unusual symptoms, particularly relating to the kidney and gastrointestinal issues. - Follow recommendations for managing anxiety and engage lifestyle modifications for overall health. - Ensure sufficient hydration and dietary intake supportive of kidney health while following current dietary guidelines provided. Orders: Orders Vitamin B12 and Folate Today E03.9 - Hypothyroidism, unspecified Lipid Panel Today E03.9 - Hypothyroidism, unspecified, E78.00 - Pure hypercholesterolemia, unspecified Ferritin Today E03.9 - Hypothyroidism, unspecified
[2024-04-24 10:11] VITALS: BP 140/78; PULSE 64; TEMP 36.2; O2SAT 97; BMI 23.9
== END 2024-04-24 10:59 | disposition home or self-care (01) ==
LOC: HO.HMCH 10:04
PROVIDERS: PCP Internal Medicine; Visit Provider Internal Medicine
DX: I12.9 Hypertensive chronic kidney disease with stage 1 through stage 4 chronic kidney disease, or unspecified chronic kidney disease (principal); N18.4 Chronic kidney disease, stage 4 (severe); E83.42 Hypomagnesemia; K22.70 Barrett's esophagus without dysplasia; E03.9 Hypothyroidism, unspecified; E78.00 Pure hypercholesterolemia, unspecified; F41.1 Generalized anxiety disorder

== ENCOUNTER → 2024-04-24 10:03 | Outpatient (BNVA) | payer OTHER, SELFPAY | PROVIDERS: PCP Internal Medicine; Visit Provider Internal Medicine | DX: I12.9 Hypertensive chronic kidney disease with stage 1 through stage 4 chronic kidney disease, or unspecified chronic kidney disease (principal); N18.4 Chronic kidney disease, stage 4 (severe); E83.42 Hypomagnesemia; K22.70 Barrett's esophagus without dysplasia; E03.9 Hypothyroidism, unspecified; E78.00 Pure hypercholesterolemia, unspecified; F41.1 Generalized anxiety disorder | CPT/HCPCS: 99212 ==

== ENCOUNTER 2024-05-22 09:21 | Outpatient (REF) | payer OTHER, SELFPAY ==
[2024-05-22 09:52] LABS: MANUAL DIFF FLAG NO
--- OUTSIDE RECORDS SUMMARY | 2024-05-22 10:15 | XMS_ITS ---
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 Primary Care Provider Dorina Pedroza [phone] REASON FOR VISIT ENDOCRINE Encounters Encounter Location Date Provider Diagnosis [facility] [address] [place] [address] 05/31/2023 Dorina Adorno Plan Of Treatment Next Appt Details Provider Name:Dorina butler, 05/31/2024 11:00:00 AM, [address] [place] [address], [facility] [address], [place], [address], Progress Notes * ALEXA ROBERTSONDOB:1950 ([age] yo F)Acc No.[id number]:05/31/2023 Patient:?ALEXA ROBERTSON :1950???Age:72 Y???Sex:Female Address:[address] [place] [address], [id number] * true * Date:? Generated for Printi ng/Faaniag/eTransmitting on:?05/22/2024 10:15 AM EDT
--- OUTSIDE RECORDS SUMMARY | 2024-05-22 10:15 | XMS_ITS ---
Author Organization [facility] Address [address] [place] [address] Care Team Providers Care School Laboratory Technician Name Role Phone KYLE RAMIREZ M.D. Primary Care Provider Dorina Pedroza Unavailable [phone] Allergies Allergen (clinical drug ingredient) Drug/Non Drug Allergy documented on EMR Reaction Allergy Type Onset Date Status meperidine DEMEROL Nausea/Vomiting /Diarrhea Drug Allergy Active hydromorphone Dilaudid Unknown Drug Allergy Act elizabeth fentanyl Fentanyl Unknown Drug Allergy Active acetaminophen / oxycodone Percocet Unknown Drug Allergy Active codeine Codeine Unknown Drug Allergy Active Results Component Value Reference Range Notes Urinalysis Reviewed date:01/02/2024 12:06:40 PM Interpretation: Performing Lab: Notes/Report: NITRITE Positive PH 8.0 PROTEIN Large S.G 1.005 WBC Large GLUCOSE Neg KETONES Neg UROBILINOGEN Neg BILIRUBIN Neg BLOOD Large [id number] IGP No Culture 30 Plus Reviewed date:01/11/2024 04:43:53 PM Interpretation: Performing Lab:[facility], [address], [place], Phone - [phone], Director - [facility] Notes/Report: Clinical Information:Vaginal, LMP: Hyst [id number] LMP / Prev Treat...Hyst Dates / Results....10/15/12 NIL Other..............Post Menopausal;Estrogen Replace Rx No. of containers..01 ThinPrep Vial DIAGNOSIS: UNSATISFACTORY FOR EVALUATION. THIS SPECIMEN WAS RESCREENED PART OF OUR CARD PAINTER PROGRAM. Specimen adequacy: Specimen processed and examined, but unsatisfactory for evaluation of epithelial abnormality because of excessive lubricant. Specimen processed and examined, but unsatisfactory for evaluation of epithelial abnormality because of insufficient squamous cellularity. Clinician provided ICD10: N95.0 N95.2 Performed by: Ree Michel ytotechnologist (ASC) QC reviewed by: Albert holly, Well Logging Operator Mud Analysis (ASC) . . Note: The Pap smear is a screening test designed to aid in the detection of premalignant and malignant conditions of the uterine cervix. It is not a diagnostic procedure and should not be used as the sole means of detecting cervical cancer. Both false-positive and false-negative reports do occur. . Test Methodology: This liquid based ThinPrep(R) pap test was screened with the use of an image guided system. HPV Aptima Negative Negative This nucleic acid amplification test detects fourteen high-risk HPV types (16,18,31,33,35,39,45,51,52,56,5 8,59,66,68) without differentiation. HPV Genotype Reflex Criteria not met, HPV Genotype not performed. PDF Report Reviewed date:01/11/2024 04:43:05 PM Interpretation: Performing Lab:[facility], [address], [address], [place], Phone - [phone], Director - [facility] Notes/Report: Clinical Information:Vaginal, LMP: Hyst [id number] LMP / Prev Treat...Hyst Dates / Results....10/15/12 NIL Other..............Post Menopausal;Estrogen Replace Rx No. of containers..01 ThinPrep Vial REASON FOR VISIT PMB Medications Medication SIG (Take, Route, Frequency, Duration) Notes Start Date End Date Status Cyanocobalamin 1000 MCG/ML 1 ml Injection Once a Month Vitamin B12 Inj Active Loperamide HCl 2 MG TAKE 2 CAPSULES BY MOUTH EVERY 6 HOURS BEFORE MEALS AND BEFORE BEDTIME Oral for 30 Active SUMAtriptan Succinate 100 MG 1 tablet as needed Orally NEEDED Active metroNIDAZOLE 500 MG 1 tablet Orally Twice a day for 7 days 01/02/2024 Active amLODIPine Besylate 5 MG 1 tablet Orally Once a day Active Levothyroxine Sodium 75 MCG 1 capsule in the morning on an empty stomach Orally Once a day Rubén-MJ 10/13/2011 Active Magnesium Oxide 400 MG 1 capsule as need ed Orally Twice a day Active Citalopram Hydrobromide 20MG 1 ORAL daily for -3 Rubén-MJ 10/13/2011 Active Metoprolol Succinate 100 MG 1 capsule Orally Once a day for 30 day(s) Active Amitriptyline HCl 10 MG 1 tablet at bedt ciro Orally Once a day for 30 day(s) Active iron 1 tab Oral for 14 days Active Fenofibrate 145 MG 1 tablet Orally Once a day for 30 day(s) Active Estradiol Vaginal Cream 0.01% 1 Gram to the affected area Vaginal/Vulva Twice a week for 90 Days 01/02/2024 Active Biotin 19804 MCG 1 tablet Orally Once a day for 30 day(s) Active Centrum Silver Ultra Womens - as directed Orally Active Prolia 60 MG/ML as directed Subcutaneous Active Imodium A-D 2 MG 1 tablet as needed Orally Four times a day Active Calcium + D3 Active Social History Tobacco Use: Social History Observation Description Date Details (start date - stop date) Never Smoker NA - NA Sexual History Question Answer Notes Had sex in the past 12 months (vaginal, oral, or anal)? No AUDIT-C (Standard) Question Answer Notes Did you have a drink contain ing alcohol in the past year? Yes How often did you have six o r more drinks on one occasion in the past year? Never (0 point) How many drinks did you have on a typical day when you were drinking in the past year? 1 or 2 drinks (0 point) How often did you have a dri nk containing alcohol in the past year? Monthly or less (1 point) Points 1 Interpretation Negative Tobacco Control (Standard) Question Answer Notes Tobacco use: Nonsmoker Problems Problem Type SNOMED Code ICD Code Onset Dates Problem Status W/U Status Risk Notes Problem Postmenopausal bleeding (31328653) Postmenopausal bleeding (N95.0) Active confirmed Vital Signs Temperature 97.7 degrees Fahrenheit 01/02/20 24 Blood pressure systolic 134 mm Hg 01/02/20 24 Blood pressure diastolic 84 mm Hg 024 Height 59 in 01/02/2024 Weight 126 lbs 01/02/2024 BMI 25.45 kg/m2 01/02/2024 Encounters Encounter Location Date Provider Diagnosis [address] [address] 01/02/2024 Dorina Adorno Postmenopausal bleeding N95.0 ; Postmenopausal atrophic vaginitis N95.2 and Acute vaginitis N76.0 Assessments Encounter Date Diagnosis (ICD Code) Assessment Notes Treatment Notes Treatment Clinical Notes Section Notes 01/02/2024 Postmenopausal bleeding (ICD-10 - N95.0) PAP TEST WAS PERFORMED TO MAKE SURE NO ABNORMAL CELLS ARE NOTED. 01/02/2024 Postmenopausal atrophic vaginitis (ICD-10 - N95.2) DISCUSSED FINDINGS, DX AND TX OPTIONS. RECOMMENDED INTRAVAGINAL ESTROGEN. PAT HAD ENDOMETRIAL CA BUT BENEFITS OF THE MEDICATION OUTWEIGH THE RISKS. RX AND INSTRUCTIONS WERE GIVEN. 01/02/2024 Acute vaginitis (ICD-10 - N76.0) DISCUSSED BV CAUSING MALODOROUS DISCHARGE. ORAL FLAGYL RX AND INSTRUCTIONS WERE GIVEN. IF NOT BETTER, CALL BACK. WORRIED ABOUT POSSIBLE RECTOVAGINAL FISTULA. IF NOT BETTER, WILL SEND TO DR LAGUNAS FOR REEVALUATION. Plan Of Treatment Medication Medication Name Sig Start Date Stop Date Notes metroNIDAZOLE 500 MG 1 tablet Orally Twi ce a day for 7 days 01/02/2024 Estradiol Vaginal Cream 0.01% 1 Gram to the affected area Vaginal/Vulva Twice a week for 90 Days 01/02/2024 Treatment Notes Assessment Notes Postmenopausal bleeding PAP TEST WAS PER FORMED TO MAKE SURE NO ABNORMAL CELLS ARE NOTED. Postmenopausal atrophic vaginitis DISCUSSED FINDINGS, DX AND TX OPTIONS. RECOMMENDED INTRAVAGINAL ESTROGEN. PAT HAD ENDOMETRIAL CA BUT BENEFITS OF THE MEDICATION OUTWEIGH THE RISKS. RX AND INSTRUCTIONS WERE GIVEN. Acute vaginitis DISCUSSED BV CAUSING MALODOROUS DISCHARGE. ORAL FLAGYL RX AND INSTRUCTIONS WERE GIVEN. IF NOT BETTER, CALL BACK. WORRIED ABOUT POSSIBLE RECTOVAGINAL FISTULA. IF NOT BETTER, WILL SEND TO DR LAGUNAS FOR REEVALUATION. Pending Test Test Name Order Date ONE SWAB 01/02/2024 Next Appt Details Follow Up: prn, Reason: Provider Name:Dorina butler, 05/31/2024 11:00:00 AM, [address], [address], [place], [address], Progress Notes * ALEXA ROBERTSONDOB:1950 ([age] yo F)Acc No.[id number]:01/02/2024 PROGRESS NOTES Patient:?ALEXA ROBERTSON Appointment Provider:?Dorina butler M.D. :1950???Age:73 Y???Sex:Female D ate:01/02/2024 [address] [facility] Pcp:KYLE RAMIREZ M.D. Subjective: * Chief Complaints: * ???PMB * HPI: ???New/Follow-up Patient Consult:? PAT IS C/O FISHY ODORED AND BLOODY VAGINAL DISCHARGE OF SEVERAL MONTHS DURATION.? SHE IS NOT SEXUALLY ACTIVE.?? S/P TAHBSO AT AGE 37 FOR ENDOMETRIAL CA.? RECURRENCE OF ENDOMETRIAL CA WAS NOTED IN 1999 AND SHE WAS TREATED WITH RADIATION THERAPY.? SHE SUFFERED FROM BOWEL OSTRUCTION AND NEEDED BOWEL RESECTION.? WHEN FISTULA FORMED, COLOSTOMY WAS PERFORMED. SHE ALSO HAD RADIATION INJURY TO BOTH URETERS AND BILATERAL NEPHROSTOMY TUBES WERE INSERTED.? URINE FROM KIDNEYS DRAIN DIRECTLY INTO THESE NEPHROSTOMY TUBES. * ROS:?general:?no?chest pain.?no?palpitations.?no?headache.?no?cough.?no?shortness of breath.?no?fever.?no?unexplained weight loss.?no?nausea/vomiting.?no?change in bowel movements.?no blood in stool.?genitourinary complaints?yes,?BLOODY, MALODOROUS VAGINAL DISCHARGE.?no?skin complaints.? * Medical History:? 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 * OB History:?Total pregnancies?4.?Total living children?2.?NVD?2.? * Surgical History:?ASHWINI/BSO Wi sdom Teeth Colonoscopy Colon Cancer - Nephrology Tubes * Hospitalization/Major Diagno stic Procedure:?2 Vaginal Deliveries See Surgical Hx 4x for Small Bowel Blockage 2017Small Bowel Blockage 2018 * Family History:?Mother: dece ased 65 yrs, congestive heart failure , uterine cancer.?Father: 73 yrs, congestive heart failure.?Maternal Grand Mother: uterine cancer.? Sister - Breast Cancer Dx 2019. * Social History:?Tobacco Use:?Tobacco Control (Standard)?Tobacco use:?Nonsmoker ???Sexual History:?Sexual History?Had sex in the past 12 months (vaginal, oral, or anal)??No ?Details of Sexual History?Are you sexually active??No ???Drugs/Alcohol:?Drugs?Have you used drugs other than those for medical reasons in the past 12 months??No ???Miscellaneous:?Children: yes. ?Domestic violence: no. ?Exercise: yes, Cardio. ?Home smoke detector use: yes. ?Living with: spouse. ?Marital status: . ?Natural support system: yes. ?Occupation: Retired. ?Sexual abuse: no. ?Sexually active: no, monogamous relationship. ?Verbal abuse: no. ???Drug/Alcohol:?AUDIT-C (Standard)?Did you have a drink containing alcohol in the past year??Yes ?How often did you have six or more drinks on one occasion in the past year??Never (0 point) ?How many drinks did you have on a typical day when you were drinking in the past year??1 or 2 drinks (0 point) ?How often did you have a drink containing alcohol in the past year??Monthly or less (1 point) ?Points?1 ?Interpretation?Negative * Medications:?TakingImodium A -D 2 MG Tablet 1 tablet as needed Orally Four times a day Calcium + D3 Prolia 60 MG/ML Solution Prefilled Syringe as directed Subcutaneous Centrum Silver Ultra Womens - Tablet as directed Orally Biotin 37560 MCG Tablet 1 tablet Orally Once a day iron 1 tab Oral Fenofibrate 145 MG Tablet 1 tablet Orally Once a day Metoprolol Succinate 100 MG Capsule ER 24 Hour Sprinkle 1 capsule Orally Once a day Amitriptyline HCl 10 MG Tablet 1 tablet at bedtime Orally Once a day Magnesium Oxide 400 MG Capsule 1 capsule as needed Orally Twice a day Citalopram Hydrobromide 20MG 30 1 ORAL daily , Notes to Pharmacist: Rubén-MJLevothyroxine Sodium 75 MCG Capsule 1 capsule in the morning on an empty stomach Orally Once a day , Notes to Pharmacist: Rubén-MJamLODIPine Besylate 5 MG Tablet 1 tablet Orally Once a day Loperamide HCl 2 MG Capsule TAKE 2 CAPSULES BY MOUTH EVERY 6 HOURS BEFORE MEALS AND BEFORE BEDTIME Oral SUMAtriptan Succinate 100 MG Tablet 1 tablet as needed Orally NEEDED Cyanocobalamin 1000 MCG/ML Solution 1 ml Injection Once a Month , Notes to Pharmacist: Vitamin B12 InjMedication List reviewed and reconciled with the patientTaking Imodium A-D 2 MG Tablet 1 tablet as needed Orally Four times a day Taking Calcium + D3 Taking Prolia 60 MG/ML Solution Prefilled Syringe as directed Subcutaneous Taking Centrum Silver Ultra Womens - Tablet as directed Orally Taking Biotin 37034 MCG Tablet 1 tablet Orally Once a day Taking iron 1 tab Oral Taking Fenofibrate 145 MG Tablet 1 tablet Orally Once a day Taking Metoprolol Succinate 100 MG Capsule ER 24 Hour Sprinkle 1 capsule Orally Once a day Taking Amitriptyline HCl 10 MG Tablet 1 tablet at bedtime Orally Once a day Taking Magnesium Oxide 400 MG Capsule 1 capsule as needed Orally Twice a day Taking Citalopram Hydrobromide 20MG 30 1 ORAL daily , Notes to Pharmacist: RubénBev Levothyroxine Sodium 75 MCG Capsule 1 capsule in the morning on an empty stomach Orally Once a day , Notes to Pharmacist: RubénBev amLODIPine Besylate 5 MG Tablet 1 tablet Orally Once a day Taking Loperamide HCl 2 MG Capsule TAKE 2 CAPSULES BY MOUTH EVERY 6 HOURS BEFORE MEALS AND BEFORE BEDTIME Oral Taking SUMAtriptan Succinate 100 MG Tablet 1 tablet as needed Orally NEEDED Taking Cyanocobalamin 1000 MCG/ML Solution 1 ml Injection Once a Month , Notes to Pharmacist: Vitamin B12 InjMedication List reviewed and reconciled with the patient * Allergies:?DEMEROL: Nausea/V omiting/Diarrhea - AllergyPercocet: AllergyDilaudid: AllergyCodeine: AllergyFentanyl: Allergyno[Allergies Verified] Objective: * Vitals:?Ht: 59 in, Wt: 126 l bs, BMI:25.45Index, BP: 134/84 mm Hg, Temp: 97.7 F. * Examination: ???TIERCE FILLER exam: ?EXTERNAL GENITALIA:?POSTERIOR VULVA IS POUCHED OUT.?VAGINA:?SHORT VAGINA.? ATROPHIC, BLOOD NOTED PER VAGINA WITH MALODOROUS DISCHARGE, PH>4.5, +WHIFF TEST.?CERVIX:?SURGICALLY ABSENT.?UTERUS:?absent.?ADNEXA:?surgically absent.? Assessment: * Assessment: 1.?Postmenopausal atrophic v aginitis - N95.2???2.?Postmenopausal bleeding - N95.0 (Primary)???3.?Acute vaginitis - N76.0??? Plan: * Treatment: ?LAB: Urinalysis (Collection Date & Time - 01/02/2024)* ? Value Reference Range ?NITRITE Positive * ?PH 8.0 * ?PROTEIN Large * ?S.G 1.005 * ?WBC Large * ?GLUCOSE Neg * ?KETONES Neg * ?UROBILINOGEN Neg * ?BILIRUBIN Neg * ?BLOOD Large * D.SEBASTIAN 01/02/2024 09:03:3 6 AM EST > Urine Was Not Sent. Changed to a One Swab Notes: PAP TEST WAS PERFORMED TO MAKE SURE NO ABNORMAL CELLS ARE NOTED.?? 2.?Postmenopausal atrophic vaginitis? Start Estradiol Vaginal Cream Cream, 0.01%, 1 Gram to the affected area, Vaginal/Vulva, Twice a week, 90 Days, 42.5 Gram, Refills 4.?? Notes: DISCUSSED FINDINGS, DX AND TX OPTIONS. RECOMMENDED INTRAVAGINAL ESTROGEN. PAT HAD ENDOMETRIAL CA BUT BENEFITS OF THE MEDICATION OUTWEIGH THE RISKS. RX AND INSTRUCTIONS WERE GIVEN.??3.?Acute vaginitis? Start metroNIDAZOLE Tablet, 500 MG, 1 tablet, Orally, Twice a day, 7 days, 14 Tablet, Refills 1. ?LAB: ONE SWAB* Sent for Aerobic, BV and Can dida Panels Notes: DISCUSSED BV CAUSING MALODOROUS DISCHARGE. ORAL FLAGYL RX AND INSTRUCTIONS WERE GIVEN. IF NOT BETTER, CALL BACK. WORRIED ABOUT POSSIBLE RECTOVAGINAL FISTULA. IF NOT BETTER, WILL SEND TO DR LAGUNAS FOR REEVALUATION. ? * Procedure Codes:? * Follow Up:?prn * Images: Billing Information: * Visit Code:? * Procedure Codes:? * Sign off status: Completed true * Appointment Provider:?Dorina Adorno M.D. Date:?01/02/2024 Generated for Tami junior/Brooke/Domitting on:?05/22/2024 10:15 AM EDT History and Physical Notes * HPI (History of Present Illness) Category Sub-Category Detail Notes Category Not es New/Follow-up Patient Consult PAT IS C/O FISHY ODORED AND BLOODY VAGINAL DISCHARGE OF SEVERAL MONTHS DURATION. SHE IS NOT SEXUALLY ACTIVE. S/P TAHBSO AT AGE 37 FOR ENDOMETRIAL CA. RECURRENCE OF ENDOMETRIAL CA WAS NOTED IN 1999 AND SHE WAS TREATED WITH RADIATION THERAPY. SHE SUFFERED FROM BOWEL OSTRUCTION AND NEEDED BOWEL RESECTION. WHEN FISTULA FORMED, COLOSTOMY WAS PERFORMED. SHE ALSO HAD RADIATION INJURY TO BOTH URETERS AND BILATERAL NEPHROSTOMY TUBES WERE INSERTED. URINE FROM KIDNEYS DRAIN DIRECTLY INTO THESE NEPHROSTOMY TUBES. Examination Category Sub-Category Detail Notes Category Not es TIERCE FILLER exam CERVIX: SURGICALLY ABSENT VAGINA: SHORT VAGINA. ATROPH IC, BLOOD NOTED PER VAGINA WITH MALODOROUS DISCHARGE, PH>4.5, +WHIFF TEST EXTERNAL GENITALIA: POSTERIOR VULVA IS P OUCHED OUT UTERUS: absent ADNEXA: surgically absent
--- OUTSIDE RECORDS SUMMARY | 2024-05-22 10:16 | XMS_ITS | Encounter Summary ---
Author Organization [facility] Address [address] [facility] [address] [place] [address] Phone Care Team Providers Care Order Administrator Name Role Phone Lenin Laird MD Primary Care Provider Encounter Details Date Type Department Care Team (Late st Contact Info) Description 02/23/2021 Telemedicine [facility] [address] [address] [facility] [address] [place] [phone] Gabe Oro, DO [address] [place] [address] Hypertension (Primary Dx) Social History Tobacco Use Types Packs/Day Years Used Date Smoking Tobacco: Never Smokeless Tobacco: Never Alcohol Use Standard Drinks/Week Comments Yes 0 (1 standard drink = 0.6 oz pure alcohol) Alcoholic Drinks/day: Occasional social drink Comments Unknown Sex and Gender Information Value Date Recorded Sex Assigned at Not on file Legal Sex Female 5:09 PM EST Gender Identity Not on file Sexual Orientation Not on file COVID-19 Exposure Response Date Recorded In the last month, have you been in contact with someone who was confirmed or suspected to have Coronavirus / COVID-19? No / Unsure 02/18/2021 2:22 PM EST documented as of this encounter Plan of Treatment Upcoming Encounters Date Type Department Care Team (Late st Contact Info) Description 09/17/2024 9:00 AM EDT Office Visit [facility] [address] [facility] [address] [place] [phone] Lili May ARNP [address] [facility] [address] [place] [address] documented as of this encounter Procedures Procedure Name Priority Date/Time Associated Diagnosis Comments BASIC METABOLIC PANEL Routine 07/20/2021 4:31 PM EDT Hypertension documented in this encounter Results * (ABNORMAL) Basic Metabolic Panel (07/20/2021 4:31 PM EDT) Glucose 114(H) (70-99) MG/DL [facility] BUN 30(H) (8-23) MG/DL [facility] Creatinine 2.8(H) (0.5-1.0) MG/DL [facility] Sodium 137 (133-145) MMOL/L [facility] Potassium 5.3(H) (3.6-5.2) MMOL/L [facility] Chloride 109(H) (98-107) MMOL/L [facility] Bicarbonate (CO2) 19(L) (22-29) MMOL/L [facility] Anion Gap 9 (4-17) [facility] Calcium 8.9 (8.6-10.5) MG/DL [facility] Est GFR Non 18 ML/MIN/1.7 3 M2 [facility] Comment: Creatinine based estimated glomerular filtration (eGFR) in adults is calculated using the National Kid[employer] Foundation recommended 2020 CKD-EPI equation. Estimates GFR from serum creatinine, age and sex. Testing performed or reported by [facility], a Service of [facility], [address] [place] [address] Leon Moran MD, Purse Seining Hand [facility]# [id number] Blood (Blood, Venous) 07/20/2021 4:31 PM EDT 07/20/2021 4:38 PM EDT Gabe Oro DO LAB BLOOD ORDERABLES Final Resul t [facility] documented in this encounter Visit Diagnoses Diagnosis Hypertension- Primary documented in this encounter Care Teams Order Administrator Relationship Specialty Start Date End Date Lenin Laird MD [facility] [address] [place], [place] PCP - General Internal Medicine 09/12/23 documented as of this encounter
--- OUTSIDE RECORDS SUMMARY | 2024-05-22 10:16 | XMS_ITS | Continuity of Care Document ---
Author Organization [facility] [address] [place] [address] Phone [phone] Care Team Providers Care Enrollment Nurse Name Role Phone Lenin Laird Care Team Information Optomechanical Technician + [phone] Problems Active Problems Provider Date Deep venous [...] Order ing Provider Date Vitamin D (Ergocalciferol)1.25mg (55083 Ut) Capsules take 1 capsule by mouth weekly as directed 8caps Guanakito Richey M.D. 03/24/2023 Vitamin D-1000 Maximum Qxiohpgy53wmg (1000 Ut) Tablets 2by mouth every day Guanakito Richey M.D. 08/29/[address] Take one capsule daily Po, Lorenver Loperamide HCL2mg Capsules Take 2 capsule three times daily Unknown Amitriptyline XIO38ty Tablets Take 1 tablet daily Angelina Hamlin MD Citalopram Lhrjlylodren81nl Tablets Take 1 tablet daily Po, Lorenver Fqeybzoduvi085xe Tablets Take 1 tablet daily Po, Lorenver Levothyroxine Jtymoh51lke Tablets Take 1 tablet daily Po, Lorenver Ckcwhropulcxry1679evd/ ML Solution As directed monthly Po, Lorenver Amlodipine Bumgulvf41xv Tablets 1 by mouth every day Guanakito Richey M.D. Sumatriptan Fecpwcyou035tg Tablets take as directed for migraines Guanakito Richey M.D. Vital Signs Date Vital Result Comment 03/24/2023 1:24pm BP Systolic 130 mmHg BP Diastolic 70 mmHg Heart Rate 95 /min Height 60 inches 5'0 Weight 128.25 lb BMI (Body Mass Index) 25.0 kg/m2 Results Test Acquired Date Facility Test Result H/L Range N ote Calcium 08/31/2022 [facility] Calcium 9.3 mg/dL (8.6-10.5 ) Period & Volume 02/09/2022 [facility] Urine Collection Period 24 HRS Volume 1200 MLS Creatinine 02/09/2022 [facility] Creatinine 2.4 mg/dL High (0.5-1.0) Estimated GFR Creatinine 21 ML/MIN/1.7 3M2 1 Uoobagk-Jv-Gfdb t 02/09/2022 [facility] Calcium, Urine, MG/DL 2.3 mg/dL Calcium, Urine GM/24HR 0.03 GM/24HR Low (0.05-0.3 0) Creat Clearance 02/09/2022 [facility] Creatinine, Urine MG/DL 69.2 mg/dL Blood Creat 2.4 mg/dL High (0.5-1.0) Creat Clearance 24.0 mL/min Low (66-143) Creatinine Ur GM/24HR 0.8 GM/24HR (0.72-1.5 ) PTH, Intact 02/08/2022 [facility] PTH, Intact 55 pg/mL (15-65) Basic Metabolic Panel 02/08/2022 [facility] Glucose 91 mg/dL (70-99) BUN [...] Description No Information Available Referrals Refer to Reason for Referral Status Appt Nigel e Guanakito Richey M.D. Closed [address] [place] [address] Drive [address] [place] [address] [phone] Guanakito Richey M.D. Created [address] [place] [address] Drive [address] [place] [address] [phone]
--- OUTSIDE RECORDS SUMMARY | 2024-05-22 10:16 | XMS_ITS | Encounter Summary ---
Author Organization [facility] Address [address] [place] [address] Phone Care Team Providers Care Lehr Stripper Name Role Phone Lenin Laird MD Primary Care Provider [phone] Encounter Details Date Type Department Care Team (Late Contact Info) Description 02/23/2021 Telephone [facility] [address] [place] [phone] Gabe Oro, DO [address] [place] [address] Social History Tobacco Use Types Packs/Day Years [...] Encounters Date Type Department Care Team (Late Contact Info) Description 09/17/2024 9:00 AM EDT Office Visit [facility] [address] [facility] [address] [place] [phone] Lili May ARNP [address] [address] documented as of this encounter Visit Diagnoses Not on filedocumented in this encounter Care Teams Lehr Stripper Relationship Specialty Start Date End Date Lenin Laird MD [facility] [address] [place], [place] PCP - General Internal Medicine 09/12/23 documented as of this encounter
--- OUTSIDE RECORDS SUMMARY | 2024-05-22 10:16 | XMS_ITS | Patient Health Record ---
Author Organization Total [facility] Address [address] [place] [address] Care Team Providers Care Umbrella Tipper Name Role Phone KYLE RAMIREZ M.D. Primary Care Provider Dorian Pedroza Unavailable [phone] Allergies Allergen (clinical drug ingredient) Drug/Non Drug [...] Neg UROBILINOGEN Neg BILIRUBIN Neg BLOOD Large [id number] IGP No Culture 30 Plus Reviewed date:01/11/2024 04:43:53 PM Interpretation: Performing Lab:[facility], [address], [address], [place], Phone - [phone], Director - [facility] Notes/Report: Clinical Information:Vaginal, LMP: Hyst [id number] LMP / Prev Treat...Hyst Dates / Results....10/15/12 NIL Other..............Post Menopausal;Estrogen Replace Rx No. of containers..01 ThinPrep Vial DIAGNOSIS: UNSATISFACTORY FOR EVALUATION. THIS SPECIMEN WAS RESCREENED PART OF OUR EXERCISE INSTRUCT PROGRAM. Specimen adequacy: Specimen processed and examined, but unsatisfactory for evaluation of epithelial abnormality because of excessive lubricant. Specimen processed and examined, but unsatisfactory for evaluation of epithelial abnormality because of insufficient squamous cellularity. Clinician provided ICD10: N95.0 N95.2 Performed by: Ree Michel ytotechnologist ([facility]) QC reviewed by: Albert holly, Janitor Head ([facility]) . . Note: The Pap smear is [...] amplification test detects fourteen high-risk HPV types (16,18,31,33,35,39,45,51,52,56, 58,59,66,68) without differentiation. HPV Genotype Reflex Criteria not met, HPV Genotype not performed. PDF Report Reviewed date:01/11/2024 04:43:05 PM Interpretation: Performing Lab:[facility], [address], [address], [place], Phone - [phone], Director - [facility] Notes/Report: Clinical Information:Vaginal, LMP: Hyst [id number] LMP / Prev Treat...Hyst Dates / Results....10/15/12 NIL Other..............Post Menopausal;Estrogen Replace Rx No. of containers..01 ThinPrep Vial PDF Report Reviewed date:02/23/2024 02:00:13 PM Interpretation: Performing Lab:[facility], [address] [place] [address], Phone - [phone], Director - [facility] Notes/Report: Clinical Information:vaginal/ cervical NEW ORDERS FROM PRACTICE S/P HYST Source.............Cervix;Vagina Dates / Results....01/02/24 No. of containers..01 ThinPrep Vial [id number] IGP No Culture 30 Plus Reviewed date:02/23/2024 02:00:32 PM Interpretation: Performing Lab:[facility], [address] [place] [address], Phone - [phone], [facility] Notes/Report: Clinical Information:vaginal/ cervical NEW ORDERS FROM PRACTICE S/P HYST Source.............Cervix;Vagina Dates / Results....01/02/24 No. of containers..01 ThinPrep Vial DIAGNOSIS: NEGATIVE FOR INTRAEPITHELIAL LESION OR MALIGNANCY. REACTIVE CELLULAR CHANGES AND/OR REPAIR ARE PRESENT. Specimen adequacy: Satisfact ory for evaluation. Clinician provided ICD10: N9 5.0 Performed by: Albert Michel , Janitor Head (ASCP) Electronically signed by: Drea Victoria MD, Pathologist . . Note: The Pap smear is [...] amplification test detects fourteen high-risk HPV types (16,18,31,33,35,39,45,51,52,56, 58,59,66,68) without differentiation. HPV Genotype Reflex Criteria not met, HPV Genotype not performed. Reason For Referral No Information Medications Medication SIG (Take, Route, Frequency, Duration) Notes Start Date End Date Status Prolia 60 MG/ML as directed Subcutaneous Active Calcium + D3 Active amLODIPine Besylate 5 MG 1 tablet Orally Once a day Active Imodium A-D 2 MG 1 tablet as needed Orally Four times a day Active Levothyroxine Sodium 75 MCG 1 capsule in the morning on an empty stomach Orally Once a day [facility] 10/13/2011 Active Citalopram Hydrobromide 20MG 1 ORAL daily for -3 [facility] 10/13/2011 Active Magnesium Oxide 400 MG 1 capsule as need ed Orally Twice a day Active Amitriptyline HCl 10 MG 1 tablet at bedt ciro Orally Once a day for 30 day(s) Active Metoprolol Succinate 100 MG 1 capsule Orally Once a day for 30 day(s) Active Fenofibrate 145 MG 1 tablet Orally Once a day for 30 day(s) Active metroNIDAZOLE 500 MG 1 tablet Orally Twice a day for 7 days 01/02/2024 Active iron 1 tab Oral for 14 days Active Estradiol Vaginal Cream 0.01% 1 Gram to the affected area Vaginal/Vulva Twice a week for 90 Days 01/02/2024 Active Biotin 94462 MCG 1 tablet Orally Once a day for 30 day(s) Active Cyanocobalamin 1000 MCG/ML 1 ml Injection Once a Month Vitamin B12 Inj Active Centrum Silver Ultra Womens - as directed Orally Active SUMAtriptan Succinate 100 MG 1 tablet as needed Orally NEEDED Active Loperamide HCl 2 MG TAKE 2 CAPSULES BY MOUTH EVERY 6 HOURS BEFORE MEALS AND BEFORE BEDTIME Oral for 30 Active Social History Tobacco Use: Social History [...] Status W/U Status Risk Notes Problem Postmenopausal atrophic vaginitis (98545601) Postmenopausal atrophic vaginitis (N95.2) Active confirmed Problem Postmenopausal bleeding (82665746) Postmenopausal bleeding (N95.0) Active confirmed Problem Age-related osteoporosis (370636805) Age-related osteoporosis without current pathological fracture (M81.0) Active confirmed Problem Malignant neoplasm of colon (030352484) Malignant neoplasm of colon, unspecified (C18.9) Active confirmed Problem Malignant neoplasm of corpus uteri, excluding isthmus (653255658) 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) Active confirmed Problem Hypervitaminosis D (04849219) 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) Active confirmed Problem Personal history of primary malignant neoplasm of gastrointestinal tract (115550043) Personal history of malignant neoplasm of unspecified digestive organ (Z85.00) Active confirmed Problem Personal history of primary malignant neoplasm of female genital organ (548944616) Personal history of malignant neoplasm of other parts of uterus (Z85.42) Active confirmed Problem Vitamin D deficiency (92231431) Vitamin D deficiency, unspecified (E55.9) Active confirmed Problem 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 Problem Malignant neoplasm of corpus uteri, excluding isthmus (disorder) (822198573) Malignant neoplasm of corpus uteri, except isthmus (182.0) Active confirmed Diag Problem Hypothyroidism (93751537) Unspecified hypothyroidism (244.9) Active confirmed Major Problem Hyperlipidemia (91408529) Other and unspecified hyperlipidemia (272.4) Active confirmed Major Problem Cardiac arrhythmia (285836759) Unspecified cardiac dysrhythmia (427.9) Active confirmed Major Problem Esophageal reflux (193098739) Esophageal reflux (530.81) Active confirmed Major Problem Menopausal symptom (87746412) Symptomatic menopausal or female climacteric states (627.2) Active confirmed Major Problem Gynecological examination normal (727814263752161) Routine gynecological examination (V72.31) Active confirmed Problem Screening for malignant neoplasm of colon (181979514) Special screening for malignant neoplasms, colon (V76.51) Active confirmed Major Vital Signs Heart Rate 67 /min 02/19/2024 Temperature 97.7 degrees Fahrenheit 02/19/2024 Blood pressure diastolic 81 mm Hg 02/19/2024 Height 59 in 02/19/2024 Blood pressure systolic 133 mm Hg 02/19/2024 Weight 123 lbs 02/19/2024 BMI 24.84 kg/m2 02/19/2024 Encounters Encounter Location Date Provider Diagnosis [facility] [address] [address] 05/26/2023 Dorina Adorno Encounter for screening mammogram for malignant neoplasm of breast Z12.31 ; Age-related osteoporosis without current pathological fracture M81.0 ; Personal history of malignant neoplasm of other parts of uterus Z85.42 and Encounter for gynecological examination (general) (routine) without abnormal findings Z01.419 [facility] [employer] [address] [place] [address] 01/02/2024 Dorina Adorno Postmenopausal bleeding N95.0 ; Postmenopausal atrophic vaginitis N95.2 and Acute vaginitis N76.0 [facility] [address] [place] [address] 02/19/2024 Dorina Patelueva Unsatisfactory cytologic smear of cervix R87.615 and Personal history of malignant neoplasm of other parts of uterus Z85.42 [facility] [address] [place] [address] 05/31/2023 Dorina Camachoanueva Assessments Encounter Date Diagnosis (ICD Code) Assessment Notes Treatment Notes Treatment Clinical Notes Section Notes 05/26/2023 Encounter for screening mammogram for malignant neoplasm of breast (ICD-10 - Z12.31) REGULAR MAMMOGRAMS AND SBE'S WERE RECOMMENDED. 01/02/2024 Postmenopausal atrophic vaginitis (ICD-10 - N95.2) DISCUSSED FINDINGS, DX AND TX OPTIONS. RECOMMENDED INTRAVAGINAL ESTROGEN. PAT HAD ENDOMETRIAL CA BUT BENEFITS OF THE MEDICATION OUTWEIGH THE RISKS. RX AND INSTRUCTIONS WERE GIVEN. 01/02/2024 Postmenopausal bleeding (ICD-10 - N95.0) PAP TEST WAS PERFORMED TO MAKE SURE NO ABNORMAL CELLS ARE NOTED. 02/19/2024 Unsatisfactory cytologic smear of cervix (ICD-10 - R87.615) REPEAT PAP TEST WITH HPV TYPING WAS OBTAINED. VAGINA IS EXTREMELY DRY IT IS EXPOSED. IF PAP IS STILL UNSATISFACTORY, WILL NOT REPEAT. 02/19/2024 Personal history of malignant neoplasm of other parts of uterus (ICD-10 - Z85.42) DISCUSSED HX OF RECURRENT ENDOMETRIAL CA. 01/02/2024 Acute vaginitis (ICD-10 - N76.0) DISCUSSED BV CAUSING MALODOROUS DISCHARGE. ORAL FLAGYL RX AND INSTRUCTIONS WERE GIVEN. IF NOT BETTER, CALL BACK. WORRIED ABOUT POSSIBLE RECTOVAGINAL FISTULA. IF NOT BETTER, WILL SEND TO DR LAGUNAS FOR REEVALUATION. 05/26/2023 Age-related osteoporosis without current pathological fracture (ICD-10 - M81.0) DISCUSSED HER LAST BMD RESULTS AND OSTEOPOROSIS AND ITS IMPACT ON HER HEALTH., ADEQUATE CALCIUM AND VIT D. WEIGHT BEARING EXERCISES. OSTEO PRECAUTIONS. ADVISED PAT TO SEE DR APOLONIA GARRIDO. 05/26/2023 Personal history of malignant neoplasm of other parts of uterus (ICD-10 - Z85.42) PAT HAS BEEN DISMISSED BY CRIMINAL PROFILER ONCOLOGY. NO RECURRENCE HAS BEEN NOTED. 05/26/2023 Encounter for gynecological examination (general) (routine) without abnormal findings (ICD-10 - Z01.419) NO PAP TESTS. Plan Of Treatment Pending Test Test Name Order Date MAMMOGRAM, SCREENING 02/20/2017 MAMMOGRAM, SCREENING 05/13/2021 MAMMOGRAM, SCREENING 10/21/2014 MAMMOGRAM, SCREENING 05/18/2022 MAMMOGRAM, SCREENING 05/26/2023 MAMMOGRAM, SCREENING 02/16/2016 Urinalysis 02/16/2016 Urinalysis 02/20/2018 ONE SWAB 01/02/2024 25OH VITAMIN D 07/09/2021 25OH VITAMIN D 01/27/2022 25OH VITAMIN D 06/18/2021 COMPLETE URINALYSIS 10/21/2014 COMPREHENSIVE METABOLIC PANEL 06/18/2021 N-TELOPEPTIDE CROSS 06/18/2021 PTH, INTACT 06/18/2021 PTH, INTACT 01/19/2022 PTH, INTACT 07/09/2021 TSH 06/18/2021 BONE DENSITY 05/13/2021 BONE DENSITY 05/26/2023 MM Digital Mammo Screening 02/20/2017 MM Digital Mammo Screening 05/26/2023 MM Digital Mammo Screening 05/18/2022 MM Digital Mammo Screening 02/21/2019 MM Digital Mammo Screening 05/13/2021 MM Digital Mammo Screening 02/16/2016 Next Appt Details Provider Name:Dorina Patel jenniferprema, 05/31/2024 11:00:00 AM, [address], [address], [place], [address], Insurance Providers Payer Name Payer Address Payer Phone Subscriber Number Group Number Insured Name Patient Relationship to Insured Coverage Start Date Coverage End Date [facility] [employer] [address] [place], [place] [id number] ALEXA ROBERTSON Self - patient is the insured [facility] [employer] [address] [place] [address] [id number] MARCELO ALEXA Self - patient is the insured Medical (General) History Medical History History ICD Code DVT Lt Leg Malignant neoplasm of corpus uteri, unsp ecified C54.9 Kaposi's sarcoma, unspecified C46.9 Gastro-esophageal reflux disease without esophagitis K21.9 Hyperlipidemia, unspecified E78.5 Hypothyroidism, unspecified E03.9 Cardiac arrhythmia, unspecified I49.9 Menopausal and female climacteric states N95.1 Calculus of kidney N20.0 Postmenopausal atrophic vaginitis N95.2 Malignant neoplasm of endometrium C54.1 Disorder of bone density and structure, unspecified M85.9 Other specified noninflammatory disorder s of vulva and perineum N90.89 Malignant neoplasm of colon, unspecified C18.9 Age-related osteoporosis without current pathological fracture M81.0 Surgical History Surgery Date(Month/Year) ASHWINI/BSO [place] Teeth Colonoscopy Colon Cancer - Nephrology Tubes Hospitalization History Reason Date(Month/Year) Small Bowel Blockage 2017 4x for Small Bowel Blockage 2017 See Surgical Hx 2 Vaginal Deliveries
--- OUTSIDE RECORDS SUMMARY | 2024-05-22 10:16 | XMS_ITS ---
Author Organization [facility] Address [address] [place] [address] Care Team Providers Care Is Support Analyst Name Role Phone KYLE RAMIREZ M.D. Primary Care Provider Dorina Pedroza Unavailable [phone] Allergies Allergen (clinical drug ingredient) Drug/Non Drug Allergy documented on EMR Reaction Allergy Type Onset Date Status meperidine DEMEROL Nausea/Vomiting /Diarrhea Drug Allergy Active hydromorphone Dilaudid Unknown Drug Allergy Act elizabeth fentanyl Fentanyl Unknown Drug Allergy Active acetaminophen / oxycodone Percocet Unknown Drug Allergy Active codeine Codeine Unknown Drug Allergy Active Results Component Value Reference Range Notes [id number] IGP No Culture 30 Plus Reviewed date:02/23/2024 02:00:32 PM Interpretation: Performing Lab:[facility], [address] [place] [address], Phone - [phone], Director - [facility] Notes/Report: Clinical Information:vaginal/ cervical NEW ORDERS FROM PRACTICE S/P HYST Source.............Cervix;Vagina Dates / Results....01/02/24 No. of containers..01 ThinPrep Vial DIAGNOSIS: NEGATIVE FOR INTRAEPITHELIAL LESION OR MALIGNANCY. REACTIVE CELLULAR CHANGES AND/OR REPAIR ARE PRESENT. Specimen adequacy: Satisfact ory for evaluation. Clinician provided ICD10: N9 5.0 Performed by: Albert Michel , Budget Examiner (ASCP) Electronically signed by: Drea Victoria MD, [...] HPV Genotype not performed. PDF Report Reviewed date:02/23/2024 02:00:13 PM Interpretation: Performing Lab:[facility], [address] [place] [address], Phone - [phone], [facility]/Report: Clinical Information:vaginal/ cervical NEW ORDERS FROM PRACTICE S/P HYST Source.............Cervix;Vagina Dates / Results....01/02/24 No. of containers..01 ThinPrep Vial REASON FOR VISIT PAP Medications Medication SIG (Take, Route, Frequency, Duration) Notes Start Date End Date Status Levothyroxine Sodium 75 MCG 1 capsule in the morning on an empty stomach Orally Once a day [facility] 10/13/2011 Active Citalopram Hydrobromide 20MG 1 ORAL daily for -3 [facility] 10/13/2011 Active Magnesium Oxide 400 MG 1 capsule as need ed Orally Twice a day Active Amitriptyline HCl 10 MG 1 tablet at bedt ciro Orally Once a day for 30 day(s) Active Metoprolol Succinate 100 MG 1 capsule Orally Once a day for 30 day(s) Active Prolia 60 MG/ML as directed Subcutaneous Active Fenofibrate 145 MG 1 tablet Orally Once a day for 30 day(s) Active iron 1 tab Oral for 14 days Active Biotin 45307 MCG 1 tablet Orally Once a day for 30 day(s) Active Centrum Silver Ultra Womens - as directed Orally Active Calcium + D3 Active Imodium A-D 2 MG 1 tablet as needed Orally Four times a day Active metroNIDAZOLE 500 MG 1 tablet Orally Twice a day for 7 days 01/02/2024 Active Estradiol Vaginal Cream 0.01% 1 Gram to the affected area Vaginal/Vulva Twice a week for 90 Days 01/02/2024 Active Cyanocobalamin 1000 MCG/ML 1 ml Injection Once a Month Vitamin B12 Inj Active amLODIPine Besylate 5 MG 1 tablet Orally Once a day Active SUMAtriptan Succinate 100 MG 1 tablet as needed Orally NEEDED Active Loperamide HCl 2 MG TAKE 2 CAPSULES BY MOUTH EVERY 6 HOURS BEFORE MEALS AND BEFORE BEDTIME Oral for 30 Active Vital Signs Temperature 97.7 degrees Fahrenheit 02/18/19 25 Blood pressure systolic 133 mm Hg 02/18/19 25 Blood pressure diastolic 81 mm Hg 025 Heart Rate 67 /min 02/19/2024 Height 59 in 02/19/2024 Weight 123 lbs 02/19/2024 BMI 24.84 kg/m2 02/19/2024 Encounters Encounter Location Date Provider Diagnosis [facility] [address] [place] [address] 02/19/2024 Dorina Adorno Unsatisfactory cytologic smear of cervix R87.615 and Personal history of malignant neoplasm of other parts of uterus Z85.42 Assessments Encounter Date Diagnosis (ICD Code) Assessment Notes Treatment Notes Treatment Clinical Notes Section Notes 02/19/2024 Unsatisfactory cytologic smear of cervix (ICD-10 - R87.615) REPEAT PAP TEST WITH HPV TYPING WAS OBTAINED. VAGINA IS EXTREMELY DRY IT IS EXPOSED. IF PAP IS STILL UNSATISFACTORY, WILL NOT REPEAT. 02/19/2024 Personal history of malignant neoplasm of other parts of uterus (ICD-10 - Z85.42) DISCUSSED HX OF RECURRENT ENDOMETRIAL CA. Plan Of Treatment Treatment Notes Assessment Notes Unsatisfactory cytologic smear of cervix REPEAT PAP TEST WITH HPV TYPING WAS OBTAINED. VAGINA IS EXTREMELY DRY IT IS EXPOSED. IF PAP IS STILL UNSATISFACTORY, WILL NOT REPEAT. Personal history of malignan t neoplasm of other parts of uterus DISCUSSED HX OF RECURRENT ENDOMETRIAL CA . Next Appt Details Follow Up: prn, Reason: Provider Name:Dorina butler, 05/31/2024 11:00:00 AM, [address], [place], [address], Progress Notes * ALEXA ROBERTSONDOB:1950 ([age] yo F)Acc No.[id number]:02/19/2024 PROGRESS NOTES Patient:?ALEXA ROBERTSON Appointment Provider:?Dorina butler M.D. :1950???Age:73 Y???Sex:Female D ate:02/19/2024 Address:[address], , [place] [facility] Pcp:KYLE RAMIREZ M.D. Subjective: * Chief Complaints: * ???PAP * HPI: ???New/Follow-up Patient Consult:? S/P TAHBSO AT AGE 37 FOR ENDOMETRIAL CA.? RECURRENCE WAS NOTED IN 1999 AND SHE UNDERWENT RADIATION THERAPY.? SHE SUFFERED FROM BOWEL OBSTRUCTION WHICH LED TO BOWEL RESECTION AND A FISTULA.? SHE WEARS A COLOSTOMY BAG.? SHE ALSO SUFFERED FROM RADIATION INJURY TO HER URETERS AND HAS NEPHROSTOMY TUBES.?? HER LAST PAP TEST WAS UNSATISFACTORY DUE TO SCANT CELLS.? REPEAT PAP TEST WILL BE DONE TODAY. * ROS:?general:?no?chest pain.?no?palpitations.?no?headache.?no?cough.?no?shortness of breath.?no?fever.?no?unexplained weight loss.?no?nausea/vomiting.?no?change in bowel movements.?no blood in stool.?no?genitourinary complaints.?no?skin complaints.? * Medical History:? 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 * OB History:?Total pregnancies?4.?Total living children?2.?NVD?2.? * Medications:?TakingImodium A -D 2 MG Tablet 1 tablet as needed Orally Four times a day Calcium + D3 Prolia 60 MG/ML Solution Prefilled Syringe as directed Subcutaneous Centrum Silver Ultra Womens - Tablet as directed Orally Biotin 00136 MCG Tablet 1 tablet Orally Once a [...] 1 ORAL daily , [facility] Pharmacist: [facility] AdaNIMOLevothyroxine Sodium 75 MCG Capsule 1 capsule in the morning on an empty stomach Orally Once a day , Notes to Pharmacist: [facility] AdaNIMOamLODIPine Besylate 5 MG Tablet 1 tablet Orally Once a day Loperamide HCl 2 MG Capsule TAKE 2 CAPSULES BY MOUTH EVERY 6 HOURS BEFORE MEALS AND BEFORE BEDTIME Oral SUMAtriptan Succinate 100 MG Tablet 1 tablet as needed Orally NEEDED Cyanocobalamin 1000 MCG/ML Solution 1 ml Injection Once a Month , Notes to Pharmacist: Vitamin B12 InjEstradiol Vaginal Cream 0.01% Cream 1 Gram to the affected area Vaginal/Vulva Twice a week metroNIDAZOLE 500 MG Tablet 1 tablet Orally Twice a day Medication List reviewed and reconciled with the patientTaking Imodium A-D 2 MG Tablet 1 tablet as needed Orally Four times a day Taking Calcium + D3 Taking Prolia 60 MG/ML Solution Prefilled Syringe as directed Subcutaneous Taking Centrum Silver Ultra Womens - Tablet as directed Orally Taking Biotin 95188 MCG Tablet 1 tablet Orally Once a [...] 1 ORAL daily , Notes to Pharmacist: [facility]-MJTaking Levothyroxine Sodium 75 MCG Capsule 1 capsule in the morning on an empty stomach Orally Once a day , Notes to Pharmacist: [facility]-MJTaking amLODIPine Besylate 5 MG Tablet 1 tablet Orally Once a day Taking Loperamide HCl 2 MG Capsule TAKE 2 CAPSULES BY MOUTH EVERY 6 HOURS BEFORE MEALS AND BEFORE BEDTIME Oral Taking SUMAtriptan Succinate 100 MG Tablet 1 tablet as needed Orally NEEDED Taking Cyanocobalamin 1000 MCG/ML Solution 1 ml Injection Once a Month , Notes to Pharmacist: Vitamin B12 InjTaking Estradiol Vaginal Cream 0.01% Cream 1 Gram to the affected area Vaginal/Vulva Twice a week Taking metroNIDAZOLE 500 MG Tablet 1 tablet Orally Twice a day Medication List reviewed and reconciled with the patient * Allergies:?DEMEROL: Nausea/V omiting/Diarrhea - AllergyPercocet: AllergyDilaudid: AllergyCodeine: AllergyFentanyl: Allergy Objective: * Vitals:?Ht: 59 in, Wt: 123 l bs, BMI:24.84Index, BP: 133/81 mm Hg, HR: 67 /min, Temp: 97.7 F. 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 IT HAS EVERTED OUT OF THE CANAL..?CERVIX:?SURGICALLY ABSENT.?UTERUS:?absent.?ADNEXA:?surgically absent.? Assessment: * Assessment: 1.?Unsatisfactory cytologic smear of cervix - R87.615 (Primary)???2.?Personal history of malignant neoplasm of other parts of uterus - Z85.42??? Plan: * Treatment: ?LAB: [id number] IGP, CtNg Culture 30 Plus (Order Cancelled) (Collection Date & Time - 02/19/2024 11:34 AM)* vaginal/ cervical Notes: REPEAT PAP TEST WITH HPV TYPING WAS OBTAINED. VAGINA IS EXTREMELY DRY IT IS EXPOSED. IF PAP IS STILL UNSATISFACTORY, WILL NOT REPEAT.??2.?Personal history of malignant neoplasm of other parts of uterus?LAB: [id number] IGP No Culture 30 Plus* CERVICAL/VAGINAL HPV TYPING S/P HYST AND BSO FOR ENDO CA AGE37 Notes: DISCUSSED HX OF RECURRENT ENDOMETRIAL CA.?? * Procedure Codes:? * Follow Up:?prn * Images: Billing Information: * Visit Code:? * Procedure Codes:? * Sign off status: Completed true * Appointment Provider:?Dorina Adorno M.D. Date:?02/19/2024 Generated for Tami junior/Brooke/eTransmitting on:?05/22/2024 10:15 AM EDT History and Physical Notes * HPI (History of Present Illness) Category Sub-Category Detail Notes Category Not es New/Follow-up Patient Consult S/P TAHBSO AT AGE 37 FOR ENDOMETRIAL CA. RECURRENCE WAS NOTED IN 1999 AND SHE UNDERWENT RADIATION THERAPY. SHE SUFFERED FROM BOWEL OBSTRUCTION WHICH LED TO BOWEL RESECTION AND A FISTULA. SHE WEARS A COLOSTOMY BAG. SHE ALSO SUFFERED FROM RADIATION INJURY TO HER URETERS AND HAS NEPHROSTOMY TUBES. HER LAST PAP TEST WAS UNSATISFACTORY DUE TO SCANT CELLS. REPEAT PAP TEST WILL BE DONE TODAY. Examination Category Sub-Category Detail Notes Category Not es ELECTRIC GOLF CART REPAIRER exam CERVIX: SURGICALLY ABSENT VAGINA: VAGINA IS NOTED OUTS ADDY THE INTROITUS, IT HAS EVERTED OUT OF THE CANAL. EXTERNAL GENITALIA: PINK TO NAIDU MASS NAHEED NG THE INTROITUS UTERUS: absent ADNEXA: surgically absent
--- OUTSIDE RECORDS SUMMARY | 2024-05-22 10:16 | XMS_ITS | Clinical Summary ---
Author Organization [facility] Address [address] [place] [phone] Phone Care Team Providers Care Director Of Development And Marketing Name Role Phone Lenin Laird MD Primary Care Provider [phone] Allergies Active Allergy Reactions Criticality Noted Date Comments Codeine Other (see comments) High 12/04/2020 Instant headache Meperidine Other (see comments) High 12/04/2020 Instant headache Fentanyl Other (see comments) High 12/04/2020 Fainting and requires NARCAN Hydromorphone Other (see comments) 12/25/2019 Meperidine Hcl Other (see comments) 12/25/2019 Oxycodone-Acetaminophen Other (see comments) Other reaction(s): caused vomiting and migraine Desoxycorticosterone Other (see comments) High 12/04 Instant headache Medications citalopram (CeleXA) 20 MG tablet 1 tablet 1 (one) time each day Active fenofibrate (TRICOR) 145 MG tablet Take 1 tablet by mouth 1 (one) time each day Active levothyroxine (SYNTHROID, LEVOTHROID) 50 MCG tablet Take 1 tablet by mouth 1 (one) time each day Active omeprazole (PriLOSEC) [address] capsule Take 1 capsule by mouth 1 (one) time each day Active amLODIPine (NORVASC) 10 MG tablet Take 10 mg by mouth 1 (one) time each day 1 Active cyanocobalamin (VITAMIN B-12) 1000 MCG/ML injection every 30 (thirty) days 1 Active loperamide (IMODIUM) 2 MG capsule Take 2 mg by mouth 4 (four) times a day if needed 1 Active metoprolol succinate XL (TOPROL-XL) 100 MG 24 hr tablet Take 100 mg by mouth 1 (one) time each day 1 Active amitriptyline (ELAVIL) 10 MG tablet Take 1 tablet by mouth 1 (one) time each day 1 Active Multiple Vitamins-Minerals (Centrum Silver 50+Women) tablet Take 1 tablet by mouth 1 Active biotin 1000 MCG tablet Take 10,000 mcg by mouth 1 (one) time each day 1 Active SUMAtriptan (IMITREX) 50 MG tablet Take 100 mg by mouth if needed 5 Active Ferrous Fumarate 324 (106 Fe) MG tablet Take 324 mg by mouth 1 (one) time each day 1 Active sodium bicarbonate 650 MG tabletIndications:C hronic kidney disease, stage 4 (severe) ([facility]),Hypomagnesemi a,Renal osteodystrophy TAKE 2 TABLETS BY MOUTH IN THE MORNING AND TAKE 2 TABLETS BY MOUTH IN THE EVENING 360 tablet 2 4 Active cholecalciferol (VITAMIN D-3) 250 MCG (04694 UT) capsule Take 1 capsule (10,000 Units total) by mouth every 7 (seven) days 12 capsule 5 06/06/19 25 Active ergocalciferol (Drisdol) 1.25 MG (39970 UT) capsule Take 1 capsule (50,000 Units total) by mouth 1 (one) time per week 4 capsule 2 5 06/18/19 25 Active Active Problems Problem Noted Date Diagnosed Date Chronic kidney disease, stage 4 (severe) 025 Chronic kidney disease, stage 4 (severe) 023 Gastroesophageal reflux disease 02/08/2022 Endometrial carcinoma 02/08/2022 Deep venous thrombosis of lower extremity 2022 Colostomy present 02/08/2022 Vitamin D deficiency 10/26/2021 Primary osteoporosis 10/26/2021 Malignant neoplasm of rectum 10/26/2021 Renal osteodystrophy 07/20/2021 Renal osteodystrophy 06/15/2021 Hypomagnesemia 06/15/2021 Anxiety 03/15/2021 Cardiac arrhythmia 03/15/2021 Decreased renal function 03/15/2021 Overview (03/15/2021): followed by urologist Dr. 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 03/15/2021 Menopausal symptom 03/15/2021 Migraine 03/15/2021 Postmenopausal atrophic vaginitis 03/15/2021 Renal stone 03/15/2021 Screening for malignant neoplasm of colon 2021 Vaginal discharge 03/15/2021 Hypertensive disorder 03/15/2021 Gynecological examination normal 03/15/2021 Hypertension 12/07/2020 Chronic kidney disease, stage 4 (severe) 021 Resolved Problems Problem Noted Date Diagnosed Date Resolved Date Hypomagnesemia 12/07/2020 02/17/2021 Measurement finding 06/18/2020 02/17/19 22 Encounters Date Type Department Care Team Description 03/19/2024 2:15 PM EST Office Visit [facility].. [address] [address] Mike Morgan MD Chronic kidney disease, stage 4 (severe) ([facility]) (Primary Dx); Renal osteodystrophy; Hypomagnesemia 03/07/2024 Refill [facility] [address] [phone] Marcello Slaughter MD from Last 3 Months Immunizations Immunization Administration Dates Next Due Influenza, Unspecified 10/29/2020,2019,10/20/2018,10/12/2017 ,10/14/2016,10/23/2015,04/01/2015 Pfizer SARS-COV-2 06/04/2021,10/29/2020,05/15/19,04/23/2020 Pneumococcal Conjugate 13-Valent 04/08/2017 Pneumococcal Polysaccharide 02/12/2020, 5 SARS-CoV-2, Unspecified 11/12/2021 Shingrix 12/10/2019,10/10/2019 Family History Medical History Relation Comments Diabetes Father Heart disease Father Hypertension Father Stroke Father Heart disease Mother Hypertension Mother Kidney disease Sibling 1 Hypertension Sibling 2 Relation Status Comments Father Mother Sibling 1 Sibling 2 Social History Tobacco Use Types Packs/Day Years [...] on file Sexual Orientation Not on file Last Filed Vital Signs Vital Sign Reading Time Taken Comments Blood Pressure 117/52 03/19/2024 2:22 PM EST Pulse 57 03/19/2024 2:22 PM EST Temperature - - Respiratory Rate - - Oxygen Saturation 98% 03/19/2024 2:22 PM EST Inhaled Oxygen Concentration - - Weight 56.9 kg (125 lb 6.4 oz) 03/19/2024 2:22 P M EST Height 152.4 cm (5') 03/15/2021 1:47 PM EST Body Mass Index 24.49 03/15/2021 1:47 PM EST Plan of Treatment Upcoming Encounters Date Type Department Care Team (Late st Contact Info) Description 09/17/2024 9:00 AM EDT Office Visit [facility] [address] [phone] Lili May ARNP [address] [phone] Health Maintenance Due Date Last Done Comments Breast Cancer Screening 1949 Colorectal Cancer Screening: Annual FOBT 1998 Colorectal Cancer Screening: Colonoscopy 1998 Colorectal Cancer Screening: Sigmoidoscopy 1998 Influenza Vaccine (Season Ended) 2024 10/29/2020, 11/13/2019, 10/20/2018, Additional history exists Pneumococcal Vaccine: 50+ Years Completed 02/12/2020, 04/08/2017, 02/26/2014 Pneumococcal Vaccine: Peds (0 to 5 Years) and At-Risk Patients (6 to 49 Years) Discontinued 02/12/2020, 04/08/2017, 02/26/2014 Hepatitis B Vaccine Aged Out No longe r eligible based on patient's age to complete this topic Procedures Procedure Name Priority Date/Time Associated Diagnosis Comments PTH, INTACT Routine 03/06/2024 10:12 AM EST MAGNESIUM Routine 03/06/2024 10:12 AM EST VITAMIN D 25 HYDROXY Routine 03/06/2024 10:12 AM EST CBC Routine 03/06/2024 10:12 AM EST RENAL FUNCTION PANEL Routine 03/06/2024 10:12 AM EST from Last 3 Months Results * (ABNORMAL) Vitamin D 25 Hydroxy (03/06/2024 10:12 AM EST) Vitamin D, 25-OH, Total 8.8(L) 30.0 - 100.0 ng/mL [facility] Comment: Vitamin D deficiency has been defined by the Russell of Medicine and an Endocrine Society practice guideline as a level of serum 25-OH vitamin D less than 20 ng/mL (1,2). The Endocrine Society went on to further define vitamin D insufficiency as a level between 21 and 29 ng/mL (2). 1. IOM (Russell of Medicine). 2010. Dietary reference ?? intakes for calcium and D. [place]: The ?? National Academies Press. 2. Jhon MF, Marisol CHOI, Tejal SINGH, et al. ?? Evaluation, treatment, and prevention of vitamin D ?? deficiency: an Endocrine Society clinical practice ?? guideline. JCEM. 2010; 96(4):1911-30. 03/06/2024 10:1 2 AM EST 03/06/2024 Mike Morgan MD LAB BLOOD ORDERABLES Final Re sult [facility] [address] [place] [address] * (ABNORMAL) CBC (03/06/2024 10:12 AM EST) WBC 7.5 3.4 - 10.8 x10E3/uL [facility] RBC 3.76(L) 3.77 - 5.28 x10E6/uL [facility] Hemoglobin 11.3 11.1 - 15.9 g/dL [facility] Hematocrit 36.6 34.0 - 46.6 % [facility] MCV 97 79 - 97 fL [facility] MCH 30.1 26.6 - 33.0 pg [facility] MCHC 30.9(L) 31.5 - 35.7 g/dL [facility] RDW 13.8 11.7 - 15.4 % [facility] Platelets 237 150 - 450 x10E3/uL [facility] 03/06/2024 10:1 2 AM EST 03/06/2024 Mike Morgan MD LAB BLOOD ORDERABLES Final Re sult [facility] [address] [place] [address] * PTH, Intact (03/06/2024 10:12 AM EST) PTH 49 15 - 65 pg/mL [facility] 03/06/2024 10:1 2 AM EST 03/06/2024 us Mike Morgan MD LAB BLOOD ORDERABLES Final Re sult Performing Organization Address City/[facility]/ZIP Co de Phone Number [facility] [address] [place] [address] * (ABNORMAL) Magnesium (03/06/2024 10:12 AM EST) Magnesium 1.4(L) 1.6 - 2.3 mg/dL [facility] 03/06/2024 10:1 2 AM EST 03/06/2024 Mike Morgan MD LAB BLOOD ORDERABLES Final Re sult Performing Organization Address [facility] de Phone Number [facility] [address] [place] [address] * (ABNORMAL) Renal Function Panel (03/06/2024 10:12 AM EST) Glucose 83 70 - 99 mg/dL [facility] BUN 28(H) 8 - 27 mg/dL [facility] Creatinine 1.92(H) 0.57 - 1.00 mg/dL [facility] eGFR CKD-EPI CR 2020 27(L) >59 mL/min/1.7 3 [facility] BUN/Creatinine Ratio 15 12 - 28 [facility] Sodium 142 134 - 144 mmol/L [facility] Potassium 4.9 3.5 - 5.2 mmol/L [facility] Chloride 107(H) 96 - 106 mmol/L [facility] Bicarbonate (CO2) 19(L) 20 - 29 mmol/L [facility] Calcium 9.4 8.7 - 10.3 mg/dL [facility] Albumin 4.0 3.8 - 4.8 g/dL [facility] Phosphorus 3.2 3.0 - 4.3 mg/dL [facility] 03/06/2024 10:1 2 AM EST 03/06/2024 us Mike Morgan MD LAB BLOOD ORDERABLES Final Re sult [facility] [address] [place] [address] from Last 3 Months Insurance [facility] Care Teams Director Of Development And Marketing Relationship Specialty Start Date End Date Lenin Laird MD [facility] [place] [address] [place] PCP - General Internal Medicine 09/12/23
--- OUTSIDE RECORDS SUMMARY | 2024-05-22 10:16 | XMS_ITS | Data Portability ---
Author Organization [facility] Address [address] [place] [phone] Care Team Providers Care Scrap Breaker Name Role Phone KYLE RAMIREZ Primary Care Provider [phone] Assessment Encounter Date Assessment Date Assessment LastModified by Organization Details LastModified Time 09/08/2023 09/08/2023 Reviewed pathophysiology of Eustachian tube dysfunction on diagram and patient/parent understands. Recommend trial of intranasal steroid spray; risks, rationale, and crossed-hand application technique reviewed and all questions were answered. Call with lack of improvement. Hearing loss is asymmetric by 10 dB in multiple contiguous frequencies. Differential diagnosis reviewed. Patient uninterested in workup for retrocochlear pathology. Recommend 6 month recheck to verify stability, then could return to annual monitoring if stable. She understands to call the office right away with any noted change in hearing. [email or web address] Not available 09/08/2023 16:50:47 Plan of Treatment Reminders Order Date Submit Date Provider Last Modified By Organization Details Last Modified Time Details Appointments None record ed. Lab None record ed. Referral None record ed. Procedures None record ed. Surgeries None record ed. Imaging None record ed. Medication Orders None record ed. Patient TargetsNo targets recorded. Patient InstructionsNo instructions recorded. Reason for Referral None Reported. Results Created Date Observation Date Name Description Value Unit Range Abnormal Flag Note LastModifiedBy Organization Detail LastModifiedTime 09/08/19 24 audio gram No observ ation record ed. [email or web address] Not Available 2023 16:35:19 Result Notes None recorded. Problems Name Problem SNOMED Code Status Onset Date Resolution Date Notes Provider Name and Address Organization Details Recorded Time Sensorineur al hearing loss of bilateral ears 251873087 Active 2023 Janell blanc [place] [facility] 08/02/202 4 15:26:29 Dysfunction of right eustachian tube 8641233757677 101 Active 2023 ANTHONY LAUGHLIN PA-C [address] [place] [address], [phone], [facility] 4 16:48:40 Problem Notes None recorded. Procedures Surgical History Date Name Laterality Status Provider Name and Address Organization Details Recorded Time 09/08/19 24 Comp Audio with Tymps (56513 & 01412) completed Janell Clark [facility] 09/08/2023 15:26:14 hysterectomy completed Pradip Urena [facility] 09/08/2023 14:46:49 resection of colon for interposition completed Pradip Urena [facility] 09/08/2023 14:47:08 Imaging Results Imaging Date Name Status LastModified by Organiz ation Details LastModified Time 09/08/2023 [facility]ogram [email or web address] no t available 09/08/2023 16:35:19 Procedure Notes None recorded. Medical Equipment None Reported. Allergies Allergen ID Allergen Name Allergen Category Reaction Reaction Severity Criticality Documentation Date Start Date Code Code System Note Provider Name and Address Organization Details Recorded Time 652392 Demerol medicatio n Not available Not available Not available 09/08/2023 37696 1 RxNorm Pradip blanc [facility] 4 14:45:50 276299 Ceprotin medicatio n Not available Not available Not available 09/08/2023 71068 6 RxNorm Pradip blanc [facility] 4 14:46:18 578373 fentanyl medicatio n Not available Not available Not available 09/08/2023 4337 RxNojames blanc [facility] 4 14:46:30 Medications Name Sig Start Date Stop Date Status Note LastModified by Organization Details LastModified Time amoxicillin 500 mg capsule active Not Available Not Available Not Available neomycin-dedra ymyxin-hydro alla 3.5 mg/mL-10,000 unit/mL-1 % ear solution active Not Available Not Available Not Available loperamide 2 mg capsule active Not Available Not Available N ot Available metoprolol succinate ER 100 mg tablet,exten ded release 24 hr active Not Available Not Available Not Available amoxicillin 875 mg tablet active Not Available Not Available Not Available citalopram 20 mg tablet active Not Available Not Available Not Available amitriptylin e 10 mg tablet active Not Available Not Available Not Available amlodipine 10 mg tablet active Not Available Not Available Not Available levothyroxin e 50 mcg tablet active Not Available Not Available Not Available cyanocobalam in (vit B-12) 1,000 mcg/mL injection solution active Not Available Not Available Not Available omeprazole 20 mg capsule,hanna yed release active Not Available Not Available Not Available ergocalcifer ol (vitamin D2) 1,250 mcg (50,000 unit) capsule TAKE 1 CAPSULE BY MOUTH WEEKLY DIRECTED active Not Available Not Available No t Available amoxicillin 875 mg-potassium clavulanate 125 mg tablet TAKE 1 TABLET BY MOUTH EVERY 12 HOURS FOR 7 DAYS. ONLY #6 IN STOCK. ON REENA active Not Available Not Available No t Available fenofibrate nanocrystall ized 145 mg tablet active Not Available Not Available Not Available Prolia 60 mg/mL subcutaneous syringe active Not Available Not Available Not Available Lokelma 10 gram oral powder packet PLEASE SEE ATTACHED FOR DETAILED DIRECTIONS active Not Available Not Available N ot Available Vitals None Recorded Social History None recorded. Functional Status None recorded. Mental Status None recorded. Family History Nothing Reported. Medical History Condition Response Anemia Y Migraines Y Anxiety Y Depression Y Kidney Disease Y Gynecological HistoryNo gynecological history recorded. Obstetrics History GPAL:G 0 P 0 0 0 0 Past Encounters Encounter ID Performer Location Encounter Start Date Encounter Closed Date Diagnosis/Indication Diagnosis SNOMED-CT Code Diagnosis ICD10 Code Diagnosis Note [id number] ANTHONY LAUGHLIN PA-C [facility] [address] [phone] 09/08/2023 14:05:48 09/08/2023 16:43:24 Sensorineural hearing loss of bilateral ears 643467135 H90.3 Audiologic al evaluation results: Right ear: {{Normal N ormal through 2 kHz Mild M oderate Mo derately-s evere Chante re Profoun d Essentia lly normal#}} {{hearing sloping to a mild slopi ng to a moderate* sloping to moderately severe slo ping to severe slo ping to profound f lat high frequency low frequency mid frequency cookie bite lizarraga curve}} {{with sen sorineural hearing loss with* cond uctive hearing loss with mixed hearing loss with}} {{excellen t* good fa ir poor no measurable }} word recognitio n. Left ear: {{Normal* Normal through 2 kHz Mild M oderate Mo derately-s evere Chante re Profoun d}} {{hearing sloping to a mild slopi ng to a moderate* sloping to moderately severe slo ping to severe slo ping to profound f lat high frequency low frequency mid frequency cookie bite lizarraga curve}} {{with sen sorineural hearing loss with* cond uctive hearing loss with mixed hearing loss with}} {{excellen t* good fa ir poor no measurable }} word recognitio n. Asymmetric hearing loss at 250-1kHz of 10-15dB, worst in the right. Tympanomet ry: Right Ear:{{Type A Type As Type Ad Type C* Type C, shallow & rounded Ty pe B Type B with large volume Cou ld not maintain a hermetic seal}} Left Ear:{{Type A* Type As Type Ad Type C Type C, shallow & rounded Ty pe B Type B with large volume Cou ld not maintain a hermetic seal}} Dysfunctio n of right eustachian tube [id number] 739039 H69.91 Health Concerns Section Related Observation LastModified by Organization Detai ls LastModified Time None Recorded Concern Status LastModified by Organization Details LastModified Time None Recorded Advance Directives Directive None Recorded Payers Encounter Date Sequence Insurance Name Policy Number Policy Newberry Covered Member ID Newberry Member ID Guarantor Name 09/08/2023 1 [facility] (POS) [id number] Komal Espitia [id number] Komal Espitia Notes Date Note Type Note Provider Name and Address Organization Details Recorded Time 09/08/2023 text/html 73 year old carmela galvan presents for evaluation of ears and hearing. Went to her PCP a few months ago. She feels like there is fluid in her right ear. She can hear it moving around when she moves her head. States this tends to happen every winter and less noticeable in the summer. She does believe she has environmental allergies. She took claritin daily for one month this past spring to see if it would resolve but it did not. Never progresses to malcolm pain. Ears sometimes feel damp but there is no malcolm otorrhea. ANTHONY LAUGHLIN PA-C [address] [place] [address], [place], [phone], [place] - [facility] 09/08/2023 16:51:10 OBGyn Episode No OBEpisode recorded.
[2024-05-22 10:51] LABS: Basophils Percent Auto 0.5 % (0-2); Eosinophils Absolute Auto 0.2 X10*3/uL (0.0-0.4); Eosinophils Percent Auto 2.9 % (0-4); Hematocrit 38.1 % (37.0-47.0); Hemoglobin 12.2 g/dl (12.0-16.0); Imm Gran Abs Auto 0.04 X10*3/uL (0.00-0.03); Imm Gran Pct Auto 0.7 % (0.0-0.4); Lymphocytes Absolute Auto 1.2 X10*3/uL (1.2-4.9); Lymphocytes Percent Auto 20.8 % (20-40); Mean Corpuscular Hemoglobin 30.5 pg (27.0-33.0); Mean Corpuscular Volume 95.3 fL (80.0-98.0); Mean Platelet Volume 11.2 fL (9.4-12.3); Monocytes Absolute Auto 0.5 X10*3/uL (0.1-1.2); Monocytes Percent Auto 8.3 % (2-11); Neutrophils Absolute Auto 3.9 x10*3/uL (2.0-8.3); Neutrophils Percent Auto 66.8 % (45-73); Platelet Count 266 X10*3/uL (160-400); Red Cell Distribution Width 13.4 % (11.0-16.0); White Blood Count 5.9 X10*3/uL (4.8-10.8)
[2024-05-22 11:26] LABS: Alanine Aminotransferase 16 U/L (0-31); Albumin Level 3.8 g/dL (3.5-5.0); Alkaline Phosphatase 94 U/L (39-117); Anion Gap 11 (12-20); Aspartate Amino Transferase 32 U/L (5-31); Bilirubin Total 0.4 mg/dL (0.0-1.0); Blood Urea Nitrogen 30 mg/dL (9-16); Calcium 8.4 mg/dL (8.4-10.2); Carbon Dioxide 27 mmol/L (22-29); Chloride 110 mmol/L (96-108); Cholesterol 117 mg/dL (<200); Estimated Glomerular Filt Rate 25; Glucose Random 93 mg/dL (60-115); HDL Cholesterol 43 mg/dL (>40); LDL Cholesterol Calculated 48 mg/dL (<100); Magnesium 1.6 mg/dL (1.6-2.6); Potassium 5.4 mmol/L (3.3-5.1); Sodium 143 mmol/L (135-145); Total Protein 7.1 g/dL (6.5-8.0); Triglycerides 130 mg/dL (<150)
[2024-05-22 11:30] LABS: Ferritin 101 ng/mL (10-250); Free T4 (Free Thyroxine) 1.14 ng/dL (0.71-1.85); Thyroid Stimulating Hormone 3.19 uIU/mL (0.32-4.0); Vitamin D 25-OH Total 10.6 ng/mL (>30)
[2024-05-22 11:44] LABS: Vitamin B12 651 pg/mL (200-900)
[2024-05-22 12:06] LABS: Folate 15.7 ng/mL (> or = 4.0)
== END 2024-05-22 09:22 | disposition home or self-care (01) ==
LOC: HO.LAB 09:21
PROVIDERS: PCP Internal Medicine; Visit Provider Internal Medicine
DX: E03.9 Hypothyroidism, unspecified (principal); E78.00 Pure hypercholesterolemia, unspecified; M81.0 Age-related osteoporosis without current pathological fracture
CPT/HCPCS: 36415; 80053; 80061; 82306; 82607; 82728; 82746; 83735; 84439; 84443; 85025

== ENCOUNTER 2024-07-04 11:28 | Outpatient (REF) | payer OTHER, SELFPAY ==
--- OUTSIDE RECORDS SUMMARY | 2024-07-04 11:49 | XMS_ITS | Patient Health Record ---
Author Organization [facility] Address [address] [place] [address] Care Team Providers Care [place] Name Role Phone KYLE RAMIREZ M.D. Primary Care Provider Dorina Pedroza Unavailable [phone] Allergies Allergen (clinical drug ingredient) Drug/Non Drug Allergy documented on EMR Reaction Allergy Type Onset Date Status meperidine DEMEROL Nausea/Vomiting /Diarrhea Drug Allergy Active hydromorphone Dilaudid Unknown Drug Allergy Act elizabeth fentanyl Fentanyl Unknown Drug Allergy Active acetaminophen / oxycodone Percocet Unknown Drug Allergy Active codeine Codeine Unknown Drug Allergy Active Results Component Value Reference Range Notes [id number] IGP No Culture 30 Plus Reviewed date:01/11/2024 04:43:53 PM Interpretation: Performing Lab:[address], [address], [place], Phone - [phone], Director - [facility] Notes/Report: Clinical Information:Vaginal, LMP: Hyst [id number] LMP / Prev Treat...Hyst Dates / Results....10/15/12 NIL Other..............Post Menopausal;Estrogen Replace Rx No. of containers..01 ThinPrep Vial DIAGNOSIS: UNSATISFACTORY FOR EVALUATION. THIS SPECIMEN WAS RESCREENED PART OF OUR WAITER/WAITRESS TOURIST CLASS PROGRAM. Specimen adequacy: Specimen processed and examined, but unsatisfactory for evaluation of epithelial abnormality because of excessive lubricant. Specimen processed and examined, but unsatisfactory for evaluation of epithelial abnormality because of insufficient squamous cellularity. Clinician provided ICD10: N95.0 N95.2 Performed by: Ree Michel ytotechnologist (ASCP) QC reviewed by: Albert holly, Senior [employer] Network Engineer (ASCP) . . Note: The Pap smear is [...] Criteria not met, HPV Genotype not performed. Urinalysis Reviewed date:01/02/2024 12:06:40 PM Interpretation: Performing Lab: Notes/Report: NITRITE Positive PH 8.0 PROTEIN Large S.G 1.005 WBC Large GLUCOSE Neg KETONES Neg UROBILINOGEN Neg BILIRUBIN Neg BLOOD Large PDF Report Reviewed date:01/11/2024 04:43:05 PM Interpretation: Performing Lab:[facility], [facility] [address], [address], [place], Phone - [phone], Director - [facility] Notes/Report: Clinical Information:Vaginal, LMP: Hyst [id number] LMP / Prev Treat...Hyst Dates / Results....10/15/12 NIL Other..............Post Menopausal;Estrogen Replace Rx No. of containers..01 ThinPrep Vial [id number] IGP No Culture 30 Plus Reviewed date:02/23/2024 02:00:32 PM Interpretation: Performing Lab:[facility], [address] [place] [address], Phone - [phone], Director - [facility] Notes/Report: Clinical Information:vaginal/ cervical NEW ORDERS FROM PRACTICE S/P HYST Source.............Cervix;Vagina Dates / Results....01/02/24 No. of containers..01 ThinPrep Vial DIAGNOSIS: NEGATIVE FOR INTRAEPITHELIAL LESION OR MALIGNANCY. REACTIVE CELLULAR CHANGES AND/OR REPAIR ARE PRESENT. Specimen adequacy: Satisfact ory for evaluation. Clinician provided ICD10: N9 5.0 Performed by: Albert Michel , Senior [employer] Network Engineer (ASCP) Electronically signed by: Drea Victoria MD, [...] Report Reviewed date:02/23/2024 02:00:13 PM Interpretation: Performing Lab:[facility], [address] [place] [address], Phone - [phone], Director - [facility] Notes/Report: Clinical Information:vaginal/ cervical NEW ORDERS FROM PRACTICE S/P HYST Source.............Cervix;Vagina Dates / Results....01/02/24 No. of containers..01 ThinPrep Vial Reason For Referral No Information Medications Medication SIG (Take, Route, Frequency, Duration) Notes Start Date End Date Status Estradiol Vaginal Cream 0.01% 1 Gram to the affected area Vaginal/Vulva Twice a week for 90 Days 01/02/2024 Active Citalopram Hydrobromide 20MG 1 ORAL daily for -3 [facility] [place] [facility]- 10/13/2011 Active Vitamin D (Ergocalciferol) 1.25 MG (98951 UT) Oral for 28 Days Active Amitriptyline HCl 10 MG 1 tablet at bedt ciro Orally Once a day for 30 day(s) Active Magnesium Oxide 250 MG 2 tablets Orally Once a day Active Fenofibrate 145 MG 1 tablet Orally Once a day for 30 day(s) Active Metoprolol Succinate 100 MG 1 capsule Orally Once a day for 30 day(s) Active SUMAtriptan Succinate 100 MG 1 tablet as needed Orally NEEDED Active Biotin 41785 MCG 1 tablet Orally Once a day for 30 day(s) Active Omeprazole 05/31/2024 Active iron 1 tab Oral for 14 days Active Sodium Bicarbonate 650 MG as directed Orally Twice a day 05/31/2024 Active Prolia 60 MG/ML as directed Subcutaneous Active Loperamide HCl 2 MG TAKE 2 CAPSULES BY MOUTH EVERY 6 HOURS BEFORE MEALS AND BEFORE BEDTIME Oral for 30 Active Centrum Silver Ultra Womens - as directed Orally Active Cyanocobalamin 1000 MCG/ML 1 ml Injection Once a Month Vitamin B12 Inj Active Levothyroxine Sodium 75 MCG 1 capsule in the morning on an empty stomach Orally Once a day [facility]- 10/13/2011 Active Calcium + D3 Active amLODIPine Besylate 10 MG 1 tablet Orally Once a day Active Social History Tobacco Use: Social History [...] Status Risk Notes Problem Postmenopausal atrophic vaginitis (80335665) Postmenopausal atrophic vaginitis (N95.2) Active confirmed Problem Postmenopausal bleeding (67074600) Postmenopausal bleeding (N95.0) Active confirmed Problem Age-related osteoporosis (128676758) Age-related osteoporosis without current pathological fracture (M81.0) Active confirmed Problem Malignant neoplasm of colon (488565907) Malignant neoplasm of colon, unspecified (C18.9) Active confirmed Problem Malignant neoplasm of corpus uteri, excluding isthmus (146795508) 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) Active confirmed Problem Hypervitaminosis D (99737323) 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) Active confirmed Problem Atrophy of vulva (602369888) Atrophy of vulva (N90.5) Active confirmed Problem Personal history of primary malignant neoplasm of gastrointestinal tract (581332969) Personal history of malignant neoplasm of unspecified digestive organ (Z85.00) Active confirmed Problem Personal history of primary malignant neoplasm of female genital organ (152362409) Personal history of malignant neoplasm of other parts of uterus (Z85.42) Active confirmed Problem Vitamin D deficiency (58806170) Vitamin D deficiency, unspecified (E55.9) Active confirmed Problem 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 Problem Malignant neoplasm of corpus uteri, excluding isthmus (disorder) (120506990) Malignant neoplasm of corpus uteri, except isthmus (182.0) Active confirmed Diag Problem Hypothyroidism (40892858) Unspecified hypothyroidism (244.9) Active confirmed Major Problem Hyperlipidemia (56675977) Other and unspecified hyperlipidemia (272.4) Active confirmed Major Problem Cardiac arrhythmia (370667412) Unspecified cardiac dysrhythmia (427.9) Active confirmed Major Problem Esophageal reflux (568929849) Esophageal reflux (530.81) Active confirmed Major Problem Menopausal symptom (78118209) Symptomatic menopausal or female climacteric states (627.2) Active confirmed Major Problem Gynecological examination normal (579416540193917) Routine gynecological examination (V72.31) Active confirmed Problem Screening for malignant neoplasm of colon (835746835) Special screening for malignant neoplasms, colon (V76.51) Active confirmed Major Vital Signs Heart Rate 67 /min 02/19/2024 Temperature 97.4 degrees Fahrenheit 05/31/2024 Blood pressure diastolic 70 mm Hg 05/31/2024 Height 59 in 05/31/2024 Blood pressure systolic 122 mm Hg 05/31/2024 Weight 122 lbs 05/31/2024 BMI 24.64 kg/m2 05/31/2024 Encounters Encounter Location Date Provider Diagnosis [facility] [address] [place] [address] 01/02/2024 Dorina Adorno Postmenopausal bleeding N95.0 ; Postmenopausal atrophic vaginitis N95.2 and Acute vaginitis N76.0 [facility] [employer] [address] [place] [address] 02/19/2024 Dorina Adorno Unsatisfactory cytologic smear of cervix R87.615 and Personal history of malignant neoplasm of other parts of uterus Z85.42 [facility] [address] [place] [address] 05/31/2024 Dorina Adorno Encounter for screening mammogram for malignant neoplasm of breast Z12.31 ; Personal history of malignant neoplasm of other parts of uterus Z85.42 ; Age-related osteoporosis without current pathological fracture M81.0 ; Encounter for gynecological examination (general) (routine) without abnormal findings Z01.419 ; Postmenopausal atrophic vaginitis N95.2 and Atrophy of vulva N90.5 Assessments Encounter Date Diagnosis (ICD Code) Assessment Notes Treatment Notes Treatment Clinical Notes Section Notes 01/02/2024 Postmenopausal atrophic vaginitis (ICD-10 - N95.2) [...] Z85.42) DISCUSSED HX OF RECURRENT ENDOMETRIAL CA. 05/31/2024 Encounter for screening mammogram for malignant neoplasm of breast (ICD-10 - Z12.31) REGULAR MAMMOGRAMS AND SBE'S WERE RECOMMENDED. 05/31/2024 Personal history of malignant neoplasm of other parts of uterus (ICD-10 - Z85.42) PAT HAS HAD ENDOMETRIAL CA AND RECURRENCE. S/P TAHBSO AND RADIATION THERAPY. NO RECURRENCE HAS BEEN NOTED. 01/02/2024 Acute vaginitis (ICD-10 - N76.0) DISCUSSED BV CAUSING MALODOROUS DISCHARGE. ORAL FLAGYL RX AND INSTRUCTIONS WERE GIVEN. IF NOT BETTER, CALL BACK. WORRIED ABOUT POSSIBLE RECTOVAGINAL FISTULA. IF NOT BETTER, WILL SEND TO DR LAGUNAS FOR REEVALUATION. 05/31/2024 Age-related osteoporosis without current pathological fracture (ICD-10 - M81.0) DISCUSSED HER LAST BMD RESULTS AND OSTEOPOROSIS AND ITS IMPACT ON HER HEALTH. ADEQUATE CALCIUM AND VIT D. WEIGHT BEARING EXERCISES. CONITNUE CARE WITH DR GARVES. CONTINUE PROLIA. REPEAT BMD THIS YEAR. 05/31/2024 Encounter for gynecological examination (general) (routine) without abnormal findings (ICD-10 - Z01.419) NO MORE PAP TESTS. 05/31/2024 Postmenopausal atrophic vaginitis (ICD-10 - N95.2) DISCUSSED ESTRADIOL CREAM, ITS BENEFITS AND RISKS. IN LIGHT OF HER HX OF ENDOMETRIAL CA, WE HAD A LONG DISCUSSION REGARDING ITS RISKS. BENEFITS STILL OUTWEIGH RISKS. CONITNUE THE MEDICATION. APPLY ONLY DIRECTED. APPLY LUBRICANTS WELL. 05/31/2024 Atrophy of vulva (ICD-10 - N90.5) APPLY ESTRADIOL CREAM ALONG THE VULVA WELL. USE LUBRICANTS ALSO. Plan Of Treatment Pending Test Test Name Order Date MAMMOGRAM, SCREENING 02/20/2017 MAMMOGRAM, SCREENING 05/13/2021 MAMMOGRAM, SCREENING 05/18/2022 MAMMOGRAM, SCREENING 05/26/2023 MAMMOGRAM, SCREENING 05/31/2024 MAMMOGRAM, SCREENING 02/16/2016 MAMMOGRAM, SCREENING 10/21/2014 Urinalysis 02/16/2016 Urinalysis 02/20/2018 ONE SWAB 01/02/2024 25OH VITAMIN D 07/09/2021 25OH VITAMIN D 01/27/2022 25OH VITAMIN D 06/18/2021 COMPLETE URINALYSIS 10/21/2014 COMPREHENSIVE METABOLIC PANEL 06/18/2021 N-TELOPEPTIDE CROSS 06/18/2021 PTH, INTACT 06/18/2021 PTH, INTACT 01/19/2022 PTH, INTACT 07/09/2021 TSH 06/18/2021 BONE DENSITY 05/31/2024 BONE DENSITY 05/13/2021 BONE DENSITY 05/26/2023 MM Digital Mammo Screening 05/31/2024 MM Digital Mammo Screening 02/20/2017 MM Digital Mammo Screening 05/26/2023 MM Digital Mammo Screening 05/18/2022 MM Digital Mammo Screening 02/21/2019 MM Digital Mammo Screening 05/13/2021 MM Digital Mammo Screening 02/16/2016 Next Appt Details Provider Name:Dorina butler, 06/09/2025 10:00:00 AM, [address], [address], [place], [address], Insurance Providers Payer Name Payer Address Payer Phone Subscriber Number Group Number Insured Name Patient Relationship to Insured Coverage Start Date Coverage End Date [employer] [address] [place] [id number] ALEXA ROBERTSON Self - patient is the insured [facility] [address] [place] [address] [id number] ALEXA ROBERTSON Self - patient is the insured Medical [...] Age-related osteoporosis without current pathological fracture M81.0 Vitamin D deficiency, unspecified E55.9 Hypervitaminosis D E67.3 Postmenopausal bleeding N95.0 Surgical History Surgery Date(Month/Year) ASHWINI/BSO [place] Teeth Colonoscopy Colon Cancer - Nephrology Tubes Hospitalization History Reason Date(Month/Year) Small Bowel Blockage 2018 4x for Small Bowel Blockage 2017 See Surgical Hx 2 Vaginal Deliveries
[2024-07-04 13:18] LABS: Anion Gap 11 (12-20); Blood Urea Nitrogen 27 mg/dL (9-16); Calcium 9.3 mg/dL (8.4-10.2); Carbon Dioxide 26 mmol/L (22-29); Chloride 109 mmol/L (96-108); Estimated Glomerular Filt Rate 26; Glucose Random 103 mg/dL (60-115); Potassium 5.2 mmol/L (3.3-5.1); Sodium 141 mmol/L (135-145)
[2024-07-04 13:36] LABS: Free T4 (Free Thyroxine) 1.08 ng/dL (0.71-1.85)
== END 2024-07-04 11:29 | disposition home or self-care (01) ==
LOC: HO.LAB 11:28
PROVIDERS: PCP Internal Medicine; Visit Provider Internal Medicine
DX: E03.9 Hypothyroidism, unspecified (principal); I10 Essential (primary) hypertension
CPT/HCPCS: 36415; 80048; 84439

== ENCOUNTER 2024-07-31 10:18 | Outpatient (AMB) | payer OTHER, SELFPAY ==
[2024-07-31 10:21] VITALS: BP 110/70; PULSE 66; O2SAT 96; BMI 24.1
--- NOTE | 2024-07-31 10:21 | MHC.PC.OV ---
Vital Signs 07/31/24 10:21 Height 5 ft Weight 123 lb 8 oz BMI 24.1 BP 110/70 Blood Pressure Location Lt brachial Position Sitting Pulse 66 Pulse Source Pulse Oximeter Pulse Oximetry (%) 96 Oxygen Delivery Method Room Air Intake Visit Reasons: SBO, HTN Technology Specialist Required: No Accompanied by: Self / Same As Patient Allergies ciprofloxacin Allergy (Intermediate, Verified 07/31/24 10:21) body ache diazepam Allergy (Unknown, Verified 07/31/24 10:21) shortness of breath fentanyl (FENTANYL) Allergy (Unknown, Verified 07/31/24 10:21) VIOLENT SHAKING, TACHYCARDIA, seizure hydromorphone (HYDROMORPHONE) Adverse Reaction (Severe, Verified 07/31/24 10:21) UNCONTROLLED SHAKING, ELEVATED HEART RATE oxycodone (From PERCOCET) Adverse Reaction (Severe, Verified 07/31/24 10:21) Vomiting egg (EGGS) Adverse Reaction (Intermediate, Verified 07/31/24 10:21) Diarrhea codeine (CODEINE) Adverse Reaction (Unknown, Verified 07/31/24 10:21) Vomiting meperidine (Demerol) Adverse Reaction (Unknown, Verified 07/31/24 10:21) Nausea and Vomiting Tobacco use date assessed: 07/31/24 Fall risk assessment: No Falls in past year Last assessed Fall Risk: 07/31/24 Dental Screening Dental Screen Date: 07/31/24 Did you have a dental visit in the last 12 months?: Yes Did you have a dental problem in the last 6 months where you did not have access to dental care?: No Was dental information given to patient?: Patient has dentist [facility] Medical History (Updated 04/24/24 @ 10:48 by Lenin Laird MD) CKD (chronic kidney disease) Breast cancer screening by mammogram Small bowel obstruction Hypercholesterolemia GERD (gastroesophageal reflux disease) Vitamin D deficiency Enterovesical fistula Renal calculus Anxiety and depression Vitamin B12 deficiency Hypothyroid Toure's esophagus Fatty liver Uterine cancer Migraine Hypertension Surgical History History of laparotomy S/P ASHWINI-BSO History of radical hysterectomy Family History Family/Other Mental health disorder Social History (Reviewed 07/31/24 @ 10:22 by MELO Whittaker Household Members: Spouse and Children [facility]: [facility] Do you presently have visiting nurse or other home services: No Alcohol intake: current Alcohol intake frequency: holidays/special occasions only Alcohol type: wine Patient Tobacco Use Status: Never used Tobacco Tobacco use type: Cigarette e-Cigarette/Vaping Use: Never Used Second Hand Smoke Exposure: Yes service: No Current occupational status: retired Cognitive needs: No Hearing needs: No Vision needs: Yes Questionnaire PHQ-9 Over the last 2 weeks, how often have you been bothered by any of the following problems? 1. Little interest or pleasure in doing things: not at all 2. Feeling down, depressed, or hopeless: not at all 3. Trouble falling or staying asleep, or sleeping too much: nearly every day 4. Feeling tired or having little energy: nearly every day 5. Poor appetite or overeating: not at all 6. Feeling bad about yourself - or that you are a failure or have let yourself or your family down: not at all 7. Trouble concentrating on things, such as reading the newspaper or watching television: not at all 8. Moving or speaking so slowly that other people could have noticed. Or the opposite - being so fidgety or restless that you have been moving around a lot more than usual: not at all 9. Thoughts that you would be better off or of hurting yourself in some way: not at all Total score: 6 Source: Developed by Drs. Schuyler Nicole, Roseanne Felix, Stef Villatoro and colleagues, with an educational tao from [employer]. Thrive Questionnaire Date Thrive assessed: 07/31/24 I am a: Patient What is your living situation today?: I have a steady place to live Within the past 12 months, did the food you bought not last and you didn't have the money to get more?: Never true Within the past 12 months, did you worry whether your food would run out before you got money to buy more?: Never true Do you have trouble paying for medicines?: No Do you have trouble getting transportation to medical appointments?: No Do you have trouble paying your heating and electricity bill?: No Do you have trouble taking care of your child, family member or friend?: No Do you have trouble with day-to-day activities such as bathing, preparing meals, shopping, managing finances, etc.?: No Are you currently unemployed and looking for a job?: No Are you interested in more education?: No Please select the resources that you would like help with: None Currently or been in a relationship where the following occur: No concerns reported THRIVE Score: 0 AUDIT C Alcohol Use Questionnaire (AUDIT-C) 1. How often do you have a drink containing alcohol?: Monthly or less 2. How many drinks containing alcohol do you have on a typical day when you are drinking?: 1 or 2 3. How often do you have six or more drinks on one occasion?: Never Total Score: 1 KAROLINA-7 AMB Questionnaire KAROLINA-7 Date KAROLINA - 7 assessed: 07/31/24 Feeling nervous, anxious, or on edge: 0 = Not at all Not being able to stop or control worryin = Not at all Worrying too much about different things: 0 = Not at all Trouble relaxin = Not at all Being so restless that it is hard to sit still: 0 = Not at all Becoming easily annoyed or irritable: 1 = Several days Feeling afraid as if something awful might happen: 0 = Not at all Total KAROLINA-7 score (0-4 normal; 5-9 mild; 10-14 moderate; 15-21 severe): 1 Source: Developed by Drs. Schuyler Nicole, Roseanne Felix, Stef Villatoro and colleagues, with an educational tao from [employer]. Physical exam (Primary Care) Vital Signs: Last Vital Signs Pulse 66 07/31/24 10:21 BP 110/70 07/31/24 10:21 Pulse Ox 96 07/31/24 10:21 Oxygen Delivery Method Room Air 07/31/24 10:21 BMI result Body Mass Index 24.1 Tobacco/Smoking Status: Tobacco use Status Tobacco use date assessed 07/31/24 07/31/24 10:26 Patient Tobacco Use Status Never used Tobacco 07/31/24 10:26 Tobacco use type Cigarette 07/31/24 10:26 e-Cigarette/Vaping Use Never Used 07/31/24 10:26 PHQ-9: PHQ-9 Score PHQ-9: Total score 6 06/25/25 10:43 Thrive Assessment: Date of Thrive Assessment Date Thrive assessed 07/31/24 07/31/24 10:26 Currently or been in a relationship where the following occur: No concerns reported Const General: alert; No acute distress Eyes Conjunctivae: conjunctivae normal Resp Auscultation: clear to auscultation bilaterally Cardio Rate: regular rate Rhythm: regular rhythm GI Inspection: Yes normal to inspection Extrem General: Yes normal to inspection and No edema Coding Level of Care Code Est Pt Level 4 (26595) Diagnoses Chronic kidney disease, stage IV (severe) N18.4 Toure's esophagus without dysplasia K22.70 Toure's esophagus type: without dysplasia Essential hypertension I10 Hypertension type: essential hypertension Hypercholesterolemia E78.00 Generalized anxiety disorder F41.1 Assessment & Plan Assessment & Plan (1) Chronic kidney disease, stage IV (severe): Code(s): N18.4 - Chronic kidney disease, stage 4 (severe) Category: Medical Plan: Continuing to monitor avoid NSAIDs (2) Toure's esophagus: Comment: Dr. Valdez September 2011 sigmoidoscopy June 2015 colonoscopy EGD August 2015 Code(s): K22.70 - Toure's esophagus without dysplasia Category: Medical Qualifiers: Toure's esophagus type: without dysplasia Qualified Code(s): K22.70 - Toure's esophagus without dysplasia Plan: Avoid the foods that causes that usually spicy foods, tomato products, juices, coffee, soda and foods that your sensitive to. After eating do not lie down, allow 3-4 hours before in lie down. And keep the head of bed above 30 degrees to avoid the acid from going up. (3) Hypertension: Code(s): I10 - Essential (primary) hypertension Category: Medical Qualifiers: Hypertension type: essential hypertension Qualified Code(s): I10 - Essential (primary) hypertension Plan: Continue with blood pressure medication. Decrease salt intake and exercise on metoprolol 100 mg once a day amlodipine 10 mg once a (4) Hypercholesterolemia: Code(s): E78.00 - Pure hypercholesterolemia, unspecified Category: Medical Plan: Avoid fried foods, chicken skin, eggs, butter margarine, pastries and meat. Be it pork or beef they have a lot of cholesterol on fenofibrate (5) Generalized anxiety disorder: Code(s): F41.1 - Generalized anxiety disorder Category: Medical Plan: Continue with present medication on citalopram amitriptyline. Plan History of Present Illness The patient is a 73-year-old female presenting for a follow-up visit. She has a history of Toure's esophagus, hypertension, hypothyroidism, gastroesophageal reflux disease (GERD), hypercholesterolemia, and generalized anxiety disorder. Additionally, she has a history of bilateral hydronephrosis and chronic kidney disease. The patient has experienced small bowel obstruction and has a history of uterine cancer, for which she underwent a small bowel resection with adhesiolysis. Her ophthalmologic history includes a mild nuclear cataract, vitreous detachment, and dry eye syndrome. Preventative care measures include an up-to-date mammogram, a colonoscopy performed in May 2024 revealing diverticulosis, and a bone density test conducted in November 2023. Recent laboratory results from May show normal blood count with no anemia, normal sodium levels, potassium at 5.2, stable creatinine at 1.87, BUN at 27, blood sugars at 103, normal liver function, LDL cholesterol at 48, very low vitamin D at 10.6, and normal thyroid function. Health Maintenance - Mammogram is up to date - Colonoscopy in May 2024 showed diverticulosis - Bone density test in November 2023 Social History Review of Systems Physical Exam Results - Labs: Normal blood count, no anemia, normal sodium, potassium 5.2, creatinine 1.87, BUN 27, blood sugars 103, normal liver function, LDL 48, vitamin D 10.6, normal thyroid function Plan The patient is advised to continue monitoring her health conditions, particularly her chronic kidney disease and hypertension. Avoidance of NSAIDs is recommended to prevent exacerbation of her kidney condition. For her hypertension, she is currently on metoprolol 100 mg once daily and amlodipine 10 mg. Her cholesterol management includes fenofibrate. The patient is to continue her current medications for anxiety, including citalopram and amitriptyline. Patient was informed and verbally consented to the use of an ambient scribe for clinic note documentation during this visit. Discussion Notes Patient Instructions - Continue monitoring your health conditions, especially your kidney disease and blood pressure. - Avoid using NSAIDs to protect your kidney health. - Take your blood pressure medications as prescribed: metoprolol 100 mg once daily and amlodipine 10 mg. - Continue taking your cholesterol medication, fenofibrate. - Maintain your current anxiety medications: citalopram and amitriptyline. Orders: Orders Complete Blood Count Auto Diff 6 Months N18.4 - Chronic kidney disease, stage 4 (severe) UA CC w/rflx Micro + Cult 6 Months N18.4 - Chronic kidney disease, stage 4 (severe), R30.0 - Dysuria Vitamin D 25-OH Total 6 Months N18.4 - Chronic kidney disease, stage 4 (severe) Magnesium 6 Months N18.4 - Chronic kidney disease, stage 4 (severe) Comprehensive Met. Panel 6 Months N18.4 - Chronic kidney disease, stage 4 (severe) Free T4 (Free Thyroxine) 6 Months N18.4 - Chronic kidney disease, stage 4 (severe) Thyroid Stimulating Hormone 6 Months N18.4 - Chronic kidney disease, stage 4 (severe) Lipid Panel 6 Months E78.00 - Pure hypercholesterolemia, unspecified, N18.4 - Chronic kidney disease, stage 4 (severe) Hemoglobin A1c 6 Months N18.4 - Chronic kidney disease, stage 4 (severe) Vitamin B12 and Folate 6 Months N18.4 - Chronic kidney disease, stage 4 (severe) Uric Acid 6 Months N18.4 - Chronic kidney disease, stage 4 (severe)
--- OUTSIDE RECORDS SUMMARY | 2024-07-31 12:00 | XMS_ITS | Encounter Summary ---
Author Organization [facility] Address [address] [facility] [address] [place] [address] Phone Care Team Providers Care Wall Steamer Name Role Phone Lenin Laird MD Primary Care Provider [phone] Reason for Visit * Reason Comments Med Refill Encounter Details Date Type Department Care Team (Late Contact Info) Description 07/26/2024 Refill [facility] [address] [place] [address] Mike Morgan MD [address] [address] Chronic kidney disease, stage 4 (severe) (HCC); Hypomagnesemia; Renal osteodystrophy Social History Tobacco Use Types Packs/Day Years [...] on file Sexual Orientation Not on file documented as of this encounter Plan of Treatment Upcoming Encounters Date Type Department Care Team (Late st Contact Info) Description 2024 Orders Only [facility] [address] [facility] [address] [place] [address] Mike Morgan MD [address] [address] Chronic kidney disease, stage 4 (severe) (HCC); Renal osteodystrophy; Hypomagnesemia 09/17/2024 9:00 AM EDT Office Visit [facility] [address] [address] Lili May ARNP [address] [address] documented as of this encounter Visit Diagnoses Diagnosis Chronic kidney disease, stage 4 (severe) (HCC) Hypomagnesemia Renal osteodystrophy Chronic kidney disease, stage 4 (severe) (HCC) Renal osteodystrophy Hypomagnesemia documented in this encounter Care Teams Wall Steamer Relationship Specialty Start Date End Date Lenin Laird MD [address] [place], [place] PCP - General Internal Medicine 09/12/23 documented as of this encounter
== END 2024-07-31 10:54 | disposition home or self-care (01) ==
LOC: HO.HMCH 10:19
PROVIDERS: PCP Internal Medicine; Visit Provider Internal Medicine
DX: I12.9 Hypertensive chronic kidney disease with stage 1 through stage 4 chronic kidney disease, or unspecified chronic kidney disease (principal); N18.4 Chronic kidney disease, stage 4 (severe); K22.70 Barrett's esophagus without dysplasia; E78.00 Pure hypercholesterolemia, unspecified; F41.1 Generalized anxiety disorder

== ENCOUNTER → 2024-07-31 10:18 | Outpatient (BNVA) | payer OTHER, SELFPAY | PROVIDERS: PCP Internal Medicine; Visit Provider Internal Medicine | DX: I12.9 Hypertensive chronic kidney disease with stage 1 through stage 4 chronic kidney disease, or unspecified chronic kidney disease (principal); N18.4 Chronic kidney disease, stage 4 (severe); K22.70 Barrett's esophagus without dysplasia; E78.00 Pure hypercholesterolemia, unspecified; F41.1 Generalized anxiety disorder | CPT/HCPCS: 96127; 99212 ==

== ENCOUNTER 2024-08-20 14:51 | Outpatient (AMB) | payer OTHER, SELFPAY ==
--- NOTE | 2024-08-20 14:55 | MHC.OFFVIS ---
Vital Signs 08/20/24 14:56 Height 5 ft Intake Visit Reasons: 1 Year follow up Allergies ciprofloxacin Allergy (Intermediate, Verified 08/20/24 15:00) body ache diazepam Allergy (Unknown, Verified 08/20/24 15:00) shortness of breath fentanyl (FENTANYL) Allergy (Unknown, Verified 08/20/24 15:00) VIOLENT SHAKING, TACHYCARDIA, seizure hydromorphone (HYDROMORPHONE) Adverse Reaction (Severe, Verified 08/20/24 15:00) UNCONTROLLED SHAKING, ELEVATED HEART RATE oxycodone (From PERCOCET) Adverse Reaction (Severe, Verified 08/20/24 15:00) Vomiting egg (EGGS) Adverse Reaction (Intermediate, Verified 08/20/24 15:00) Diarrhea codeine (CODEINE) Adverse Reaction (Unknown, Verified 08/20/24 15:00) Vomiting meperidine (Demerol) Adverse Reaction (Unknown, Verified 08/20/24 15:00) Nausea and Vomiting Medication List - Last Reconciled 08/20/24 by Sierra Jefferson CNP amitriptyline 10 mg PO BEDTIME amlodipine 10 mg PO DAILY 90 days biotin 10,000 mcg PO DAILY calcium carbonate 1,000 mg PO DAILY citalopram (Celexa) 20 mg PO DAILY 90 days cyanocobalamin (vitamin B-12) 1,000 mcg subcut Q4W 90 days denosumab (Prolia) 60 mg subcut [id number] estradiol 0.01%(0.1mg/gram) 1 g vaginal TUFR fenofibrate nanocrystallized 145 mg PO DAILY 90 days ferrous sulfate (Feosol) 325 mg PO BID levothyroxine 75 mcg PO DAILY@0600 loperamide (Imodium A-D) 4 mg PO TID magnesium chloride (Slow-Mag) 143 mg (2 x 71.5 mg) PO DAILY 30 days magnesium glycinate 840 mg PO DAILY magnesium oxide 500 mg PO DAILY metoprolol succinate ER 100 mg PO DAILY 90 days multivitamin 1 tab PO DAILY omeprazole 20 mg PO DAILY@0630 sodium bicarbonate 1,300 mg PO BID sumatriptan succinate (Imitrex) 50 mg PO DAILY PRN zinc acetate 25 mg PO DAILY HPI Comments Details: 74-year-old woman with history of renal stone, uterine cancer, hypertension, Toure's esophagus, and migraine headaches. She was doing okay. Migraines were controlled with amitriptyline. She was getting headache once or twice a month. Sumatriptan as needed helps. Sleep was so-so. [facility] Medical History (Updated 08/20/24 @ 14:59 by Sierra Jefferson CNP) CKD (chronic kidney disease) Breast cancer screening by mammogram Small bowel obstruction Hypercholesterolemia GERD (gastroesophageal reflux disease) Vitamin D deficiency Enterovesical fistula Renal calculus Anxiety and depression Vitamin B12 deficiency Hypothyroid Toure's esophagus Fatty liver Uterine cancer Migraine Hypertension Surgical History History of laparotomy S/P ASHWINI-BSO History of radical hysterectomy Family History Family/Other Mental health disorder Social History Household Members: Spouse and Children [facility]: [facility] Do you presently have visiting nurse or other home services: No Alcohol intake: current Alcohol intake frequency: holidays/special occasions only Alcohol type: wine Patient Tobacco Use Status: Never used Tobacco Tobacco use type: Cigarette e-Cigarette/Vaping Use: Never Used Second Hand Smoke Exposure: Yes service: No Current occupational status: retired Cognitive needs: No Hearing needs: No Vision needs: Yes Review of Systems Const Denies chills, Denies daytime sleepiness, Denies difficulty sleeping, Denies fatigue, Denies fever(s), Denies frequent falls, Reports headache(s), Denies increased appetite, Denies poor appetite, Denies snoring, Denies weakness, Denies weight gain and Denies weight loss Eyes Denies loss of vision ENT Denies vertigo, Denies dizziness and Reports headache(s) Card Denies chest pain at rest, Denies chest pain with activity, Denies syncope, Denies leg edema and Denies palpitations Resp Denies snoring GI Denies constipation, Denies heartburn, Denies diarrhea and Denies nausea Denies urinary frequency, Denies urinary incontinence and Denies urinary urgency Musc Denies abnormal gait, Denies numbness and Denies tingling Skin/Breast Denies dry skin and Denies rash Neuro Denies abnormal gait, Denies vertigo, Denies dizziness, Denies syncope, Denies frequent falls, Reports headache(s), Denies lack of coordination, Denies loss of vision, Denies memory loss, Denies numbness, Denies restless legs, Denies seizure-like activity, Denies tingling, Denies paresthesias, Denies tremor(s) and Denies weakness Psych Denies anxiety, Denies depression, Denies auditory hallucinations, Denies memory loss, Denies visual hallucinations and Denies suicidal ideation Endo Denies fatigue and Denies palpitations Physical Exam Const Other: General Appearance:? normal, in no acute distress. Skin:? no rashes, no significant birthmarks. Heart:? S1, S2 normal, no murmurs. Lungs:? clear anteriorly and posteriorly. Extremities:? no edema. Psych:? alert, oriented, cognitive function intact, cooperative with exam. Neuro Other: Mental Status:?Normal attention, orientation, memory and affect.? Cranial Nerves:?Pupils are equal, round and reactive to light. External occular muscles are intact. Visual brown are full. Face is symmetrical. Facial sensations are normal. Tongue is midline. Palate elevates symmetrically. Shoulder shrugging is normal. Hearing to bedside conversation is normal. Motor Examination:?Normal muscle tone, bulk and strength,?Deep tendon reflexes are 2+,?Plantars are flexor.? Sensory Exam:?....? Coordination:?No ataxia,?no titubation.? Gait Exam: Within normal limits. Cerebellar Signs:?[id number]-[id number] and [id number] is normal.? Extrapyramidal System:?No tremor, rigidity with normal facial expressions.? Pronator Drift:?Not present.? Involuntary Movements:?No tremors seen.? Speech:?Normal.? Assessment & Plan Assessment & Plan (1) Migraine: Code(s): G43.909 - Migraine, unspecified, not intractable, without status migrainosus Category: Medical Qualifiers: Migraine type: unspecified Status migrainosus presence: without status migrainosus Intractability: not intractable Qualified Code(s): G43.909 - Migraine, unspecified, not intractable, without status migrainosus Plan: Continue amitriptyline 10mg 1 tablet at bedtime. Continue sumatriptan 50mg 1 tablet as needed for migraine. Coding Level of Care Code Est Pt Level 3 (91601) Diagnoses Migraine without status migrainosus, not intractable, unspecified migraine type G43.909 Migraine type: unspecified Status migrainosus presence: without status migrainosus Intractability: not intractable
--- OUTSIDE RECORDS SUMMARY | 2024-08-20 16:12 | XMS_ITS | Patient Health Record ---
Author Organization [facility] Address [address] [place] [address] Care Team Providers Care Technical Programs Manager Name Role Phone Lenin Laird MD Primary Care Provider Ck Kothari Unavailable [phone] Allergies Allergen (clinical drug ingredient) Drug/Non Drug Allergy documented on EMR Reaction Allergy Type Onset Date Status hydromorphone Dilaudid Unknown Drug Allergy Act elizabeth acetaminophen / oxycodone Percocet (uncoded) Unknown Allergy Active codeine Codeine (uncoded) Unknown Allergy Ac tive meperidine Demerol (uncoded) Unknown Allergy A ctive Reason For Referral No Information Medications Medication SIG (Take, Route, Frequency, Duration) Notes Start Date End Date Status amLODIPine Besylate 5 MG 1 tablet Orally Once a day Active Cyanocobalamin 1000 MCG/ML 1 ml Injectio n once a month Active iron - 1 tablet Oral as directed Active Multivitamins - 1 capsule Orally onc e a day Active Zinc Not-Taking Tricor 145 MG 1 tablet Orally Once a day Active Calcium & Magnesium Carbonates Not-Taking Citalopram Hydrobromide 20 MG 1 tablet Orally Once a day Active Topiramate Not-Takin g Diphenoxylate-Atropine 2.5-0.025 MG 1 tablet as needed Orally Four times a day Active Metoprolol Succinate 100 MG 1 tablet Orally as directed Active SUMAtriptan 100 1 tablet orally when needed Active Levothyroxine Sodium 50 MCG 1 tablet on an empty stomach in the morning Orally Once a day Active Lisinopril 40 MG 1 tablet Orally Once a day Active Cholestyramine 4 GM/DOSE 1 or 2 scoops m ixed in glass of water or oj Orally Once or twice a day for diarrhea for 30 day(s) 08/23/2011 Not-Taking Omeprazole 20 MG 1 capsule Orally Onc e a day Active Vitamin D Not-Taking Immunizations Vaccine Route Administration Date Status Comme nts Influenza Unknown 10/07/2017 Administered Problems Problem Type SNOMED Code ICD Code Onset Dates Problem Status W/U Status Risk Notes Problem 7717459 Melena (K92.1) Active confirmed Problem 356352703 Blood in stool (K92.1) Active confirmed Problem 53690961 Heme + stool (R19.5) Active confirmed Problem 322529798 Small bowel obstruction (K56.69) Active confirmed Problem 67655275 Iron deficiency anemia due to chronic blood loss (D50.0) Active confirmed Problem 289176647 Abdominal pain, generalized (R10.84) Active confirmed Problem 34288294 Diarrhea, unspecified type (R19.7) Active confirmed Problem 935655079 Small bowel stricture (K56.69) Active confirmed Plan Of Treatment Pending Test Test Name Order Date IRON + IBC (FE) 11/05/2015 FERRITIN 11/05/2015 CBC w DIFF 11/05/2015 CBC w/o DIFF 08/28/2015 XR GI SMALL BOWEL SERIES 04/09/2015 Future Test Test Name Order Date UPPER GI ENDOSCOPY 08/25/2015 Insurance Providers Payer Name Payer Address Payer Phone Subscriber Number Group Number Insured Name Patient Relationship to Insured Coverage Start Date Coverage End Date [facility] (REFERRA L NEEDED) [address] [place] [address] [id number] MARCELO ALEXA Self - patient is the insured Medical (General) History Medical History History ICD Code Colonoscopy in June of 2015 r evealed radiation-induced changes in the rectosigmoid area, diverticulosis, and internal hemorrhoids; colonoscopy on 04/21/2004 by -hx of radiation proctitis treated in [address] 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 urosepsis--seeing Dr. Mendiola and Dr. Ruff--? of an eneterovesicular fistula based on the CT scans Urinary incontinence- mild Kidney stones Gallstones-patient is aware--D/W her on 12/12/17 Diarrhea---normal duodenal biopsies in t he past Surgical History Surgery Date(Month/Year) ASHWINI 12 inches of small bowel rem dre for a SB stricture--Dr. Ruff--the pathology revealed some nonspecific edema, stricture, and adhesions---probably related to previous XRT September 04 2015 Enterovesicular fistula--Dr. Ruff 20 17
--- OUTSIDE RECORDS SUMMARY | 2024-08-20 16:13 | XMS_ITS | Patient Health Record ---
Author Organization [facility] Address [address] [place] [address] Care Team Providers Care Toilet And Laundry Soap Supervisor Name Role Phone KYLE RAMIREZ M.D. Primary Care Provider Dorina Pedroza Unavailable [phone] Allergies Allergen (clinical drug ingredient) Drug/Non Drug [...] Neg UROBILINOGEN Neg BILIRUBIN Neg BLOOD Large 338772-Tpi IGP No Culture 30 Plus Reviewed date:01/11/2024 04:43:53 PM Interpretation: Performing Lab:[facility], [address], [address], [place], Phone - [phone], Director - [facility] Notes/Report: No. of containers..01 ThinPrep Vial Other..............Post Menopausal;Estrogen Replace Rx Dates / Results....10/15/12 NIL LMP / Prev Treat...Hyst Clinical Information:Vaginal, LMP: Hyst [id number] DIAGNOSIS: UNSATISFACTORY FOR EVALUATION. THIS SPECIMEN WAS RESCREENED PART OF OUR PERSONAL LINES AGENT PROGRAM. Specimen adequacy: Specimen processed and examined, but unsatisfactory for evaluation of epithelial abnormality because of excessive lubricant. Specimen processed and examined, but unsatisfactory for evaluation of epithelial abnormality because of insufficient squamous cellularity. Clinician provided ICD10: N95.0 N95.2 Performed by: Ree Michel ytotechnologist ([facility]) QC reviewed by: Albert holly, Kosher Dietary Service Manager ([facility]) . . Note: The Pap smear is [...] Performing Lab:[facility], [address], [address], [place], Phone - [phone], Director - [facility] Notes/Report: Clinical Information:Vaginal, LMP: Hyst [id number] LMP / Prev Treat...Hyst Dates / Results....10/15/12 NIL Other..............Post Menopausal;Estrogen Replace Rx No. of containers..01 ThinPrep Vial PDF Report Reviewed date:02/23/2024 02:00:13 PM Interpretation: Performing Lab:[facility], [address] [place] [address], Phone - [phone], Director - [facility] Notes/Report: No. of containers..01 ThinPrep Vial Dates / Results....01/02/24 Source.............Cervix;Vagina Clinical Information:vaginal/ cervical NEW ORDERS FROM PRACTICE S/P HYST [id number] IGP No Culture 30 Plus Reviewed date:02/23/2024 02:00:32 PM Interpretation: Performing Lab:[facility], [address] [place] [address], Phone - [phone], Director - [facility] Notes/Report: Dates / Results....01/02/24 No. of containers..01 ThinPrep Vial Source.............Cervix;Vagina Clinical Information:vaginal/ cervical NEW ORDERS FROM PRACTICE S/P HYST DIAGNOSIS: NEGATIVE FOR INTRAEPITHELIAL LESION OR MALIGNANCY. REACTIVE CELLULAR CHANGES AND/OR REPAIR ARE PRESENT. Specimen adequacy: Satisfact ory for evaluation. Clinician provided ICD10: N9 5.0 Performed by: Albert Michel , Kosher Dietary Service Manager ([facility]) Electronically signed by: Drea Victoria MD, [...] to the affected area Vaginal/Vulva Twice a week; Duration: 90 Days 01/02/2024 Active Citalopram Hydrobromide 20MG 1 ORAL daily; Duration: -3 [facility]- 10/13/2011 Active Vitamin D (Ergocalciferol) 1.25 MG (37298 UT) Oral; Duration: 28 Days Active Amitriptyline HCl 10 MG 1 tablet at bedt ciro Orally Once a day; Duration: 30 day(s) Active Magnesium Oxide 250 MG 2 tablets Orally Once a day Active Fenofibrate 145 MG 1 tablet Orally Once a day; Duration: 30 day(s) Active Metoprolol Succinate 100 MG 1 capsule Orally Once a day; Duration: 30 day(s) Active SUMAtriptan Succinate 100 MG 1 tablet as needed Orally NEEDED Active Biotin 56142 MCG 1 tablet Orally Once a day; Duration: 30 day(s) Active Omeprazole 05/31/2024 Active iron 1 tab Oral; Duration: 14 days Active Sodium Bicarbonate 650 MG as directed Orally Twice a day 05/31/2024 Active Prolia 60 MG/ML as directed Subcutaneous Active Loperamide HCl 2 MG TAKE 2 CAPSULES BY MOUTH EVERY 6 HOURS BEFORE MEALS AND BEFORE BEDTIME Oral; Duration: 30 Active Centrum Silver Ultra Womens - as directed Orally Active Cyanocobalamin 1000 MCG/ML 1 ml Injection Once a Month Vitamin B12 Inj Active Levothyroxine Sodium 75 MCG 1 capsule in the morning on an empty stomach Orally Once a day Rubén-MJ 10/13/2011 Active Calcium + D3 Active amLODIPine [...] Status Risk Notes Problem Postmenopausal atrophic vaginitis (64228485) Postmenopausal atrophic vaginitis (N95.2) Active confirmed Problem Postmenopausal bleeding (67212625) Postmenopausal bleeding (N95.0) Active confirmed Problem Age-related osteoporosis (191184684) Age-related osteoporosis without current pathological fracture (M81.0) Active confirmed Problem Malignant neoplasm of colon (697885173) Malignant neoplasm of colon, unspecified (C18.9) Active confirmed Problem Malignant neoplasm of corpus uteri, excluding isthmus (936975934) 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) Active confirmed Problem Hypervitaminosis D (76487410) 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) Active confirmed Problem Atrophy of vulva (889880809) Atrophy of vulva (N90.5) Active confirmed Problem Personal history of primary malignant neoplasm of gastrointestinal tract (528808424) Personal history of malignant neoplasm of unspecified digestive organ (Z85.00) Active confirmed Problem Personal history of primary malignant neoplasm of female genital organ (289897929) Personal history of malignant neoplasm of other parts of uterus (Z85.42) Active confirmed Problem Vitamin D deficiency (65360887) Vitamin D deficiency, unspecified (E55.9) Active confirmed Problem 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 Problem Malignant neoplasm of corpus uteri, excluding isthmus (disorder) (533686724) Malignant neoplasm of corpus uteri, except isthmus (182.0) Active confirmed Diag Problem Hypothyroidism (90359232) Unspecified hypothyroidism (244.9) Active confirmed Major Problem Hyperlipidemia (26599286) Other and unspecified hyperlipidemia (272.4) Active confirmed Major Problem Cardiac arrhythmia (767596347) Unspecified cardiac dysrhythmia (427.9) Active confirmed Major Problem Esophageal reflux (441868700) Esophageal reflux (530.81) Active confirmed Major Problem Menopausal symptom (06981864) Symptomatic menopausal or female climacteric states (627.2) Active confirmed Major Problem Gynecological examination normal (098259580192450) Routine gynecological examination (V72.31) Active confirmed Problem Screening for malignant neoplasm of colon (758333622) Special screening for malignant neoplasms, colon (V76.51) Active confirmed Major Vital Signs Heart Rate 67 /min 02/19/2024 Temperature 97.4 degrees Fahrenheit 05/31/2024 Blood pressure diastolic 70 mm Hg 05/31/2024 Height 59 in 05/31/2024 Blood pressure systolic 122 mm Hg 05/31/2024 Weight 122 lbs 05/31/2024 BMI 24.64 kg/m2 05/31/2024 Encounters Encounter Location Date Provider Diagnosis [facility] [address] [place] [address] 01/02/2024 Dorina Adorno Postmenopausal bleeding N95.0 ; Postmenopausal atrophic vaginitis N95.2 and Acute vaginitis N76.0 [facility] [address] [place] [address] 02/19/2024 Dorina Adorno Unsatisfactory cytologic smear of cervix R87.615 and Personal history of malignant neoplasm of other parts of uterus Z85.[address] [place] [address] 05/31/2024 Dorina Patelueva Encounter for screening mammogram for malignant neoplasm [...] WEIGHT BEARING EXERCISES. CONITNUE CARE WITH DR GRAVES. CONTINUE PROLIA. REPEAT BMD THIS YEAR. 05/31/2024 [...] Provider Name:Dorina butler, 06/09/2025 10:00:00 AM, [address], [address], [place], [address], Insurance Providers Payer Name Payer Address Payer Phone Subscriber Number Group Number Insured Name Patient Relationship to Insured Coverage Start Date Coverage End Date [facility] [address] [place], [place] [id number] ALEXA ROBERTSON Self - patient is the insured [employer] [address] [place] [address] [id number] ALEXA ROBERTSON Self - patient is the [...] bleeding N95.0 Surgical History Surgery Date(Month/Year) ASHWINI/BSO Dickinson Teeth Colonoscopy Colon Cancer - Nephrology Tubes Hospitalization History Reason Date(Month/Year) Small Bowel Blockage 2018 4x for Small Bowel Blockage 2017 See Surgical Hx 2 Vaginal Deliveries
--- OUTSIDE RECORDS SUMMARY | 2024-08-20 16:13 | XMS_ITS | Encounter Summary ---
Author Organization [facility] Address [address] [place] [address] Phone Care Team Providers Care Geographic Information Scientist Name Role Phone Lenin Laird MD Primary Care Provider [phone] Encounter Details Date Type Department Care Team (Late Contact Info) Description 02/23/2021 Telephone [facility] [address] [place] [phone] Gabe Oro, DO [address] [place] [address] Social History Tobacco Use Types Packs/Day Years [...] Visit [facility] [address] [place] [phone] Lili May ARNP [address] [address] documented as of this encounter Visit Diagnoses Not on filedocumented in this encounter Care Teams Geographic Information Scientist Relationship Specialty Start Date End Date Lenin Laird MD [facility] [address] [place], [place] PCP - General Internal Medicine 09/12/23 documented as of this encounter
--- OUTSIDE RECORDS SUMMARY | 2024-08-20 16:14 | XMS_ITS | Data Portability ---
Author Organization [place] [facility] Address [address] [place] [address] Care Team Providers Care Maintenance Mechanic Millwright Name Role Phone KYLE RAMIREZ Primary Care Provider [phone] Assessment Encounter Date Assessment Date Assessment LastModified [...] Sensorineur al hearing loss of bilateral ears 971438302 Active 2023 Janell blanc [place] [facility] 15:26:29 Dysfunction of right eustachian tube 7490213487218 101 Active 2023 ANTHONY LAUGHLIN PA-C [address] [place] [address], [phone] [facility] 4 16:48:40 Problem Notes None recorded. Procedures Surgical History Date Name Laterality Status Provider Name and Address Organization Details Recorded Time 09/08/19 24 Comp Audio with Tymps - 98112 & 74341 completed Janell Clark [facility] 09/08/2023 15:26:14 hysterectomy completed Pradip Urena [facility] 09/08/2023 14:46:49 resection of colon for interposition completed Pradip Urena [facility] 09/08/2023 14:47:08 Imaging Results None recorded. Procedure Notes None recorded. Medical Equipment None Reported. Allergies Allergen ID Allergen Name Allergen Category Reaction Reaction Severity Criticality Documentation Date Start Date Code Code System Note Provider Name and Address Organization Details Recorded Time 114133 Demerol medicatio n Not available Not available Not available 09/08/2023 64582 1 RxNorm Pradip blanc [facility] 14:45:50 891572 Ceprotin medicatio n Not available Not available Not available 09/08/2023 24109 6 RxNorm Pradip blanc [facility] 14:46:18 785214 fentanyl medicatio n Not available Not available Not available 09/08/2023 4337 RxNorm Pradip blanc [facility] 14:46:30 Medications Name Sig Start Date Stop [...] SNOMED-CT Code Diagnosis ICD10 Code Diagnosis Note 98375 ANTHONY LAUGHLIN PA-C [facility] [address] [address] 09/08/2023 14:05:48 09/08/2023 16:43:24 Sensorineural hearing loss of bilateral ears 757719704 H90.3 Audiologic al evaluation results: Right ear: Essentiall y normal sloping to a moderate sensorineu ral hearing loss with excellent word recognitio n. Left ear: Normal sloping to a moderate sensorineu ral hearing loss with excellent word recognitio n. Asymmetric hearing loss at 250-1kHz of 10-15dB, worst in the right. Tympanomet ry: Right Ear:Type C Left Ear:Type A Dysfunctio n of right eustachian tube [id number] 592868 H69.91 Health Concerns Section Related Observation LastModified by Organization Detai ls LastModified Time None Recorded Concern Status LastModified by Organization Details LastModified Time None Recorded Advance Directives Directive None Recorded Payers Insurance Date Sequence Insurance Name Policy Number Policy Newberry Covered Member ID Newberry Member ID Guarantor Name 09/29/2023 1 [facility] (POS) [id number] Komal Espitia [id number] Komal Espitia Notes Date Note Type Note [...] is no malcolm otorrhea. ANTHONY LAUGHLIN PA-C [address] [place] [address], [address], [place] [facility] 09/08/2023 16:51:10 OBGyn Episode No OBEpisode recorded.
--- OUTSIDE RECORDS SUMMARY | 2024-08-20 16:14 | XMS_ITS | Continuity of Care Document ---
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 03/24/2023 Vitamin D-1000 Maximum Rkhlgswm26dgj (1000 Ut) Tablets 2by mouth every day Guanakito Richey M.D. 08/29/[address] Take one capsule daily Po, Lorenver Loperamide HCL2mg Capsules Take 2 capsule three times daily Unknown Amitriptyline NSS05fj Tablets Take 1 tablet daily Angelina Hamlin MD Citalopram Mybreltkfezn02pb Tablets Take 1 tablet daily Po, Lorenver Rqozhfrnrdh690db Tablets Take 1 tablet daily Po, Lorenver Levothyroxine Nxiecr18xhh Tablets Take 1 tablet daily Po, Lorenver Blwjfovzokupwu8715vqe/ ML Solution As directed monthly Po, Lorenver Amlodipine Dplpsqmh82lg Tablets 1 by mouth every day Guanakito Richey M.D. Sumatriptan Lrzwmblvt100yr Tablets take as directed for migraines Guanakito Richey M.D. Vital Signs Date Vital Result Comment 03/24/2023 1:24pm BP Systolic 130 mmHg BP Diastolic 70 mmHg Heart Rate 95 /min Height 60 inches 5'0 Weight 128.25 lb BMI (Body Mass Index) 25.0 kg/m2 Results Test Acquired Date Facility Test Result H/L Range N ote Calcium 08/31/2022 [facility] Calcium 9.3 mg/dL (8.6-10.5 ) Period & Volume 02/09/2022 [facility] Urine Collection Period 24 HRS Volume 1200 MLS Creatinine 02/09/2022 [facility] Creatinine 2.4 mg/dL High (0.5-1.0) Estimated GFR Creatinine 21 ML/MIN/1.7 3M2 1 Jhtlpsm-Wy-Pogd t 02/09/2022 [facility] Calcium, Urine, MG/DL 2.3 mg/dL Calcium, Urine GM/24HR 0.03 GM/24HR Low (0.05-0.3 0) Creat Clearance 02/09/2022 [facility] Creatinine, Urine MG/DL 69.2 mg/dL Blood Creat 2.4 mg/dL High (0.5-1.0) Creat Clearance 24.0 mL/min Low (66-143) Creatinine Ur GM/24HR 0.8 GM/24HR (0.72-1.5 ) PTH, Intact 02/08/2022 [facility] PTH, Intact 55 pg/mL (15-65) Basic Metabolic Panel 02/08/2022 [facility] Glucose 91 mg/dL (70-99) [...] Appt Nigel e Guanakito Richey M.D. Closed [address] [place] [address] Drive [address] [place] [address] [phone] Guanakito Richey M.D. Created [address] [place] [address] Drive [address] [place] [address] [phone]
== END 2024-08-20 15:04 | disposition home or self-care (01) ==
LOC: HO.HSM 14:52
PROVIDERS: PCP Internal Medicine; Visit Provider Registered Nurse
DX: G43.909 Migraine, unspecified, not intractable, without status migrainosus (principal)
CPT/HCPCS: 99213

== ENCOUNTER → 2024-08-20 14:51 | Outpatient (BNVA) | payer OTHER, SELFPAY | PROVIDERS: PCP Internal Medicine; Visit Provider Registered Nurse | DX: I10 Essential (primary) hypertension (principal); G43.909 Migraine, unspecified, not intractable, without status migrainosus | CPT/HCPCS: 99212 ==

== ENCOUNTER 2024-11-21 10:24 | Outpatient (REF) | payer OTHER, SELFPAY ==
--- OUTSIDE RECORDS SUMMARY | 2024-11-21 12:52 | XMS_ITS | Continuity of Care Document ---
Author Organization [facility] [address] [place] [address] Phone [phone] Care Team Providers Care Home Health Care Provider Name Role Phone Lenin Laird Care Team Information Elementary Science Teacher + [phone] Problems Active Problems Provider Date Deep venous thrombosis of lower extremity Guanakito Richey M.D. Onset: 02/08/2022 Gastroesophageal reflux disease Guanakito Richey M.D. Onset: 02/08/2022 Hyperlipidemia Guanakito Richey M.D. Onset: 04/2022 Hypothyroidism Guanakito Richey M.D. Onset: 04/2022 Cardiac arrhythmia Guanakito Richey M.D. Onset: 02/08/2022 Kidney stone Guanakito Richey M.D. Onset: 04/2022 Atrophic vaginitis Guanakito iRchey M.D. Onset: 02/08/2022 History of malignant neoplasm [...] Use Start: Unknown Patient has never smoked Allergies and adverse reactions Active Allergies Criticality Reaction Severity Comments Date Demerol Unable to assess criticality 08/29/2022 Codeine Unable to assess criticality 08/29/2022 Cipro Unable to assess criticality 08/29/2022 Medications Active Medications SIG Qnty Indications Order ing Provider Date Vitamin D (Ergocalciferol)1.25mg (48678 Ut) Capsules take 1 capsule by mouth weekly as directed 8caps Guanakito Richey M.D. 03/24/2023 Vitamin D-1000 Maximum Otznxopd45fvi (1000 Ut) Tablets 2by mouth every day Guanakito Richey M.D. 08/29/[address] Take one capsule daily Po, Lorenver Loperamide HCL2mg Capsules Take 2 capsule three times daily Unknown Amitriptyline XWD42ck Tablets Take 1 tablet daily Angelina Hamlin MD Citalopram Narfefrovjwu26pc Tablets Take 1 tablet daily Po, Lorenver Nxhcnrvukhn787ne Tablets Take 1 tablet daily Po, Lorenver Levothyroxine Ltrdrn70bbr Tablets Take 1 tablet daily Po, Lorenver Uoplknmyibwtcb8238xtt/ ML Solution As directed monthly Po, Lorenver Amlodipine Jpxfeqts72jz Tablets 1 by mouth every day Guanakito Richey M.D. Sumatriptan Ruuurhsab714qw Tablets take as directed for migraines Guanakito Rcihey M.D. Vital Signs Date Vital Result Comment 03/24/2023 1:24pm BP Systolic 130 mmHg BP Diastolic 70 mmHg Heart Rate 95 /min Height 60 inches 5'0 Weight 128.25 lb BMI (Body Mass Index) 25.0 kg/m2 Results Test Acquired Date Facility Test Result H/L Range N ote Calcium 08/31/2022 [facility] Calcium 9.3 mg/dL (8.6-10.5 ) Period & Volume 02/09/2022 [facility] Urine Collection Period 24 HRS Volume 1200 MLS Creatinine 02/09/2022 [facility] Creatinine 2.4 mg/dL High (0.5-1.0) Estimated GFR Creatinine 21 ML/MIN/1.7 3M2 1 Krtqpyf-Yq-Mkxx t 02/09/2022 [facility] Calcium, Urine, MG/DL 2.3 mg/dL Calcium, Urine GM/24HR 0.03 GM/24HR Low (0.05-0.3 0) Creat Clearance 02/09/2022 [facility] Creatinine, Urine MG/DL 69.2 mg/dL Blood Creat 2.4 mg/dL High (0.5-1.0) Creat Clearance 24.0 mL/min Low (66-143) Creatinine Ur GM/24HR 0.8 GM/24HR (0.72-1.5 ) PTH, Intact 02/08/2022 [facility] PTH, Intact 55 pg/mL (15-65) Basic Metabolic Panel 02/08/2022 [facility] Glucose 91 mg/dL (70-99) BUN [...] Appt Nigel e Guanakito Richey M.D. Closed [address] [place] [address] Drive [address] [place] [address] [phone] uGanakito Richey M.D. Created [address] [place] [address] Drive [address] [place] [address] [phone]
--- OUTSIDE RECORDS SUMMARY | 2024-11-21 12:52 | XMS_ITS | Patient Health Record ---
Author Organization [facility] Address [address] [place] [address] Care Team Providers Care Project Surveyor Name Role Phone Lenin Laird MD Primary Care Provider Ck Kothari Unavailable [phone] Allergies Allergen (clinical drug ingredient) Drug/Non Drug [...] Orally Once or twice a day for diarrhea; Duration: 30 day(s) 08/23/2011 Not-Taking Omeprazole 20 MG 1 capsule Orally Onc e a day Active Vitamin D Not-Taking Immunizations Vaccine Route Administration Date Status Comme nts Influenza Unknown 10/07/2017 Administered Problems Problem Type SNOMED Code ICD Code Onset Dates Problem Status W/U Status Risk Notes Problem Melena (8251582) Melena (K92.1) Active confirme d Problem Blood in stool (055695762) Blood in stool (K92.1) Active confirmed Problem Abnormal feces (104050079) Heme + stool (R19.5) Active confirmed Problem Small bowel obstruction (452684784) Small bowel obstruction (K56.69) Active confirmed Problem Iron deficiency anemia due to chronic blood loss (301575195) Iron deficiency anemia due to chronic blood loss (D50.0) Active confirmed Problem Generalized abdominal pain (376026457) Abdominal pain, generalized (R10.84) Active confirmed Problem Diarrhea (22574746) Diarrhea, unspecified type (R19.7) Active confirmed Problem Small bowel stricture (1879301356) Small bowel stricture (K56.69) Active confirmed Plan [...] Insured Coverage Start Date Coverage End Date [facility] (REFERRA L NEEDED) [address] [place] [address] [id number] ALEXA ROBERTSON Self - patient is the insured Medical (General) History Medical History History ICD Code Colonoscopy in June of 2015 r evealed radiation-induced changes in the rectosigmoid area, diverticulosis, and internal hemorrhoids; colonoscopy on 04/21/2004 by -hx of radiation proctitis treated in [address] 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
--- OUTSIDE RECORDS SUMMARY | 2024-11-21 12:52 | XMS_ITS | Patient Health Record ---
Author Organization [facility] Address [address] [place] [address] Care Team Providers Care Route Delivery Supervisor Name Role Phone KYLE RAMIREZ M.D. Primary Care Provider Dorina Pedroza Unavailable [phone] Allergies Allergen (clinical drug ingredient) Drug/Non Drug [...] Neg UROBILINOGEN Neg BILIRUBIN Neg BLOOD Large [id number] IGP No Culture 30 Plus Reviewed date:01/11/2024 04:43:53 PM Interpretation: Performing Lab:[facility], [address], [address], [place], Phone - [phone], Director - [facility] Notes/Report: Clinical Information:Vaginal, LMP: Hyst [id number] LMP / Prev Treat...Hyst Dates / Results....10/15/12 NIL Other..............Post Menopausal;Estrogen Replace Rx No. of containers..01 ThinPrep Vial DIAGNOSIS: UNSATISFACTORY FOR EVALUATION. THIS SPECIMEN WAS RESCREENED PART OF OUR EPIC WILLOW SPECIALIST PROGRAM. Specimen adequacy: Specimen processed and examined, but unsatisfactory for evaluation of epithelial abnormality because of excessive lubricant. Specimen processed and examined, but unsatisfactory for evaluation of epithelial abnormality because of insufficient squamous cellularity. Clinician provided ICD10: N95.0 N95.2 Performed by: Ree Michel ytotechnologist ([facility]) QC reviewed by: Albert holly, Ginner Helper ([facility]) . . Note: The Pap smear is [...] Report Reviewed date:02/23/2024 02:00:13 PM Interpretation: Performing Lab:[facility], [address] [place] [address], Phone - [phone], Director - [facility] Notes/Report: Clinical Information:vaginal/ cervical NEW ORDERS FROM PRACTICE S/P HYST Source.............Cervix;Vagina Dates / Results....01/02/24 No. of containers..01 ThinPrep Vial PDF Report Reviewed date:01/11/2024 04:43:05 PM Interpretation: Performing Lab:[facility], [address], [address], [place], Phone - [phone], Director - [facility] Notes/Report: Clinical Information:Vaginal, LMP: Hyst [id number] LMP / Prev Treat...Hyst Dates / Results....10/15/12 NIL Other..............Post Menopausal;Estrogen Replace Rx No. of containers..01 ThinPrep Vial [id number] IGP No Culture 30 Plus Reviewed date:02/23/2024 02:00:32 PM Interpretation: Performing Lab:[facility], [address] [place] [address], Phone - [phone], Director - [facility] Notes/Report: Clinical Information:vaginal/ cervical NEW ORDERS FROM PRACTICE S/P HYST Source.............Cervix;Vagina Dates / Results....01/02/24 No. of containers..01 ThinPrep Vial DIAGNOSIS: NEGATIVE FOR INTRAEPITHELIAL LESION OR MALIGNANCY. REACTIVE CELLULAR CHANGES AND/OR REPAIR ARE PRESENT. Specimen adequacy: Satisfact ory for evaluation. Clinician provided ICD10: N9 5.0 Performed by: Albert Michel , Ginner Helper (ASCP) Electronically signed by: Drea Victoria MD, [...] Hydrobromide 20MG 1 ORAL daily; Duration: -3 [facility]- 10/13/2011 Active Vitamin D (Ergocalciferol) 1.25 MG (09578 UT) Oral; Duration: 28 Days Active Amitriptyline [...] tablet as needed Orally NEEDED Active Biotin 94195 MCG 1 tablet Orally Once a day; [...] Status Risk Notes Problem Postmenopausal atrophic vaginitis (62487735) Postmenopausal atrophic vaginitis (N95.2) Active confirmed Problem Postmenopausal bleeding (14356486) Postmenopausal bleeding (N95.0) Active confirmed Problem Age-related osteoporosis (586881302) Age-related osteoporosis without current pathological fracture (M81.0) Active confirmed Problem Malignant neoplasm of colon (347495869) Malignant neoplasm of colon, unspecified (C18.9) Active confirmed Problem Malignant neoplasm of corpus uteri, excluding isthmus (507949387) 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) Active confirmed Problem Hypervitaminosis D (90628553) 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) Active confirmed Problem Atrophy of vulva (089345829) Atrophy of vulva (N90.5) Active confirmed Problem Personal history of primary malignant neoplasm of gastrointestinal tract (471491976) Personal history of malignant neoplasm of unspecified digestive organ (Z85.00) Active confirmed Problem Personal history of primary malignant neoplasm of female genital organ (730071347) Personal history of malignant neoplasm of other parts of uterus (Z85.42) Active confirmed Problem Vitamin D deficiency (39413027) Vitamin D deficiency, unspecified (E55.9) Active confirmed Problem 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 Problem Malignant neoplasm of corpus uteri, excluding isthmus (disorder) (071287111) Malignant neoplasm of corpus uteri, except isthmus (182.0) Active confirmed Diag Problem Hypothyroidism (16734219) Unspecified hypothyroidism (244.9) Active confirmed Major Problem Hyperlipidemia (85440703) Other and unspecified hyperlipidemia (272.4) Active confirmed Major Problem Cardiac arrhythmia (324590656) Unspecified cardiac dysrhythmia (427.9) Active confirmed Major Problem Esophageal reflux (359228175) Esophageal reflux (530.81) Active confirmed Major Problem Menopausal symptom (46206018) Symptomatic menopausal or female climacteric states (627.2) Active confirmed Major Problem Gynecological examination normal (930284804539517) Routine gynecological examination (V72.31) Active confirmed Problem Screening for malignant neoplasm of colon (914560134) Special screening for malignant neoplasms, colon (V76.51) Active confirmed Major Vital Signs Heart Rate 67 /min 02/19/2024 Temperature 97.4 degrees Fahrenheit 05/31/2024 Blood pressure diastolic 70 mm Hg 05/31/2024 Height 59 in 05/31/2024 Blood pressure systolic 122 mm Hg 05/31/2024 Weight 122 lbs 05/31/2024 BMI 24.64 kg/m2 05/31/2024 Encounters Encounter Location Date Provider Diagnosis [facility] [address] [place] [address] 01/02/2024 Dorina Adorno Postmenopausal bleeding N95.0 ; Postmenopausal atrophic vaginitis N95.2 and Acute vaginitis N76.0 [facility] [address] [place] [address] 02/19/2024 Dorina Adorno Unsatisfactory cytologic smear of cervix R87.615 and Personal history of malignant neoplasm of other parts of uterus Z85.[address] [place] [address] 05/31/2024 Dorina Patelueva Encounter for screening mammogram [...] MAMMOGRAM, SCREENING 02/16/2016 MAMMOGRAM, SCREENING 10/21/2014 Urinalysis 02/20/2018 Urinalysis 02/16/2016 ONE SWAB 01/02/2024 25OH VITAMIN D 07/09/2021 25OH VITAMIN D 01/27/2022 25OH VITAMIN D 06/18/2021 COMPLETE URINALYSIS 10/21/2014 COMPREHENSIVE METABOLIC PANEL 06/18/2021 N-TELOPEPTIDE CROSS 06/18/2021 PTH, INTACT 06/18/2021 PTH, INTACT 01/19/2022 PTH, INTACT 07/09/2021 TSH 06/18/2021 BONE DENSITY 05/26/2023 BONE DENSITY 05/31/2024 BONE DENSITY 05/13/2021 MM Digital Mammo Screening 02/16/2016 MM Digital Mammo Screening 02/20/2017 MM Digital Mammo Screening 02/21/2019 MM Digital Mammo Screening 05/13/2021 MM Digital Mammo Screening 05/18/2022 MM Digital Mammo Screening 05/31/2024 MM Digital Mammo Screening 05/26/2023 Next Appt Details Provider Name:Dorina butler, 06/09/2025 10:00:00 AM, [address], [address], [place], [address], Insurance Providers Payer Name Payer Address Payer Phone Subscriber Number Group Number Insured Name Patient Relationship to Insured Coverage Start Date Coverage End Date [facility] PL[facility] [address] [place], [place] [id number] ALEXA ROBERTSON Self - patient is the insured [employer] [address] [place] [address] [id number] ALEXA ROBERTSON Self - patient is the [...] bleeding N95.0 Surgical History Surgery Date(Month/Year) ASHWINI/BSO [place] Colonoscopy Colon Cancer - Nephrology Tubes Hospitalization History Reason Date(Month/Year) Small Bowel Blockage 2018 4x for Small Bowel Blockage 2017 See Surgical Hx 2 Vaginal Deliveries
== END 2024-11-21 10:25 | disposition home or self-care (01) ==
LOC: HO.MAMMO 10:24
PROVIDERS: PCP Internal Medicine; Visit Provider Internal Medicine
DX: Z12.31 Encounter for screening mammogram for malignant neoplasm of breast (principal)
CPT/HCPCS: 77063; 77067

== ENCOUNTER → 2024-11-21 11:00 | Outpatient (BNV) | payer OTHER, SELFPAY | PROVIDERS: PCP Internal Medicine; Visit Provider Radiology Body Imaging | DX: Z12.31 Encounter for screening mammogram for malignant neoplasm of breast (principal) | CPT/HCPCS: 77063; 77067 ==

== ENCOUNTER 2025-01-31 10:06 | Outpatient (AMB) | payer OTHER, SELFPAY ==
--- OUTSIDE RECORDS SUMMARY | 2025-01-31 10:10 | XMS_ITS | Patient Health Record ---
Author Organization [facility] Address [address] [place] [address] Care Team Providers Care Payment Specialist Name Role Phone KYLE RAMIREZ M.D. Primary Care Provider Dorina Pedroza Unavailable [phone] Allergies Allergen (clinical drug ingredient) Drug/Non Drug Allergy documented on EMR Reaction Allergy Type Onset Date Status meperidine DEMEROL Nausea/Vomiting /Diarrhea Drug Allergy Active hydromorphone Dilaudid Unknown Drug Allergy Act elizabeth fentanyl Fentanyl Unknown Drug Allergy Active acetaminophen / oxycodone Percocet Unknown Drug Allergy Active codeine Codeine Unknown Drug Allergy Active Results Component Value Reference Range Notes PDF Report Reviewed date:02/23/2024 02:00:13 PM Interpretation: Performing Lab:[facility], [address] [place] [address], Phone - [phone], Director - Tim Notes/Report: Clinical Information:vaginal/ cervical NEW ORDERS FROM PRACTICE S/P HYST Source.............Cervix;Vagina Dates / Results....01/02/24 No. of containers..01 ThinPrep Vial [id number] IGP No Culture 30 Plus Reviewed date:02/23/2024 02:00:32 PM Interpretation: Performing Lab:[facility], [address] [place] [address], Phone - [phone], Director - Tim Notes/Report: Clinical Information:vaginal/ cervical NEW ORDERS FROM PRACTICE S/P HYST Source.............Cervix;Vagina Dates / Results....01/02/24 No. of containers..01 ThinPrep Vial DIAGNOSIS: NEGATIVE FOR INTRAEPITHELIAL LESION OR MALIGNANCY. REACTIVE CELLULAR CHANGES AND/OR REPAIR ARE PRESENT. Specimen adequacy: Satisfact ory for evaluation. Clinician provided ICD10: N9 5.0 Performed by: Albert Michel , [employer]rel Press Hand (ASCP) Electronically signed by: Drea Victoria MD, [...] Hydrobromide 20MG 1 ORAL daily; Duration: -3 [facility] 10/13/2011 Active Vitamin D (Ergocalciferol) 1.25 MG (44994 UT) Oral; Duration: 28 Days Active Amitriptyline [...] tablet as needed Orally NEEDED Active Biotin 41399 MCG 1 tablet Orally Once a day; [...] Status Risk Notes Problem Postmenopausal atrophic vaginitis (01203282) Postmenopausal atrophic vaginitis (N95.2) Active confirmed Problem Postmenopausal bleeding (04577645) Postmenopausal bleeding (N95.0) Active confirmed Problem Age-related osteoporosis (119052527) Age-related osteoporosis without current pathological fracture (M81.0) Active confirmed Problem Malignant neoplasm of colon (299597522) Malignant neoplasm of colon, unspecified (C18.9) Active confirmed Problem Malignant neoplasm of corpus uteri, excluding isthmus (508965604) 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) Active confirmed Problem Hypervitaminosis D (24960753) 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) Active confirmed Problem Atrophy of vulva (982405053) Atrophy of vulva (N90.5) Active confirmed Problem Personal history of primary malignant neoplasm of gastrointestinal tract (246523911) Personal history of malignant neoplasm of unspecified digestive organ (Z85.00) Active confirmed Problem Personal history of primary malignant neoplasm of female genital organ (805144133) Personal history of malignant neoplasm of other parts of uterus (Z85.42) Active confirmed Problem Vitamin D deficiency (61032802) Vitamin D deficiency, unspecified (E55.9) Active confirmed Problem 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 Problem Malignant neoplasm of corpus uteri, excluding isthmus (disorder) (993593205) Malignant neoplasm of corpus uteri, except isthmus (182.0) Active confirmed Diag Problem Hypothyroidism (25729193) Unspecified hypothyroidism (244.9) Active confirmed Major Problem Hyperlipidemia (47736995) Other and unspecified hyperlipidemia (272.4) Active confirmed Major Problem Cardiac arrhythmia (886911729) Unspecified cardiac dysrhythmia (427.9) Active confirmed Major Problem Esophageal reflux (318565209) Esophageal reflux (530.81) Active confirmed Major Problem Menopausal symptom (75317588) Symptomatic menopausal or female climacteric states (627.2) Active confirmed Major Problem Gynecological examination normal (954267151417019) Routine gynecological examination (V72.31) Active confirmed Problem Screening for malignant neoplasm of colon (160228994) Special screening for malignant neoplasms, colon (V76.51) Active confirmed Major Vital Signs Heart Rate 67 /min 02/19/2024 Temperature 97.4 degrees Fahrenheit 05/31/2024 Blood pressure diastolic 70 mm Hg 05/31/2024 Height 59 in 05/31/2024 Blood pressure systolic 122 mm Hg 05/31/2024 Weight 122 lbs 05/31/2024 BMI 24.64 kg/m2 05/31/2024 Encounters Encounter Location Date Provider Diagnosis [facility] [employer] [facility] [facility] [address] [address] [place] [address] 02/19/2024 Dorina Adorno Unsatisfactory cytologic smear of cervix R87.615 and Personal history of malignant neoplasm of other parts of uterus Z85.42 [facility] [address] [place] [address] 05/31/2024 Dorina Adorno Encounter for screening mammogram [...] RADIATION THERAPY. NO RECURRENCE HAS BEEN NOTED. 05/31/2024 Age-related osteoporosis without current pathological fracture [...] Test Test Name Order Date MAMMOGRAM, SCREENING 10/21/2014 MAMMOGRAM, SCREENING 05/13/2021 MAMMOGRAM, SCREENING 05/18/2022 MAMMOGRAM, SCREENING 05/26/2023 MAMMOGRAM, SCREENING 05/31/2024 MAMMOGRAM, SCREENING 02/20/2017 MAMMOGRAM, SCREENING 02/16/2016 Urinalysis 02/16/2016 Urinalysis 02/20/2018 ONE SWAB 01/02/2024 25OH VITAMIN D 07/09/2021 25OH VITAMIN D 01/27/2022 25OH VITAMIN D 06/18/2021 COMPLETE URINALYSIS 10/21/2014 COMPREHENSIVE METABOLIC PANEL 06/18/2021 N-TELOPEPTIDE CROSS 06/18/2021 PTH, INTACT 06/18/2021 PTH, INTACT 01/19/2022 PTH, INTACT 07/09/2021 TSH 06/18/2021 BONE DENSITY 05/13/2021 BONE DENSITY 05/26/2023 BONE DENSITY 05/31/2024 MM Digital Mammo Screening 02/16/2016 MM Digital Mammo Screening 05/26/2023 MM Digital Mammo Screening 05/31/2024 MM Digital Mammo Screening 05/18/2022 MM Digital Mammo Screening 02/20/2017 MM Digital Mammo Screening 02/21/2019 MM Digital Mammo Screening 05/13/2021 Next Appt Details Provider Name:Dorina Tonya butler, 06/09/2025 10:00:00 AM, [address], [address], [place], [address], Insurance Providers Payer Name Payer Address Payer Phone Subscriber Number Group Number Insured Name Patient Relationship to Insured Coverage Start Date Coverage End Date [facility] [address] [place], [place] [id number] [phone] [id number] MARCELO ALEXA Self - patient is the insured [facility] [address] [place] [address] [phone] [id number] ALEXA ROBERTSON Self - patient is the [...] bleeding N95.0 Surgical History Surgery Date(Month/Year) ASHWINI/BSO [place] Teeth Colonoscopy Colon Cancer - Nephrology Tubes Hospitalization History Reason Date(Month/Year) Small Bowel Blockage 2017 4x for Small Bowel Blockage 2016 See Surgical Hx 2 Vaginal Deliveries
--- OUTSIDE RECORDS SUMMARY | 2025-01-31 10:10 | XMS_ITS ---
[facility] [place] [address] [place] [address] * (ABNORMAL) Result (12/03/2024 9:00 AM EDT) Pathologist [facility] Result Comment(A) [facility] [phone] Comment: Pseudomonas aeruginosa Ceftazidime-avibactam and ceftolozane-tazobactam may be considered for therapy ONLY when multi-drug resistance (MDR) is demonstrated to meropenem and other tested agents. Greater than 100,000 colony forming units per mL ANTIMICROBIAL SUSCEPTIBILITY Comment [facility] [place] [phone] Comment: S = Susceptible; I = Intermediate; R = Resistant P = Positive; N = Negative MICS are expressed in micrograms per mL Antibiotic RSLT#1 RSLT#2 RSLT#3 RSLT#4 Amikacin S Cefepime S Ceftazidime S Ceftazidime/avibactam S Ceftolozane/tazobactam S Ciprofloxacin S Levofloxacin S Meropenem S Piperacillin/Tazobactam S Tobramycin S 12/03/2024 9:00 AM EDT 12/03/2024 Lili NAVARRO LAB MICROBIOLOGY - GENERAL ORDERABLES Final Result [facility] [address], [address] [place] [address] * (ABNORMAL) Urinalysis with microscopic (12/03/2024 9:00 AM EDT) Specific [place], Urine 1.009 1.005 - 1.030 [facility] [place] [phone] pH Urine >=9.0(A) 5.0 - 7.5 [facility] [place] [facility] [phone] Color, Urine Yellow Yellow [facility] [place] [facility] [phone] Appearance Urine Turbid(A) Clear [facility] [place] [phone] WBC Esterase Urine 3+(A) Negative [facility] [place] [phone] Protein, Ur 3+(A) Negative/Tra ce [facility] Glucose, Ur Trace(A) Negative [facility] Ketones, Urine Negative Negative [facility] [place] Blood Urine Trace(A) Negative [facility] Bilirubin Urine Negative Negative [facility] [place] Urobilinogen Urine 0.2 0.2 - 1.0 mg/dL [facility] [place] [facility] Nitrite, Urine Negative Negative [facility] [place] [phone] Microscopic Examination See below: [facility] [place] [phone] Comment:Microscopic was yang cated and was performed. 12/03/2024 9:00 AM EDT 12/03/2024 Lili May [facility] LAB URINE ORDERABLES Final Result [facility] [place] [address] [place] [address] * (ABNORMAL) Urine Culture (12/03/2024 9:00 AM EDT) Culture Result, Urine Final report(A) [facility] [place] 12/03/2024 9:00 AM EDT 12/03/2024 Comment: Lili May [facility] LAB URINE ORDERABLES Final Result [facility] Quintanilla [address], [address] [place] [address] from Last 3 Months Insurance [facility] Care Teams Machine Hostler Relationship Specialty Start Date End Date Lenin Laird MD [facility] INTERNAL [address] [place] PCP - General Internal Medicine 09/12/23
--- OUTSIDE RECORDS SUMMARY | 2025-01-31 10:10 | XMS_ITS | Continuity of Care Document ---
Author Organization [facility] [address] [place] [address] Phone [phone] Care Team Providers Care Battery Engineer Name Role Phone Lenin Laird Care Team Information Research Contracts Supervisor [phone] Problems Active Problems Provider Date Deep venous [...] Order ing Provider Date Vitamin D (Ergocalciferol)1.25mg (30393 Ut) Capsules take 1 capsule by mouth weekly as directed 8caps Guanakito Richey M.D. 03/24/2023 Vitamin D-1000 Maximum Bwqefdvs51shh (1000 Ut) Tablets 2by mouth every day Guanakito Richey M.D. 08/29/[address] Take one capsule daily Po, Lorenver Loperamide HCL2mg Capsules Take 2 capsule three times daily Unknown Amitriptyline LMT25uw Tablets Take 1 tablet daily Angelina Hamlin MD Citalopram Goafxyimscts05uj Tablets Take 1 tablet daily Po, Lorenver Awwsiojbuop629rz Tablets Take 1 tablet daily Po, Lorenver Levothyroxine Ecxegl63efp Tablets Take 1 tablet daily Po, Lorenver Ezsnwjfykpcgst2098rdv/ ML Solution As directed monthly Po, Lorenver Amlodipine Lnvsqgye99wt Tablets 1 by mouth every day Guanakito Richey M.D. Sumatriptan Gvlidlcne393ra Tablets take as directed for migraines Guanakito Richey M.D. Vital Signs Date Vital Result Comment 03/24/2023 1:24pm BP Systolic 130 mmHg BP Diastolic 70 mmHg Heart Rate 95 /min Height 60 inches 5'0 Weight 128.25 lb BMI (Body Mass Index) 25.0 kg/m2 Results Test Acquired Date Facility Test Result H/L Range N ote Calcium 08/31/2022 [facility] Calcium 9.3 mg/dL (8.6-10.5 ) Period & Volume 02/09/2022 [facility] Urine Collection Period 24 HRS Volume 1200 MLS Creatinine 02/09/2022 [facility] Creatinine 2.4 mg/dL High (0.5-1.0) Estimated GFR Creatinine 21 ML/MIN/1.7 3M2 1 Wkxsvay-Ix-Zyhl t 02/09/2022 [facility] Calcium, Urine, MG/DL 2.3 mg/dL Calcium, Urine GM/24HR 0.03 GM/24HR Low (0.05-0.3 0) Creat Clearance 02/09/2022 [facility] Creatinine, Urine MG/DL 69.2 mg/dL Blood Creat 2.4 mg/dL High (0.5-1.0) Creat Clearance 24.0 mL/min Low (66-143) Creatinine Ur GM/24HR 0.8 GM/24HR (0.72-1.5 ) PTH, Intact 02/08/2022 [facility] PTH, Intact 55 pg/mL (15-65) Basic Metabolic Panel 02/08/2022 [facility] Glucose 91 mg/dL (70-99) BUN [...] Appt Nigel e Guanakito Richey M.D. Closed [address] [place] [address] Drive [address] [place] [address] [phone] Guanakito Richey M.D. Created [address] [place] [address] Drive [address] [place] [address] [phone]
--- OUTSIDE RECORDS SUMMARY | 2025-01-31 10:10 | XMS_ITS | Clinical Summary ---
Author Organization [address] [facility] Address [address] [place] [address] Phone Care Team Providers Care Board Filler Name Role Phone Lenin Laird MD Primary Care Provider [phone] Encounters Date Type Department Care Team Description 01/13/2025 Lab Requisition [facility] - Main Lab [address] [facility] [place] [address] Chris Vázquez PA Chronic kidney disease, stage 4 (severe) (CMS/HCC V24, CMS/HCC V28) from Last 3 Months Social History Tobacco Use Types Packs/Day Years Used Date Smoking Tobacco: Never Assessed Comments Unknown Sex and Gender Information Value Date Recorded Sex Assigned at Not on file Legal Sex Female 5:28 PM EST Gender Identity Not on file Sexual Orientation Not on file Plan of Treatment Health Maintenance Due Date Last Done Comments Colorectal Cancer Screening: Colonoscopy 1950 DTaP,Tdap,and Td Vaccines (1 - Tdap) 1968 Pneumococcal Vaccine: 50+ Ye ars (1 of 1 - PCV) 08/17/1999 Zoster Vaccines (1 of 2) 08/17/1999 Depression Screening 02/07/2024 RSV Immunization Adult Patie nts (1 - 1-dose 75+ series) 2024 COVID-19 Vaccine (1 - 2024-2 6 season) 2024 Influenza Vaccine (#1) 2024 Falls Risk Assessment 01/13/2025 Hepatitis C Screening 01/13/2025 Osteoporosis Screening (Bone Density Screening) 01/13/2025 Social Influencers of Health Screening 01/13/2025 HIB Vaccines Aged Out No longer eligi ble based on patient's age to complete this topic HPV Vaccines Aged Out No longer eligi ble based on patient's age to complete this topic Hepatitis A Vaccines Aged Out No long er eligible based on patient's age to complete this topic Hepatitis B Vaccines Aged Out No long er eligible based on patient's age to complete this topic IPV Vaccines Aged Out No longer eligi ble based on patient's age to complete this topic MMR Vaccines Aged Out No longer eligi ble based on patient's age to complete this topic Meningococcal ACWY Vaccine Aged Out N o longer eligible based on patient's age to complete this topic Meningococcal B Vaccine Aged Out No l onger eligible based on patient's age to complete this topic RSV Immunization Patients Un aixa 20 months Aged Out No longer eligible b ased on patient's age to complete this topic Varicella Vaccines Aged Out No longer eligible based on patient's age to complete this topic Procedures Procedure Name Priority Date/Time Associated Diagnosis Comments CBC WITH AUTO DIFFERENTIAL Routine 01/13/2025 11:55 AM EST Chronic kidney disease, stage 4 (severe) ([facility] V24, [facility] V28) CBC AND DIFFERENTIAL Routine 01/13/2025 11:55 AM EST Chronic kidney disease, stage 4 (severe) ([facility]/HCC V24, CMS/[facility] V28) from Last 3 Months Results * (ABNORMAL) CBC auto differential (01/13/2025 11:55 AM EST) WBC 7.2 4.8 - 10.8 K/mcL LAB HEMETOLOGY METHOD 01/13/2025 6:24 PM [facility] RBC 3.60(L) 3.80 - 4.80 M/mcL LAB HEMETOLOGY METHOD 01/13/2025 6:24 PM [facility] Hemoglobin 10.5(L) 11.5 - 16.0 g/dL LAB HEMETOLOGY METHOD 01/13/2025 6:24 PM [facility] Hematocrit 35.1 35.0 - 47.0 % LAB HEMETOLOGY METHOD 01/13/2025 6:24 PM [facility] LAB MCV 98.0 79.0 - 98.0 FL LAB HEMETOLOGY METHOD 01/13/2025 6:24 PM [facility] LAB MCH 29.3 27.0 - 32.0 pcg LAB HEMETOLOGY METHOD 01/13/2025 6:24 PM [facility] LAB MCHC 29.9(L) 32.0 - 37.0 g/dL LAB HEMETOLOGY METHOD 01/13/2025 6:24 PM [facility] LAB RDW 16.3(H) 11.0 - 15.0 % LAB HEMETOLOGY METHOD 01/13/2025 6:24 PM [facility] LAB Platelets 289 130 - 400 K/mcL LAB HEMETOLOGY METHOD 01/13/2025 6:24 PM [facility] MPV 11.7(H) 7.0 - 11.0 FL LAB HEMETOLOGY METHOD 01/13/2025 6:24 PM [facility] LAB NRBC 0.0 <1.0 % LAB HEMETOLOGY METHOD 01/13/2025 6:24 PM [facility] NRBC Absolute 0.00 <0.10 K/mcL LAB HEMETOLOGY METHOD 01/13/2025 6:24 PM [facility] Neutrophils Relative 71.7 % LAB HEMETOLOGY METHOD 01/13/2025 6:24 PM [facility] Lymphocytes Relative 17.2 % LAB HEMETOLOGY METHOD 01/13/2025 6:24 PM [facility] Monocytes Relative 8.4 % LAB HEMETOLOGY METHOD 01/13/2025 6:24 PM [facility] Eosinophils Relative 1.4 % LAB HEMETOLOGY METHOD 01/13/2025 6:24 PM [facility] Basophils Relative 1.0 % LAB HEMETOLOGY METHOD 01/13/2025 6:24 PM [facility] Immature Granulocytes Relative 0.3 % LAB HEMETOLOGY METHOD 01/13/2025 6:24 PM EST [facility] Neutrophils Absolute 5.14 1.50 - 7.00 K/mcL LAB HEMETOLOGY METHOD 01/13/2025 6:24 PM EST [facility] Lymphocytes Absolute 1.23 1.00 - 5.00 K/mcL LAB HEMETOLOGY METHOD 01/13/2025 6:24 PM [facility] Monocytes Absolute 0.60 0.20 - 1.00 K/mcL LAB HEMETOLOGY METHOD 01/13/2025 6:24 PM EST [facility] LAB Eosinophils Absolute 0.10 0.00 - 0.50 K/mcL LAB HEMETOLOGY METHOD 01/13/2025 6:24 PM [facility] Basophils Absolute 0.07 0.00 - 0.20 K/mcL LAB HEMETOLOGY METHOD 01/13/2025 6:24 PM [facility] LAB Immature Granulocytes Absolute 0.02 0.00 - 0.03 K/mcL LAB HEMETOLOGY METHOD 01/13/2025 6:24 PM [facility] Blood Venous blood specimen / Unknown 01/13/2025 11:55 AM EST 01/13/2025 5:37 PM EST Chris GLORIA LAB BLOOD ORDERABLES Final Result [facility]) [facility] [address] [place] [address], from Last 3 Months Insurance [employer] Care Teams Board Filler Relationship Specialty Start Date End Date Lenin Laird MD [address] [place] [address] [address] [facility] [place] [address] PCP - General Internal Medicine 01/13/25
--- OUTSIDE RECORDS SUMMARY | 2025-01-31 10:10 | XMS_ITS | Encounter Summary ---
Author Organization [facility] Address [address] [facility] [address] [place] [address] Phone Care Team Providers Care Medication Specialist Name Role Phone Lenin Laird MD Primary Care Provider [phone] Encounter Details Date Type Department Care Team (Late Contact Info) Description 02/23/2021 Telephone [facility] [address] [facility] [address] [facility] [address] [place] [phone] Gabe Oro, DO [address] [place] [phone] Social History Tobacco Use Types Packs/Day Years [...] Department Care Team (Late Contact Info) Description 06/10/2025 10:00 AM EDT Office Visit [facility] [address] [facility] [address] [place] [phone] Mike Morgan MD [address] [address] documented as of this encounter Visit Diagnoses Not on filedocumented in this encounter Care Teams Medication Specialist Relationship Specialty Start Date End Date Lenin Laird MD [facility] [address] [place], [place] PCP - General Internal Medicine 09/12/23 documented as of this encounter
--- OUTSIDE RECORDS SUMMARY | 2025-01-31 10:10 | XMS_ITS | Encounter Summary ---
Author Organization [facility] Address [address] [place] [address] Care Team Providers Care Space Engineer Name Role Phone Lenin Laird MD Primary Care Provider [phone] Encounter Details Date Type Department Care Team (Late st Contact Info) Description 01/13/2025 Lab Requisition [facility] - Main Lab [address] [facility] [place] [address] Chris Vázquez PA [address] [place] [address] Chronic kidney disease, stage 4 (severe) (CMS/HCC V24, CMS/HCC V28) Social History Tobacco Use Types Packs/Day Years Used Date Smoking Tobacco: Never Assessed Comments Unknown Sex and Gender Information Value Date Recorded Sex Assigned at Not on file Legal Sex Female 5:28 PM EST Gender Identity Not on file Sexual Orientation Not on file documented as of this encounter Plan of Treatment Not on file documented as of this encounter Procedures Procedure Name Priority Date/Time Associated Diagnosis Comments CBC WITH AUTO DIFFERENTIAL Routine 01/13/2025 11:55 AM EST Chronic kidney disease, stage 4 (severe) (CMS/HCC V24, CMS/HCC V28) CBC AND DIFFERENTIAL Routine 01/13/2025 11:55 AM EST Chronic kidney disease, stage 4 (severe) (CMS/HCC V24, CMS/HCC V28) documented in this encounter Results * (ABNORMAL) CBC auto differential (01/13/2025 11:55 AM EST) WBC 7.2 4.8 - 10.8 K/[facility] LAB HEMETOLOGY METHOD 01/13/2025 6:24 PM [facility] RBC 3.60(L) 3.80 - 4.80 M/mcL LAB HEMETOLOGY METHOD 01/13/2025 6:24 PM [facility] LAB Hemoglobin 10.5(L) 11.5 - 16.0 g/dL LAB HEMETOLOGY METHOD 01/13/2025 6:24 PM [facility] LAB Hematocrit 35.1 35.0 - 47.0 % LAB HEMETOLOGY METHOD 01/13/2025 6:24 PM [facility] LAB MCV 98.0 79.0 - 98.0 FL LAB HEMETOLOGY METHOD 01/13/2025 6:24 PM [facility] LAB MCH 29.3 27.0 - 32.0 pcg LAB HEMETOLOGY METHOD 01/13/2025 6:24 PM [facility] LAB MCHC 29.9(L) 32.0 - 37.0 g/dL LAB HEMETOLOGY METHOD 01/13/2025 6:24 PM [facility] LAB RDW 16.3(H) 11.0 - 15.0 % LAB HEMETOLOGY METHOD 01/13/2025 6:24 PM [facility] LAB Platelets 289 130 - 400 K/mcL LAB HEMETOLOGY METHOD 01/13/2025 6:24 PM [facility] LAB MPV 11.7(H) 7.0 - 11.0 FL LAB HEMETOLOGY METHOD 01/13/2025 6:24 PM [facility] NRBC 0.0 <1.0 % LAB HEMETOLOGY METHOD 01/13/2025 6:24 PM [facility] NRBC Absolute 0.00 <0.10 K/mcL LAB HEMETOLOGY METHOD 01/13/2025 6:24 PM [facility] Neutrophils Relative 71.7 % LAB HEMETOLOGY METHOD 01/13/2025 6:24 PM [facility] Lymphocytes Relative 17.2 % LAB HEMETOLOGY METHOD 01/13/2025 6:24 PM [facility] Monocytes Relative 8.4 % LAB HEMETOLOGY METHOD 01/13/2025 6:24 PM [facility] Eosinophils Relative 1.4 % LAB HEMETOLOGY METHOD 01/13/2025 6:24 PM [facility] Basophils Relative 1.0 % LAB HEMETOLOGY METHOD 01/13/2025 6:24 PM [facility] Immature Granulocytes Relative 0.3 % LAB HEMETOLOGY METHOD 01/13/2025 6:24 PM [facility] Neutrophils Absolute 5.14 1.50 - 7.00 K/mcL LAB HEMETOLOGY METHOD 01/13/2025 6:24 PM [facility] Lymphocytes Absolute 1.23 1.00 - 5.00 K/mcL LAB HEMETOLOGY METHOD 01/13/2025 6:24 PM [facility] Monocytes Absolute 0.60 0.20 - 1.00 K/mcL LAB HEMETOLOGY METHOD 01/13/2025 6:24 PM [facility] Eosinophils Absolute 0.10 0.00 - 0.50 K/mcL LAB HEMETOLOGY METHOD 01/13/2025 6:24 PM [facility] Basophils Absolute 0.07 0.00 - 0.20 K/mcL LAB HEMETOLOGY METHOD 01/13/2025 6:24 PM [facility] Immature Granulocytes Absolute 0.02 0.00 - 0.03 K/mcL LAB HEMETOLOGY METHOD 01/13/2025 6:24 PM [facility] Blood Venous blood specimen / Unknown 01/13/2025 11:55 AM EST 01/13/2025 5:37 PM EST Chris GLORIA LAB BLOOD ORDERABLES Final Result [facility] [address] [place] [address], documented in this encounter Visit Diagnoses Diagnosis Chronic kidney disease, stage 4 (severe) (CMS/HCC V24, CMS/HCC V28) documented in this encounter Care Teams Space Engineer Relationship Specialty Start Date End Date Eitan, MD Lenin [address] [place] [address] Dr [address] [facility] [place] [address] PCP - General Internal Medicine 01/13/25 documented as of this encounter
--- OUTSIDE RECORDS SUMMARY | 2025-01-31 10:10 | XMS_ITS | Encounter Summary ---
Author Organization [facility] Address [address] [facility] [address] [place] [address] Phone Care Team Providers Care Car Pick Up Driver Name Role Phone Lenin Laird MD Primary Care Provider [phone] Encounter Details Date Type Department Care Team (Late st Contact Info) Description 02/23/2021 Telemedicine [facility] [address] [facility] [address] [place] [phone] Gabe Oro, DO [address] [place] [address] Hypertension (Primary Dx) Social History Tobacco Use [...] Care Team (Late st Contact Info) Description 06/10/2025 10:00 AM EDT Office Visit [facility] [address] [facility] [address] [place] [phone] Mike Morgan MD [address] [facility] [address] [place] [address] documented as of this encounter Procedures Procedure Name Priority Date/Time Associated Diagnosis Comments BASIC METABOLIC PANEL Routine 07/20/2021 4:31 PM EDT Hypertension documented in this encounter Results * (ABNORMAL) Basic Metabolic Panel (07/20/2021 4:31 PM EDT) Glucose 114(H) (70-99) MG/DL [facility] BUN 30(H) (8-23) MG/DL [facility] Creatinine 2.8(H) (0.5-1.0) MG/DL [facility] Sodium 137 (133-145) MMOL/L [facility] Potassium 5.3(H) (3.6-5.2) MMOL/L [facility] Chloride 109(H) (98-107) MMOL/L [facility] Bicarbonate (CO2) 19(L) (22-29) MMOL/L [facility] Anion Gap 9 (4-17) [facility] Calcium 8.9 (8.6-10.5) MG/DL [facility] Est GFR Non 18 ML/MIN/1.7 3 M2 [facility] Comment: Creatinine based estimated glomerular filtration (eGFR) in adults is calculated using the National Kid[employer] recommended 2020 CKD-EPI equation. Estimates GFR from serum creatinine, age and sex. Testing performed or reported by [facility], a Service of [facility], [address] [place] [address] Leon Moran MD, Gear Straightener [facility]# [id number] Blood specimen (specimen) Venous blood / Unknown 07/20/2021 4:31 PM EDT 07/20/2021 4:38 PM EDT us Gabe Oro DO LAB BLOOD ORDERABLES Final Resul t [facility] documented in this encounter Visit Diagnoses Diagnosis Hypertension- Primary documented in this encounter Care Teams Car Pick Up Driver Relationship Specialty Start Date End Date Lenin Laird MD [facility] INTERNAL [address] [place] PCP - General Internal Medicine 09/12/23 documented as of this encounter
--- OUTSIDE RECORDS SUMMARY | 2025-01-31 10:10 | XMS_ITS | Patient Health Record ---
Author Organization [facility] Address [address] [place] [address] Care Team Providers Care Electronic Parts Salesperson Name Role Phone Lenin Laird MD Primary Care Provider Ck Kothari Unavailable [phone] Allergies Allergen (clinical drug ingredient) Drug/Non Drug Allergy documented on EMR Reaction Allergy Type Onset Date Status codeine Codeine (uncoded) Unknown Allergy Ac tive meperidine Demerol (uncoded) Unknown Allergy A ctive acetaminophen / oxycodone Percocet (uncoded) Unknown Allergy Active hydromorphone Dilaudid Unknown Drug Allergy Act elizabeth Reason For Referral No Information Medications Medication SIG (Take, Route, Frequency, Duration) Notes Start Date End Date Status amLODIPine Besylate 5 MG Tablet 1 tablet Orally Once a day Active Cyanocobalamin 1000 MCG/ML Liquid 1 ml Injection once a month Active iron - - 1 tablet Oral as directed Active Multivitamins - Capsule 1 capsule Orally once a day Active Zinc Not-Taking /PRN Tricor 145 MG Tablet 1 tablet Orally Onc e a day Active Calcium & Magnesium Carbonates Not-Taking/PRN Citalopram Hydrobromide 20 MG Tablet 1 tablet Orally Once a day Active Topiramate Not-Takin g/PRN Diphenoxylate-Atropine 2.5-0.025 MG Tablet 1 tablet as needed Orally Four times a day Active Metoprolol Succinate 100 MG Capsule ER 24 Hour Sprinkle 1 tablet Orally as directed Active SUMAtriptan 100 mg 1 tablet orally when needed Active Levothyroxine Sodium 50 MCG Tablet 1 tablet on an empty stomach in the morning Orally Once a day Active Lisinopril 40 MG Tablet 1 tablet Orally Once a day Active Cholestyramine 4 GM/DOSE Powder 1 or 2 scoops mixed in glass of water or oj Orally Once or twice a day for diarrhea; Duration: 30 day(s) 08/23/2011 Not-Taking/PRN Omeprazole 20 MG Tablet Delayed Release 1 capsule Orally Once a day Active Vitamin D Not-Taking /PRN Immunizations Vaccine Route Administration Date Status Comme nts Influenza Unknown 10/07/2017 Administered Social History Social History Additional Details Category Social Info Options Details Miscellaneous: Marital status: 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 Notes: Nonsmoker; no alcohol except occasional wine Nonsmoker; no alcohol except occasional wine Nonsmoker; no alcohol except occasional wine Nonsmoker; no alcohol except occasional wine Nonsmoker; no alcohol except occasional wine Nonsmoker; no alcohol except occasional wine Problems Problem Type SNOMED Code ICD Code Onset Dates Problem Status W/U Status Risk Notes Problem Melena (4308321) Melena (K92.1) Active confirme d Problem Blood in stool (744651101) Blood in stool (K92.1) Active confirmed Problem Abnormal feces (576577186) Heme + stool (R19.5) Active confirmed Problem Small bowel obstruction (286142861) Small bowel obstruction (K56.69) Active confirmed Problem Iron deficiency anemia due to chronic blood loss (530839287) Iron deficiency anemia due to chronic blood loss (D50.0) Active confirmed Problem Generalized abdominal pain (196160167) Abdominal pain, generalized (R10.84) Active confirmed Problem Diarrhea (36501762) Diarrhea, unspecified type (R19.7) Active confirmed Problem Small bowel stricture (1268539810) Small bowel stricture (K56.69) Active confirmed Plan [...] Insured Coverage Start Date Coverage End Date [employer] PLAN (REFERRA L NEEDED) [address] [place] [phone] [id number] ALEXA ROBERTSON Self - patient is the insured Medical (General) History Medical History History ICD Code Colonoscopy in June of 2015 r evealed radiation-induced changes in the rectosigmoid area, diverticulosis, and internal hemorrhoids; colonoscopy on 04/21/2004 by -hx of radiation proctitis treated in [address] 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
--- OUTSIDE RECORDS SUMMARY | 2025-01-31 10:10 | XMS_ITS | Data Portability ---
Author Organization [place] [facility] Address [address] [place] [id number] Care Team Providers Care Fuel Testing Technician Name Role Phone KYLE RAMIREZ Primary Care Provider Assessment Encounter Date Assessment Date Assessment LastModified [...] Sensorineur al hearing loss of bilateral ears 106485651 Active 2023 Janell blanc [place] - [facility] 4 15:26:29 Dysfunction of right eustachian tube [id number] 101 Active 2023 Neeru blanc [facility] 4 16:48:40 Problem Notes None recorded. Procedures Surgical History Date Name Laterality Status Provider Name and Address Organization Details Recorded Time 09/08/19 24 Comp Audio with Tymps - 61082 & 52210 completed Janell Clark [facility] 09/08/2023 15:26:14 hysterectomy completed Pradip Urena [facility] 09/08/2023 14:46:49 resection of colon for interposition completed Pradip Urena [facility] 09/08/2023 14:47:08 Imaging Results None recorded. Procedure Notes None recorded. Medical Equipment None Reported. Allergies Allergen ID Allergen Name Allergen Category Reaction Reaction Severity Criticality Documentation Date Start Date Code Code System Note Provider Name and Address Organization Details Recorded Time 404415 Demerol medicatio n Not available Not available Not available 09/08/2023 90889 1 RxNorm Pradip blanc [facility] 14:45:50 295046 Ceprotin medicatio n Not available Not available Not available 09/08/2023 49637 6 RxJamil blanc [facility] 4 14:46:18 815285 fentanyl medicatio n Not available Not available Not available 09/08/2023 4337 RxJamil blanc [facility] 4 14:46:30 Medications Name Sig Start [...] Diagnosis SNOMED-CT Code Diagnosis ICD10 Code Diagnosis IMO Codes Diagnosis Note [id number] NEERU LAUGHLIN PA-C [facility] [address] [address] 09/08/2023 14:05:48 09/08/2023 16:43:24 Sensorineural hearing loss of bilateral ears 323066264 H90.3 Audiologic al evaluation results: Right ear: [...] A Dysfunctio n of right eustachian tube [id number] 186151 H69.91 Health Concerns Section Related Observation LastModified by Organization Detai ls LastModified Time None Recorded Concern Status LastModified by Organization Details LastModified Time None Recorded Advance Directives Directive None Recorded Payers Insurance Date Sequence Insurance Name Policy Number Policy Newberry Covered Member ID Newberry Member ID Guarantor Name 09/29/2023 1 [facility] (POS) [id number] Komal Espitia [id number] Komal Espitia Notes Date Note Type Note Provider Name and Address Organization Details Recorded Time 09/08/2023 text/html ROS as noted in the HPI 73 year old female presents for evaluation of ears and hearing. [...] damp but there is no malcolm otorrhea. Neeru blanc [place] - [facility] 09/08/2023 16:51:10 OBGyn Episode No OBEpisode recorded.
[2025-01-31 10:11] VITALS: BP 138/66; PULSE 83; TEMP 36.2; O2SAT 94; BMI 23.7
--- NOTE | 2025-01-31 10:11 | MHC.PC.OV ---
Vital Signs 01/31/25 10:11 Height 5 ft Weight 121 lb 8 oz BMI 23.7 BP 138/66 Blood Pressure Location Lt brachial Position Sitting Pulse 83 Pulse Source Pulse Oximeter Temp 97.1 F Temp Source Temporal Artery Scan Pulse Oximetry (%) 94 Oxygen Delivery Method Room Air Intake Visit Reasons: Annual Exam Allergies ciprofloxacin Allergy (Intermediate, Verified 01/31/25 10:11) body ache diazepam Allergy (Unknown, Verified 01/31/25 10:11) shortness of breath fentanyl (FENTANYL) Allergy (Unknown, Verified 01/31/25 10:11) VIOLENT SHAKING, TACHYCARDIA, seizure hydromorphone (HYDROMORPHONE) Adverse Reaction (Severe, Verified 01/31/25 10:11) UNCONTROLLED SHAKING, ELEVATED HEART RATE oxycodone (From PERCOCET) Adverse Reaction (Severe, Verified 01/31/25 10:11) Vomiting egg (EGGS) Adverse Reaction (Intermediate, Verified 01/31/25 10:11) Diarrhea codeine (CODEINE) Adverse Reaction (Unknown, Verified 01/31/25 10:11) Vomiting meperidine (Demerol) Adverse Reaction (Unknown, Verified 01/31/25 10:11) Nausea and Vomiting Medication List - Last Reconciled 01/31/25 by Lenin Laird MD amitriptyline 10 mg PO BEDTIME 90 days amlodipine 10 mg PO DAILY 90 days biotin 10,000 mcg PO DAILY calcium carbonate 1,000 mg PO DAILY citalopram (Celexa) 20 mg PO DAILY 90 days cyanocobalamin (vitamin B-12) 1,000 mcg subcut Q4W 90 days denosumab (Prolia) 60 mg subcut [id number] estradiol 0.01%(0.1mg/gram) 1 g vaginal TUFR fenofibrate nanocrystallized 145 mg PO DAILY 90 days ferrous sulfate (Feosol) 325 mg PO BID levothyroxine 75 mcg PO DAILY@0600 loperamide (Imodium A-D) 4 mg (2 x 2 mg) PO TID magnesium glycinate 840 mg PO DAILY metoprolol succinate ER 100 mg PO DAILY 90 days multivitamin 1 tab PO DAILY omeprazole 20 mg PO DAILY@0630 sodium bicarbonate 1,300 mg PO BID sumatriptan succinate (Imitrex) 50 mg PO DAILY PRN zinc acetate 25 mg PO DAILY Tobacco use date assessed: 01/31/25 Fall risk assessment: No Falls in past year Last assessed Fall Risk: 01/31/25 Dental Screening Dental Screen Date: 01/31/25 Did you have a dental visit in the last 12 months?: No Did you have a dental problem in the last 6 months where you did not have access to dental care?: No Was dental information given to patient?: No HPI HPI Comments History of Present Illness Details History of Present Illness The patient is a 74-year-old female presenting for a follow-up visit. Her last visit was in July 2024. She has a complex medical history including Toure's esophagus, hypertension, hypothyroidism, hypercholesterolemia, generalized anxiety disorder, and migraines for which she sees a neurologist and is prescribed amitriptyline and sumatriptan. Her history is significant for rectal cancer in 2020, treated with pelvic exenteration, as well as a history of uterine cancer, small bowel resection, and bowel obstruction. She follows with hematology-oncology, with the last note reviewed from December 12. She has stage 4 chronic kidney disease with associated hydronephrosis, considered to be from either radiation kidney injury or obstructive uropathy, and is followed by a civil engineering professional. She has chronic indwelling bilateral nephrostomy tubes and is followed by urology for this, with a consult note from January 14 noting irradiation cystitis with hematuria. She had an ER visit in December 2024 for fever due to a lack of drainage and leakage from the right nephrostomy tube, which required an exchange on January 11. She also had an ER visit in November for hemorrhagic cystitis. The patient has chronic hypomagnesemia, attributed to poor GI absorption from PPI use, a high-output ostomy, and urinary magnesium wasting. She also has metabolic bone disease, for which she receives Prolia injections and sees an grounds person. Review of recent labs from May showed a normal blood count without anemia and an LDL of 48. Blood work from June showed mild hyperkalemia and a renal function of 1.87. Her health maintenance is up to date, including a mammogram, a bone density scan in November 2023, and a colon test in May 2024. Health Maintenance A request for new lab work is available for the patient to complete when she is ready, as the most recent labs are from May and June. She will continue with Prolia injections for bone health and sees endocrinology for this management. Social History - Hydration: Reports adequate fluid intake. - COVID-19 precautions: The patient reports being careful and avoided a large family gathering on . Results - Labs (May): Normal blood count without anemia. LDL cholesterol was 48. - Labs (June): Mild hyperkalemia. Renal function was 1.87. - Tests: Cologuard test performed in May 2024. - Imaging: Bone density scan performed in November 2023. [facility] Medical History CKD (chronic kidney disease) Breast cancer screening by mammogram Small bowel obstruction Hypercholesterolemia GERD (gastroesophageal reflux disease) Vitamin D deficiency Enterovesical fistula Renal calculus Anxiety and depression Vitamin B12 deficiency Hypothyroid Toure's esophagus Fatty liver Uterine cancer Migraine Hypertension Surgical History History of laparotomy S/P ASHWINI-BSO History of radical hysterectomy Family History Family/Other Mental health disorder Social History Household Members: Spouse and Children [facility] Do you presently have visiting nurse or other home services: No Alcohol intake: current Alcohol intake frequency: holidays/special occasions only Alcohol type: wine Patient Tobacco Use Status: Never used Tobacco e-Cigarette/Vaping Use: Never Used Second Hand Smoke Exposure: Yes service: No Current occupational status: retired Cognitive needs: No Hearing needs: No Vision needs: Yes Questionnaire PHQ-9 Over the last 2 weeks, how often have you been bothered by any of the following problems? 1. Little interest or pleasure in doing things: not at all 2. Feeling down, depressed, or hopeless: not at all 3. Trouble falling or staying asleep, or sleeping too much: nearly every day 4. Feeling tired or having little energy: nearly every day 5. Poor appetite or overeating: not at all 6. Feeling bad about yourself - or that you are a failure or have let yourself or your family down: not at all 7. Trouble concentrating on things, such as reading the newspaper or watching television: not at all 8. Moving or speaking so slowly that other people could have noticed. Or the opposite - being so fidgety or restless that you have been moving around a lot more than usual: not at all 9. Thoughts that you would be better off or of hurting yourself in some way: not at all Total score: 6 Source: Developed by Drs. Schuyler Nicole, Roseanne Felix, Stef Villatoro and colleagues, with an educational tao from [employer]. Thrive Questionnaire Date Thrive assessed: 07/31/24 I am a: Patient What is your living situation today?: I have a steady place to live Within the past 12 months, did the food you bought not last and you didn't have the money to get more?: Never true Within the past 12 months, did you worry whether your food would run out before you got money to buy more?: Never true Do you have trouble paying for medicines?: No Do you have trouble getting transportation to medical appointments?: No Do you have trouble paying your heating and electricity bill?: No Do you have trouble taking care of your child, family member or friend?: No Do you have trouble with day-to-day activities such as bathing, preparing meals, shopping, managing finances, etc.?: No Are you currently unemployed and looking for a job?: No Are you interested in more education?: No Currently or been in a relationship where the following occur: No concerns reported THRIVE Score: 0 AUDIT C Alcohol Use Questionnaire (AUDIT-C) 1. How often do you have a drink containing alcohol?: Monthly or less 2. How many drinks containing alcohol do you have on a typical day when you are drinking?: 1 or 2 3. How often do you have six or more drinks on one occasion?: Never Total Score: 1 KAROLINA-7 AMB Questionnaire KAROLINA-7 Date KAROLINA - 7 assessed: 07/31/24 Feeling nervous, anxious, or on edge: 0 = Not at all Not being able to stop or control worryin = Not at all Worrying too much about different things: 0 = Not at all Trouble relaxin = Not at all Being so restless that it is hard to sit still: 0 = Not at all Becoming easily annoyed or irritable: 1 = Several days Feeling afraid as if something awful might happen: 0 = Not at all Total KAROLINA-7 score (0-4 normal; 5-9 mild; 10-14 moderate; 15-21 severe): 1 Source: Developed by Drs. Schuyler Nicole, Roseanne Felix, Stef Villatoro and colleagues, with an educational tao from [employer]. Review of Systems Narrative Review of Systems - Constitutional: Denies fevers. - Respiratory: Denies cough. - Cardiovascular: Denies peripheral edema. Physical exam (Primary Care) Vital Signs: Last Vital Signs Temp 97.1 F 01/31/25 10:11 Pulse 83 01/31/25 10:11 BP 138/66 01/31/25 10:11 Pulse Ox 94 01/31/25 10:11 Oxygen Delivery Method Room Air 01/31/25 10:11 BMI result Body Mass Index 23.7 Tobacco/Smoking Status: Tobacco use Status Tobacco use date assessed 01/31/25 01/31/25 10:16 Patient Tobacco Use Status Never used Tobacco 01/31/25 10:16 Tobacco use type 01/31/25 10:16 e-Cigarette/Vaping Use Never Used 01/31/25 10:16 PHQ-9: PHQ-9 Score PHQ-9: Total score 6 01/31/25 10:45 Thrive Assessment: Date of Thrive Assessment Date Thrive assessed 07/31/24 01/31/25 10:16 Currently or been in a relationship where the following occur: No concerns reported Narrative Physical Exam - Extremities: No edema noted in the legs. Const General: alert; No acute distress Eyes Conjunctivae: conjunctivae normal Resp Auscultation: clear to auscultation bilaterally Cardio Rate: regular rate Rhythm: regular rhythm GI Inspection: Yes normal to inspection Extrem General: Yes normal to inspection and No edema Coding Level of Care Code Est Pt Level 4 (72003) Add On Problem Visit Only Diagnoses Essential hypertension I10 Hypertension type: essential hypertension Hypercholesterolemia E78.00 Acquired hypothyroidism E03.9 Hypothyroidism type: acquired Toure's esophagus without dysplasia K22.70 Toure's esophagus type: without dysplasia Rectal cancer C20 Chronic kidney disease, stage IV (severe) N18.4 Hypomagnesemia E83.42 Hydronephrosis N13.30 Assessment & Plan Assessment & Plan (1) Hypertension: Code(s): I10 - Essential (primary) hypertension Category: Medical Qualifiers: Hypertension type: essential hypertension Qualified Code(s): I10 - Essential (primary) hypertension Plan: Continue with blood pressure medication. Decrease salt intake and exercise on metoprolol 100 mg once a day (2) Hypercholesterolemia: Code(s): E78.00 - Pure hypercholesterolemia, unspecified Category: Medical Plan: Avoid fried foods, chicken skin, eggs, butter margarine, pastries and meat. Be it pork or beef they have a lot of cholesterol fenofibrate 145 mg once a day (3) Hypothyroid: Code(s): E03.9 - Hypothyroidism, unspecified Category: Medical Qualifiers: Hypothyroidism type: acquired Qualified Code(s): E03.9 - Hypothyroidism, unspecified Plan: Continue with thyroid medication (4) Toure's esophagus: Comment: Dr. Valdez September 2011 sigmoidoscopy June 2015 colonoscopy EGD August 2015 Code(s): K22.70 - Toure's esophagus without dysplasia Category: Medical Qualifiers: Toure's esophagus type: without dysplasia Qualified Code(s): K22.70 - Toure's esophagus without dysplasia Plan: Avoid the foods that causes that usually spicy foods, tomato products, juices, coffee, soda and foods that your sensitive to. After eating do not lie down, allow 3-4 hours before in lie down. And keep the head of bed above 30 degrees to avoid the acid from going up. (5) Rectal cancer: Code(s): C20 - Malignant neoplasm of rectum Category: Medical Plan: Patient follows up with Hematology-Oncology (6) Chronic kidney disease, stage IV (severe): Code(s): N18.4 - Chronic kidney disease, stage 4 (severe) Category: Medical Plan: Continue to follow-up with Nephrology. Avoid NSAIDs continue to monitor electrolytes (7) Hypomagnesemia: Code(s): E83.42 - Hypomagnesemia Category: Medical Plan: Continue to monitor electrolyte (8) Hydronephrosis: Comment: February 2021 bilateral hydronephrosis with bilateral ureteral stent placement Code(s): N13.30 - Unspecified hydronephrosis Category: Medical Plan: Patient being followed up by Urology has had nephrostomy tubes Plan Plan Patient was informed and verbally consented to the use of an ambient scribe for clinic note documentation during this visit. 1. Hypertension Continue metoprolol 100 mg once daily. 2. Hypercholesterolemia Continue fenofibrate 145 mg once daily. Last LDL was 48 in May. 3. Hypothyroidism Continue current thyroid medication. 4. Chronic Kidney Disease, Stage 4 Continue follow-up with nephrology. Avoid NSAIDs. Continue to monitor electrolytes. 5. Bilateral Nephrostomy Tubes Continue follow-up with urology for management. 6. History Of Rectal Cancer Continue follow-up with hematology-oncology. 7. Hypomagnesemia Continue to monitor electrolytes, as levels can become low despite supplementation due to malabsorption. 8. Migraine Continue follow-up with neurology. Medications include amitriptyline and sumatriptan. Discussion Notes I reviewed the patient's extensive medical history and recent specialist visits with her. We discussed her current medications, and she confirmed she is taking them regularly and does not require any refills at this time. I noted that her last blood work was several months ago, and while I have a lab request for her, it is not an emergency and can be done when she is ready. We discussed her Prolia injection for bone health, and I reinforced what her grounds person told her, which is that it is a long-term medication that cannot be stopped. I advised her on the importance of staying hydrated, especially given her chronic kidney disease and issues with magnesium malabsorption. We also briefly touched on the importance of continuing to be cautious regarding infections, even though she is up to date with her vaccinations. Patient Instructions - Continue taking all your current medications as prescribed, including those for blood pressure, cholesterol, and thyroid. - Continue to see your specialists, including your kidney doctor (nephrology), cancer doctor (hematology-oncology), and urologist. - Avoid taking anti-inflammatory pain medications like ibuprofen (Advil, Motrin) or naproxen (Aleve) to help protect your kidneys. - Make sure to drink plenty of fluids to stay well-hydrated. - You have an order for new blood work. You can get this done when you are able, as it is not an emergency. - Your next Prolia shot for your bones is due in April.
== END 2025-01-31 10:55 | disposition home or self-care (01) ==
LOC: HO.HMCH 10:07
PROVIDERS: PCP Internal Medicine; Visit Provider Internal Medicine
DX: I12.9 Hypertensive chronic kidney disease with stage 1 through stage 4 chronic kidney disease, or unspecified chronic kidney disease (principal); E78.00 Pure hypercholesterolemia, unspecified; E03.9 Hypothyroidism, unspecified; K22.70 Barrett's esophagus without dysplasia; C20 Malignant neoplasm of rectum; N18.4 Chronic kidney disease, stage 4 (severe); E83.42 Hypomagnesemia; N13.30 Unspecified hydronephrosis

== ENCOUNTER → 2025-01-31 10:06 | Outpatient (BNVA) | payer OTHER, SELFPAY | PROVIDERS: PCP Internal Medicine; Visit Provider Internal Medicine | DX: I12.9 Hypertensive chronic kidney disease with stage 1 through stage 4 chronic kidney disease, or unspecified chronic kidney disease (principal); N18.4 Chronic kidney disease, stage 4 (severe); E78.00 Pure hypercholesterolemia, unspecified; E03.9 Hypothyroidism, unspecified; K22.70 Barrett's esophagus without dysplasia; C20 Malignant neoplasm of rectum; E83.42 Hypomagnesemia; N13.30 Unspecified hydronephrosis | CPT/HCPCS: 96127; 99212 ==